=== PATIENT | male | born 1950 | race Two or more races ===

== ENCOUNTER 2024-09-24 12:44 | Inpatient (IN) | payer OTHER, MEDICAID ==
[~2024-09-24] VITALS: Ht 170.2 cm; Wt 83.2 kg
[2024-09-24] VITALS (24 sets, daily range): BP systolic 88–132; BP diastolic 41–61; PULSE 60–101; RESP 16–24; TEMP 97.7–99.5; O2SAT 97–100
[2024-09-24] MEDS: ETOMIDATE (2MG/ML) 20ML VIAL IV ONE (12:46)
[2024-09-24] MEDS: ROCURONIUM 10MG/ML 10ML VIAL IV ONE (12:47)
--- NOTE | 2024-09-24 12:55 | ED.PDOC ---
Altered Mental Status HPI Comments 74 year old male presents to the ED via EMS with a chief complaint of ALOC onset today (09/24/24). PMHx CHF, HTN, CKF. Per EMS, patient was last seen well this morning at 06:00, baseline is A&O x4. A few hours after, family member went into room to check on the patient, was altered, unresponsive, 911 was called. Upon EMS arrival patient's O2 sat was 76% on RA with snoring respirations. Upon ED arrival rectal temperature was 101.8 F, BS 415. Patient was immediately sedated and intubated. Chief Complaint: ALOC Time Seen by MD: 12:38 Allergies: Coded Allergies: NO KNOWN ALLERGIES (Unverified , 09/24/24) Information Source: Emergency Med Personnel Mode of Arrival: EMS Severity: Moderate Timing: Hours Duration: Since onset Prehospital treatment: Oxygen Quality: Decreased Alertness, Change in Behavior Past Medical History PAST MEDICAL HISTORY: CHF, CKF, HTN Surgical History: Pacemaker Family History Family History: Unknown Social History Smoker: Unknown Alcohol: Unknown Drugs: Unknown Lives In: Home Unable to Obtain due to: Altered Mental Status Physical Exam General Appearance: Moderate Distress, Other (Patient being bagged by EMS) HEENT: Other (Copious secretions) Neck: Normal Inspection Respiratory: Other (Patient being bagged by EMS) Cardiovascular: No Edema Breast Exam: Deferred Gastrointestinal: Other (G-tube in place) Genitalia: Deferred Pelvic: Deferred Rectal: Deferred Extremities: No pedal edema Neurologic: Other (Patient is unresponsive) Cerebellar Function: NOT DONE Reflexes: NOT DONE Skin: Pallor Lymphatic: NOT DONE Was a procedure done? Was a procedure done?: Yes Sedation Sedation?: No Sedation total time: Central Line Recorder of insertion practice: Sheet Metal Insulator Occupation of inserter operator: Attending Physician Indication: Suspected infection Room prepared for procedure: Yes Sheet Metal Insulator performed hand hygien: Yes Maximal sterile barrier precau: Mask/Eye shield, Sterile gown, Cap, Sterlie gloves, Large sterlie drape Skin Preparation: Chlorhexidine gluconate, Providine iodine, Alcohol Skin preparation completely dr: Yes Insertion site: Right, Femoral Central line catheter type: Kbj-[id number]-jbb dialysis Number of lumens: 3 Post Assessment: Chest X-Ray, Proper placement Informed consent obtained: Yes Risks/benefits/alt described: Yes Intubation Indication: Respiratory Insufficiency, Altered Mental Status Prep: Preoxygenation Pretreated with: Sedation Medicated with: Other (Etomidate 20 mg, Rocuronium 100 mg) Intubation Approach: Orotracheal Intubation size: cm (24) Informed consent obtained: Yes Risks/benefits/alt described: Yes Differential Diagnosis (ALOC) Differential Diagnosis: Dehydration, Hypoglycemia, DKA, Encephalopathy, Hypoxemia, Seizure, CVA, Drug Overdose, ETOH Intoxication, Heart Failure, Renal Failure X-Ray, Labs, Meds, VS Vital Signs Date Time Temp Pulse Resp B/P (MAP) Pulse Ox O2 Delivery O2 Flow Rate FiO2 09/24/24 17:32 09/24/24 17:30 98.1 68 20 91/49 (63) 98 98.1 09/24/24 16:56 71 09/24/24 16:45 98.4 70 15 90/50 (63) 98 98.4 09/24/24 16:34 99.5 79 16 100/56 97 80 99.5 09/24/24 16:30 98.8 72 16 91/51 (64) 98 98.8 09/24/24 16:15 98.8 75 16 99/56 (70) 98 98.8 09/24/24 16:00 99.0 79 16 100/56 (71) 98 99.0 09/24/24 15:46 100/56 09/24/24 15:45 83 16 127/67 (87) 97 09/24/24 15:33 79 16 107/59 (75) 97 80 09/24/24 15:30 99.3 80 16 107/59 (75) 97 99.3 09/24/24 15:15 99.5 82 16 114/62 (79) 96 99.5 09/24/24 15:00 99.7 83 16 104/59 (74) 96 99.7 09/24/24 14:45 99.9 84 16 108/61 (77) 96 99.9 09/24/24 14:30 100.2 85 16 114/63 (80) 96 100.2 09/24/24 14:27 107/59 09/24/24 14:15 100.6 85 16 111/61 (78) 96 100.6 09/24/24 14:00 101.1 88 16 100/60 (73) 97 101.1 09/24/24 13:51 103/59 09/24/24 13:45 101.5 93 16 106/59 (75) 98 101.5 09/24/24 13:30 97 16 107/68 (81) 96 09/24/24 13:15 100 16 96/57 (70) 98 09/24/24 13:01 102 16 93/52 (66) 98 100 09/24/24 13:00 102 16 90/54 (66) 97 09/24/24 12:50 98 09/24/24 12:48 101 09/24/24 12:47 103/54 09/24/24 12:44 101 16 97 T-piece 15 N/A 09/24/24 12:44 101.8 110 10 103/46 (65) 95 101.8 09/24/24 12:44 101.7 101 16 90/54 (66) 97 101.7 Lab Test 09/24/24 16:09 09/24/24 14:49 09/24/24 14:04 09/24/24 13:54 Range/Units POC Glucose 310 H 70-106 mg/dl Lactic Acid Level 1.6 0.4-2.0 mmol/L Sodium Level 150 H 136-145 mmol/L Potassium Level 5.4 H 3.5-5.1 mmol/L Chloride Level 115 H 98-107 mmol/L Carbon Dioxide Level 27 20-31 mmol/L Anion Gap 8 5-15 Blood Urea Nitrogen 84 *H 9-23 mg/dL Creatinine 2.13 H 0.700-1.30 mg/dL Glomerular Filtration Rate Calc 32 >90 mL/min BUN/Creatinine Ratio 39.4 H 10.0-20.0 Serum Glucose 436 *H 74-106 mg/dL Calcium Level 8.4 L 8.7-10.4 mg/dL Total Bilirubin 0.5 0.2-1.0 mg/dL Aspartate Amino Transferase (AST) 19 13-40 U/L Alanine Aminotransferase (ALT) 20 7-40 U/L Alkaline Phosphatase 86 46-116 U/L Total Protein 6.4 5.7-8.2 g/dL Albumin 3.4 3.2-4.8 g/dL Blood Gas Specimen Type Arterial Blood Gas Sample Site Right brachial Blood Gas Patient Temperature 37.0 Arterial Blood Date Drawn [id number] Arterial Blood pH 7.308 L 7.350-7.450 Arterial Blood Partial Pressure CO2 48.9 H 35.0-48.0 mmHg Arterial Blood Partial Pressure O2 148.2 H 83.0-108.0 mmHg Arterial Blood HCO3 24.0 21.0-28.0 mmol/L Arterial Blood Oxygen Saturation 98.8 H 94.0-98.0 % Arterial Blood Base Excess -2.6 L -2.0-3.0 mmol/L Arterial Blood Oxyhemoglobin 97.5 94.0-98.0 % Arterial Blood Carboxyhemoglobin 0.8 0.5-1.5 % Arterial Blood Methemoglobin 0.5 0.0-1.5 % Damián Test N/a Blood Gas Total Hemoglobin 12.30 L 13.5-17.5 g/dL Blood Gas Set Respiration Rate 16.0 Blood Gas Modality Vent - ac FiO2 % 100.0 Blood Gas Tidal Volume 500.0 Blood Gas PEEP or CPAP 5.0 Test 09/24/24 13:33 09/24/24 13:00 Range/Units White Blood Count 6.2 4.4-10.8 10^3/uL Red Blood Count 4.10 L 4.5-5.90 10^6/uL Hemoglobin 12.2 L 13.5-17.5 g/dL Hematocrit 38.6 L 41.0-53.0 % Mean Corpuscular Volume 94.0 80.0-100.0 fL Mean Corpuscular Hemoglobin 29.8 28.0-32.0 pg Mean Corpuscular Hemoglobin Concent 31.7 L 32.0-36.0 g/dL Red Cell Distribution Width 16.6 H 11.8-14.3 % Platelet Count 130 L 140-450 10^3/uL Mean Platelet Volume 11.3 H 6.9-10.8 fL Neutrophils (%) (Auto) 65.7 37.0-80.0 % Lymphocytes (%) (Auto) 22.8 10.0-50.0 % Monocytes (%) (Auto) 10.8 0.0-12.0 % Eosinophils (%) (Auto) 0.1 0.0-7.0 % Basophils (%) (Auto) 0.6 0.0-2.0 % Neutrophils # (Auto) 4.1 1.6-8.6 10 ^3/uL Lymphocytes # (Auto) 1.4 0.4-5.4 10 ^3/uL Monocytes # (Auto) 0.7 0-1.3 10 ^3/uL Eosinophils # (Auto) 0 0-0.8 10 ^3/uL Basophils # (Auto) 0 0-0.2 10 ^3/uL Nucleated Red Blood Cells 0.1 % Urine Color Yellow Yellow Urine Clarity Ex.turbid Clear Urine pH 5.0 5.0-9.0 Urine Specific [place] 1.024 1.001-1.035 Urine Protein 2+ H Negative Urine Ketones Negative Negative Urine Blood Negative Negative /uL Urine Nitrite Negative Negative Urine Bilirubin Negative Negative Urine Urobilinogen 2 H Negative mg/dL Urine Leukocyte Esterase 3+ Negative /uL Urine RBC 8 0 - 3 /hpf Urine WBC Clumps Present None Seen /hpf Urine Microscopic WBC 450 H 0-3 /HPF Urine Squamous Epithelial Cells Few <5 /hpf Urine Amorphous Crystals Few None Seen /hpf Urine Bacteria Few H None Seen /hpf Urine Glucose Normal Normal mg/dL Lactic Acid Level 2.2 *H 0.4-2.0 mmol/L Troponin I High Sensitivity 125 *H </=54 ng/L B-Type Natriuretic Peptide 193.48 0-100 pg/mL Urine Opiates Screen Neg NEGATIVE Urine Fentanyl Screen Neg NEGATIVE Urine Barbiturates Screen Neg NEGATIVE Urine Phencyclidine Screen Neg NEGATIVE Urine Amphetamines Screen Neg NEGATIVE Urine Benzodiazepines Screen Neg NEGATIVE Urine Cocaine Screen Neg NEGATIVE Urine Cannabinoids Screen Neg NEGATIVE Microbiology Date/Time Source Procedure Growth Status 09/24/24 13:09 Sputum Gram Stain - Final Resulted 09/24/24 13:09 Sputum Respiratory Culture Pending Resulted Current Medications Medications (Trade) Dose Ordered Sig/Jim Route Start Time Stop Time Status Last Admin Etomidate 20 mg ONCE ONCE IV 09/24/24 13:00 09/24/24 13:01 DC 09/24/24 12:46 Rocuronium [place] 100 mg ONCE ONCE IV 09/24/24 13:00 09/24/24 13:01 DC 09/24/24 12:47 Sodium Chloride 2,000 ml @ 2,000 mls/hr ONCE ONCE IV 09/24/24 13:00 09/24/24 13:59 DC 09/24/24 13:14 Vancomycin HCl 200 ml @ 200 mls/hr ONCE ONCE IV 09/24/24 13:00 09/24/24 13:59 DC 09/24/24 13:14 Cefepime HCl 50 ml @ 12.5 mls/hr ONCE ONCE IV 09/24/24 13:00 09/24/24 16:59 DC 09/24/24 14:30 Midazolam HCl 50 ml @ 1 mls/hr Q24H IV 09/24/24 13:00 09/24/24 13:51 Acetaminophen (Ofirmev) 1,000 mg DAILY STAT IV 09/24/24 13:42 09/24/24 13:43 DC 09/24/24 13:47 [place] [id number] Ph: [phone] DIAGNOSTIC IMAGING Diagnostic Imaging Report : [id number] Signed PATIENT: NAGA DUMONT ACCT: [id number] UNIT: [id number] : 1950 LOC: ER ROOM / BED: / AGE / SEX: 74 / M ADM STATUS: REG ER SERVICE 1250 ORDERING PHYSICIAN: YOSHI FUENTES MD PROCEDURE(s): CXRP - CHEST PORTABLE REASON: INTUBATION ORDER NUMBER(s): [id number], ACCESSION NUMBER(s): [id number] EXAM: XY CHEST PORTABLE REASON FOR EXAM: INTUBATION TECHNIQUE: 1 view of the chest COMPARISON: None FINDINGS/IMPRESSION: LUNGS: Low lung volumes. Atelectasis and/or pleural effusion in the left lung base. MEDIASTINUM: Unremarkable BONES: No acute osseous abnormality OTHER: Endotracheal tube 2.1 cm above the harlan. Left anterior chest cardiac device. ATED BY: ELLIOTT BURT MD DICTATED DATE/TIME: 09/24/24 135 SIGNED BY: ELLIOTT BURT MD SIGNED DATE/TIME: 09/24/24 135 CC: Time of 1ST Reevaluation: 13:08 Reevaluation 1ST: Unchanged Patient Education/Counseling: Other Family Education/Counseling: Diagnosis, Treatment, Prognosis Additional Information The following tests were ordered, and results were reviewed by me: EKG, CBC, CMP, BNP, DRUG SCREEN, UA, URINE BACTERIAL CULTURE, LA W/ REFLEX, XY CHEST. TROP, RESPIRATORY CULTURE W/ GS, CT HEAD WO CONTRAST Additional Information was gathered from interviewing the following independent historians: EMS I reviewed and agreed with the following test results read by other providers: XY CHEST, CT HEAD WO CONTRAST I discussed treatment and results with medical personnel and: family Comprehensive systems review obtained and negative except for what is stated in the HPI. Departure 1 Departure Time of Disposition: 17:39 (Patient presented unresponsive not tolerating secretions. Patient was intubated, central line was placed patient likely septic received fluids antibiotics patient is a ICU for further workup) Impression: Primary Impression: Sepsis with acute respiratory failure and septic shock Qualified Codes: A41.9 - Sepsis, unspecified organism; R65.21 - Severe sepsis with septic shock; J96.01 - Acute respiratory failure with hypoxia Additional Impressions: Acute respiratory failure Qualified Codes: J96.01 - Acute respiratory failure with hypoxia Complicated UTI (urinary tract infection) Disposition: ADMITTED INPATIENT Admit to: ICU Condition: Critical Critical Care Note Critical Care Time?: Yes Critical care comment: Sepsis with the acute respiratory failure Authorized and Performed by: Yoshi Fuentes MD Total critical care time: Approximately 128 minutes Due to a high probability of clinically significant, life threatening deterioration, the patient required my highest level of preparedness to intervene emergently and I personally spent this critical care time directly and personally managing the patient. This critical care time included obtaining a history; examining the patient; pulse oximetry; ordering and review of studies; arranging urgent treatment with development of a management plan; evaluation of patient's response to treatment; frequent reassessment; and, discussions with other providers. This critical care time was performed to assess and manage the high probability of imminent, life-threatening deterioration that could result in multi-organ failure. It was exclusive of separately billable procedures and treating other patients and teaching time. Please see my other sections and the rest of the note for further information on patient assessment and treatment. Stability Stability form required: No I personally scribed for YOSHI FUENTES MD ([email or web address]) on 09/24/24 at 12:55. Electronically submitted by Mary Best ([email or web address]). I personally scribed for YOSHI FUENTES MD ([email or web address]) on 09/24/24 at 13:01. Electronically submitted by Mary Best ([email or web address]). I personally scribed for YOSHI FUENTES MD ([email or web address]) on 09/24/24 at 13:07. Electronically submitted by Mary Best ([email or web address]). I personally scribed for YOSHI FUENTES MD ([email or web address]) on 09/24/24 at 13:20. Electronically submitted by Mary Best ([email or web address]). I personally scribed for YOSHI FUENTES MD ([email or web address]) on 09/24/24 at 15:41. Electronically submitted by Mary Best ([email or web address]). YOSIH FUENTES MD September 24, 2024 12:55
[2024-09-24] MEDS ORDERED: MIDAZOLAM DRIP 50 mg/50mL 50 ML IV SCH (13:00)
[2024-09-24] MEDS: SODIUM CHLORIDE 0.9% 2,000 ML IV ONE (13:14)
[2024-09-24] MEDS: VANCOMYCIN 1GM/200ML PM 200 ML IV ONE (13:14)
[2024-09-24 13:41] LABS: Basophils # (auto) 0 10 ^3/uL (0-0.2); Basophils % (auto) 0.6 % (0.0-2.0); Eosinophils # (auto) 0 10 ^3/uL (0-0.8); Eosinophils % (auto) 0.1 % (0.0-7.0); Hematocrit 38.6 % (41.0-53.0); Hemoglobin 12.2 g/dL (13.5-17.5); Lymphocytes # (auto) 1.4 10 ^3/uL (0.4-5.4); Lymphocytes % (auto) 22.8 % (10.0-50.0); Mean Corpuscular Hemoglobin 29.8 pg (28.0-32.0); Mean Corpuscular Hgb Conc. 31.7 g/dL (32.0-36.0); Monocytes # (auto) 0.7 10 ^3/uL (0-1.3); Monocytes % (auto) 10.8 % (0.0-12.0); Neutrophils # (auto) 4.1 10 ^3/uL (1.6-8.6); Neutrophils % (auto) 65.7 % (37.0-80.0); Nucleated Red Blood Cells % 0.1 %; Platelet Count (auto) 130 10^3/uL (140-450); Red Cell Distribution Width 16.6 % (11.8-14.3); White Blood Cell 6.2 10^3/uL (4.4-10.8)
[2024-09-24 13:45] LABS: Amphetamine Screen, Urine Neg (NEGATIVE); Barbiturate Scree,Urine Neg (NEGATIVE); Benzodiazephine Screen, Urine Neg (NEGATIVE); Cocaine Screen, Urine Neg (NEGATIVE)
[2024-09-24 13:46] LABS: Cannabinoid Screen, Urine Neg (NEGATIVE); Opiate Scree,Urine Neg (NEGATIVE); Phencyclidine Screen, Urine Neg (NEGATIVE)
[2024-09-24] MEDS: ACETAMINOPHEN IV 1000 MG/100ML (10MG/ML) IV STA (13:47)
[2024-09-24] MEDS: NOREPINEPHRINE 8 MG/250ML KIT 250 ML IV ONE (13:49)
[2024-09-24] MEDS: MIDAZOLAM DRIP 50 mg/50mL 50 ML IV SCH (13:51)
--- NOTE | 2024-09-24 13:56 | DVH ---
EXAM: XY CHEST PORTABLE REASON FOR EXAM: INTUBATION TECHNIQUE: 1 view of the chest COMPARISON: None FINDINGS/IMPRESSION: LUNGS: Low lung volumes. Atelectasis and/or pleural effusion in the left lung base. MEDIASTINUM: Unremarkable BONES: No acute osseous abnormality OTHER: Endotracheal tube 2.1 cm above the harlan. Left anterior chest cardiac device.
[2024-09-24 13:57] LABS: Urine Amorphous Crystal FEW /hpf (None Seen); Urine Bacteria FEW /hpf (None Seen); Urine Blood Negative /uL (Negative); Urine Clarity Ex.Turbid (Clear); Urine Color Yellow (Yellow); Urine Protein, UAD 2+ (Negative); Urine Specific Gravity 1.024 (1.001-1.035); Urine Squamous Epithelial Cell FEW /hpf (<5); Urine Urobilinogen 2 mg/dL (Negative); Urine WBC 450 /HPF (0-3); Urine WBC Clumps PRESENT /hpf (None Seen)
[2024-09-24 14:00] LABS: Base Excess -2.6 mmol/L (-2.0-3.0)
[2024-09-24 14:07] LABS: Lactic Acid w/Reflex 2.2 mmol/L (0.4-2.0)
[2024-09-24] MEDS: NOREPINEPHRINE 8 MG/250ML KIT 250 ML IV SCH (14:27)
[2024-09-24] MEDS: fentaNYL Drip 2500mCg/250mlNS 250 ML IV SCH (14:27)
[2024-09-24] MEDS: CEFEPIME 2GM/50ML NS 50 ML IV ONE (14:30)
[2024-09-24 14:39] LABS: Alanine Aminotransferase 20 U/L (7-40); Albumin 3.4 g/dL (3.2-4.8); Alkaline Phosphatase 86 U/L (46-116); Anion Gap 8 (5-15); Aspartate Aminotransferase 19 U/L (13-40); BUN/Creatinine Ratio 39.4 (10.0-20.0); Carbon Dioxide 27 mmol/L (20-31); Total Protein 6.4 g/dL (5.7-8.2)
[2024-09-24 14:40] LABS: Bilirubin, Total 0.5 mg/dL (0.2-1.0)
[2024-09-24 14:41] LABS: Calcium 8.4 mg/dL (8.7-10.4); Chloride 115 mmol/L (98-107); Potassium 5.4 mmol/L (3.5-5.1); Sodium 150 mmol/L (136-145)
[2024-09-24 14:43] LABS: Blood Urea Nitrogen 84 mg/dL (9-23); Glucose 436 mg/dL (74-106)
--- NOTE | 2024-09-24 16:11 | DVH ---
EXAM: CT HEAD WITHOUT CONTRAST INDICATION: found down EXAM DATE: 09/24/2024 03:37 PM COMPARISON: None TECHNIQUE: CT of the head without intravenous contrast. Radiation Dose Information: CTDI volume is 59.80 mGy. Dose-length product is 1058.86 mGy*cm FINDINGS: There is no evidence of acute intracranial hemorrhage, extra-axial collection, mass effect, midline s hift, herniation or hydrocephalus. There is global atrophy with periventricular ischemic white matter changes. The ventricles, sulci and cisterns are age appropriate. The moody-white differentiation is i ntact. The visualized paranasal sinuses and mastoid air cells are clear. The surrounding soft tissues and osseous structures are unremarkable. IMPRESSION: 1. No evidence of acute intracranial hemorrhage, mass effect or hydrocephalus. 2. Global atrophy with periventricular ischemic white matter changes. END IMPRESSION:
[2024-09-24] MEDS ORDERED: VANCOMYCIN PER PHARMACY 0 MG IV SCH (18:15)
[2024-09-24] MEDS ORDERED: ACETAMINOPHEN 650 MG RECT SUPP PR PRN (18:15)
[2024-09-24] MEDS: SODIUM CHLORIDE 0.9% 1,000 ML IV ONE (18:30)
--- NOTE | 2024-09-24 18:35 | ECG ---
[facility] Test Date: 2024-09-24 Test Time: 18:33:41 Pat Name: NAGA DUMONT Department: ED Room: 0265D Gender: M Publisher Assistant: FARHAT : 1950 Requested By: YOSHI MEHTA Order Number: [id number] Reading MD: Sherman Campuzano Measurements Intervals [place] Rate: 66 P: 18 OK: 166 QRS: -58 QRSD: 105 T: 174 QT: 472 QTc: 495 Interpretive Statements Atrial-sensed ventricular-paced rhythm No further analysis attempted due to paced rhythm Electronically Signed On 10-01-2024 11:11:03 PDT by Sherman Campuzano Please click the below link to view image of tracing.
[2024-09-24 18:58] LABS: Potassium 4.7 mmol/L (3.5-5.1)
[2024-09-24 18:59] LABS: Anion Gap 9 (5-15); Calcium 8.8 mg/dL (8.7-10.4); Carbon Dioxide 25 mmol/L (20-31); Chloride 117 mmol/L (98-107); Sodium 151 mmol/L (136-145)
[2024-09-24] MEDS ORDERED: VANCOMYCIN 1GM/200ML PM 200 ML IV ONE (19:00)
[2024-09-24 19:04] LABS: BUN/Creatinine Ratio 41.3 (10.0-20.0); Glucose 389 mg/dL (74-106)
[2024-09-24 19:07] LABS: Blood Urea Nitrogen 90 mg/dL (9-23)
--- NOTE | 2024-09-24 19:14 | DVHHP2 ---
History of Present Illness Reason for Visit: Altered level of consciousness History of Present Illness The patient is a 74-year-old male with past medical history of DM, chronic kidney failure, CHF, and hypertension presented to [facility] ED for evaluation of altered level of consciousness. As reported by daughter, patient was alert oriented x4, but few hours later patient was altered, unresponsive so 911 was called. When EMS arrived on the scene, patient's O2 saturation was 76% on room air with snoring respirations and was given breathing treatment, O2 saturation improved to 94% EN route to our facility ED. patient was seen and evaluated in the ED, laboratory data shows WBC 6.2, hemoglobin 12.2, hematocrit 38.6, platelets 130, sodium 150, potassium 5.4, BUN 84, creatinine 2.13, glucose 436, lactic acid 2.2 trending down to 1.6, troponin 125, calcium 8.4, BNP 193.48, blood pressure 91/47, heart rate 97, temperature 101.8 F trending down to 98.1 F, O2 saturation 98% on ventilator. Patient was subsequently sedated and intubated. Patient was given Tylenol 1000 g IV x1, IV antibiotic regimen vancomycin, please see medication orders section in the computer. On my assessment, daughter at bedside, patient is fully intubated, no diaphoresis, no diarrhea, no nausea, no vomiting, no fever, no chills. Patient was admitted for further evaluation and medical management. Past Medical History CHF, CKF, HTN Past Surgical History Pacemaker Family History Reviewed, noncontributory to the management of this case. Past Social History The patient lives at home, no history of smoking, alcohol or illicit drugs abuse on file. Review of Systems Constitutional: Yes: Weakness; No: Fever, Chills, Sweats, Malaise, Other Eyes: No: Pain, Vision change, Conjunctivae inflammation, Eyelid inflammation, Other, Redness ENT: No: Ear pain, Ear discharge, Nose pain, Nose discharge, Nose congestion, Mouth pain, Mouth swelling, Throat pain, Throat swelling, Other Respiratory: Shortness of breath; No: Cough, Dry, SOB with excertion, Wheezing, Hemoptysis, Pleuritic Pain, Sputum, Wheezing, Other Cardiovascular: No: Chest Pain, Palpitations, Orthopnea, Paroxysmal Noc. Dyspnea, Edema, Lt Headedness, Other Gastrointestinal: Other (Peg tube in place); No: Nausea, Vomiting, Abdominal Pain, Diarrhea, Constipation, Melena, Hematochezia Genitourinary: No Dysuria, No Frequency, No Incontinence, No Hematuria, No Retention; Other (Chawla catheter in place) Musculoskeletal: No: other, neck pain, shoulder pain, arm pain, back pain, hand pain, leg pain, foot pain Skin: No: Rash, Lesions, Jaundice, Bruising, Other Neurological: Weakness, Other (Altered level of consciousness); No: Numbness, Incoordination, Change in speech, Confusion, Seizures Allergies: Coded Allergies: NO KNOWN ALLERGIES (Unverified , 09/24/24) Medications Current Medications Medications Dose Ordered Sig/Jim Route Start Time Stop Time Status Last Admin Dose Admin Midazolam HCl 50 ml @ 1 mls/hr Q24H IV 09/24/24 13:00 UNV Norepinephrine Bitartrate 250 ml @ 3.75 mls/hr Q24H IV 09/24/24 13:00 Midazolam HCl 50 ml @ 1 mls/hr Q24H IV 09/24/24 13:00 09/24/24 13:51 1 MLS/HR Fentanyl Citrate 250 ml @ 2.5 mls/hr Q24H IV 09/24/24 13:00 Vancomycin HCl 0 ml @ 0 mls/hr UD IV 09/24/24 18:15 UNV Cefepime HCl 50 ml @ 12.5 mls/hr Q12HR IV 09/24/24 22:00 Acetaminophen 650 mg Q6HP PRN MD 09/24/24 18:15 Diagnostic Test (Pha) 1 strip IQ4HR 09/24/24 20:00 Insulin Human Regular IQ4HR SC 09/24/24 20:00 Dextrose 50 ml UD PRN IV 09/24/24 18:15 Sodium Chloride 10 ml Q8HR IV 09/24/24 22:00 Ondansetron HCl 4 mg Q4HP PRN IV 09/24/24 18:15 Famotidine 20 mg EOD IV 09/24/24 22:00 Exam Vital Signs Vital Signs Date Time Temp Pulse Resp B/P (MAP) Pulse Ox O2 Delivery O2 Flow Rate FiO2 09/24/24 19:00 98.1 65 18 95/51 (66) 97 98.1 09/24/24 17:51 80 09/24/24 12:44 T-piece 15 General Appearance: No acute distress, Other (Fully intubated) HEENT: Atraumatic, PERRLA, EOMI, Mucous membr. moist/pink Respiratory: Normal air movement, Other (On ventilator) Cardiovascular: Regular rate, Normal S1, Normal S2, No murmurs Abdominal: Normal bowel sounds, Soft, No tenderness, No hepatospenomegaly, No masses, Other (Peg tube in place) Extremities: No clubbing, No cyanosis, No edema, Normal pulses, No tenderness/swelling Skin: No rashes, No breakdown, No significant lesion Neuro: Other (Altered level of consciousness) Psych/Mental Status: Other (Altered mental status) Labs/Xrays Labs Test 09/24/24 18:14 09/24/24 16:09 09/24/24 14:49 09/24/24 14:04 Range/Units Sodium Level 151 H 136-145 mmol/L Potassium Level 4.7 3.5-5.1 mmol/L Chloride Level 117 H 98-107 mmol/L Carbon Dioxide Level 25 20-31 mmol/L Anion Gap 9 5-15 Blood Urea Nitrogen 90 *H 9-23 mg/dL Creatinine 2.18 H 0.700-1.30 mg/dL Glomerular Filtration Rate Calc 31 >90 mL/min BUN/Creatinine Ratio 41.3 H 10.0-20.0 Serum Glucose 389 H 74-106 mg/dL Calcium Level 8.8 8.7-10.4 mg/dL Troponin I High Sensitivity 139 *H </=54 ng/L POC Glucose 310 H 70-106 mg/dl Lactic Acid Level 1.6 0.4-2.0 mmol/L Total Bilirubin 0.5 0.2-1.0 mg/dL Aspartate Amino Transferase (AST) 19 13-40 U/L Alanine Aminotransferase (ALT) 20 7-40 U/L Alkaline Phosphatase 86 46-116 U/L Total Protein 6.4 5.7-8.2 g/dL Albumin 3.4 3.2-4.8 g/dL Test 09/24/24 13:54 09/24/24 13:33 09/24/24 13:00 Range/Units Blood Gas Specimen Type Arterial Blood Gas Sample Site Right brachial Blood Gas Patient Temperature 37.0 Arterial Blood Date Drawn [id number] Arterial Blood pH 7.308 L 7.350-7.450 Arterial Blood Partial Pressure CO2 48.9 H 35.0-48.0 mmHg Arterial Blood Partial Pressure O2 148.2 H 83.0-108.0 mmHg Arterial Blood HCO3 24.0 21.0-28.0 mmol/L Arterial Blood Oxygen Saturation 98.8 H 94.0-98.0 % Arterial Blood Base Excess -2.6 L -2.0-3.0 mmol/L Arterial Blood Oxyhemoglobin 97.5 94.0-98.0 % Arterial Blood Carboxyhemoglobin 0.8 0.5-1.5 % Arterial Blood Methemoglobin 0.5 0.0-1.5 % Damián Test N/a Blood Gas Total Hemoglobin 12.30 L 13.5-17.5 g/dL Blood Gas Set Respiration Rate 16.0 Blood Gas Modality Vent - ac FiO2 % 100.0 Blood Gas Tidal Volume 500.0 Blood Gas PEEP or CPAP 5.0 White Blood Count 6.2 4.4-10.8 10^3/uL Red Blood Count 4.10 L 4.5-5.90 10^6/uL Hemoglobin 12.2 L 13.5-17.5 g/dL Hematocrit 38.6 L 41.0-53.0 % Mean Corpuscular Volume 94.0 80.0-100.0 fL Mean Corpuscular Hemoglobin 29.8 28.0-32.0 pg Mean Corpuscular Hemoglobin Concent 31.7 L 32.0-36.0 g/dL Red Cell Distribution Width 16.6 H 11.8-14.3 % Platelet Count 130 L 140-450 10^3/uL Mean Platelet Volume 11.3 H 6.9-10.8 fL Neutrophils (%) (Auto) 65.7 37.0-80.0 % Lymphocytes (%) (Auto) 22.8 10.0-50.0 % Monocytes (%) (Auto) 10.8 0.0-12.0 % Eosinophils (%) (Auto) 0.1 0.0-7.0 % Basophils (%) (Auto) 0.6 0.0-2.0 % Neutrophils # (Auto) 4.1 1.6-8.6 10 ^3/uL Lymphocytes # (Auto) 1.4 0.4-5.4 10 ^3/uL Monocytes # (Auto) 0.7 0-1.3 10 ^3/uL Eosinophils # (Auto) 0 0-0.8 10 ^3/uL Basophils # (Auto) 0 0-0.2 10 ^3/uL Nucleated Red Blood Cells 0.1 % Urine Color Yellow Yellow Urine Clarity Ex.turbid Clear Urine pH 5.0 5.0-9.0 Urine Specific [place] 1.024 1.001-1.035 Urine Protein 2+ H Negative Urine Ketones Negative Negative Urine Blood Negative Negative /uL Urine Nitrite Negative Negative Urine Bilirubin Negative Negative Urine Urobilinogen 2 H Negative mg/dL Urine Leukocyte Esterase 3+ Negative /uL Urine RBC 8 0 - 3 /hpf Urine WBC Clumps Present None Seen /hpf Urine Microscopic WBC 450 H 0-3 /HPF Urine Squamous Epithelial Cells Few <5 /hpf Urine Amorphous Crystals Few None Seen /hpf Urine Bacteria Few H None Seen /hpf Urine Glucose Normal Normal mg/dL B-Type Natriuretic Peptide 193.48 0-100 pg/mL Urine Opiates Screen Neg NEGATIVE Urine Fentanyl Screen Neg NEGATIVE Urine Barbiturates Screen Neg NEGATIVE Urine Phencyclidine Screen Neg NEGATIVE Urine Amphetamines Screen Neg NEGATIVE Urine Benzodiazepines Screen Neg NEGATIVE Urine Cocaine Screen Neg NEGATIVE Urine Cannabinoids Screen Neg NEGATIVE Microbiology Date/Time Source Procedure Growth Status 09/24/24 13:09 Sputum Gram Stain - Final Resulted 09/24/24 13:09 Sputum Respiratory Culture Pending Resulted PATIENT: NAGA DUMONT ACCT: [id number] UNIT: [id number] : 1950 LOC: ER ROOM / BED: / AGE / SEX: 74 / M ADM STATUS: REG ER SERVICE 1250 ORDERING PHYSICIAN: YOSHI MEHTA MD PROCEDURE(s): CXRP - CHEST PORTABLE REASON: INTUBATION ORDER NUMBER(s): [id number], ACCESSION NUMBER(s): [id number] EXAM: XY CHEST PORTABLE REASON FOR EXAM: INTUBATION TECHNIQUE: 1 view of the chest COMPARISON: None FINDINGS/IMPRESSION: LUNGS: Low lung volumes. Atelectasis and/or pleural effusion in the left lung base. MEDIASTINUM: Unremarkable BONES: No acute osseous abnormality OTHER: Endotracheal tube 2.1 cm above the harlan. Left anterior chest cardiac device. ORDERING PHYSICIAN: YOSHI MEHTA MD PROCEDURE(s): HWOCT - HEAD WITHOUT CONTRAST REASON: found down ORDER NUMBER(s): [id number], ACCESSION NUMBER(s): [id number] EXAM: CT HEAD WITHOUT CONTRAST INDICATION: found down EXAM DATE: 09/24/2024 03:37 PM COMPARISON: None TECHNIQUE: CT of the head without intravenous contrast. Radiation Dose Information: CTDI volume is 59.80 mGy. Dose-length product is 1058.86 mGy*cm FINDINGS: There is no evidence of acute intracranial hemorrhage, extra-axial collection, mass effect, midline shift, herniation or hydrocephalus. There is global atrophy with periventricular ischemic white matter changes. The ventricles, sulci and cisterns are age appropriate. The moody-white differentiation is intact. The visualized paranasal sinuses and mastoid air cells are clear. The surrounding soft tissues and osseous structures are unremarkable. IMPRESSION: 1. No evidence of acute intracranial hemorrhage, mass effect or hydrocephalus. 2. Global atrophy with periventricular ischemic white matter changes. Assessment/Plan Assessment/Plan Sepsis with acute respiratory failure and septic shock Sepsis, unspecified organism Generalized weakness Electrolyte imbalance Severe sepsis with septic shock Acute respiratory failure with hypoxia Acute respiratory failure Complicated UTI (urinary tract infection) Hyperglycemia due to diabetes mellitus Plan 1. Admit to intensive care unit 2. Breathing treatment 3. Pain control management 4. IV antibiotic management 5. Management of fluids and electrolytes 6. Consultation for pulmonology/nephrology 7. Diagnostic test head CT 8. DVT prophylaxis-on aspirin 9. Repeat labs CBC, CMP in a.m. 10. Home medication reviewed and reconciled 11. Continue with current medical management 12. Treatment plan discussed with patient/daughter and RN. Daughter verbalized understanding. Plan discussed with: Patient, Daughter, Other (RN) My Orders Orders - SHEYLA KUHN [facility] Procedure Category Date Status Time Vancomycin Per PHA 09/24/24 Pending Pharmacy 18:15 Cefepime 1gm/ 50ml PHA 09/24/24 In Process (Maxipime 1gm/50ml) 22:00 Acetaminophen PHA 09/24/24 In Process Suppository (Tylenol 18:15 *[facility] CONS 09/24/24 Transmitted -[place] 18:14 *Consult CONS 09/24/24 Transmitted / 18:14 Troponin-I Hs LAB 09/24/24 Logged 22:00 Glucose Blood PHA 09/24/24 In Process (Accu-Chek Comfort 20:00 Insulin R (Human) PHA 09/24/24 In Process (Insulin R) 20:00 Dextrose 50% Syringe PHA 09/24/24 In Process 18:15 Allergies TOMI 09/24/24 In Process 18:14 Code Status CODE 09/24/24 Transmitted 18:14 Sodium Chloride Lock PHA 09/24/24 In Process (Saline Lock Ns) 22:00 Oxygen Per Hour RT 09/24/24 Transmitted 18:14 Ondansetron Hcl PHA 09/24/24 In Process (Zofran) 18:15 Fall Risk Precautions TOMI 09/24/[address] 18:14 Complete Blood Count LAB 09/25/24 Verified 04:00 Comprehensive LAB 09/25/24 Verified Metabolic Panel 04:00 Npo (Nothing By DIET 09/24/24 Transmitted Mouth) Diet Dinner Condition: Critical TOMI 09/24/24 In Process 18:14 Maintain Bed Rest TOMI 09/24/24 In Process 18:14 Sequential TOMI 09/24/24 In Process Compression Device Famotidine Injection PHA 09/24/24 In Process (Pepcid Injection) 22:00 Vancomycin,Random LAB 09/25/24 Verified 04:00 Aspirin Tablet PHA 09/25/24 Verified 10:00 Aspirin Tablet PHA 09/24/24 Verified 19:15 Admit ADMIT 09/24/24 Verified 19:12 Nitroglycerin [facility] 09/24/24 Verified Sublingual (Ntrostat 19:15 Morphine Sulfate PHA 09/24/24 Verified Injection 19:15 Stat Ekg For Chest [facility] 09/24/24 Verified Pain 19:12 Notify Md Of Changes [facility] 09/24/24 Verified From Base 19:12 Metrology Manager For [facility] 09/24/24 Verified 24 Hours 19:12 Emergency Dysrhythmia [facility] 09/24/24 Verified Protocol 19:12 Rhythm Strips Once [facility] 09/24/24 Verified Every Shift 19:12 Oxygen By Nasal RT 09/24/24 Verified Cannula 19:12 Problem List: (1) Sepsis with acute respiratory failure and septic shock (2) Complicated UTI (urinary tract infection) (3) Acute respiratory failure (4) Generalized weakness (5) Electrolyte imbalance (6) Hyperglycemia due to diabetes mellitus (7) Acute respiratory failure with hypoxia (8) Sepsis, unspecified organism (9) Severe sepsis with septic shock Date of Service: September 24, 2024 Billing Provider: SHEYLA KUHN DNP Common Visit Codes: 59294-UECJYTT INP/OBS CARE (HIGH) SHEYLA KUHN DNP September 24, 2024 19:14
[2024-09-24] MEDS ORDERED: MORPHINE SULFATE INJ 2 MG/ml SYRG IV PRN (19:15)
[2024-09-24] MEDS ORDERED: NITROGLYCERIN 0.4 MG SL TAB SL PRN (19:15)
[2024-09-24] MEDS: ACCU-CHEK COMFORT CURVE STRIP VI SCH (20:00)
[2024-09-24] MEDS: InsuLIN REG 1unit/0.01ml Soln (100units/ml) SC SCH (20:00)
[2024-09-24] MEDS: CEFEPIME 1GM/ 50ML 50 ML IV SCH (20:54)
[2024-09-24] MEDS: FAMOTIDINE (10MG/ML) 2ML VL IV SCH (20:54)
[2024-09-24] MEDS: ASPirin 81 mg TAB PO ONE (20:54)
[2024-09-24] MEDS: SODIUM CHLOR 0.9% PF (SALINE LOCK) 10ML VIAL/SYR IV SCH (21:02)
[2024-09-25] VITALS (106 sets, daily range): BP systolic 89–130; BP diastolic 37–65; PULSE 60–79; RESP 15–19; TEMP 97.5–98.8; O2SAT 95–100
[2024-09-25 05:43] LABS: Base Excess -3.2 mmol/L (-2.0-3.0)
--- NOTE | 2024-09-25 06:02 | DVH ---
EXAM: XR Chest, 1 View CLINICAL INDICATION: Acute resp failure TECHNIQUE: Frontal view of the chest. COMPARISON: XY CHEST PORTABLE on DOS: 09/24/24 FINDINGS: LUNGS AND PLEURAL SPACES: Bibasilar atelectasis or pneumonia. HEART: Cardiomegaly with mild congestion. MEDIASTINUM: Unremarkable. Normal mediastinal contour. BONES/JOINTS: Unremarkable. No acute fracture. TUBES, LINES AND DEVICES: The endotracheal tube (ETT) is in satisfactory position. Enteric tube ti p in the stomach. Left-sided cardiac pacemaker. OTHER FINDINGS: . . . IMPRESSION: 1. Bibasilar atelectasis or pneumonia. 2. Cardiomegaly with mild congestion.
[2024-09-25 06:30] LABS: Basophils # (auto) 0 10 ^3/uL (0-0.2); Basophils % (auto) 0.4 % (0.0-2.0); Eosinophils # (auto) 0.1 10 ^3/uL (0-0.8); Eosinophils % (auto) 2.1 % (0.0-7.0); Hematocrit 35.7 % (41.0-53.0); Hemoglobin 11.1 g/dL (13.5-17.5); Lymphocytes # (auto) 1.6 10 ^3/uL (0.4-5.4); Lymphocytes % (auto) 25.7 % (10.0-50.0); Mean Corpuscular Hemoglobin 29.8 pg (28.0-32.0); Mean Corpuscular Hgb Conc. 31.2 g/dL (32.0-36.0); Mean Corpuscular Volume 95.3 fL (80.0-100.0); Monocytes # (auto) 0.6 10 ^3/uL (0-1.3); Monocytes % (auto) 9.2 % (0.0-12.0); Neutrophils # (auto) 3.9 10 ^3/uL (1.6-8.6); Neutrophils % (auto) 62.6 % (37.0-80.0); Platelet Count (auto) 113 10^3/uL (140-450); Red Blood Cells 3.74 10^6/uL (4.5-5.90); Red Cell Distribution Width 16.5 % (11.8-14.3); White Blood Cell 6.3 10^3/uL (4.4-10.8)
[2024-09-25 06:49] LABS: Alanine Aminotransferase 17 U/L (7-40); Albumin 3.5 g/dL (3.2-4.8); Alkaline Phosphatase 67 U/L (46-116); Anion Gap 11 (5-15); BUN/Creatinine Ratio 41.3 (10.0-20.0); Carbon Dioxide 24 mmol/L (20-31); Potassium 4.5 mmol/L (3.5-5.1); Total Protein 6.5 g/dL (5.7-8.2)
[2024-09-25 06:50] LABS: Bilirubin, Total 0.4 mg/dL (0.2-1.0)
[2024-09-25 06:56] LABS: Calcium 8.7 mg/dL (8.7-10.4); Chloride 119 mmol/L (98-107); Glucose 131 mg/dL (74-106); Sodium 154 mmol/L (136-145)
[2024-09-25 06:57] LABS: Blood Urea Nitrogen 81 mg/dL (9-23)
[2024-09-25 08:07] LABS: Aspartate Aminotransferase 15 U/L (13-40)
[2024-09-25 09:07] LABS: Magnesium 3.1 mg/dL (1.6-2.6); Phosphorus 4.8 mg/dL (2.4-5.1)
[2024-09-25] MEDS: ASPirin 81 mg TAB PO SCH (09:24)
[2024-09-25] MEDS: SOD CHL 0.45% 1,000 ML IV SCH ×2 (09:25→10:20)
[2024-09-25 09:28] LABS: Urine Bacteria None Seen /hpf (None Seen)
--- NOTE | 2024-09-25 09:57 | DVH ---
INDICATION: sania TECHNIQUE: Multiple real-time sonographic images of the kidneys and bladder were obtained. COMPARISON: None FINDINGS: RIGHT kidney measures 10.1 cm in length. No hydronephrosis. Echogenic focus in the lower pole of the right kidney measures 1.9 cm possibly rep resenting a nonobstructing stone. LEFT kidney measures 9.5 cm in length. No hydronephrosis. Chawla catheter in the urinary bladder. IMPRESSION: Possible 1.9 cm nonobstructing stone in the lower pole of the right kidney.
[2024-09-25 10:05] LABS: Urine Blood Negative /uL (Negative); Urine Clarity Turbid (Clear); Urine Color Yellow (Yellow); Urine Mucus FEW (None Seen); Urine Protein, UAD 1+ (Negative); Urine Specific Gravity 1.025 (1.001-1.035); Urine Squamous Epithelial Cell FEW /hpf (<5); Urine Urobilinogen Normal (Negative); Urine WBC 65 /HPF (0-3); Urine WBC Clumps PRESENT /hpf (None Seen)
--- NOTE | 2024-09-25 10:10 | DVHINCON2 ---
Date of service: September 25, 2024 Referring Physician Bennett Cole NP Reason for Consultation Acute kidney injury History of Present Illness Patient is a 74 year old male with past medical history significant for CHF, CKD, and HTN is admitted for altered level of consciousness found to have severe hypoxemia, patient intubated elevated BUN creatinine nephrology is consulted for acute kidney injury Past Medical History PAST MEDICAL HISTORY: CHF, CKD, HTN Past Surgical History Surgical History: Pacemaker Allergies: Coded Allergies: NO KNOWN ALLERGIES (Unverified , 09/24/24) Current Medications Current Medications Medications (Trade) Dose Ordered Sig/Jim Route PRN Reason Start Time Stop Time Status Last Admin Midazolam HCl 50 ml @ 1 mls/hr Q24H IV 09/24/24 13:00 UNV Norepinephrine Bitartrate 250 ml @ 3.75 mls/hr Q24H IV 09/24/24 13:00 09/24/24 20:00 Midazolam HCl 50 ml @ 1 mls/hr Q24H IV 09/24/24 13:00 09/25/24 01:39 Fentanyl Citrate 250 ml @ 2.5 mls/hr Q24H IV 09/24/24 13:00 09/24/24 21:01 Acetaminophen (Ofirmev) 1,000 mg DAILY STAT IV 09/24/24 13:42 09/24/24 13:43 DC 09/24/24 13:47 Vancomycin HCl 0 ml @ 0 mls/hr UD IV 09/24/24 18:15 UNV Cefepime HCl 50 ml @ 12.5 mls/hr Q12HR IV 09/24/24 22:00 09/25/24 09:24 Acetaminophen (Tylenol Suppository) 650 mg Q6HP PRN [place] PAIN SCALE 1-3 OR TEMP>100.4 09/24/24 18:15 Diagnostic Test (Pha) (Accu-Chek Comfort Curve T) 1 strip IQ4HR 09/24/24 20:00 09/25/24 07:57 Insulin Human Regular (InsuLIN R) IQ4HR SC 09/24/24 20:00 09/25/24 03:56 Dextrose 50 ml UD PRN IV Blood Sugar LESS THAN 60 09/24/24 18:15 Sodium Chloride (Saline Lock Ns) 10 ml Q8HR IV 09/24/24 22:00 09/25/24 07:17 Ondansetron HCl (Zofran) 4 mg Q4HP PRN IV NAUSEA / VOMITING 09/24/24 18:15 Famotidine (Pepcid Injection) 20 mg EOD IV 09/24/24 22:00 09/24/24 20:54 Aspirin 81 mg DAILY PO 09/25/24 10:00 09/25/24 09:24 Nitroglycerin (Ntrostat Sublingual) 0.4 mg Q5MINP PRN SL FOR CHEST PAIN 09/24/24 19:15 Morphine Sulfate 2 mg Q30M PRN IV FOR CHEST PAIN 09/24/24 19:15 Sodium Chloride 1,000 ml @ 75 mls/hr [id number] IV 09/25/24 09:00 09/25/24 09:25 Family History: Unknown Unknown family medical history Review of Systems Can not be obtained H&P Exam Vital Signs/I&O Vital Sign Date Time Temp Pulse Resp B/P (MAP) Pulse Ox O2 Delivery O2 Flow Rate FiO2 09/25/24 09:45 98.8 67 16 115/50 (71) 99 98.8 09/25/24 08:00 Mechanical Ventilator+ 50 50 09/24/24 12:44 15 Intake and Output 09/24/24 09/25/24 19:00 07:00 Intake Total 3257.91 ml 1185.00 ml Output Total 100 ml 250 ml Balance 3157.91 ml 935.00 ml Intake IV Total 3257.91 ml 1185.00 ml Output Urine Total 100 ml 250 ml # Bowel Movements 1 Physical Exam Patient intubated on the ventilator Lungs clear to auscultation bilaterally Cardiac exam regular rate and rhythm GI soft nontender Chawla catheter Extremities no clubbing cyanosis or edema Neuro patient is a sedated Labs/Diagnostic Data Labs/Diagnostic Data Laboratory Tests Test 09/25/24 08:35 09/25/24 07:56 09/25/24 05:30 09/25/24 05:29 Range/Units POC Glucose 84 70-106 mg/dl Blood Gas Specimen Type Arterial Blood Gas Sample Site Left radial Blood Gas Patient Temperature 37.0 Arterial Blood Date Drawn [id number] Arterial Blood pH 7.321 L 7.350-7.450 Arterial Blood Partial Pressure CO2 45.4 35.0-48.0 mmHg Arterial Blood Partial Pressure O2 94.3 83.0-108.0 mmHg Arterial Blood HCO3 22.9 21.0-28.0 mmol/L Arterial Blood Oxygen Saturation 96.6 94.0-98.0 % Arterial Blood Base Excess -3.2 L -2.0-3.0 mmol/L Arterial Blood Oxyhemoglobin 95.8 94.0-98.0 % Arterial Blood Carboxyhemoglobin 0.6 0.5-1.5 % Arterial Blood Methemoglobin 0.2 0.0-1.5 % Damián Test Modified Blood Gas Total Hemoglobin 11.90 L 13.5-17.5 g/dL Blood Gas Set Respiration Rate 16.0 Blood Gas Modality Vent - ac FiO2 % 50.0 Blood Gas Tidal Volume 500.0 Blood Gas PEEP or CPAP 5.0 White Blood Count 6.3 4.4-10.8 10^3/uL Red Blood Count 3.74 L 4.5-5.90 10^6/uL Hemoglobin 11.1 L 13.5-17.5 g/dL Hematocrit 35.7 L 41.0-53.0 % Mean Corpuscular Volume 95.3 80.0-100.0 fL Mean Corpuscular Hemoglobin 29.8 28.0-32.0 pg Mean Corpuscular Hemoglobin Concent 31.2 L 32.0-36.0 g/dL Red Cell Distribution Width 16.5 H 11.8-14.3 % Platelet Count 113 L 140-450 10^3/uL Mean Platelet Volume 11.5 H 6.9-10.8 fL Neutrophils (%) (Auto) 62.6 37.0-80.0 % Lymphocytes (%) (Auto) 25.7 10.0-50.0 % Monocytes (%) (Auto) 9.2 0.0-12.0 % Eosinophils (%) (Auto) 2.1 0.0-7.0 % Basophils (%) (Auto) 0.4 0.0-2.0 % Neutrophils # (Auto) 3.9 1.6-8.6 10 ^3/uL Lymphocytes # (Auto) 1.6 0.4-5.4 10 ^3/uL Monocytes # (Auto) 0.6 0-1.3 10 ^3/uL Eosinophils # (Auto) 0.1 0-0.8 10 ^3/uL Basophils # (Auto) 0 0-0.2 10 ^3/uL Nucleated Red Blood Cells 0.0 % Sodium Level 154 H 136-145 mmol/L Potassium Level 4.5 3.5-5.1 mmol/L Chloride Level 119 H 98-107 mmol/L Carbon Dioxide Level 24 20-31 mmol/L Anion Gap 11 5-15 Blood Urea Nitrogen 81 *H 9-23 mg/dL Creatinine 1.96 H 0.700-1.30 mg/dL Glomerular Filtration Rate Calc 35 >90 mL/min BUN/Creatinine Ratio 41.3 H 10.0-20.0 Serum Glucose 131 #H 74-106 mg/dL Calcium Level 8.7 8.7-10.4 mg/dL Phosphorus Level 4.8 2.4-5.1 mg/dL Magnesium Level 3.1 H 1.6-2.6 mg/dL Total Bilirubin 0.4 0.2-1.0 mg/dL Aspartate Amino Transferase (AST) 15 13-40 U/L Alanine Aminotransferase (ALT) 17 7-40 U/L Alkaline Phosphatase 67 46-116 U/L Total Protein 6.5 5.7-8.2 g/dL Albumin 3.5 3.2-4.8 g/dL Vitamin D 25-Hydroxy 37.8 30.0-100 ng/mL Parathyroid Hormone (Intact) 100.0 H 18.4-80.1 pg/mL Random Vancomycin Level 13.3 H 5-10 ug/mL Test 09/25/24 03:47 09/25/24 00:53 09/24/24 21:50 09/24/24 20:20 Range/Units POC Glucose 157 H 189 H 292 H 70-106 mg/dl Troponin I High Sensitivity 130 *H </=54 ng/L Test 09/24/24 20:09 09/24/24 18:14 09/24/24 16:09 09/24/24 14:49 Range/Units Troponin I High Sensitivity 135 *H 139 *H </=54 ng/L Sodium Level 151 H 136-145 mmol/L Potassium Level 4.7 3.5-5.1 mmol/L Chloride Level 117 H 98-107 mmol/L Carbon Dioxide Level 25 20-31 mmol/L Anion Gap 9 5-15 Blood Urea Nitrogen 90 *H 9-23 mg/dL Creatinine 2.18 H 0.700-1.30 mg/dL Glomerular Filtration Rate Calc 31 >90 mL/min BUN/Creatinine Ratio 41.3 H 10.0-20.0 Serum Glucose 389 H 74-106 mg/dL Calcium Level 8.8 8.7-10.4 mg/dL POC Glucose 310 H 70-106 mg/dl Lactic Acid Level 1.6 0.4-2.0 mmol/L Test 09/24/24 14:04 09/24/24 13:54 09/24/24 13:33 09/24/24 13:00 Range/Units Sodium Level 150 H 136-145 mmol/L Potassium Level 5.4 H 3.5-5.1 mmol/L Chloride Level 115 H 98-107 mmol/L Carbon Dioxide Level 27 20-31 mmol/L Anion Gap 8 5-15 Blood Urea Nitrogen 84 *H 9-23 mg/dL Creatinine 2.13 H 0.700-1.30 mg/dL Glomerular Filtration Rate Calc 32 >90 mL/min BUN/Creatinine Ratio 39.4 H 10.0-20.0 Serum Glucose 436 *H 74-106 mg/dL Calcium Level 8.4 L 8.7-10.4 mg/dL Total Bilirubin 0.5 0.2-1.0 mg/dL Aspartate Amino Transferase (AST) 19 13-40 U/L Alanine Aminotransferase (ALT) 20 7-40 U/L Alkaline Phosphatase 86 46-116 U/L Total Protein 6.4 5.7-8.2 g/dL Albumin 3.4 3.2-4.8 g/dL Blood Gas Specimen Type Arterial Blood Gas Sample Site Right brachial Blood Gas Patient Temperature 37.0 Arterial Blood Date Drawn [id number] Arterial Blood pH 7.308 L 7.350-7.450 Arterial Blood Partial Pressure CO2 48.9 H 35.0-48.0 mmHg Arterial Blood Partial Pressure O2 148.2 H 83.0-108.0 mmHg Arterial Blood HCO3 24.0 21.0-28.0 mmol/L Arterial Blood Oxygen Saturation 98.8 H 94.0-98.0 % Arterial Blood Base Excess -2.6 L -2.0-3.0 mmol/L Arterial Blood Oxyhemoglobin 97.5 94.0-98.0 % Arterial Blood Carboxyhemoglobin 0.8 0.5-1.5 % Arterial Blood Methemoglobin 0.5 0.0-1.5 % Damián Test N/a Blood Gas Total Hemoglobin 12.30 L 13.5-17.5 g/dL Blood Gas Set Respiration Rate 16.0 Blood Gas Modality Vent - ac FiO2 % 100.0 Blood Gas Tidal Volume 500.0 Blood Gas PEEP or CPAP 5.0 White Blood Count 6.2 4.4-10.8 10^3/uL Red Blood Count 4.10 L 4.5-5.90 10^6/uL Hemoglobin 12.2 L 13.5-17.5 g/dL Hematocrit 38.6 L 41.0-53.0 % Mean Corpuscular Volume 94.0 80.0-100.0 fL Mean Corpuscular Hemoglobin 29.8 28.0-32.0 pg Mean Corpuscular Hemoglobin Concent 31.7 L 32.0-36.0 g/dL Red Cell Distribution Width 16.6 H 11.8-14.3 % Platelet Count 130 L 140-450 10^3/uL Mean Platelet Volume 11.3 H 6.9-10.8 fL Neutrophils (%) (Auto) 65.7 37.0-80.0 % Lymphocytes (%) (Auto) 22.8 10.0-50.0 % Monocytes (%) (Auto) 10.8 0.0-12.0 % Eosinophils (%) (Auto) 0.1 0.0-7.0 % Basophils (%) (Auto) 0.6 0.0-2.0 % Neutrophils # (Auto) 4.1 1.6-8.6 10 ^3/uL Lymphocytes # (Auto) 1.4 0.4-5.4 10 ^3/uL Monocytes # (Auto) 0.7 0-1.3 10 ^3/uL Eosinophils # (Auto) 0 0-0.8 10 ^3/uL Basophils # (Auto) 0 0-0.2 10 ^3/uL Nucleated Red Blood Cells 0.1 % Urine Color Yellow Yellow Urine Clarity Ex.turbid Clear Urine pH 5.0 5.0-9.0 Urine Specific [place] 1.024 1.001-1.035 Urine Protein 2+ H Negative Urine Ketones Negative Negative Urine Blood Negative Negative /uL Urine Nitrite Negative Negative Urine Bilirubin Negative Negative Urine Urobilinogen 2 H Negative mg/dL Urine Leukocyte Esterase 3+ Negative /uL Urine RBC 8 0 - 3 /hpf Urine WBC Clumps Present None Seen /hpf Urine Microscopic WBC 450 H 0-3 /HPF Urine Squamous Epithelial Cells Few <5 /hpf Urine Amorphous Crystals Few None Seen /hpf Urine Bacteria Few H None Seen /hpf Urine Glucose Normal Normal mg/dL Lactic Acid Level 2.2 *H 0.4-2.0 mmol/L Troponin I High Sensitivity 125 *H </=54 ng/L B-Type Natriuretic Peptide 193.48 0-100 pg/mL Urine Opiates Screen Neg NEGATIVE Urine Fentanyl Screen Neg NEGATIVE Urine Barbiturates Screen Neg NEGATIVE Urine Phencyclidine Screen Neg NEGATIVE Urine Amphetamines Screen Neg NEGATIVE Urine Benzodiazepines Screen Neg NEGATIVE Urine Cocaine Screen Neg NEGATIVE Urine Cannabinoids Screen Neg NEGATIVE Assessment Acute kidney injury superimposed Chronic Kidney Disease secondary hemodynamic mediated Acute respiratory failure, patient intubated on ventilator NSTEMI Hypernatremia due to dehydration Diabetes mellitus type 2 Hyperglycemia Anemia of chronic kidney disease Recommendations Closely monitor fluid and electrolytes Avoid nephrotoxic medications Chawla catheter Strict I&Os I agree with IV fluid hydration Insulin sliding scale Check urine electrolytes and protein excretion Check kidney ultrasound Cardiology consult We will continue to follow Patient seen and examined by myself ER bed seven. I discussed my plan of care with the primary nurse at the bedside I would like to thank Bennett for the consult, will follow Plan discussed with: Other (Nurse) FRANKLIN DAIYL MD September 25, 2024 10:10
[2024-09-25 10:26] LABS: Protein, Urine 59.8 mg/dL (1-14)
[2024-09-25 10:29] LABS: Creatinine, Urine 82.82 mg/dL (30.0-125.0); Urine Protein/Creatinine Ratio 0.72
--- NOTE | 2024-09-25 11:08 | DVHINCON2 ---
Date of service: September 24, 2024 Referring Physician Bennett Cole Dnp Reason for Consultation Acute respiratory failure History of Present Illness History Source: Patient, RN Notes, MD Notes Exam Limitations: Clinical condition HPI Patient is a 74-year old gentleman with a history of diabetesm congestive heart failure, CVA and CKD who presented with altered mental status. Was seen in the emergency room where he was found to desaturate to 76% on room air and the concern was raised for aspiration. Patient was intubated by the emergency room provider and placed on mechanical ventilation, initial settings RR 16, tidal volume 500, PEEP 5, FiO2 100%. Chest x-ray shows infiltrates at the left base consistent with pneumonia and pulmonology was consulted to assist in management. Past Medical History Cardiac: CHF Pulmonary: No pertinent Hx Central Nervous System: No pertinent Hx GI: No pertinent Hx Hemotology/Oncology: No pertinent Hx Hepatobiliary: No pertinent Hx Psychiatric: No pertinent Hx Musculoskeletal: No pertinent Hx Rheumotologic: No pertinent Hx Infectious Disease: No peritnent Hx ENT: No pertinent Hx Renal/: CKD Endocrine: NIDDM Dermatology: No pertinent Hx Past Surgical History: No pertinent Hx Family History: No pertinent Hx Patient Family History: Unknown Unknown family medical history Smoker: No Hx (Negative) Alocohol: None Drugs: None Lives with: With family Domestic Violence: Neg H&P Exam Vital Signs Vital Signs Date Time Temp Pulse Resp B/P (MAP) Pulse Ox O2 Delivery O2 Flow Rate FiO2 09/25/24 10:00 63 09/25/24 10:00 50 09/25/24 10:00 16 99 Mechanical Ventilator+ 09/25/24 09:45 98.8 115/50 (71) 98.8 09/24/24 12:44 15 General Appeara: Well developed, Well nourished, Normal Appearance Head Exam: Normal inspection Neck Exam: Normal inspection, Non-tender, Normal alignment Eye Exam: bilateral eye Normal inspection, bilateral eye PERRL, bilateral eye EOMI Ear Exam: bilateral ear Auricle normal, bilateral ear Canal normal, bilateral ear TM normal Nasal Exam: Normal inspection Mouth: Normal Inspection Pulmonary/Respiratory: Decreased breath sounds Cardiovascular/Chest: Normal inspection Peripheral Pulses: 4+ Radial (R), 4+ Radial (L), 4+ Brachial (R), 4+ Brachial (L) Abdominal Exam: Normal bowel sounds Labs/Xrays Labs Test 09/25/24 08:35 09/25/24 07:56 09/25/24 05:30 09/25/24 05:29 Range/Units Urine Color Yellow Yellow Urine Clarity Turbid H Clear Urine pH 5.0 5.0-9.0 Urine Specific [place] 1.025 1.001-1.035 Urine Protein 1+ H Negative Urine Ketones Negative Negative Urine Blood Negative Negative /uL Urine Nitrite Negative Negative Urine Bilirubin Negative Negative Urine Urobilinogen Normal Negative mg/dL Urine Leukocyte Esterase 3+ Negative /uL Urine RBC 11 0 - 3 /hpf Urine WBC Clumps Present None Seen /hpf Urine Microscopic WBC 65 H 0-3 /HPF Urine Squamous Epithelial Cells Few <5 /hpf Urine Bacteria None seen None Seen /hpf Urine Mucus Few None Seen Urine Creatinine 82.82 30.0-125.0 mg/dL Urine Protein/Creatinine Ratio 0.72 Urine Sodium 21 L 40-220 mmol/L Urine Glucose Normal Normal mg/dL Urine Total Protein 59.8 H 1-14 mg/dL POC Glucose 84 70-106 mg/dl Blood Gas Specimen Type Arterial Blood Gas Sample Site Left radial Blood Gas Patient Temperature 37.0 Arterial Blood Date Drawn [id number] Arterial Blood pH 7.321 L 7.350-7.450 Arterial Blood Partial Pressure CO2 45.4 35.0-48.0 mmHg Arterial Blood Partial Pressure O2 94.3 83.0-108.0 mmHg Arterial Blood HCO3 22.9 21.0-28.0 mmol/L Arterial Blood Oxygen Saturation 96.6 94.0-98.0 % Arterial Blood Base Excess -3.2 L -2.0-3.0 mmol/L Arterial Blood Oxyhemoglobin 95.8 94.0-98.0 % Arterial Blood Carboxyhemoglobin 0.6 0.5-1.5 % Arterial Blood Methemoglobin 0.2 0.0-1.5 % Damián Test Modified Blood Gas Total Hemoglobin 11.90 L 13.5-17.5 g/dL Blood Gas Set Respiration Rate 16.0 Blood Gas Modality Vent - ac FiO2 % 50.0 Blood Gas Tidal Volume 500.0 Blood Gas PEEP or CPAP 5.0 White Blood Count 6.3 4.4-10.8 10^3/uL Red Blood Count 3.74 L 4.5-5.90 10^6/uL Hemoglobin 11.1 L 13.5-17.5 g/dL Hematocrit 35.7 L 41.0-53.0 % Mean Corpuscular Volume 95.3 80.0-100.0 fL Mean Corpuscular Hemoglobin 29.8 28.0-32.0 pg Mean Corpuscular Hemoglobin Concent 31.2 L 32.0-36.0 g/dL Red Cell Distribution Width 16.5 H 11.8-14.3 % Platelet Count 113 L 140-450 10^3/uL Mean Platelet Volume 11.5 H 6.9-10.8 fL Neutrophils (%) (Auto) 62.6 37.0-80.0 % Lymphocytes (%) (Auto) 25.7 10.0-50.0 % Monocytes (%) (Auto) 9.2 0.0-12.0 % Eosinophils (%) (Auto) 2.1 0.0-7.0 % Basophils (%) (Auto) 0.4 0.0-2.0 % Neutrophils # (Auto) 3.9 1.6-8.6 10 ^3/uL Lymphocytes # (Auto) 1.6 0.4-5.4 10 ^3/uL Monocytes # (Auto) 0.6 0-1.3 10 ^3/uL Eosinophils # (Auto) 0.1 0-0.8 10 ^3/uL Basophils # (Auto) 0 0-0.2 10 ^3/uL Nucleated Red Blood Cells 0.0 % Sodium Level 154 H 136-145 mmol/L Potassium Level 4.5 3.5-5.1 mmol/L Chloride Level 119 H 98-107 mmol/L Carbon Dioxide Level 24 20-31 mmol/L Anion Gap 11 5-15 Blood Urea Nitrogen 81 *H 9-23 mg/dL Creatinine 1.96 H 0.700-1.30 mg/dL Glomerular Filtration Rate Calc 35 >90 mL/min BUN/Creatinine Ratio 41.3 H 10.0-20.0 Serum Glucose 131 #H 74-106 mg/dL Calcium Level 8.7 8.7-10.4 mg/dL Phosphorus Level 4.8 2.4-5.1 mg/dL Magnesium Level 3.1 H 1.6-2.6 mg/dL Total Bilirubin 0.4 0.2-1.0 mg/dL Aspartate Amino Transferase (AST) 15 13-40 U/L Alanine Aminotransferase (ALT) 17 7-40 U/L Alkaline Phosphatase 67 46-116 U/L Total Protein 6.5 5.7-8.2 g/dL Albumin 3.5 3.2-4.8 g/dL Vitamin D 25-Hydroxy 37.8 30.0-100 ng/mL Parathyroid Hormone (Intact) 100.0 H 18.4-80.1 pg/mL Random Vancomycin Level 13.3 H 5-10 ug/mL Test 09/24/24 21:50 09/24/24 14:49 09/24/24 13:00 Range/Units Troponin I High Sensitivity 130 *H </=54 ng/L Lactic Acid Level 1.6 0.4-2.0 mmol/L Urine Amorphous Crystals Few None Seen /hpf B-Type Natriuretic Peptide 193.48 0-100 pg/mL Urine Opiates Screen Neg NEGATIVE Urine Fentanyl Screen Neg NEGATIVE Urine Barbiturates Screen Neg NEGATIVE Urine Phencyclidine Screen Neg NEGATIVE Urine Amphetamines Screen Neg NEGATIVE Urine Benzodiazepines Screen Neg NEGATIVE Urine Cocaine Screen Neg NEGATIVE Urine Cannabinoids Screen Neg NEGATIVE Microbiology Date/Time Source Procedure Growth Status 09/24/24 13:09 Sputum Gram Stain - Final Resulted 09/24/24 13:09 Sputum Respiratory Culture Pending Resulted 09/24/24 13:00 Voided Urine Urine Culture - Preliminary Resulted Assessment/Plan Plan Impression Acute hypoxemic respiratory failure Altered mental status Aspiration pneumonia COURTNEY Patient seen and examined in the ER Events On mechanical ventilation S/p intubation PEEP 5, FiO2 100% Labs and imaging reviewed Chest x-ray shows infiltrates in the left base consistent with pneumonia BUN/Creatinine elevated ABG reviewed pH 7.30, pCO2 48, pO2 148 Management Vent support Titrate to maintain sats 90% or above Sedation for vent synchrony Antibiotics Bronchodilators Monitor renal function Monitor electrolytes Supplement as needed Pressors as needed for hemodynamic support To maintain a mean arterial pressure of 65 mmHg DVT prophylaxis Critical care time 35 minutes Plan discussed with: Other (Rn) FREDDY PETER MD September 25, 2024 11:08
[2024-09-25] MEDS: VANCOMYCIN 1GM/200ML PM 200 ML IV ONE (13:02)
--- NOTE | 2024-09-25 15:54 | DVHPN2 ---
Subjective Patient intubated and sedated Reviewed: Care Plan, H&P, Labs Changes from previous H/P or p: No Changes General: Per HPI Eyes: No Pain, No Vision change, No Conjunctivae inflammation, No Eyelid inflammation, No Other, No Redness ENT: No Ear pain, No Ear discharge, No Nose pain, No Nose discharge, No Nose congestion, No Mouth pain, No Mouth swelling, No Throat pain, No Throat swelling, No Other Cardiovascular: No Chest Pain, No Palpitations, No Orthopnea, No Paroxysmal Noc. Dyspnea, No Edema, No Lt Headedness, No Other Respiratory: No Cough, No Dry; Shortness of breath; No SOB with excertion, No Wheezing, No Hemoptysis, No Pleuritic Pain, No Sputum, No Other Gastrointestinal: No Nausea, No Vomiting, No Abdominal Pain, No Diarrhea, No Constipation, No Melena, No Hematochezia; Other (Peg tube in place) Genitourinary: No Dysuria, No Frequency, No Incontinence, No Hematuria, No Retention; Other (Chawla catheter in place) Musculoskeletal: No other, No neck pain, No shoulder pain, No arm pain, No back pain, No hand pain, No leg pain, No foot pain Skin: No Rash, No Lesions, No Jaundice, No Bruising, No Other Objective Vitals Vital Signs Date Time Temp Pulse Resp B/P (MAP) Pulse Ox O2 Delivery O2 Flow Rate FiO2 09/25/24 14:52 60 16 101/50 (67) 99 40 09/25/24 14:00 98.1 98.1 09/25/24 14:00 Mechanical Ventilator+ 09/24/24 12:44 15 Intake/Output Intake and Output 09/25/24 07:00 Intake Total 4442.91 ml Output Total 350 ml Balance 4092.91 ml Intake IV Total 4442.91 ml Output Urine Total 350 ml # Bowel Movements 1 General Appearance: Alert, Oriented X3, Cooperative, No acute distress HEENT: PERRLA Cardiovascular: Normal S1, Normal S2 Musculoskeletal: Normal motor function Skin: Dry, Intact Psych/Mental Status: Mental status NL, Mood NL Medications Current Medications Medications Dose Ordered Sig/Jim Route Start Time Stop Time Status Last Admin Dose Admin Midazolam HCl 50 ml @ 1 mls/hr Q24H IV 09/24/24 13:00 UNV Norepinephrine Bitartrate 250 ml @ 3.75 mls/hr Q24H IV 09/24/24 13:00 09/24/24 20:00 3.75 MLS/HR Midazolam HCl 50 ml @ 1 mls/hr Q24H IV 09/24/24 13:00 09/25/24 01:39 3 MLS/HR Fentanyl Citrate 250 ml @ 2.5 mls/hr Q24H IV 09/24/24 13:00 09/24/24 21:01 2.5 MLS/HR Vancomycin HCl 0 ml @ 0 mls/hr UD IV 09/24/24 18:15 Cefepime HCl 50 ml @ 12.5 mls/hr Q12HR IV 09/24/24 22:00 09/25/24 09:24 12.5 MLS/HR Acetaminophen 650 mg Q6HP PRN VT 09/24/24 18:15 Diagnostic Test (Pha) 1 strip IQ4HR 09/24/24 20:00 09/25/24 11:33 1 STRIP Insulin Human Regular IQ4HR SC 09/24/24 20:00 09/25/24 03:56 2 UNITS Dextrose 50 ml UD PRN IV 09/24/24 18:15 Sodium Chloride 10 ml Q8HR IV 09/24/24 22:00 09/25/24 13:02 10 ML Ondansetron HCl 4 mg Q4HP PRN IV 09/24/24 18:15 Famotidine 20 mg EOD IV 09/24/24 22:00 09/24/24 20:54 20 MG Aspirin 81 mg DAILY PO 09/25/24 10:00 09/25/24 09:24 81 MG Nitroglycerin 0.4 mg Q5MINP PRN SL 09/24/24 19:15 Morphine Sulfate 2 mg Q30M PRN IV 09/24/24 19:15 Sodium Chloride 1,000 ml @ 100 mls/hr Q10H IV 09/25/24 10:15 09/25/24 10:20 100 MLS/HR Laboratory Results Laboratory Tests 09/25/24 05:29 Chemistry Test 09/24/24 18:14 09/25/24 05:29 Calcium Level 8.8 mg/dL (8.7-10.4) 8.7 mg/dL (8.7-10.4) Albumin 3.5 g/dL (3.2-4.8) Magnesium Level 3.1 mg/dL (1.6-2.6) H Phosphorus Level 4.8 mg/dL (2.4-5.1) Total Protein 6.5 g/dL (5.7-8.2) LFT Test 09/25/24 05:29 Alanine Aminotransferase (ALT) 17 U/L (7-40) Alkaline Phosphatase 67 U/L (46-116) Aspartate Amino Transferase (AST) 15 U/L (13-40) Total Bilirubin 0.4 mg/dL (0.2-1.0) HgA1c, TSH Test 09/25/24 05:29 Hemoglobin A1c 7.0 % A1C (<5.7) H Urinalysis Test 09/24/24 13:00 09/25/24 08:35 Urine Amorphous Crystals Few /hpf (None Seen) Urine Color Yellow (Yellow) Urine Clarity Turbid (Clear) H Urine pH 5.0 (5.0-9.0) Urine Specific [place] 1.025 (1.001-1.035) Urine Protein 1+ (Negative) H Urine Ketones Negative (Negative) Urine Blood Negative /uL (Negative) Urine Nitrite Negative (Negative) Urine Bilirubin Negative (Negative) Urine Urobilinogen Normal mg/dL (Negative) Urine Leukocyte Esterase 3+ /uL (Negative) Urine RBC 11 /hpf (0 - 3) Urine WBC Clumps Present /hpf (None Seen) Urine Microscopic WBC 65 /HPF (0-3) H Urine Squamous Epithelial Cells Few /hpf (<5) Urine Bacteria None seen /hpf (None Seen) Urine Mucus Few (None Seen) Urine Osmolality 610 mOsm/kg Urine Creatinine 82.82 mg/dL (30.0-125.0) Urine Protein/Creatinine Ratio 0.72 Urine Sodium 21 mmol/L (40-220) L Urine Glucose Normal mg/dL (Normal) Urine Total Protein 59.8 mg/dL (1-14) H Blood Gas Results Test 09/25/24 05:30 Arterial Blood pH 7.321 (7.350-7.450) FiO2 % 50.0 Microbiology Microbiology Date/Time Source Procedure Growth Status 09/24/24 13:09 Sputum Gram Stain - Final Resulted 09/24/24 13:09 Sputum Respiratory Culture - Preliminary Resulted 09/24/24 13:00 Voided Urine Urine Culture - Preliminary Resulted 09/24/24 13:00 Blood Blood Culture - Preliminary NO GROWTH AFTER 24 HOURS OF INCUBATION. Resulted Labs and/or images reviewed: Labs reviewed by me, Image(s) reviewed by me Assessment/Plan Assessment/Plan Impression: -acute hypoxic respiratory failure -community-acquired pneumonia, Gram-positive/Gram-negative etiology -septic shock -hypernatremia -history of CVA -bed-bound status -history of PEG tube -acute kidney injury, vasomotor nephropathy Plan: -pulmonology consultation: Vent settings per their discretion -nephrology consultation: Recommendations reviewed -change antibiotic therapy to Merrem and vancomycin -start tube feeding given hypoglycemia -PPI -meng cultures -repeat labs, chest x-ray, ABG in a.m. Critical care time spent with patient discussing and formulating plan of care: 40 minutes. This does not include time spent performing procedures. This medical document was created using an electronic medical record system with yaval[employer] dictation system. Although this document has been carefully reviewed, there may still be some phonetic and typographical errors. These areas are purely typographical due to imperfections of the software programs, and do not reflect any compromise in the patient's medical care. Plan discussed with: Patient, Other (RN) Date of Service: September 25, 2024 Billing Provider: CAMELIA RHODES NP Common Visit Codes: [id number] CARE 30-74 MIN CAMELIA RHODES NP September 25, 2024 15:54
[2024-09-25] MEDS: DEXTROSE (50%) 50ML SYRG IV PRN (16:00)
[2024-09-25] MEDS: FREE WATER GT SCH (17:46)
--- NOTE | 2024-09-25 20:21 | DVHPN2 ---
Progress Note - Dictate Date Seen: September 25, 2024 Medical Necessity Reason Pt with a Central, PICC or Fol: Yes The following are medically ne: Central Line vital signs Vital Sign Date Time Temp Pulse Resp B/P (MAP) Pulse Ox O2 Delivery O2 Flow Rate FiO2 09/25/24 19:00 72 16 122/63 (82) 97 09/25/24 18:00 40 09/25/24 18:00 98.2 98.2 09/25/24 18:00 Mechanical Ventilator+ 09/24/24 12:44 15 Total Intake and Output 09/24/24 09/24/24 09/25/24 15:00 23:00 07:00 Intake Total 1201.15 ml 3103.51 ml 138.25 ml Output Total 100 ml 250 ml Balance 1101.15 ml 3103.51 ml -111.75 ml medications Current Medications Medications Dose Ordered Sig/Jim Route Start Time Stop Time Status Last Admin Dose Admin Midazolam HCl 50 ml @ 1 mls/hr Q24H IV 09/24/24 13:00 UNV Norepinephrine Bitartrate 250 ml @ 3.75 mls/hr Q24H IV 09/24/24 13:00 09/24/24 20:00 3.75 MLS/HR Midazolam HCl 50 ml @ 1 mls/hr Q24H IV 09/24/24 13:00 09/25/24 16:51 3 MLS/HR Fentanyl Citrate 250 ml @ 2.5 mls/hr Q24H IV 09/24/24 13:00 09/24/24 21:01 2.5 MLS/HR Vancomycin HCl 0 ml @ 0 mls/hr UD IV 09/24/24 18:15 Acetaminophen 650 mg Q6HP PRN [place] 09/24/24 18:15 Diagnostic Test (Pha) 1 strip IQ4HR 09/24/24 20:00 09/25/24 15:59 1 STRIP Insulin Human Regular IQ4HR SC 09/24/24 20:00 09/25/24 03:56 2 UNITS Dextrose 50 ml UD PRN IV 09/24/24 18:15 09/25/24 16:00 50 ML Sodium Chloride 10 ml Q8HR IV 09/24/24 22:00 09/25/24 13:02 10 ML Ondansetron HCl 4 mg Q4HP PRN IV 09/24/24 18:15 Famotidine 20 mg EOD IV 09/24/24 22:00 09/24/24 20:54 20 MG Aspirin 81 mg DAILY PO 09/25/24 10:00 09/25/24 09:24 81 MG Nitroglycerin 0.4 mg Q5MINP PRN SL 09/24/24 19:15 Morphine Sulfate 2 mg Q30M PRN IV 09/24/24 19:15 Sodium Chloride 1,000 ml @ 100 mls/hr Q10H IV 09/25/24 10:15 09/25/24 10:20 100 MLS/HR Enteral Nutritional Formula 1,000 ml 30ML/HR GT 09/25/24 15:45 Purified Water 200 ml Q6HR GT 09/25/24 18:00 09/25/24 17:46 200 ML Meropenem 50 ml @ 17 mls/hr Q12H IV 09/25/24 22:00 laboratory and microbiology Laboratory Tests 09/25/24 05:29 Test 09/25/24 05:29 Range/Units Serum Glucose 131 #H 74-106 mg/dL Assessment/Plan Impression Acute hypoxemic respiratory failure Altered mental status Aspiration pneumonia COURTNEY Patient seen and examined in the ER Events On mechanical ventilation S/p intubation PEEP 5, FiO2 50% Labs and imaging reviewed ABG reviewed pH 7.32, pCO2 45, pO2 94 Management Vent support Titrate to maintain sats 90% or above Sedation for vent synchrony Continue antibiotics F/u cultures Bronchodilators Monitor renal function Monitor electrolytes Supplement as needed Pressors as needed for hemodynamic support To maintain a mean arterial pressure of 65 mmHg DVT prophylaxis Critical care time 35 minutes Dietary Evaluation Review Comments: 1. TF Glucerna 1.2Cal @ 60ml/hr x 24 hr (goal). start @ 20ml/hr, increase 10 ml/hr Q4H until goal is reached. Water flush 50ml Q6H if allowed. 2. TPN if NPO >7 days 3. Monitor electrolyte, intake, I/O, lab values, wt trends, skin trends Expected Outcomes/Goals: To meet >75% estimated needs Fu 2-3 days Plan discussed with: Other (Rn) FREDDY PETER MD September 25, 2024 20:21
[2024-09-25] MEDS: MEROPENEM 1GM IVPB 50 ML IV SCH (21:49)
[2024-09-25] MEDS: Jevity 1.2 Cal/Fiber 1 Liter GT SCH (21:58)
[2024-09-26] VITALS (106 sets, daily range): BP systolic 102–142; BP diastolic 47–70; PULSE 60–81; RESP 13–20; TEMP 95–99.6; O2SAT 91–100
[2024-09-26 05:02] LABS: Basophils # (auto) 0 10 ^3/uL (0-0.2); Basophils % (auto) 0.5 % (0.0-2.0); Eosinophils # (auto) 0.1 10 ^3/uL (0-0.8); Eosinophils % (auto) 3.3 % (0.0-7.0); Hematocrit 34.1 % (41.0-53.0); Hemoglobin 10.7 g/dL (13.5-17.5); Lymphocytes % (auto) 21.9 % (10.0-50.0); Mean Corpuscular Hgb Conc. 31.5 g/dL (32.0-36.0); Mean Corpuscular Volume 95.1 fL (80.0-100.0); Monocytes # (auto) 0.5 10 ^3/uL (0-1.3); Monocytes % (auto) 10.9 % (0.0-12.0); Neutrophils # (auto) 2.8 10 ^3/uL (1.6-8.6); Neutrophils % (auto) 63.4 % (37.0-80.0); Nucleated Red Blood Cells % 0.2 %; Platelet Count (auto) 98 10^3/uL (140-450); Red Blood Cells 3.58 10^6/uL (4.5-5.90); Red Cell Distribution Width 16.4 % (11.8-14.3); White Blood Cell 4.5 10^3/uL (4.4-10.8)
[2024-09-26 05:08] LABS: Alanine Aminotransferase 14 U/L (7-40); Albumin 3.2 g/dL (3.2-4.8); Alkaline Phosphatase 56 U/L (46-116); Anion Gap 10 (5-15); Aspartate Aminotransferase 19 U/L (13-40); BUN/Creatinine Ratio 43.1 (10.0-20.0); Calcium 8.7 mg/dL (8.7-10.4); Carbon Dioxide 22 mmol/L (20-31); Glucose 80 mg/dL (74-106); Potassium 4.4 mmol/L (3.5-5.1); Total Protein 6.1 g/dL (5.7-8.2)
[2024-09-26 05:51] LABS: Bilirubin, Total 0.3 mg/dL (0.2-1.0); Blood Urea Nitrogen 72 mg/dL (9-23); Chloride 120 mmol/L (98-107); Sodium 152 mmol/L (136-145)
[2024-09-26 06:26] LABS: Base Excess -5.3 mmol/L (-2.0-3.0)
--- NOTE | 2024-09-26 06:36 | DVH ---
EXAM: XR Chest, 1 View CLINICAL INDICATION: pna TECHNIQUE: Frontal view of the chest. COMPARISON: XY CHEST PORTABLE on DOS: 09/25/24, XY CHEST PORTABLE on DOS: 09/24/24 FINDINGS: LUNGS AND PLEURAL SPACES: Bibasilar atelectasis or pneumonia. HEART: Cardiomegaly with mild congestion. MEDIASTINUM: Unremarkable. Normal mediastinal contour. BONES/JOINTS: Unremarkable. No acute fracture. TUBES, LINES AND DEVICES: Left-sided cardiac pacemaker. The endotracheal tube (ETT) is in satisfac tory position. OTHER FINDINGS: . . . IMPRESSION: 1. Bibasilar atelectasis or pneumonia. 2. Cardiomegaly with mild congestion.
--- NOTE | 2024-09-26 08:03 | DVHPN2 ---
Subjective Patient intubated and sedated Reviewed: Care Plan, H&P, Labs Changes from previous H/P or p: No Changes General: Per HPI Eyes: No Pain, No Vision change, No Conjunctivae inflammation, No Eyelid inflammation, No Other, No Redness ENT: No Ear pain, No Ear discharge, No Nose pain, No Nose discharge, No Nose congestion, No Mouth pain, No Mouth swelling, No Throat pain, No Throat swelling, No Other Cardiovascular: No Chest Pain, No Palpitations, No Orthopnea, No Paroxysmal Noc. Dyspnea, No Edema, No Lt Headedness, No Other Respiratory: No Cough, No Dry; Shortness of breath; No SOB with excertion, No Wheezing, No Hemoptysis, No Pleuritic Pain, No Sputum, No Other Gastrointestinal: No Nausea, No Vomiting, No Abdominal Pain, No Diarrhea, No Constipation, No Melena, No Hematochezia; Other (Peg tube in place) Genitourinary: No Dysuria, No Frequency, No Incontinence, No Hematuria, No Retention; Other (Chawla catheter in place) Musculoskeletal: No other, No neck pain, No shoulder pain, No arm pain, No back pain, No hand pain, No leg pain, No foot pain Skin: No Rash, No Lesions, No Jaundice, No Bruising, No Other Objective Vitals Vital Signs Date Time Temp Pulse Resp B/P (MAP) Pulse Ox O2 Delivery O2 Flow Rate FiO2 09/26/24 06:45 68 16 112/55 (74) 98 09/26/24 06:00 40 09/26/24 06:00 Mechanical Ventilator+ 09/26/24 04:00 99.0 99.0 09/24/24 12:44 15 Intake/Output Intake and Output 09/26/24 07:00 Intake Total 3205 ml Output Total 825 ml Balance 2380 ml Intake Oral 400 ml IV Total 2645 ml Tube Feeding 160 ml Output Urine Total 825 ml Stool Total 0 ml General Appearance: Alert, Oriented X3, Cooperative, No acute distress HEENT: PERRLA Lungs: Other (Bilateral upper lobe rhonchi. Mechanical ventilation) Cardiovascular: Normal S1, Normal S2 Musculoskeletal: Normal motor function Skin: Dry, Intact Psych/Mental Status: Mental status NL, Mood NL Medications Current Medications Medications Dose Ordered Sig/Jim Route Start Time Stop Time Status Last Admin Dose Admin Midazolam HCl 50 ml @ 1 mls/hr Q24H IV 09/24/24 13:00 UNV Norepinephrine Bitartrate 250 ml @ 3.75 mls/hr Q24H IV 09/24/24 13:00 09/24/24 20:00 3.75 MLS/HR Midazolam HCl 50 ml @ 1 mls/hr Q24H IV 09/24/24 13:00 09/25/24 16:51 3 MLS/HR Fentanyl Citrate 250 ml @ 2.5 mls/hr Q24H IV 09/24/24 13:00 09/24/24 21:01 2.5 MLS/HR Vancomycin HCl 0 ml @ 0 mls/hr UD IV 09/24/24 18:15 Acetaminophen 650 mg Q6HP PRN ME 09/24/24 18:15 Diagnostic Test (Pha) 1 strip IQ4HR 09/24/24 20:00 09/26/24 04:29 1 STRIP Insulin Human Regular IQ4HR SC 09/24/24 20:00 09/25/24 03:56 2 UNITS Dextrose 50 ml UD PRN IV 09/24/24 18:15 09/25/24 16:00 50 ML Sodium Chloride 10 ml Q8HR IV 09/24/24 22:00 09/26/24 05:36 10 ML Ondansetron HCl 4 mg Q4HP PRN IV 09/24/24 18:15 Famotidine 20 mg EOD IV 09/24/24 22:00 09/24/24 20:54 20 MG Aspirin 81 mg DAILY PO 09/25/24 10:00 09/25/24 09:24 81 MG Nitroglycerin 0.4 mg Q5MINP PRN SL 09/24/24 19:15 Morphine Sulfate 2 mg Q30M PRN IV 09/24/24 19:15 Enteral Nutritional Formula 1,000 ml 30ML/HR GT 09/25/24 15:45 09/25/24 21:58 1,000 ML Purified Water 200 ml Q6HR GT 09/25/24 18:00 09/26/24 05:35 200 ML Meropenem 50 ml @ 17 mls/hr Q12H IV 09/25/24 22:00 09/25/24 21:49 17 MLS/HR Dextrose 1,000 ml @ 75 mls/hr [id number] IV 09/26/24 07:45 UNV Laboratory Results Laboratory Tests 09/26/24 03:37 Chemistry Test 09/26/24 03:37 Albumin 3.2 g/dL (3.2-4.8) Calcium Level 8.7 mg/dL (8.7-10.4) Total Protein 6.1 g/dL (5.7-8.2) LFT Test 09/26/24 03:37 Alanine Aminotransferase (ALT) 14 U/L (7-40) Alkaline Phosphatase 56 U/L (46-116) Aspartate Amino Transferase (AST) 19 U/L (13-40) Total Bilirubin 0.3 mg/dL (0.2-1.0) Urinalysis Test 09/24/24 13:00 09/25/24 08:35 Urine Amorphous Crystals Few /hpf (None Seen) Urine Color Yellow (Yellow) Urine Clarity Turbid (Clear) H Urine pH 5.0 (5.0-9.0) Urine Specific [place] 1.025 (1.001-1.035) Urine Protein 1+ (Negative) H Urine Ketones Negative (Negative) Urine Blood Negative /uL (Negative) Urine Nitrite Negative (Negative) Urine Bilirubin Negative (Negative) Urine Urobilinogen Normal mg/dL (Negative) Urine Leukocyte Esterase 3+ /uL (Negative) Urine RBC 11 /hpf (0 - 3) Urine WBC Clumps Present /hpf (None Seen) Urine Microscopic WBC 65 /HPF (0-3) H Urine Squamous Epithelial Cells Few /hpf (<5) Urine Bacteria None seen /hpf (None Seen) Urine Mucus Few (None Seen) Urine Osmolality 610 mOsm/kg Urine Creatinine 82.82 mg/dL (30.0-125.0) Urine Protein/Creatinine Ratio 0.72 Urine Sodium 21 mmol/L (40-220) L Urine Glucose Normal mg/dL (Normal) Urine Total Protein 59.8 mg/dL (1-14) H Blood Gas Results Test 09/26/24 06:20 Arterial Blood pH 7.338 (7.350-7.450) FiO2 % 40.0 Microbiology Microbiology Date/Time Source Procedure Growth Status 09/24/24 22:15 Nose MRSA Screen - Final Complete 09/24/24 13:09 Sputum Gram Stain - Final Resulted 09/24/24 13:09 Sputum Respiratory Culture - Preliminary Resulted 09/24/24 13:00 Voided Urine Urine Culture - Preliminary Resulted 09/24/24 13:00 Blood Blood Culture - Preliminary NO GROWTH AFTER 24 HOURS OF INCUBATION. Resulted Labs and/or images reviewed: Labs reviewed by me, Image(s) reviewed by me Assessment/Plan Assessment/Plan Impression: -acute hypoxic respiratory failure -community-acquired pneumonia, Gram-positive/Gram-negative etiology -septic shock -hypernatremia -history of CVA -bed-bound status -history of PEG tube -acute kidney injury, vasomotor nephropathy Plan: Events: No events overnight. Continues to be hypernatremic. Also with hyperchloremia and metabolic acidosis. Vasopressor therapy weaned off -change IV fluids to D5W at 75 mL/hour and continue free water. -pulmonology consultation: Vent settings per their discretion -nephrology consultation: Recommendations reviewed -change antibiotic therapy to Merrem and vancomycin -continue Jevity, increased to 50 mL/hour -PPI -meng cultures : Gram-negative rods in sputum -repeat labs, chest x-ray, ABG in a.m. Critical care time spent with patient discussing and formulating plan of care: 40 minutes. This does not include time spent performing procedures. This medical document was created using an electronic medical record system with [employer] dictation system. Although this document has been carefully reviewed, there may still be some phonetic and typographical errors. These areas are purely typographical due to imperfections of the software programs, and do not reflect any compromise in the patient's medical care. Plan discussed with: Patient, Other (RN) My Orders Orders - CAMELIA RHODES NP Procedure Category Date Status Time Nutritional PHA 09/25/24 In Process Supplements (Jevity 15:45 Free Water PHA 09/25/24 In Process 18:00 Chest Portable XY 09/26/24 Resulted 04:00 Meropenem 1gm Ivpb PHA 09/25/24 In Process (Merrem 1gm/ Ns) 22:00 Abg W/ Co-Ox RT 09/26/24 Logged 07:00 D5w 5% (Dextrose 5%) PHA 09/26/24 Logged 07:45 Date of Service: September 26, 2024 Billing Provider: CAMELIA RHODES NP Common Visit Codes: 69644-[id number] CARE 30-74 MIN CAMELIA RHODES NP September 26, 2024 08:03
[2024-09-26] MEDS: D5W 5% 1,000 ML IV SCH (09:20)
--- NOTE | 2024-09-26 10:14 | DVHPN2 ---
Progress Note Date Seen: September 26, 2024 Medical Necessity Reason Pt with a Central, PICC or Fol: Yes The following are medically ne: Central Line Subjective Review of Systems: RESPIRATORY:Abnormal Other Systems: Patient seen and examined by myself today in follow-up, patient remained intubated on ventilator Objective vital signs Vital Sign Date Time Temp Pulse Resp B/P (MAP) Pulse Ox O2 Delivery O2 Flow Rate FiO2 09/26/24 06:45 68 16 112/55 (74) 98 09/26/24 06:00 40 09/26/24 06:00 Mechanical Ventilator+ 09/26/24 04:00 99.0 99.0 09/24/24 12:44 15 Total Intake and Output 09/25/24 09/25/24 09/26/24 15:00 23:00 07:00 Intake Total 867 ml 972 ml 1366 ml Output Total 325 ml 500 ml Balance 867 ml 647 ml 866 ml medications Current Medications Medications Dose Ordered Sig/Jim Route Start Time Stop Time Status Last Admin Dose Admin Midazolam HCl 50 ml @ 1 mls/hr Q24H IV 09/24/24 13:00 UNV Norepinephrine Bitartrate 250 ml @ 3.75 mls/hr Q24H IV 09/24/24 13:00 09/24/24 20:00 3.75 MLS/HR Midazolam HCl 50 ml @ 1 mls/hr Q24H IV 09/24/24 13:00 09/26/24 09:35 3 MLS/HR Fentanyl Citrate 250 ml @ 2.5 mls/hr Q24H IV 09/24/24 13:00 09/24/24 21:01 2.5 MLS/HR Vancomycin HCl 0 ml @ 0 mls/hr UD IV 09/24/24 18:15 Acetaminophen 650 mg Q6HP PRN ME 09/24/24 18:15 Diagnostic Test (Pha) 1 strip IQ4HR 09/24/24 20:00 09/26/24 09:51 1 STRIP Insulin Human Regular IQ4HR SC 09/24/24 20:00 09/25/24 03:56 2 UNITS Dextrose 50 ml UD PRN IV 09/24/24 18:15 09/25/24 16:00 50 ML Sodium Chloride 10 ml Q8HR IV 09/24/24 22:00 09/26/24 05:36 10 ML Ondansetron HCl 4 mg Q4HP PRN IV 09/24/24 18:15 Famotidine 20 mg EOD IV 09/24/24 22:00 09/26/24 09:42 20 MG Aspirin 81 mg DAILY PO 09/25/24 10:00 09/25/24 09:24 81 MG Nitroglycerin 0.4 mg Q5MINP PRN SL 09/24/24 19:15 Morphine Sulfate 2 mg Q30M PRN IV 09/24/24 19:15 Enteral Nutritional Formula 1,000 ml 30ML/HR GT 09/25/24 15:45 09/25/24 21:58 1,000 ML Purified Water 200 ml Q6HR GT 09/25/24 18:00 09/26/24 05:35 200 ML Meropenem 50 ml @ 17 mls/hr Q12H IV 09/25/24 22:00 09/26/24 09:42 17 MLS/HR Dextrose 1,000 ml @ 75 mls/hr [id number] IV 09/26/24 07:45 09/26/24 09:20 75 MLS/HR Examination: LUNGS:Normal, CVS:Normal, MSK:Normal laboratory and microbiology Laboratory Tests 09/26/24 03:37 Test 09/26/24 03:37 Range/Units Serum Glucose 80 74-106 mg/dL Microbiology Date/Time Source Procedure Growth Status 09/24/24 22:15 Nose MRSA Screen - Final Complete 09/24/24 13:09 Sputum Gram Stain - Final Resulted 09/24/24 13:09 Respiratory Culture - Preliminary Proteus mirabilis Resulted 09/24/24 13:00 Voided Urine Urine Culture - Preliminary Resulted 09/24/24 13:00 Blood Blood Culture - Preliminary NO GROWTH AFTER 24 HOURS OF INCUBATION. Resulted Problem List/Assessment/Plan Problem List/Assessment/Plan Acute kidney injury superimposed Chronic Kidney Disease secondary hemodynamic mediated, FeNa < 1% Acute respiratory failure, patient intubated on ventilator NSTEMI Hypernatremia due to dehydration Diabetes mellitus type 2 Hyperglycemia Nephrolithiasis Secondary hyperparathyroidism Anemia of chronic kidney disease Recommendations Kidney function is improving Increased urine output Chawla catheter Strict I&Os I agree with hypotonic IV fluid hydration Insulin sliding scale kidney ultrasound reported 1.9 cm right kidney stone, nonobstructing Cardiology consult We will continue to follow Plan discussed with: Other (Nurse) My Orders My Orders Orders - FRANKLIN DAILY MD Procedure Category Date Status Time Dopamine 1600mcg/Ml PHA 09/26/24 Logged D5W 10:15 Dietary Evaluation Review Comments: 1. TF Glucerna 1.2Cal @ 60ml/hr x 24 hr (goal). start @ 20ml/hr, increase 10 ml/hr Q4H until goal is reached. Water flush 50ml Q6H if allowed. 2. TPN if NPO >7 days 3. Monitor electrolyte, intake, I/O, lab values, wt trends, skin trends Expected Outcomes/Goals: To meet >75% estimated needs Fu 2-3 days FRANKLIN DAILY MD September 26, 2024 10:14
--- NOTE | 2024-09-26 10:35 | DVHPN2 ---
Progress Note - Dictate Date Seen: September 26, 2024 Medical Necessity Reason Pt with a Central, PICC or Fol: Yes The following are medically ne: Central Line vital signs Vital Sign Date Time Temp Pulse Resp B/P (MAP) Pulse Ox O2 Delivery O2 Flow Rate FiO2 09/26/24 06:45 68 16 112/55 (74) 98 09/26/24 06:00 40 09/26/24 06:00 Mechanical Ventilator+ 09/26/24 04:00 99.0 99.0 09/24/24 12:44 15 Total Intake and Output 09/25/24 09/25/24 09/26/24 15:00 23:00 07:00 Intake Total 867 ml 972 ml 1366 ml Output Total 325 ml 500 ml Balance 867 ml 647 ml 866 ml medications Current Medications Medications Dose Ordered Sig/Jim Route Start Time Stop Time Status Last Admin Dose Admin Midazolam HCl 50 ml @ 1 mls/hr Q24H IV 09/24/24 13:00 UNV Norepinephrine Bitartrate 250 ml @ 3.75 mls/hr Q24H IV 09/24/24 13:00 09/24/24 20:00 3.75 MLS/HR Midazolam HCl 50 ml @ 1 mls/hr Q24H IV 09/24/24 13:00 09/26/24 09:35 3 MLS/HR Fentanyl Citrate 250 ml @ 2.5 mls/hr Q24H IV 09/24/24 13:00 09/24/24 21:01 2.5 MLS/HR Vancomycin HCl 0 ml @ 0 mls/hr UD IV 09/24/24 18:15 Acetaminophen 650 mg Q6HP PRN [place] 09/24/24 18:15 Diagnostic Test (Pha) 1 strip IQ4HR 09/24/24 20:00 09/26/24 09:51 1 STRIP Insulin Human Regular IQ4HR SC 09/24/24 20:00 09/25/24 03:56 2 UNITS Dextrose 50 ml UD PRN IV 09/24/24 18:15 09/25/24 16:00 50 ML Sodium Chloride 10 ml Q8HR IV 09/24/24 22:00 09/26/24 05:36 10 ML Ondansetron HCl 4 mg Q4HP PRN IV 09/24/24 18:15 Famotidine 20 mg EOD IV 09/24/24 22:00 09/26/24 09:42 20 MG Aspirin 81 mg DAILY PO 09/25/24 10:00 09/26/24 10:26 81 MG Nitroglycerin 0.4 mg Q5MINP PRN SL 09/24/24 19:15 Morphine Sulfate 2 mg Q30M PRN IV 09/24/24 19:15 Enteral Nutritional Formula 1,000 ml 30ML/HR GT 09/25/24 15:45 09/25/24 21:58 1,000 ML Purified Water 200 ml Q6HR GT 09/25/24 18:00 09/26/24 05:35 200 ML Meropenem 50 ml @ 17 mls/hr Q12H IV 09/25/24 22:00 09/26/24 09:42 17 MLS/HR Dextrose 1,000 ml @ 75 mls/hr [id number] IV 09/26/24 07:45 09/26/24 09:20 75 MLS/HR Dopamine HCl/ Dextrose 250 ml @ 5.25 mls/hr Q24H IV 09/26/24 10:15 laboratory and microbiology Laboratory Tests 09/26/24 03:37 Test 09/26/24 03:37 Range/Units Serum Glucose 80 74-106 mg/dL Assessment/Plan Impression Acute hypoxemic respiratory failure Altered mental status Aspiration pneumonia COURTNEY Patient seen and examined in the ER Events none off pressors On mechanical ventilation S/p intubation PEEP 5, FiO2 50% Labs and imaging reviewed ABG reviewed Management plan sedation holiday if wakes up to follow commands proceed to weaning Continue antibiotics F/u cultures Bronchodilators Monitor renal function Monitor electrolytes Supplement as needed Pressors as needed for hemodynamic support To maintain a mean arterial pressure of 65 mmHg DVT prophylaxis Critical care time 35 minutes Dietary Evaluation Review Comments: 1. TF Glucerna 1.2Cal @ 60ml/hr x 24 hr (goal). start @ 20ml/hr, increase 10 ml/hr Q4H until goal is reached. Water flush 50ml Q6H if allowed. 2. TPN if NPO >7 days 3. Monitor electrolyte, intake, I/O, lab values, wt trends, skin trends Expected Outcomes/Goals: To meet >75% estimated needs Fu 2-3 days Plan discussed with: Patient FREDDY PETER MD September 26, 2024 10:34
[2024-09-26] MEDS: DOPamine 1600MCG/ML D5W 250 ML IV SCH (10:42)
[2024-09-27] VITALS (108 sets, daily range): BP systolic 95–166; BP diastolic 45–78; PULSE 60–85; RESP 14–22; TEMP 95.2–100.2; O2SAT 91–99
[2024-09-27 04:22] LABS: Basophils # (auto) 0 10 ^3/uL (0-0.2); Basophils % (auto) 0.1 % (0.0-2.0); Eosinophils # (auto) 0.2 10 ^3/uL (0-0.8); Eosinophils % (auto) 4.6 % (0.0-7.0); Hematocrit 30.7 % (41.0-53.0); Hemoglobin 9.9 g/dL (13.5-17.5); Lymphocytes # (auto) 0.6 10 ^3/uL (0.4-5.4); Lymphocytes % (auto) 15.8 % (10.0-50.0); Mean Corpuscular Hemoglobin 30.1 pg (28.0-32.0); Mean Corpuscular Hgb Conc. 32.4 g/dL (32.0-36.0); Monocytes # (auto) 0.5 10 ^3/uL (0-1.3); Monocytes % (auto) 12.3 % (0.0-12.0); Neutrophils # (auto) 2.7 10 ^3/uL (1.6-8.6); Neutrophils % (auto) 67.2 % (37.0-80.0); Nucleated Red Blood Cells % 0.2 %; Platelet Count (auto) 103 10^3/uL (140-450); Red Cell Distribution Width 15.6 % (11.8-14.3)
--- NOTE | 2024-09-27 04:38 | DVH ---
Exam: CT CT AB PEL WO CON-NO ORAL OR IV History: ABDOMINAL DISTENTION Comparison Study: None Technique: Multidetector spiral CT of the abdomen and pelvis was performed from lung bases to pubic s ymphysis. Imaging was performed without intravenous contrast. Coronal and sagittal multiplanar reform ats were obtained from the axial data set by the technologist. Radiation Dose : 1. Abdomen/Pelvis: CTDIvol 21.1 mGy, DLP 1399.3 mGy*cm. Findings: Evaluation of vasculature and solid organs is limited due to lack of intravenous contrast use. Lung Bases: Bilateral pleural effusions and bibasilar atelectasis. Pericardial effusion. Coronary ar umang calcifications. Liver: The liver is normal in size. No focal lesions. Gallbladder and Biliary Tree: The gallbladder has gallstones and/or gallbladder wall calcification. No intrahepatic or extrahepatic biliary ductal dilatation. Spleen: Unremarkable Pancreas: The pancreas is grossly unremarkable. Adrenal Glands: Unremarkable Kidneys: Kidneys are unremarkable without calculi or hydronephrosis. GI tract: Enteric tube terminates in the stomach. Percutaneous feeding tube noted with anchoring bal loon in the stomach. No evidence of small bowel wall thickening or abnormal dilatation to suggest bow el obstruction. Fecal retention in the rectum. Rectal catheter in place. The appendix is not visuali zed, however no inflammatory changes in the right lower quadrant to suggest acute appendicitis. Peritoneum/mesentery/retroperitoneum. No evidence of free intraperitoneal air. No ascites. No evidenc e of suspicious lymphadenopathy. Abdominal Wall: Unremarkable. Vasculature: The visualized abdominal aorta is normal in size and caliber. Evaluation of abdominal a nd pelvic vessels is limited due to lack of intravenous contrast. There are atherosclerotic calcifica tions in the aorta. Urinary Bladder: Grossly unremarkable for degree of distention. Pelvic Organs: Unremarkable Musculoskeletal: No aggressive focal bony lesions, acute fractures or dislocation. IMPRESSION: 1. Bilateral pleural effusions and passive atelectasis at the lung bases. 2. Fecal retention in the rectum suggesting impaction.
[2024-09-27 04:39] LABS: Alanine Aminotransferase 16 U/L (7-40); Alkaline Phosphatase 60 U/L (46-116); Anion Gap 8 (5-15); BUN/Creatinine Ratio 42.5 (10.0-20.0); Carbon Dioxide 22 mmol/L (20-31); Potassium 4.3 mmol/L (3.5-5.1); Sodium 144 mmol/L (136-145); Total Protein 5.9 g/dL (5.7-8.2)
[2024-09-27 04:40] LABS: Aspartate Aminotransferase 18 U/L (13-40); Bilirubin, Total 0.3 mg/dL (0.2-1.0)
[2024-09-27 04:50] LABS: Albumin 3.1 g/dL (3.2-4.8); Blood Urea Nitrogen 57 mg/dL (9-23); Calcium 8.5 mg/dL (8.7-10.4); Chloride 114 mmol/L (98-107); Glucose 150 mg/dL (74-106); Magnesium 2.7 mg/dL (1.6-2.6)
--- NOTE | 2024-09-27 05:22 | DVH ---
CHEST RADIOGRAPH Indication: PROTOCOL Technique: Single frontal view of the chest was obtained COMPARISON: XY CHEST PORTABLE on DOS: 09/26/24, XY CHEST PORTABLE on DOS: 09/25/24, XY CHEST PORTABLE o n DOS: 09/24/24 FINDINGS: Lines and Tubes: Endotracheal tube, enteric catheter in satisfactory position. Left chest wall pacem artemio. Lungs: Congestion Pleura: No effusion. No pneumothorax. Cardiomediastinal contours: Cardiomegaly Bones: Unremarkable IMPRESSION: Lines and tubes in satisfactory position. No significant interval change.
[2024-09-27 07:54] LABS: Base Excess -4.4 mmol/L (-2.0-3.0)
--- NOTE | 2024-09-27 09:21 | DVHPN2 ---
Progress Note Date Seen: September 27, 2024 Medical Necessity Reason Pt with a Central, PICC or Fol: Yes The following are medically ne: Central Line Subjective Review of Systems: RESPIRATORY:Abnormal Other Systems: Patient seen and examined by myself today in follow-up, patient remained intubated on ventilator Objective vital signs Vital Sign Date Time Temp Pulse Resp B/P (MAP) Pulse Ox O2 Delivery O2 Flow Rate FiO2 09/27/24 08:31 60 16 114/53 (73) 94 30 09/27/24 06:45 96.4 205.5 09/27/24 06:00 Mechanical Ventilator+ Total Intake and Output 09/26/24 09/26/24 09/27/24 15:00 23:00 07:00 Intake Total 213.75 ml 1515.00 ml 987.025 ml Output Total 550 ml 600 ml Balance 213.75 ml 965.00 ml 387.025 ml medications Current Medications Medications Dose Ordered Sig/Jim Route Start Time Stop Time Status Last Admin Dose Admin Midazolam HCl 50 ml @ 1 mls/hr Q24H IV 09/24/24 13:00 UNV Norepinephrine Bitartrate 250 ml @ 3.75 mls/hr Q24H IV 09/24/24 13:00 09/24/24 20:00 3.75 MLS/HR Midazolam HCl 50 ml @ 1 mls/hr Q24H IV 09/24/24 13:00 09/27/24 07:14 5 MLS/HR Fentanyl Citrate 250 ml @ 2.5 mls/hr Q24H IV 09/24/24 13:00 09/26/24 14:59 10 MLS/HR Acetaminophen 650 mg Q6HP PRN DE 09/24/24 18:15 Diagnostic Test (Pha) 1 strip IQ4HR 09/24/24 20:00 09/27/24 08:05 1 STRIP Insulin Human Regular IQ4HR SC 09/24/24 20:00 09/27/24 00:00 2 UNITS Dextrose 50 ml UD PRN IV 09/24/24 18:15 09/25/24 16:00 50 ML Sodium Chloride 10 ml Q8HR IV 09/24/24 22:00 09/27/24 05:34 10 ML Ondansetron HCl 4 mg Q4HP PRN IV 09/24/24 18:15 Aspirin 81 mg DAILY PO 09/25/24 10:00 09/26/24 10:26 81 MG Nitroglycerin 0.4 mg Q5MINP PRN SL 09/24/24 19:15 Morphine Sulfate 2 mg Q30M PRN IV 09/24/24 19:15 Enteral Nutritional Formula 1,000 ml 30ML/HR GT 09/25/24 15:45 09/25/24 21:58 1,000 ML Purified Water 200 ml Q6HR GT 09/25/24 18:00 09/27/24 05:34 200 ML Dextrose 1,000 ml @ 75 mls/hr [id number] IV 09/26/24 07:45 09/27/24 05:20 75 MLS/HR Dopamine HCl/ Dextrose 250 ml @ 5.25 mls/hr Q24H IV 09/26/24 10:15 09/26/24 10:42 5.25 MLS/HR Ceftriaxone Sodium/Dextrose 50 ml @ 50 mls/hr DAILY@0900 IV 09/27/24 09:00 Micafungin Sodium 100 mg/Sodium Chloride 100 ml @ 100 mls/hr DAILY IV 09/27/24 10:00 Famotidine 20 mg HS IV 09/27/24 22:00 Examination: LUNGS:Normal, CVS:Normal, MSK:Normal laboratory and microbiology Laboratory Tests 09/27/24 03:20 Test 09/27/24 03:20 Range/Units Serum Glucose 150 H 74-106 mg/dL Microbiology Date/Time Source Procedure Growth Status 09/24/24 22:15 Nose MRSA Screen - Final Complete 09/24/24 13:09 Sputum Gram Stain - Final Resulted 09/24/24 13:09 Respiratory Culture - Preliminary Proteus mirabilis Resulted 09/24/24 13:00 Voided Urine Urine Culture - Preliminary Resulted 09/24/24 13:00 Blood Blood Culture - Preliminary NO GROWTH AFTER 48 HOURS OF INCUBATION. Resulted Problem List/Assessment/Plan Problem List/Assessment/Plan Acute kidney injury superimposed Chronic Kidney Disease secondary hemodynamic mediated, FeNa < 1% Acute respiratory failure, patient intubated on ventilator NSTEMI Hypernatremia due to dehydration Diabetes mellitus type 2 Hyperglycemia Nephrolithiasis Secondary hyperparathyroidism Anemia of chronic kidney disease Recommendations Kidney function continues to improve Increased urine output Chawla catheter Strict I&Os I agree with hypotonic IV fluid hydration Low-dose dopamine Insulin sliding scale kidney ultrasound reported 1.9 cm right kidney stone, nonobstructing Cardiology consult We will continue to follow Plan discussed with: Other (Nurse) My Orders My Orders Orders - FRANKLIN DAILY MD Procedure Category Date Status Time Dopamine 1600mcg/Ml PHA 09/26/24 In Process D5W 10:15 Dietary Evaluation Review Comments: 1. TF Glucerna 1.2Cal @ 60ml/hr x 24 hr (goal). start @ 20ml/hr, increase 10 ml/hr Q4H until goal is reached. Water flush 50ml Q6H if allowed. 2. TPN if NPO >7 days 3. Monitor electrolyte, intake, I/O, lab values, wt trends, skin trends Expected Outcomes/Goals: To meet >75% estimated needs Fu 2-3 days FRANKLIN DAILY MD September 27, 2024 09:20
--- NOTE | 2024-09-27 09:44 | DVHPN2 ---
Subjective Patient intubated and sedated Reviewed: Care Plan, H&P, Labs Changes from previous H/P or p: No Changes General: Per HPI Eyes: No Pain, No Vision change, No Conjunctivae inflammation, No Eyelid inflammation, No Other, No Redness ENT: No Ear pain, No Ear discharge, No Nose pain, No Nose discharge, No Nose congestion, No Mouth pain, No Mouth swelling, No Throat pain, No Throat swelling, No Other Cardiovascular: No Chest Pain, No Palpitations, No Orthopnea, No Paroxysmal Noc. Dyspnea, No Edema, No Lt Headedness, No Other Respiratory: No Cough, No Dry; Shortness of breath; No SOB with excertion, No Wheezing, No Hemoptysis, No Pleuritic Pain, No Sputum, No Other Gastrointestinal: No Nausea, No Vomiting, No Abdominal Pain, No Diarrhea, No Constipation, No Melena, No Hematochezia; Other (Peg tube in place) Genitourinary: No Dysuria, No Frequency, No Incontinence, No Hematuria, No Retention; Other (Chawla catheter in place) Musculoskeletal: No other, No neck pain, No shoulder pain, No arm pain, No back pain, No hand pain, No leg pain, No foot pain Skin: No Rash, No Lesions, No Jaundice, No Bruising, No Other Objective Vitals Vital Signs Date Time Temp Pulse Resp B/P (MAP) Pulse Ox O2 Delivery O2 Flow Rate FiO2 09/27/24 08:31 60 16 114/53 (73) 94 30 09/27/24 06:45 96.4 205.5 09/27/24 06:00 Mechanical Ventilator+ Intake/Output Intake and Output 09/27/24 07:00 Intake Total 2715.775 ml Output Total 1150 ml Balance 1565.775 ml Intake Oral 750 ml IV Total 1687.775 ml Tube Feeding 278 ml Output Urine Total 1150 ml General Appearance: Oriented X3, Other (Chemically sedated) HEENT: PERRLA Lungs: Other (Bilateral upper lobe rhonchi. Mechanical ventilation) Cardiovascular: Normal S1, Normal S2 Musculoskeletal: Normal motor function Extremities: No edema, Normal pulses Skin: Dry, Intact Psych/Mental Status: Mental status NL, Mood NL Medications Current Medications Medications Dose Ordered Sig/Jim Route Start Time Stop Time Status Last Admin Dose Admin Midazolam HCl 50 ml @ 1 mls/hr Q24H IV 09/24/24 13:00 UNV Norepinephrine Bitartrate 250 ml @ 3.75 mls/hr Q24H IV 09/24/24 13:00 09/24/24 20:00 3.75 MLS/HR Midazolam HCl 50 ml @ 1 mls/hr Q24H IV 09/24/24 13:00 09/27/24 07:14 5 MLS/HR Fentanyl Citrate 250 ml @ 2.5 mls/hr Q24H IV 09/24/24 13:00 09/26/24 14:59 10 MLS/HR Acetaminophen 650 mg Q6HP PRN GA 09/24/24 18:15 Diagnostic Test (Pha) 1 strip IQ4HR 09/24/24 20:00 09/27/24 08:05 1 STRIP Insulin Human Regular IQ4HR SC 09/24/24 20:00 09/27/24 00:00 2 UNITS Dextrose 50 ml UD PRN IV 09/24/24 18:15 09/25/24 16:00 50 ML Sodium Chloride 10 ml Q8HR IV 09/24/24 22:00 09/27/24 05:34 10 ML Ondansetron HCl 4 mg Q4HP PRN IV 09/24/24 18:15 Aspirin 81 mg DAILY PO 09/25/24 10:00 09/27/24 09:29 81 MG Nitroglycerin 0.4 mg Q5MINP PRN SL 09/24/24 19:15 Morphine Sulfate 2 mg Q30M PRN IV 09/24/24 19:15 Enteral Nutritional Formula 1,000 ml 30ML/HR GT 09/25/24 15:45 09/25/24 21:58 1,000 ML Purified Water 200 ml Q6HR GT 09/25/24 18:00 09/27/24 05:34 200 ML Dextrose 1,000 ml @ 75 mls/hr [id number] IV 09/26/24 07:45 09/27/24 05:20 75 MLS/HR Dopamine HCl/ Dextrose 250 ml @ 5.25 mls/hr Q24H IV 09/26/24 10:15 09/26/24 10:42 5.25 MLS/HR Ceftriaxone Sodium/Dextrose 50 ml @ 50 mls/hr DAILY@0900 IV 09/27/24 09:00 Micafungin Sodium 100 mg/Sodium Chloride 100 ml @ 100 mls/hr DAILY IV 09/27/24 10:00 Famotidine 20 mg HS IV 09/27/24 22:00 Laboratory Results Laboratory Tests 09/27/24 03:20 Chemistry Test 09/27/24 03:20 Albumin 3.1 g/dL (3.2-4.8) L Calcium Level 8.5 mg/dL (8.7-10.4) L Magnesium Level 2.7 mg/dL (1.6-2.6) H Total Protein 5.9 g/dL (5.7-8.2) LFT Test 09/27/24 03:20 Alanine Aminotransferase (ALT) 16 U/L (7-40) Alkaline Phosphatase 60 U/L (46-116) Aspartate Amino Transferase (AST) 18 U/L (13-40) Total Bilirubin 0.3 mg/dL (0.2-1.0) Urinalysis Test 09/24/24 13:00 09/25/24 08:35 Urine Amorphous Crystals Few /hpf (None Seen) Urine Color Yellow (Yellow) Urine Clarity Turbid (Clear) H Urine pH 5.0 (5.0-9.0) Urine Specific [place] 1.025 (1.001-1.035) Urine Protein 1+ (Negative) H Urine Ketones Negative (Negative) Urine Blood Negative /uL (Negative) Urine Nitrite Negative (Negative) Urine Bilirubin Negative (Negative) Urine Urobilinogen Normal mg/dL (Negative) Urine Leukocyte Esterase 3+ /uL (Negative) Urine RBC 11 /hpf (0 - 3) Urine WBC Clumps Present /hpf (None Seen) Urine Microscopic WBC 65 /HPF (0-3) H Urine Squamous Epithelial Cells Few /hpf (<5) Urine Bacteria None seen /hpf (None Seen) Urine Mucus Few (None Seen) Urine Osmolality 610 mOsm/kg Urine Creatinine 82.82 mg/dL (30.0-125.0) Urine Protein/Creatinine Ratio 0.72 Urine Sodium 21 mmol/L (40-220) L Urine Glucose Normal mg/dL (Normal) Urine Total Protein 59.8 mg/dL (1-14) H Blood Gas Results Test 09/27/24 07:48 Arterial Blood pH 7.330 (7.350-7.450) FiO2 % 30.0 Microbiology Microbiology Date/Time Source Procedure Growth Status 09/24/24 22:15 Nose MRSA Screen - Final Complete 09/24/24 13:09 Sputum Gram Stain - Final Resulted 09/24/24 13:09 Respiratory Culture - Preliminary Proteus mirabilis Resulted 09/24/24 13:00 Voided Urine Urine Culture - Preliminary Resulted 09/24/24 13:00 Blood Blood Culture - Preliminary NO GROWTH AFTER 48 HOURS OF INCUBATION. Resulted Labs and/or images reviewed: Labs reviewed by me, Image(s) reviewed by me Assessment/Plan Assessment/Plan Impression: -acute hypoxic respiratory failure -community-acquired pneumonia, Gram-positive/Gram-negative etiology -septic shock -hypernatremia -history of CVA -bed-bound status -history of PEG tube -acute kidney injury, vasomotor nephropathy Plan: Events: No events overnight. Clinically improving. Hyponatremia resolved. -spontaneous breathing trial -change IV fluids to D5W at 75 mL/hour and continue free water. -pulmonology consultation: Vent settings per their discretion -nephrology consultation: Recommendations reviewed -change antibiotic therapy to Merrem and vancomycin -continue Jevity, increased to 50 mL/hour -PPI -sputum culture with Proteus mirabilis. Deescalate antibiotic therapy to ceftriaxone 2 g daily. Yeast growing in urine. Add micafungin -repeat labs, chest x-ray, ABG in a.m. Critical care time spent with patient discussing and formulating plan of care: 40 minutes. This does not include time spent performing procedures. This medical document was created using an electronic medical record system with [employer] dictation system. Although this document has been carefully reviewed, there may still be some phonetic and typographical errors. These areas are purely typographical due to imperfections of the software programs, and do not reflect any compromise in the patient's medical care. Plan discussed with: Patient, Other (RN) My Orders Orders - CAMELIA RHODES [employer]OLOGY [employer] Procedure Category Date Status Time Abg W/ Co-Ox RT 09/27/24 Logged 05:00 Chest Portable XY 09/27/24 Resulted 04:00 Basic Metabolic Panel LAB 09/28/24 Verified 05:00 Basic Metabolic Panel LAB 09/29/24 Verified 05:00 Basic Metabolic Panel LAB 09/30/24 Verified 05:00 Complete Blood Count LAB 09/28/24 Verified 05:00 Complete Blood Count LAB 09/29/24 Verified 05:00 Complete Blood Count LAB 09/30/24 Verified 05:00 Cpap/Sed Vacation Med ORDERS 09/27/24 Transmitted Weaning 08:25 Cpap Trial For Am ORDERS 09/27/24 Transmitted 08:25 Chest Portable XY 09/28/24 Logged 05:00 Chest Portable XY 09/29/24 Logged 05:00 Chest Portable XY 09/30/24 Logged 05:00 Abg W/ Co-Ox RT 09/28/24 Logged 05:00 Abg W/ Co-Ox RT 09/29/24 Logged 05:00 Abg W/ Co-Ox RT 09/30/24 Logged 05:00 Ceftriaxone 2gm/50ml PHA 09/27/24 In Process D5w (Rocephin 2gm/5 09:00 Micafungin Sodium PHA 09/27/24 In Process (Mycamine) 10:00 Date of Service: September 27, 2024 Billing Provider: CAMELIA RHODES NP Common Visit Codes: [id number] CARE 30-74 MIN CAMELIA RHODES NP September 27, 2024 09:44
[2024-09-27] MEDS: cefTRIAXone 2GM/50ML D5W 50 ML IV SCH (10:41)
[2024-09-27] MEDS: MICAFUNGIN SODIUM 100 MG in SODIUM CHL 0.9% 100 ML IV SCH (10:43)
--- NOTE | 2024-09-27 12:29 | MEDREC ---
[facility] Intervention Section I [facility] Intervention: Review courses of therapy (The Final Sputum culture showed Pseudomonas aeruginosa + Escherichia coli + Proteus mirabilis. The current Ceftriaxone will not cover Pseudomonas. Please consider switching Ceftriaxone to Cefepime 2 g IV q12h (for GFR 30-60) ) JASON TRUONG September 27, 2024 12:29
--- NOTE | 2024-09-27 14:44 | ECG ---
[facility] Test Date: 2024-09-24 Test Time: 12:48:35 Pat Name: NAGA DUMONT Department: ED Room: 0265D Gender: M [employer]: FARHAT : 1950 Requested By: YOSHI MEHTA Order Number: [id number] Reading MD: Sherman Campuzano Measurements Intervals [place] Rate: 101 P: -20 IN: 160 QRS: -79 QRSD: 124 T: 142 QT: 392 QTc: 509 Interpretive Statements Atrial-sensed ventricular-paced rhythm No further analysis attempted due to paced rhythm Electronically Signed On 10-01-2024 11:08:25 PDT by Sherman Campuzano Please click the below link to view image of tracing.
[2024-09-27] MEDS: PROPOFOL 100 ML IV ONE (18:26)
[2024-09-27] MEDS: cefTAZidime 1 GM in SODIUM CHL 0.9% 50 ML IV SCH (18:43)
[2024-09-27] MEDS: PROPOFOL 100 ML IV SCH (18:44)
[2024-09-27] MEDS: LACTULOSE 20Gm/30ML SOLN PO SCH (21:40)
[2024-09-27] MEDS: FAMOTIDINE (10MG/ML) 2ML VL IV SCH (21:40)
--- NOTE | 2024-09-27 22:03 | DVHPN2 ---
Progress Note - Dictate Date Seen: September 27, 2024 Medical Necessity Reason Pt with a Central, PICC or Fol: Yes The following are medically ne: Central Line vital signs Vital Sign Date Time Temp Pulse Resp B/P (MAP) Pulse Ox O2 Delivery O2 Flow Rate FiO2 09/27/24 21:51 60 09/27/24 21:51 16 98 Mechanical Ventilator+ 30 30 09/27/24 21:01 97.9 166/61 (96) 208.2 Total Intake and Output 09/26/24 09/26/24 09/27/24 15:00 23:00 07:00 Intake Total 213.75 ml 1515.00 ml 994.525 ml Output Total 550 ml 600 ml Balance 213.75 ml 965.00 ml 394.525 ml medications Current Medications Medications Dose Ordered Sig/Jim Route Start Time Stop Time Status Last Admin Dose Admin Midazolam HCl 50 ml @ 1 mls/hr Q24H IV 09/24/24 13:00 UNV Norepinephrine Bitartrate 250 ml @ 3.75 mls/hr Q24H IV 09/24/24 13:00 09/24/24 20:00 3.75 MLS/HR Fentanyl Citrate 250 ml @ 2.5 mls/hr Q24H IV 09/24/24 13:00 09/27/24 18:46 7.5 MLS/HR Acetaminophen 650 mg Q6HP PRN [place] 09/24/24 18:15 Diagnostic Test (Pha) 1 strip IQ4HR 09/24/24 20:00 09/27/24 20:06 1 STRIP Insulin Human Regular IQ4HR SC 09/24/24 20:00 09/27/24 00:00 2 UNITS Dextrose 50 ml UD PRN IV 09/24/24 18:15 09/25/24 16:00 50 ML Sodium Chloride 10 ml Q8HR IV 09/24/24 22:00 09/27/24 21:41 10 ML Ondansetron HCl 4 mg Q4HP PRN IV 09/24/24 18:15 Aspirin 81 mg DAILY PO 09/25/24 10:00 09/27/24 09:29 81 MG Nitroglycerin 0.4 mg Q5MINP PRN SL 09/24/24 19:15 Morphine Sulfate 2 mg Q30M PRN IV 09/24/24 19:15 Enteral Nutritional Formula 1,000 ml 30ML/HR GT 5/20/25 15:45 09/25/24 21:58 1,000 ML Purified Water 200 ml Q6HR GT 09/25/24 18:00 09/27/24 18:44 200 ML Dextrose 1,000 ml @ 75 mls/hr [id number] IV 09/26/24 07:45 09/27/24 12:19 75 MLS/HR Dopamine HCl/ Dextrose 250 ml @ 5.25 mls/hr Q24H IV 09/26/24 10:15 09/26/24 10:42 5.25 MLS/HR Micafungin Sodium 100 mg/Sodium Chloride 100 ml @ 100 mls/hr DAILY IV 09/27/24 10:00 09/27/24 10:43 100 MLS/HR Famotidine 20 mg HS IV 09/27/24 22:00 09/27/24 21:40 20 MG Propofol 100 ml @ 2.577 mls/ hr Q24H IV 09/27/24 18:00 09/27/24 18:44 2.577 MLS/HR Lactulose 30 ml BID PO 09/27/24 22:00 09/27/24 21:40 30 ML Ceftazidime/ Dextrose 1 gm/ Sodium Chloride 50 ml @ 16.667 mls/ hr Q8H IV 09/28/24 02:00 laboratory and microbiology Laboratory Tests 09/27/24 03:20 Test 09/27/24 03:20 Range/Units Serum Glucose 150 H 74-106 mg/dL Assessment/Plan Impression Acute hypoxemic respiratory failure Altered mental status Aspiration pneumonia COURTNEY Patient seen and examined in ICU Events On mechanical ventilation S/p intubation PEEP 5, FiO2 50% Required Precedex overnight Labs and imaging reviewed ABG reviewed Management plan Vent support sedation holiday if wakes up to follow commands proceed to weaning Continue antibiotics F/u cultures Bronchodilators Monitor renal function Monitor electrolytes Supplement as needed Pressors as needed for hemodynamic support To maintain a mean arterial pressure of 65 mmHg DVT prophylaxis Critical care time 35 minutes Dietary Evaluation Review Comments: 1. TF Glucerna 1.2Cal @ 60ml/hr x 24 hr (goal). start @ 20ml/hr, increase 10 ml/hr Q4H until goal is reached. Water flush 50ml Q6H if allowed. 2. TPN if NPO >7 days 3. Monitor electrolyte, intake, I/O, lab values, wt trends, skin trends Expected Outcomes/Goals: To meet >75% estimated needs Fu 2-3 days Plan discussed with: Other (RN) FREDDY PETER MD September 27, 2024 22:03
[2024-09-28] VITALS (116 sets, daily range): BP systolic 97–186; BP diastolic 38–90; PULSE 60–104; RESP 15–29; TEMP 96.3–100; O2SAT 91–100
[2024-09-28] MEDS: cefTAZidime 1 GM in SODIUM CHL 0.9% 50 ML IV SCH (01:33)
[2024-09-28 03:54] LABS: Potassium 4.2 mmol/L (3.5-5.1); Sodium 143 mmol/L (136-145)
[2024-09-28 03:55] LABS: Anion Gap 7 (5-15); Carbon Dioxide 23 mmol/L (20-31)
[2024-09-28 04:01] LABS: Basophils # (auto) 0 10 ^3/uL (0-0.2); Basophils % (auto) 0.4 % (0.0-2.0); Eosinophils # (auto) 0.2 10 ^3/uL (0-0.8); Eosinophils % (auto) 5.1 % (0.0-7.0); Hematocrit 31.5 % (41.0-53.0); Hemoglobin 10.4 g/dL (13.5-17.5); Lymphocytes # (auto) 0.9 10 ^3/uL (0.4-5.4); Lymphocytes % (auto) 24.7 % (10.0-50.0); Mean Corpuscular Hemoglobin 30.1 pg (28.0-32.0); Mean Corpuscular Volume 91.4 fL (80.0-100.0); Monocytes # (auto) 0.5 10 ^3/uL (0-1.3); Monocytes % (auto) 13.3 % (0.0-12.0); Neutrophils % (auto) 56.5 % (37.0-80.0); Platelet Count (auto) 116 10^3/uL (140-450); Red Blood Cells 3.45 10^6/uL (4.5-5.90); White Blood Cell 3.5 10^3/uL (4.4-10.8)
[2024-09-28 04:14] LABS: Blood Urea Nitrogen 41 mg/dL (9-23); Calcium 8.5 mg/dL (8.7-10.4); Chloride 113 mmol/L (98-107); Glucose 146 mg/dL (74-106)
--- NOTE | 2024-09-28 05:48 | DVH ---
EXAM: XR Chest, 1 View CLINICAL INDICATION: pna TECHNIQUE: Frontal view of the chest. COMPARISON: XY CHEST PORTABLE on DOS: 09/27/24, XY CHEST PORTABLE on DOS: 09/26/24, XY CHEST PORTABLE on DOS: 09/25/24, XY CHEST PORTABLE on DOS: 09/24/24 FINDINGS: LUNGS AND PLEURAL SPACES: Pleural effusions. HEART: Cardiomegaly with pulmonary congestion and edema. Superimposed pneumonia cannot be excluded. MEDIASTINUM: Unremarkable. Normal mediastinal contour. BONES/JOINTS: Unremarkable. No acute fracture. TUBES, LINES AND DEVICES: The endotracheal tube (ETT) is in satisfactory position. Left-sided card iac pacemaker. Enteric tube tip cannot be seen but is below the diaphragm. OTHER FINDINGS: . IMPRESSION: Cardiomegaly with pulmonary congestion and edema. Superimposed pneumonia cannot be excluded.
--- NOTE | 2024-09-28 06:28 | DVHPN2 ---
Subjective Patient intubated and sedated Reviewed: Care Plan, H&P, Labs Changes from previous H/P or p: No Changes General: Per HPI Eyes: No Pain, No Vision change, No Conjunctivae inflammation, No Eyelid inflammation, No Other, No Redness ENT: No Ear pain, No Ear discharge, No Nose pain, No Nose discharge, No Nose congestion, No Mouth pain, No Mouth swelling, No Throat pain, No Throat swelling, No Other Cardiovascular: No Chest Pain, No Palpitations, No Orthopnea, No Paroxysmal Noc. Dyspnea, No Edema, No Lt Headedness, No Other Respiratory: No Cough, No Dry; Shortness of breath; No SOB with excertion, No Wheezing, No Hemoptysis, No Pleuritic Pain, No Sputum, No Other Gastrointestinal: No Nausea, No Vomiting, No Abdominal Pain, No Diarrhea, No Constipation, No Melena, No Hematochezia; Other (Peg tube in place) Genitourinary: No Dysuria, No Frequency, No Incontinence, No Hematuria, No Retention; Other (Chawla catheter in place) Musculoskeletal: No other, No neck pain, No shoulder pain, No arm pain, No back pain, No hand pain, No leg pain, No foot pain Skin: No Rash, No Lesions, No Jaundice, No Bruising, No Other Objective Vitals Vital Signs Date Time Temp Pulse Resp B/P (MAP) Pulse Ox O2 Delivery O2 Flow Rate FiO2 09/28/24 05:55 30 09/28/24 05:55 16 97 Mechanical Ventilator+ 09/28/24 05:55 60 09/28/24 05:45 97.3 122/56 (78) 207.1 Intake/Output Intake and Output 09/28/24 07:00 Intake Total 3039.035 ml Output Total 2450 ml Balance 589.035 ml Intake Oral 860 ml IV Total 2169.035 ml Tube Feeding 10 ml Output Urine Total 2450 ml General Appearance: Other (Chemically sedated) HEENT: PERRLA Lungs: Other (Bilateral upper lobe rhonchi. Mechanical ventilation) Cardiovascular: Normal S1, Normal S2 Musculoskeletal: Normal motor function Extremities: No edema, Normal pulses Skin: Dry, Intact Psych/Mental Status: Mental status NL, Mood NL Medications Current Medications Medications Dose Ordered Sig/Jim Route Start Time Stop Time Status Last Admin Dose Admin Midazolam HCl 50 ml @ 1 mls/hr Q24H IV 09/24/24 13:00 UNV Norepinephrine Bitartrate 250 ml @ 3.75 mls/hr Q24H IV 09/24/24 13:00 09/24/24 20:00 3.75 MLS/HR Fentanyl Citrate 250 ml @ 2.5 mls/hr Q24H IV 09/24/24 13:00 09/27/24 18:46 7.5 MLS/HR Acetaminophen 650 mg Q6HP PRN [place] 09/24/24 18:15 Diagnostic Test (Pha) 1 strip IQ4HR 09/24/24 20:00 09/28/24 03:20 1 STRIP Insulin Human Regular IQ4HR SC 09/24/24 20:00 09/28/24 03:20 2 UNITS Dextrose 50 ml UD PRN IV 09/24/24 18:15 09/25/24 16:00 50 ML Sodium Chloride 10 ml Q8HR IV 09/24/24 22:00 09/28/24 05:21 10 ML Ondansetron HCl 4 mg Q4HP PRN IV 09/24/24 18:15 Aspirin 81 mg DAILY PO 09/25/24 10:00 09/27/24 09:29 81 MG Nitroglycerin 0.4 mg Q5MINP PRN SL 09/24/24 19:15 Morphine Sulfate 2 mg Q30M PRN IV 09/24/24 19:15 Enteral Nutritional Formula 1,000 ml 30ML/HR GT 09/25/24 15:45 09/27/24 23:18 1,000 ML Purified Water 200 ml Q6HR GT 09/25/24 18:00 09/28/24 05:21 200 ML Dextrose 1,000 ml @ 75 mls/hr [id number] IV 09/26/24 07:45 09/28/24 00:46 75 MLS/HR Dopamine HCl/ Dextrose 250 ml @ 5.25 mls/hr Q24H IV 09/26/24 10:15 09/28/24 05:38 5.25 MLS/HR Micafungin Sodium 100 mg/Sodium Chloride 100 ml @ 100 mls/hr DAILY IV 09/27/24 10:00 09/27/24 10:43 100 MLS/HR Famotidine 20 mg HS IV 09/27/24 22:00 09/27/24 21:40 20 MG Propofol 100 ml @ 2.577 mls/ hr Q24H IV 09/27/24 18:00 09/28/24 05:21 5.154 MLS/HR Lactulose 30 ml BID PO 09/27/24 22:00 09/27/24 21:40 30 ML Ceftazidime/ Dextrose 1 gm/ Sodium Chloride 50 ml @ 16.667 mls/ hr Q8H IV 09/28/24 02:00 09/28/24 01:33 16.667 MLS/HR Laboratory Results Laboratory Tests 09/28/24 03:15 Chemistry Test 09/28/24 03:15 Calcium Level 8.5 mg/dL (8.7-10.4) L Urinalysis Test 09/24/24 13:00 09/25/24 08:35 Urine Amorphous Crystals Few /hpf (None Seen) Urine Color Yellow (Yellow) Urine Clarity Turbid (Clear) H Urine pH 5.0 (5.0-9.0) Urine Specific Robinson 1.025 (1.001-1.035) Urine Protein 1+ (Negative) H Urine Ketones Negative (Negative) Urine Blood Negative /uL (Negative) Urine Nitrite Negative (Negative) Urine Bilirubin Negative (Negative) Urine Urobilinogen Normal mg/dL (Negative) Urine Leukocyte Esterase 3+ /uL (Negative) Urine RBC 11 /hpf (0 - 3) Urine WBC Clumps Present /hpf (None Seen) Urine Microscopic WBC 65 /HPF (0-3) H Urine Squamous Epithelial Cells Few /hpf (<5) Urine Bacteria None seen /hpf (None Seen) Urine Mucus Few (None Seen) Urine Osmolality 610 mOsm/kg Urine Creatinine 82.82 mg/dL (30.0-125.0) Urine Protein/Creatinine Ratio 0.72 Urine Sodium 21 mmol/L (40-220) L Urine Glucose Normal mg/dL (Normal) Urine Total Protein 59.8 mg/dL (1-14) H Blood Gas Results Test 09/27/24 07:48 Arterial Blood pH 7.330 (7.350-7.450) FiO2 % 30.0 Microbiology Microbiology Date/Time Source Procedure Growth Status 09/24/24 22:15 Nose MRSA Screen - Final Complete 09/24/24 13:09 Sputum Gram Stain - Final Complete 09/24/24 13:09 Respiratory Culture - Final Pseudomonas aeruginosa Escherichia coli Proteus mirabilis Complete 09/24/24 13:00 Voided Urine Urine Culture - Preliminary Resulted 09/24/24 13:00 Blood Blood Culture - Preliminary NO GROWTH AFTER 72 HOURS OF INCUBATION. Resulted Labs and/or images reviewed: Labs reviewed by me, Image(s) reviewed by me Assessment/Plan Assessment/Plan Impression: -acute hypoxic respiratory failure -community-acquired pneumonia, Gram-positive/Gram-negative etiology -septic shock -hypernatremia -history of CVA -bed-bound status -history of PEG tube -acute kidney injury, vasomotor nephropathy Plan: Events: No events overnight. Weaned sedation, CPAP trial today once patient was awake and following commands. -spontaneous breathing trial -change IV fluids to D5W at 75 mL/hour and continue free water. -pulmonology consultation: Vent settings per their discretion -nephrology consultation: Recommendations reviewed -change antibiotic therapy to Merrem and vancomycin -continue Jevity, increased to 50 mL/hour -PPI -sputum culture final with three organisms. Change antibiotic therapy to Fortaz, continue micafungin for yeast in urine -repeat labs, chest x-ray, ABG in a.m. Critical care time spent with patient discussing and formulating plan of care: 40 minutes. This does not include time spent performing procedures. This medical document was created using an electronic medical record system with [employer] dictation system. Although this document has been carefully reviewed, there may still be some phonetic and typographical errors. These areas are purely typographical due to imperfections of the software programs, and do not reflect any compromise in the patient's medical care. Plan discussed with: Patient, Other (RN) My Orders Orders - CAMELIA RHODES ER PHYSICIAN Procedure Category Date Status Time Basic Metabolic Panel LAB 09/29/24 Verified 05:00 Basic Metabolic Panel LAB 09/30/24 Verified 05:00 Complete Blood Count LAB 09/29/24 Verified 05:00 Complete Blood Count LAB 09/30/24 Verified 05:00 Cpap/Sed Vacation Med ORDERS 09/27/24 Transmitted Weaning 08:25 Cpap Trial For Am ORDERS 09/27/24 Transmitted 08:25 Chest Portable XY 09/28/24 Resulted 05:00 Chest Portable XY 09/29/24 Logged 05:00 Chest Portable XY 09/30/24 Logged 05:00 Abg W/ Co-Ox RT 09/28/24 Logged 05:00 Abg W/ Co-Ox RT 09/29/24 Logged 05:00 Abg W/ Co-Ox RT 09/30/24 Logged 05:00 Micafungin Sodium PHA 09/27/24 In Process (Mycamine) 10:00 Apply Barrier Cream TOMI 09/27/24 In Process 12:05 Lactulose Oral PHA 09/27/24 In Process 22:00 Ceftazidime (Fortaz) PHA 09/28/24 In Process 02:00 Cpap/Sed Vacation Med ORDERS 09/28/24 Transmitted Weaning 06:24 Cpap Trial For Am ORDERS 09/28/24 Transmitted 06:24 Date of Service: September 28, 2024 Billing Provider: CAMELIA RHODES NP Common Visit Codes: [id number] CARE 30-74 MIN CAMELIA RHODES NP September 28, 2024 06:28
[2024-09-28 06:41] LABS: Base Excess -5.7 mmol/L (-2.0-3.0)
[2024-09-28] MEDS: hydrALAZINE HCL 20 MG/ML VL IV PRN (14:12)
--- NOTE | 2024-09-28 15:15 | DVHPN2 ---
Progress Note - Dictate Date Seen: September 28, 2024 Medical Necessity Reason Pt with a Central, PICC or Fol: Yes The following are medically ne: Central Line vital signs Vital Sign Date Time Temp Pulse Resp B/P (MAP) Pulse Ox O2 Delivery O2 Flow Rate FiO2 09/28/24 14:12 178/85 09/28/24 13:09 79 20 91 30 09/28/24 11:45 99.7 211.5 09/28/24 10:00 Mechanical Ventilator+ Total Intake and Output 09/27/24 09/27/24 09/28/24 15:00 23:00 07:00 Intake Total 687.75 ml 1180.956 ml 1256.906 ml Output Total 1450 ml 1000 ml Balance 687.75 ml -269.044 ml 256.906 ml medications Current Medications Medications Dose Ordered Sig/Jim Route Start Time Stop Time Status Last Admin Dose Admin Midazolam HCl 50 ml @ 1 mls/hr Q24H IV 09/24/24 13:00 UNV Norepinephrine Bitartrate 250 ml @ 3.75 mls/hr Q24H IV 09/24/24 13:00 09/24/24 20:00 3.75 MLS/HR Fentanyl Citrate 250 ml @ 2.5 mls/hr Q24H IV 09/24/24 13:00 09/27/24 18:46 7.5 MLS/HR Acetaminophen 650 mg Q6HP PRN [place] 09/24/24 18:15 Diagnostic Test (Pha) 1 strip IQ4HR 09/24/24 20:00 09/28/24 12:21 1 STRIP Insulin Human Regular IQ4HR SC 09/24/24 20:00 09/28/24 08:26 2 UNITS Dextrose 50 ml UD PRN IV 09/24/24 18:15 09/25/24 16:00 50 ML Sodium Chloride 10 ml Q8HR IV 09/24/24 22:00 09/28/24 14:12 10 ML Ondansetron HCl 4 mg Q4HP PRN IV 09/24/24 18:15 Aspirin 81 mg DAILY PO 09/25/24 10:00 09/28/24 09:24 81 MG Nitroglycerin 0.4 mg Q5MINP PRN SL 09/24/24 19:15 Morphine Sulfate 2 mg Q30M PRN IV 09/24/24 19:15 Enteral Nutritional Formula 1,000 ml 30ML/HR GT 09/25/24 15:45 09/27/24 23:18 1,000 ML Purified Water 200 ml Q6HR GT 09/25/24 18:00 09/28/24 12:21 200 ML Dextrose 1,000 ml @ 75 mls/hr [id number] IV 09/26/24 07:45 09/28/24 00:46 75 MLS/HR Dopamine HCl/ Dextrose 250 ml @ 5.25 mls/hr Q24H IV 09/26/24 10:15 09/28/24 05:38 5.25 MLS/HR Micafungin Sodium 100 mg/Sodium Chloride 100 ml @ 100 mls/hr DAILY IV 09/27/24 10:00 09/28/24 09:25 100 MLS/HR Famotidine 20 mg HS IV 09/27/24 22:00 09/27/24 21:40 20 MG Propofol 100 ml @ 2.577 mls/ hr Q24H IV 09/27/24 18:00 09/28/24 05:21 5.154 MLS/HR Lactulose 30 ml BID PO 09/27/24 22:00 09/28/24 09:24 30 ML Ceftazidime/ Dextrose 1 gm/ Sodium Chloride 50 ml @ 16.667 mls/ hr Q8H IV 09/28/24 02:00 09/28/24 09:24 16.667 MLS/HR Hydralazine HCl 10 mg Q4HP PRN IV 09/28/24 13:45 09/28/24 14:12 10 MG laboratory and microbiology Laboratory Tests 09/28/24 03:15 Test 09/28/24 03:15 Range/Units Serum Glucose 146 H 74-106 mg/dL Assessment/Plan Impression Acute hypoxemic respiratory failure Altered mental status Aspiration pneumonia COURTNEY Patient seen and examined in ICU Events On mechanical ventilation S/p intubation PEEP 5, FiO2 50% Off sedation Beginning to wake up Labs and imaging reviewed ABG reviewed Management plan Vent support sedation holiday if wakes up to follow commands proceed to weaning trial, pressure support 7/5 extubate when ready Continue antibiotics F/u cultures Bronchodilators Monitor renal function Monitor electrolytes Supplement as needed Pressors as needed for hemodynamic support To maintain a mean arterial pressure of 65 mmHg DVT prophylaxis Critical care time 35 minutes Dietary Evaluation Review Comments: 1. TF Glucerna 1.2Cal @ 60ml/hr x 24 hr (goal). start @ 20ml/hr, increase 10 ml/hr Q4H until goal is reached. Water flush 50ml Q6H if allowed. 2. TPN if NPO >7 days 3. Monitor electrolyte, intake, I/O, lab values, wt trends, skin trends Expected Outcomes/Goals: To meet >75% estimated needs Fu 2-3 days Plan discussed with: Other (Rn) FREDDY PETER MD September 28, 2024 15:15
--- NOTE | 2024-09-28 15:41 | DVHPN2 ---
Progress Note - Dictate Date Seen: September 28, 2024 Medical Necessity Reason Pt with a Central, PICC or Fol: Yes The following are medically ne: Central Line Subjective Remains intubated, urine volumes nonoliguric vital signs Vital Sign Date Time Temp Pulse Resp B/P (MAP) Pulse Ox O2 Delivery O2 Flow Rate FiO2 09/28/24 15:29 93 27 151/68 (95) 96 30 09/28/24 11:45 99.7 211.5 09/28/24 10:00 Mechanical Ventilator+ Total Intake and Output 09/27/24 09/27/24 09/28/24 15:00 23:00 07:00 Intake Total 687.75 ml 1180.956 ml 1256.906 ml Output Total 1450 ml 1000 ml Balance 687.75 ml -269.044 ml 256.906 ml medications Current Medications Medications Dose Ordered Sig/Jim Route Start Time Stop Time Status Last Admin Dose Admin Midazolam HCl 50 ml @ 1 mls/hr Q24H IV 09/24/24 13:00 UNV Norepinephrine Bitartrate 250 ml @ 3.75 mls/hr Q24H IV 09/24/24 13:00 09/24/24 20:00 3.75 MLS/HR Fentanyl Citrate 250 ml @ 2.5 mls/hr Q24H IV 09/24/24 13:00 09/27/24 18:46 7.5 MLS/HR Acetaminophen 650 mg Q6HP PRN [place] 09/24/24 18:15 Diagnostic Test (Pha) 1 strip IQ4HR 09/24/24 20:00 09/28/24 12:21 1 STRIP Insulin Human Regular IQ4HR SC 09/24/24 20:00 09/28/24 08:26 2 UNITS Dextrose 50 ml UD PRN IV 09/24/24 18:15 09/25/24 16:00 50 ML Sodium Chloride 10 ml Q8HR IV 09/24/24 22:00 09/28/24 14:12 10 ML Ondansetron HCl 4 mg Q4HP PRN IV 09/24/24 18:15 Aspirin 81 mg DAILY PO 09/25/24 10:00 09/28/24 09:24 81 MG Nitroglycerin 0.4 mg Q5MINP PRN SL 09/24/24 19:15 Morphine Sulfate 2 mg Q30M PRN IV 09/24/24 19:15 Enteral Nutritional Formula 1,000 ml 30ML/HR GT 09/25/24 15:45 09/27/24 23:18 1,000 ML Purified Water 200 ml Q6HR GT 09/25/24 18:00 09/28/24 12:21 200 ML Dextrose 1,000 ml @ 75 mls/hr [id number] IV 09/26/24 07:45 09/28/24 00:46 75 MLS/HR Dopamine HCl/ Dextrose 250 ml @ 5.25 mls/hr Q24H IV 09/26/24 10:15 09/28/24 05:38 5.25 MLS/HR Micafungin Sodium 100 mg/Sodium Chloride 100 ml @ 100 mls/hr DAILY IV 09/27/24 10:00 09/28/24 09:25 100 MLS/HR Famotidine 20 mg HS IV 09/27/24 22:00 09/27/24 21:40 20 MG Propofol 100 ml @ 2.577 mls/ hr Q24H IV 09/27/24 18:00 09/28/24 05:21 5.154 MLS/HR Lactulose 30 ml BID PO 09/27/24 22:00 09/28/24 09:24 30 ML Ceftazidime/ Dextrose 1 gm/ Sodium Chloride 50 ml @ 16.667 mls/ hr Q8H IV 09/28/24 02:00 09/28/24 09:24 16.667 MLS/HR Hydralazine HCl 10 mg Q4HP PRN IV 09/28/24 13:45 09/28/24 14:12 10 MG objective Gen: nad, intubated heent: nc/at, mmm lungs: cta anteriorly cvs: no rub abd: soft, bowel sounds audible ext: no edema laboratory and microbiology Laboratory Tests 09/28/24 03:15 Test 09/28/24 03:15 Range/Units Serum Glucose 146 H 74-106 mg/dL Assessment/Plan Acute kidney injury superimposed Chronic Kidney Disease secondary hemodynamic mediated Acute respiratory failure, patient intubated on ventilator NSTEMI Hypernatremia due to dehydration Diabetes mellitus type 2 Hyperglycemia Anemia of chronic kidney disease Recommendations Resolving acute kidney injury, prerenal state. Anticipate continued improvement in kidney function with conservative means. Dietary Evaluation Review Comments: 1. TF Glucerna 1.2Cal @ 60ml/hr x 24 hr (goal). start @ 20ml/hr, increase 10 ml/hr Q4H until goal is reached. Water flush 50ml Q6H if allowed. 2. TPN if NPO >7 days 3. Monitor electrolyte, intake, I/O, lab values, wt trends, skin trends Expected Outcomes/Goals: To meet >75% estimated needs Fu 2-3 days Plan discussed with: Other LESLI BROWN MD September 28, 2024 15:41
[2024-09-29] VITALS (109 sets, daily range): BP systolic 99–168; BP diastolic 48–78; PULSE 78–101; RESP 16–30; TEMP 97–99.7; O2SAT 93–100
[2024-09-29 03:56] LABS: Basophils # (auto) 0 10 ^3/uL (0-0.2); Basophils % (auto) 0.5 % (0.0-2.0); Eosinophils # (auto) 0.1 10 ^3/uL (0-0.8); Eosinophils % (auto) 2.6 % (0.0-7.0); Hematocrit 32.6 % (41.0-53.0); Hemoglobin 10.7 g/dL (13.5-17.5); Lymphocytes # (auto) 1.1 10 ^3/uL (0.4-5.4); Lymphocytes % (auto) 22.4 % (10.0-50.0); Mean Corpuscular Hemoglobin 29.6 pg (28.0-32.0); Mean Corpuscular Hgb Conc. 32.6 g/dL (32.0-36.0); Mean Corpuscular Volume 90.7 fL (80.0-100.0); Monocytes # (auto) 0.6 10 ^3/uL (0-1.3); Monocytes % (auto) 11.6 % (0.0-12.0); Neutrophils # (auto) 3.1 10 ^3/uL (1.6-8.6); Neutrophils % (auto) 62.9 % (37.0-80.0); Platelet Count (auto) 137 10^3/uL (140-450); Red Cell Distribution Width 14.7 % (11.8-14.3); White Blood Cell 4.9 10^3/uL (4.4-10.8)
[2024-09-29 04:07] LABS: Anion Gap 11 (5-15); Carbon Dioxide 20 mmol/L (20-31); Chloride 112 mmol/L (98-107); Potassium 3.7 mmol/L (3.5-5.1); Sodium 143 mmol/L (136-145)
[2024-09-29 04:08] LABS: Calcium 9.2 mg/dL (8.7-10.4)
[2024-09-29 04:17] LABS: Blood Urea Nitrogen 33 mg/dL (9-23); Glucose 151 mg/dL (74-106)
--- NOTE | 2024-09-29 06:06 | DVH ---
EXAM: XY CHEST PORTABLE Indication: Shortness of breath; pna Technique: Single frontal view of the chest was obtained Comparison: XY CHEST PORTABLE on DOS: 09/28/24, XY CHEST PORTABLE on DOS: 09/27/24, XY CHEST PORTABLE o n DOS: 09/26/24, XY CHEST PORTABLE on DOS: 09/25/24, XY CHEST PORTABLE on DOS: 09/24/24 FINDINGS: Lines and Tubes: Lines and tubes are unchanged compared to prior exam. Lungs: Bibasilar opacities. Pleura: No effusion. No pneumothorax. Cardiomediastinal contours: Cardiomegaly. Bones: No acute osseous abnormality. IMPRESSION: Cardiomegaly with bibasilar opacities.
[2024-09-29 10:38] LABS: Base Excess -6.6 mmol/L (-2.0-3.0)
[2024-09-29] MEDS: ACETYLCYSTEINE 20%(200MG/ML) SOL 4ML NEB SCH (14:04)
[2024-09-29] MEDS: ALBUTEROL SULF 2.5 MG/0.5ML(0.5%) NEB SOLN NEB SCH (14:04)
--- NOTE | 2024-09-29 15:25 | DVHPN2 ---
Progress Note - Dictate Date Seen: September 29, 2024 Medical Necessity Reason Pt with a Central, PICC or Fol: Yes The following are medically ne: Central Line Subjective Patient extubated, patient's daughter at bedside vital signs Vital Sign Date Time Temp Pulse Resp B/P (MAP) Pulse Ox O2 Delivery O2 Flow Rate FiO2 09/29/24 15:15 98.6 90 19 155/78 (103) 98 209.5 09/29/24 14:04 Cool Aerosol 10 40 40 Total Intake and Output 09/28/24 09/28/24 09/29/24 15:00 23:00 07:00 Intake Total 921.126 ml 1136.751 ml 1189.732 ml Output Total 1300 ml 900 ml Balance 921.126 ml -163.249 ml 289.732 ml medications Current Medications Medications Dose Ordered Sig/Jim Route Start Time Stop Time Status Last Admin Dose Admin Midazolam HCl 50 ml @ 1 mls/hr Q24H IV 09/24/24 13:00 UNV Norepinephrine Bitartrate 250 ml @ 3.75 mls/hr Q24H IV 09/24/24 13:00 09/24/24 20:00 3.75 MLS/HR Fentanyl Citrate 250 ml @ 2.5 mls/hr Q24H IV 09/24/24 13:00 09/27/24 18:46 7.5 MLS/HR Acetaminophen 650 mg Q6HP PRN [place] 09/24/24 18:15 Diagnostic Test (Pha) 1 strip IQ4HR 09/24/24 20:00 09/29/24 11:42 1 STRIP Insulin Human Regular IQ4HR SC 09/24/24 20:00 09/29/24 03:13 2 UNITS Dextrose 50 ml UD PRN IV 09/24/24 18:15 09/25/24 16:00 50 ML Sodium Chloride 10 ml Q8HR IV 09/24/24 22:00 09/29/24 13:13 10 ML Ondansetron HCl 4 mg Q4HP PRN IV 09/24/24 18:15 Aspirin 81 mg DAILY PO 09/25/24 10:00 09/29/24 10:09 81 MG Nitroglycerin 0.4 mg Q5MINP PRN SL 09/24/24 19:15 Morphine Sulfate 2 mg Q30M PRN IV 09/24/24 19:15 Enteral Nutritional Formula 1,000 ml 30ML/HR GT 09/25/24 15:45 09/27/24 23:18 1,000 ML Purified Water 200 ml Q6HR GT 09/25/24 18:00 09/29/24 12:00 200 ML Dextrose 1,000 ml @ 75 mls/hr [id number] IV 09/26/24 07:45 09/28/24 20:57 75 MLS/HR Micafungin Sodium 100 mg/Sodium Chloride 100 ml @ 100 mls/hr DAILY IV 09/27/24 10:00 09/29/24 10:09 100 MLS/HR Famotidine 20 mg HS IV 09/27/24 22:00 09/28/24 21:48 20 MG Propofol 100 ml @ 2.577 mls/ hr Q24H IV 09/27/24 18:00 09/28/24 05:21 5.154 MLS/HR Lactulose 30 ml BID PO 09/27/24 22:00 09/29/24 10:13 30 ML Ceftazidime/ Dextrose 1 gm/ Sodium Chloride 50 ml @ 16.667 mls/ hr Q8H IV 09/28/24 02:00 09/29/24 10:09 16.667 MLS/HR Hydralazine HCl 10 mg Q4HP PRN IV 09/28/24 13:45 09/29/24 11:42 10 MG Acetylcysteine 200 mg Q8HR NEB 09/29/24 14:00 10/02/24 14:00 09/29/24 14:04 200 MG Albuterol 2.5 mg Q8HR NEB 09/29/24 14:00 10/02/24 14:00 09/29/24 14:04 2.5 MG objective Gen: nad, heent: nc/at, mmm lungs: cta anteriorly cvs: no rub abd: soft, bowel sounds audible ext: no edema laboratory and microbiology Laboratory Tests 09/29/24 03:15 Test 09/29/24 03:15 Range/Units Serum Glucose 151 H 74-106 mg/dL Assessment/Plan Acute kidney injury superimposed Chronic Kidney Disease secondary hemodynamic mediated Acute respiratory failure, patient intubated on ventilator NSTEMI Hypernatremia due to dehydration Diabetes mellitus type 2 Hyperglycemia Anemia of chronic kidney disease Recommendations Resolving acute kidney injury, no new recommendations from Nephrology perspective. We will sign off his case, please reconsult as needed. Thank you. Dietary Evaluation Review Comments: 1. TF Glucerna 1.2Cal @ 60ml/hr x 24 hr (goal). start @ 20ml/hr, increase 10 ml/hr Q4H until goal is reached. Water flush 50ml Q6H if allowed. 2. TPN if NPO >7 days 3. Monitor electrolyte, intake, I/O, lab values, wt trends, skin trends Expected Outcomes/Goals: To meet >75% estimated needs Fu 2-3 days Plan discussed with: Daughter LESLI BROWN MD September 29, 2024 15:25
--- NOTE | 2024-09-29 17:05 | DVHPN2 ---
Progress Note - Dictate Date Seen: September 29, 2024 Medical Necessity Reason Pt with a Central, PICC or Fol: Yes The following are medically ne: Central Line vital signs Vital Sign Date Time Temp Pulse Resp B/P (MAP) Pulse Ox O2 Delivery O2 Flow Rate FiO2 09/29/24 16:15 99.0 86 26 154/70 (98) 99 210.2 09/29/24 16:00 Cool Aerosol 8 30 30 Total Intake and Output 09/28/24 09/28/24 09/29/24 15:00 23:00 07:00 Intake Total 921.126 ml 1136.751 ml 1189.732 ml Output Total 1300 ml 900 ml Balance 921.126 ml -163.249 ml 289.732 ml medications Current Medications Medications Dose Ordered Sig/Jim Route Start Time Stop Time Status Last Admin Dose Admin Midazolam HCl 50 ml @ 1 mls/hr Q24H IV 09/24/24 13:00 UNV Norepinephrine Bitartrate 250 ml @ 3.75 mls/hr Q24H IV 09/24/24 13:00 09/24/24 20:00 3.75 MLS/HR Fentanyl Citrate 250 ml @ 2.5 mls/hr Q24H IV 09/24/24 13:00 09/27/24 18:46 7.5 MLS/HR Acetaminophen 650 mg Q6HP PRN [place] 09/24/24 18:15 Diagnostic Test (Pha) 1 strip IQ4HR 09/24/24 20:00 09/29/24 16:36 1 STRIP Insulin Human Regular IQ4HR SC 09/24/24 20:00 09/29/24 16:39 2 UNITS Dextrose 50 ml UD PRN IV 09/24/24 18:15 09/25/24 16:00 50 ML Sodium Chloride 10 ml Q8HR IV 09/24/24 22:00 09/29/24 13:13 10 ML Ondansetron HCl 4 mg Q4HP PRN IV 09/24/24 18:15 Aspirin 81 mg DAILY PO 09/25/24 10:00 09/29/24 10:09 81 MG Nitroglycerin 0.4 mg Q5MINP PRN [place] 09/24/24 19:15 Morphine Sulfate 2 mg Q30M PRN IV 09/24/24 19:15 Enteral Nutritional Formula 1,000 ml 30ML/HR GT 09/25/24 15:45 09/27/24 23:18 1,000 ML Purified Water 200 ml Q6HR GT 09/25/24 18:00 09/29/24 12:00 200 ML Dextrose 1,000 ml @ 75 mls/hr [id number] IV 09/26/24 07:45 09/29/24 09:20 75 MLS/HR Micafungin Sodium 100 mg/Sodium Chloride 100 ml @ 100 mls/hr DAILY IV 09/27/24 10:00 09/29/24 10:09 100 MLS/HR Famotidine 20 mg HS IV 09/27/24 22:00 09/28/24 21:48 20 MG Propofol 100 ml @ 2.577 mls/ hr Q24H IV 09/27/24 18:00 09/28/24 05:21 5.154 MLS/HR Lactulose 30 ml BID PO 09/27/24 22:00 09/29/24 10:13 30 ML Ceftazidime/ Dextrose 1 gm/ Sodium Chloride 50 ml @ 16.667 mls/ hr Q8H IV 09/28/24 02:00 09/29/24 10:09 16.667 MLS/HR Hydralazine HCl 10 mg Q4HP PRN IV 09/28/24 13:45 09/29/24 11:42 10 MG Acetylcysteine 200 mg Q8HR NEB 09/29/24 14:00 10/02/24 14:00 09/29/24 14:04 200 MG Albuterol 2.5 mg Q8HR NEB 09/29/24 14:00 10/02/24 14:00 09/29/24 14:04 2.5 MG laboratory and microbiology Laboratory Tests 09/29/24 03:15 Test 09/29/24 03:15 Range/Units Serum Glucose 151 H 74-106 mg/dL Assessment/Plan Impression Acute hypoxemic respiratory failure Altered mental status Aspiration pneumonia COURTNEY Patient seen and examined in ICU Events Patient was weaned from mechanical ventilation S/p extubation Transitioned to cool aerosol mask Labs and imaging reviewed ABG reviewed Management plan Supplemental oxygen Titrate to maintain sats 90% or above Incentive spirometry Aspiration precautions Continue antibiotics F/u cultures Bronchodilators Monitor renal function Monitor electrolytes Supplement as needed DVT prophylaxis Critical care time 35 minutes Dietary Evaluation Review Comments: 1. TF Glucerna 1.2Cal @ 60ml/hr x 24 hr (goal). start @ 20ml/hr, increase 10 ml/hr Q4H until goal is reached. Water flush 50ml Q6H if allowed. 2. TPN if NPO >7 days 3. Monitor electrolyte, intake, I/O, lab values, wt trends, skin trends Expected Outcomes/Goals: To meet >75% estimated needs Fu 2-3 days Plan discussed with: Patient FREDDY PETER MD September 29, 2024 17:05
--- NOTE | 2024-09-29 20:42 | DVHPN2 ---
Subjective Extubated today Reviewed: Care Plan, H&P, Labs Changes from previous H/P or p: Changes General: Per HPI Eyes: No Pain, No Vision change, No Conjunctivae inflammation, No Eyelid inflammation, No Other, No Redness ENT: No Ear pain, No Ear discharge, No Nose pain, No Nose discharge, No Nose congestion, No Mouth pain, No Mouth swelling, No Throat pain, No Throat swelling, No Other Cardiovascular: No Chest Pain, No Palpitations, No Orthopnea, No Paroxysmal Noc. Dyspnea, No Edema, No Lt Headedness, No Other Respiratory: No Cough, No Dry; Shortness of breath; No SOB with excertion, No Wheezing, No Hemoptysis, No Pleuritic Pain, No Sputum, No Other Gastrointestinal: No Nausea, No Vomiting, No Abdominal Pain, No Diarrhea, No Constipation, No Melena, No Hematochezia; Other (Peg tube in place) Genitourinary: No Dysuria, No Frequency, No Incontinence, No Hematuria, No Retention; Other (Chawla catheter in place) Musculoskeletal: No other, No neck pain, No shoulder pain, No arm pain, No back pain, No hand pain, No leg pain, No foot pain Skin: No Rash, No Lesions, No Jaundice, No Bruising, No Other Objective Vitals Vital Signs Date Time Temp Pulse Resp B/P (MAP) Pulse Ox O2 Delivery O2 Flow Rate FiO2 09/29/24 19:45 99.3 86 22 141/68 (92) 97 210.7 09/29/24 19:24 Nasal Cannula 2.0 09/29/24 19:24 28 Intake/Output Intake and Output 09/29/24 07:00 Intake Total 3247.609 ml Output Total 2200 ml Balance 1047.609 ml Intake Oral 900 ml IV Total 2307.609 ml Tube Feeding 40 ml Output Urine Total 2200 ml Stool Total 0 ml # Bowel Movements 3 General Appearance: Other (Chemically sedated) HEENT: PERRLA Lungs: Other (Bilateral upper lobe rhonchi. Mechanical ventilation) Cardiovascular: Normal S1, Normal S2 Musculoskeletal: Normal motor function Extremities: No edema, Normal pulses Skin: Dry, Intact Psych/Mental Status: Mental status NL, Mood NL Medications Current Medications Medications Dose Ordered Sig/Jim Route Start Time Stop Time Status Last Admin Dose Admin Midazolam HCl 50 ml @ 1 mls/hr Q24H IV 09/24/24 13:00 UNV Norepinephrine Bitartrate 250 ml @ 3.75 mls/hr Q24H IV 09/24/24 13:00 09/24/24 20:00 3.75 MLS/HR Fentanyl Citrate 250 ml @ 2.5 mls/hr Q24H IV 09/24/24 13:00 09/27/24 18:46 7.5 MLS/HR Acetaminophen 650 mg Q6HP PRN [place] 09/24/24 18:15 Diagnostic Test (Pha) 1 strip IQ4HR 09/24/24 20:00 09/29/24 16:36 1 STRIP Insulin Human Regular IQ4HR SC 09/24/24 20:00 09/29/24 16:39 2 UNITS Dextrose 50 ml UD PRN IV 09/24/24 18:15 09/25/24 16:00 50 ML Sodium Chloride 10 ml Q8HR IV 09/24/24 22:00 09/29/24 13:13 10 ML Ondansetron HCl 4 mg Q4HP PRN IV 09/24/24 18:15 Aspirin 81 mg DAILY PO 09/25/24 10:00 09/29/24 10:09 81 MG Nitroglycerin 0.4 mg Q5MINP PRN SL 09/24/24 19:15 Morphine Sulfate 2 mg Q30M PRN IV 09/24/24 19:15 Enteral Nutritional Formula 1,000 ml 30ML/HR GT 09/25/24 15:45 09/27/24 23:18 1,000 ML Purified Water 200 ml Q6HR GT 09/25/24 18:00 09/29/24 18:00 200 ML Dextrose 1,000 ml @ 75 mls/hr [id number] IV 09/26/24 07:45 09/29/24 09:20 75 MLS/HR Micafungin Sodium 100 mg/Sodium Chloride 100 ml @ 100 mls/hr DAILY IV 09/27/24 10:00 09/29/24 10:09 100 MLS/HR Famotidine 20 mg HS IV 09/27/24 22:00 09/28/24 21:48 20 MG Propofol 100 ml @ 2.577 mls/ hr Q24H IV 09/27/24 18:00 09/28/24 05:21 5.154 MLS/HR Lactulose 30 ml BID PO 09/27/24 22:00 09/29/24 10:13 30 ML Ceftazidime/ Dextrose 1 gm/ Sodium Chloride 50 ml @ 16.667 mls/ hr Q8H IV 09/28/24 02:00 09/29/24 19:13 16.667 MLS/HR Hydralazine HCl 10 mg Q4HP PRN IV 09/28/24 13:45 09/29/24 17:11 10 MG Acetylcysteine 200 mg Q8HR NEB 09/29/24 14:00 10/02/24 14:00 09/29/24 14:04 200 MG Albuterol 2.5 mg Q8HR NEB 09/29/24 14:00 10/02/24 14:00 09/29/24 14:04 2.5 MG Laboratory Results Laboratory Tests 09/29/24 03:15 Chemistry Test 09/29/24 03:15 Calcium Level 9.2 mg/dL (8.7-10.4) Urinalysis Test 09/24/24 13:00 09/25/24 08:35 Urine Amorphous Crystals Few /hpf (None Seen) Urine Color Yellow (Yellow) Urine Clarity Turbid (Clear) H Urine pH 5.0 (5.0-9.0) Urine Specific [place] 1.025 (1.001-1.035) Urine Protein 1+ (Negative) H Urine Ketones Negative (Negative) Urine Blood Negative /uL (Negative) Urine Nitrite Negative (Negative) Urine Bilirubin Negative (Negative) Urine Urobilinogen Normal mg/dL (Negative) Urine Leukocyte Esterase 3+ /uL (Negative) Urine RBC 11 /hpf (0 - 3) Urine WBC Clumps Present /hpf (None Seen) Urine Microscopic WBC 65 /HPF (0-3) H Urine Squamous Epithelial Cells Few /hpf (<5) Urine Bacteria None seen /hpf (None Seen) Urine Mucus Few (None Seen) Urine Osmolality 610 mOsm/kg Urine Creatinine 82.82 mg/dL (30.0-125.0) Urine Protein/Creatinine Ratio 0.72 Urine Sodium 21 mmol/L (40-220) L Urine Glucose Normal mg/dL (Normal) Urine Total Protein 59.8 mg/dL (1-14) H Blood Gas Results Test 09/29/24 06:58 09/29/24 10:30 Arterial Blood pH 7.356 (7.350-7.450) 7.351 (7.350-7.450) FiO2 % 30.0 30.0 Microbiology Microbiology Date/Time Source Procedure Growth Status 09/24/24 22:15 Nose MRSA Screen - Final Complete 09/24/24 13:09 Sputum Gram Stain - Final Complete 09/24/24 13:09 Respiratory Culture - Final Pseudomonas aeruginosa Escherichia coli Proteus mirabilis Complete 09/24/24 13:00 Voided Urine Urine Culture - Final Yeast, not Abena albicans Complete 09/24/24 13:00 Blood Blood Culture - Final NO GROWTH AFTER 5 DAYS OF INCUBATION. Complete Assessment/Plan Assessment/Plan acute hypoxic respiratory failure -community-acquired pneumonia, Gram-positive/Gram-negative etiology -septic shock -hypernatremia -history of CVA -bed-bound status -history of PEG tube -acute kidney injury, vasomotor nephropathy PLAN: IV antibiotics Fortaz and micafungin Hypernatremia: Continue free water Incentive spirometry Aspiration precautions Bronchodilators Monitor renal function Monitor electrolytes DVT prophylaxis Plan discussed with: Other Date of Service: September 29, 2024 Billing Provider: POOJA APONTE MD Common Visit Codes: [id number] INP/OBS CARE(HIGH) POOJA APONTE MD September 29, 2024 20:42
[2024-09-30] VITALS (39 sets, daily range): BP systolic 130–172; BP diastolic 56–81; PULSE 79–97; RESP 12–25; TEMP 98.2–99.3; O2SAT 84–100
[2024-09-30 04:03] LABS: Alanine Aminotransferase 19 U/L (7-40); Albumin 3.3 g/dL (3.2-4.8); Alkaline Phosphatase 86 U/L (46-116); Anion Gap 9 (5-15); Aspartate Aminotransferase 23 U/L (13-40); BUN/Creatinine Ratio 23.4 (10.0-20.0); Blood Urea Nitrogen 22 mg/dL (9-23); Carbon Dioxide 22 mmol/L (20-31); Magnesium 2.3 mg/dL (1.6-2.6); Potassium 4.4 mmol/L (3.5-5.1); Sodium 142 mmol/L (136-145); Total Protein 6.4 g/dL (5.7-8.2)
[2024-09-30 04:34] LABS: Bilirubin, Total 0.3 mg/dL (0.2-1.0); Chloride 111 mmol/L (98-107); Glucose 120 mg/dL (74-106)
[2024-09-30 05:40] LABS: Basophils # (auto) 0 10 ^3/uL (0-0.2); Basophils % (auto) 0.4 % (0.0-2.0); Eosinophils # (auto) 0.2 10 ^3/uL (0-0.8); Hematocrit 34.3 % (41.0-53.0); Hemoglobin 11.1 g/dL (13.5-17.5); Lymphocytes # (auto) 1.1 10 ^3/uL (0.4-5.4); Lymphocytes % (auto) 20.1 % (10.0-50.0); Mean Corpuscular Hemoglobin 29.3 pg (28.0-32.0); Mean Corpuscular Hgb Conc. 32.5 g/dL (32.0-36.0); Mean Corpuscular Volume 90.3 fL (80.0-100.0); Monocytes # (auto) 0.6 10 ^3/uL (0-1.3); Monocytes % (auto) 11.7 % (0.0-12.0); Neutrophils # (auto) 3.6 10 ^3/uL (1.6-8.6); Neutrophils % (auto) 64.8 % (37.0-80.0); Nucleated Red Blood Cells % 0.2 %; Platelet Count (auto) 143 10^3/uL (140-450); Red Cell Distribution Width 14.7 % (11.8-14.3); White Blood Cell 5.5 10^3/uL (4.4-10.8)
--- NOTE | 2024-09-30 07:07 | DVH ---
EXAM: XY CHEST PORTABLE DATE OF SERVICE: 09/30/2024 05:01 AM ORDERING PHYSICIAN: CAMELIA RHODES REASON FOR EXAM: pna TECHNIQUE: Single frontal view of the chest was obtained COMPARISON: XY CHEST PORTABLE on DOS: 09/29/24, XY CHEST PORTABLE on DOS: 09/28/24, XY CHEST PORTABLE o n DOS: 09/27/24, XY CHEST PORTABLE on DOS: 09/26/24, XY CHEST PORTABLE on DOS: 09/25/24, XY CHEST PORTAB LE on DOS: 09/29/24 FINDINGS: Lines and Tubes: Lines and tubes are unchanged compared to prior exam. Lungs: Bibasilar opacities. Pleura: No effusion. No pneumothorax. Cardiomediastinal contours: Cardiomegaly. Bones: No acute osseous abnormality. IMPRESSION:
--- NOTE | 2024-09-30 10:22 | DVHPN2 ---
Progress Note - Dictate Date Seen: September 30, 2024 Medical Necessity Reason Pt with a Central, PICC or Fol: Yes The following are medically ne: Central Line vital signs Vital Sign Date Time Temp Pulse Resp B/P (MAP) Pulse Ox O2 Delivery O2 Flow Rate FiO2 09/30/24 10:00 96 Room Air* 0 21 09/30/24 10:00 79 09/30/24 10:00 19 09/30/24 09:01 98.4 148/66 (93) 209.1 Total Intake and Output 09/29/24 09/29/24 09/30/24 15:00 23:00 07:00 Intake Total 770.999 ml 985.001 ml 1095.001 ml Output Total 1200 ml 1100 ml Balance 770.999 ml -214.999 ml -4.999 ml medications Current Medications Medications Dose Ordered Sig/Jim Route Start Time Stop Time Status Last Admin Dose Admin Midazolam HCl 50 ml @ 1 mls/hr Q24H IV 09/24/24 13:00 UNV Norepinephrine Bitartrate 250 ml @ 3.75 mls/hr Q24H IV 09/24/24 13:00 09/24/24 20:00 3.75 MLS/HR Fentanyl Citrate 250 ml @ 2.5 mls/hr Q24H IV 09/24/24 13:00 09/27/24 18:46 7.5 MLS/HR Acetaminophen 650 mg Q6HP PRN [place] 09/24/24 18:15 Diagnostic Test (Pha) 1 strip IQ4HR 09/24/24 20:00 09/30/24 07:57 1 STRIP Insulin Human Regular IQ4HR SC 09/24/24 20:00 09/30/24 07:57 2 UNITS Dextrose 50 ml UD PRN IV 09/24/24 18:15 09/25/24 16:00 50 ML Sodium Chloride 10 ml Q8HR IV 09/24/24 22:00 09/30/24 05:38 10 ML Ondansetron HCl 4 mg Q4HP PRN IV 09/24/24 18:15 Aspirin 81 mg DAILY PO 09/25/24 10:00 09/30/24 09:33 81 MG Nitroglycerin 0.4 mg Q5MINP PRN SL 09/24/24 19:15 Morphine Sulfate 2 mg Q30M PRN IV 09/24/24 19:15 Enteral Nutritional Formula 1,000 ml 30ML/HR GT 09/25/24 15:45 09/27/24 23:18 1,000 ML Purified Water 200 ml Q6HR GT 09/25/24 18:00 09/30/24 05:39 200 ML Dextrose 1,000 ml @ 75 mls/hr [id number] IV 09/26/24 07:45 09/29/24 23:08 75 MLS/HR Micafungin Sodium 100 mg/Sodium Chloride 100 ml @ 100 mls/hr DAILY IV 09/27/24 10:00 09/30/24 08:14 100 MLS/HR Famotidine 20 mg HS IV 09/27/24 22:00 09/29/24 21:29 20 MG Propofol 100 ml @ 2.577 mls/ hr Q24H IV 09/27/24 18:00 09/28/24 05:21 5.154 MLS/HR Lactulose 30 ml BID PO 09/27/24 22:00 09/29/24 10:13 30 ML Ceftazidime/ Dextrose 1 gm/ Sodium Chloride 50 ml @ 16.667 mls/ hr Q8H IV 09/28/24 02:00 09/30/24 09:33 16.667 MLS/HR Hydralazine HCl 10 mg Q4HP PRN IV 09/28/24 13:45 09/30/24 03:01 10 MG Acetylcysteine 200 mg Q8HR NEB 09/29/24 14:00 10/02/24 14:00 09/30/24 06:29 200 MG Albuterol 2.5 mg Q8HR NEB 09/29/24 14:00 10/02/24 14:00 09/30/24 06:29 2.5 MG laboratory and microbiology Laboratory Tests 09/30/24 03:10 Test 09/30/24 03:10 Range/Units Serum Glucose 120 H 74-106 mg/dL Assessment/Plan Impression Acute hypoxemic respiratory failure Altered mental status Aspiration pneumonia COURTNEY Patient seen and examined in ICU Events S/p extubation Low oxygen requirements On 2 liters nasal cannula Appears delirious PEG tube in place Labs and imaging reviewed ABG reviewed Management plan Supplemental oxygen Titrate to maintain sats 90% or above Incentive spirometry Aspiration precautions Continue antibiotics F/u cultures Bronchodilators Monitor renal function Monitor electrolytes Supplement as needed Nutritional support DVT prophylaxis Critical care time 35 minutes Dietary Evaluation Review Comments: 1. TF Glucerna 1.2Cal @ 60ml/hr x 24 hr (goal). start @ 20ml/hr, increase 10 ml/hr Q4H until goal is reached. Water flush 50ml Q6H if allowed. 2. TPN if NPO >7 days 3. Monitor electrolyte, intake, I/O, lab values, wt trends, skin trends Expected Outcomes/Goals: To meet >75% estimated needs Fu 2-3 days Plan discussed with: Other (Rn) FREDDY PETER MD September 30, 2024 10:22
[2024-09-30] MEDS ORDERED: DEXTROSE (50%) 50ML SYRG IV PRN (11:15)
[2024-09-30] MEDS: InsuLIN REG 1unit/0.01ml Soln (100units/ml) SC SCH (11:27)
[2024-09-30] MEDS: ACCU-CHEK COMFORT CURVE STRIP VI SCH (11:28)
[2024-09-30] MEDS: GLYCOPYRROLATE 0.2 MG/ML 1ML VIAL IV PRN (11:58)
--- NOTE | 2024-09-30 13:38 | DVHPN2 ---
Subjective Still lethargic and sleepy He is following commands though but very weak Reviewed: Care Plan, H&P, Labs Changes from previous H/P or p: Changes General: Per HPI Eyes: No Pain, No Vision change, No Conjunctivae inflammation, No Eyelid inflammation, No Other, No Redness ENT: No Ear pain, No Ear discharge, No Nose pain, No Nose discharge, No Nose congestion, No Mouth pain, No Mouth swelling, No Throat pain, No Throat swelling, No Other Cardiovascular: No Chest Pain, No Palpitations, No Orthopnea, No Paroxysmal Noc. Dyspnea, No Edema, No Lt Headedness, No Other Respiratory: No Cough, No Dry; Shortness of breath; No SOB with excertion, No Wheezing, No Hemoptysis, No Pleuritic Pain, No Sputum, No Other Gastrointestinal: No Nausea, No Vomiting, No Abdominal Pain, No Diarrhea, No Constipation, No Melena, No Hematochezia; Other (Peg tube in place) Genitourinary: No Dysuria, No Frequency, No Incontinence, No Hematuria, No Retention; Other (Chawla catheter in place) Musculoskeletal: No other, No neck pain, No shoulder pain, No arm pain, No back pain, No hand pain, No leg pain, No foot pain Skin: No Rash, No Lesions, No Jaundice, No Bruising, No Other Objective Vitals Vital Signs Date Time Temp Pulse Resp B/P (MAP) Pulse Ox O2 Delivery O2 Flow Rate FiO2 09/30/24 12:01 98.4 87 22 158/77 (104) 94 209.1 09/30/24 12:00 Room Air* 0 21 Intake/Output Intake and Output 09/30/24 07:00 Intake Total 2926.001 ml Output Total 2300 ml Balance 626.001 ml Intake Oral 800 ml IV Total 1996.001 ml Tube Feeding 130 ml Output Urine Total 2300 ml # Bowel Movements 1 General Appearance: Other (Chemically sedated) HEENT: PERRLA Lungs: Other (Bilateral upper lobe rhonchi. Mechanical ventilation) Cardiovascular: Normal S1, Normal S2 Musculoskeletal: Normal motor function Extremities: No edema, Normal pulses Skin: Dry, Intact Psych/Mental Status: Mental status NL, Mood NL Medications Current Medications Medications Dose Ordered Sig/Jim Route Start Time Stop Time Status Last Admin Dose Admin Midazolam HCl 50 ml @ 1 mls/hr Q24H IV 09/24/24 13:00 UNV Norepinephrine Bitartrate 250 ml @ 3.75 mls/hr Q24H IV 09/24/24 13:00 09/24/24 20:00 3.75 MLS/HR Fentanyl Citrate 250 ml @ 2.5 mls/hr Q24H IV 09/24/24 13:00 09/27/24 18:46 7.5 MLS/HR Acetaminophen 650 mg Q6HP PRN [place] 09/24/24 18:15 Sodium Chloride 10 ml Q8HR IV 09/24/24 22:00 09/30/24 05:38 10 ML Ondansetron HCl 4 mg Q4HP PRN IV 09/24/24 18:15 Aspirin 81 mg DAILY PO 09/25/24 10:00 09/30/24 09:33 81 MG Nitroglycerin 0.4 mg Q5MINP PRN SL 09/24/24 19:15 Morphine Sulfate 2 mg Q30M PRN IV 09/24/24 19:15 Enteral Nutritional Formula 1,000 ml 30ML/HR GT 09/25/24 15:45 09/27/24 23:18 1,000 ML Purified Water 200 ml Q6HR GT 09/25/24 18:00 09/30/24 11:28 200 ML Dextrose 1,000 ml @ 75 mls/hr [id number] IV 09/26/24 07:45 09/29/24 23:08 75 MLS/HR Micafungin Sodium 100 mg/Sodium Chloride 100 ml @ 100 mls/hr DAILY IV 09/27/24 10:00 09/30/24 08:14 100 MLS/HR Famotidine 20 mg HS IV 09/27/24 22:00 09/29/24 21:29 20 MG Propofol 100 ml @ 2.577 mls/ hr Q24H IV 09/27/24 18:00 09/28/24 05:21 5.154 MLS/HR Lactulose 30 ml BID PO 09/27/24 22:00 09/29/24 10:13 30 ML Ceftazidime/ Dextrose 1 gm/ Sodium Chloride 50 ml @ 16.667 mls/ hr Q8H IV 09/28/24 02:00 09/30/24 09:33 16.667 MLS/HR Hydralazine HCl 10 mg Q4HP PRN IV 09/28/24 13:45 09/30/24 03:01 10 MG Acetylcysteine 200 mg Q8HR NEB 09/29/24 14:00 10/02/24 14:00 09/30/24 06:29 200 MG Albuterol 2.5 mg Q8HR NEB 09/29/24 14:00 10/02/24 14:00 09/30/24 06:29 2.5 MG Diagnostic Test (Pha) 1 strip Q6HR 09/30/24 12:00 09/30/24 11:28 1 STRIP Insulin Human Regular Q6HR SC 09/30/24 12:00 09/30/24 11:27 2 UNITS Dextrose 50 ml UD PRN IV 09/30/24 11:15 Glycopyrrolate 0.2 mg Q4HR PRN IV 09/30/24 11:45 09/30/24 11:58 0.2 MG Laboratory Results Laboratory Tests 09/30/24 03:10 Chemistry Test 09/30/24 03:10 Albumin 3.3 g/dL (3.2-4.8) Calcium Level 9.0 mg/dL (8.7-10.4) Magnesium Level 2.3 mg/dL (1.6-2.6) Total Protein 6.4 g/dL (5.7-8.2) LFT Test 09/30/24 03:10 Alanine Aminotransferase (ALT) 19 U/L (7-40) Alkaline Phosphatase 86 U/L (46-116) Aspartate Amino Transferase (AST) 23 U/L (13-40) Total Bilirubin 0.3 mg/dL (0.2-1.0) Urinalysis Test 09/24/24 13:00 09/25/24 08:35 Urine Amorphous Crystals Few /hpf (None Seen) Urine Color Yellow (Yellow) Urine Clarity Turbid (Clear) H Urine pH 5.0 (5.0-9.0) Urine Specific [place] 1.025 (1.001-1.035) Urine Protein 1+ (Negative) H Urine Ketones Negative (Negative) Urine Blood Negative /uL (Negative) Urine Nitrite Negative (Negative) Urine Bilirubin Negative (Negative) Urine Urobilinogen Normal mg/dL (Negative) Urine Leukocyte Esterase 3+ /uL (Negative) Urine RBC 11 /hpf (0 - 3) Urine WBC Clumps Present /hpf (None Seen) Urine Microscopic WBC 65 /HPF (0-3) H Urine Squamous Epithelial Cells Few /hpf (<5) Urine Bacteria None seen /hpf (None Seen) Urine Mucus Few (None Seen) Urine Osmolality 610 mOsm/kg Urine Creatinine 82.82 mg/dL (30.0-125.0) Urine Protein/Creatinine Ratio 0.72 Urine Sodium 21 mmol/L (40-220) L Urine Glucose Normal mg/dL (Normal) Urine Total Protein 59.8 mg/dL (1-14) H Microbiology Microbiology Date/Time Source Procedure Growth Status 09/24/24 22:15 Nose MRSA Screen - Final Complete 09/24/24 13:09 Sputum Gram Stain - Final Complete 09/24/24 13:09 Respiratory Culture - Final Pseudomonas aeruginosa Escherichia coli Proteus mirabilis Complete 09/24/24 13:00 Voided Urine Urine Culture - Final Yeast, not Abena albicans Complete 09/24/24 13:00 Blood Blood Culture - Final NO GROWTH AFTER 5 DAYS OF INCUBATION. Complete Assessment/Plan Assessment/Plan acute hypoxic respiratory failure -community-acquired pneumonia, Gram-positive/Gram-negative etiology -septic shock -hypernatremia -history of CVA -bed-bound status -history of PEG tube -acute kidney injury, vasomotor nephropathy PLAN: IV antibiotics Fortaz and micafungin Hypernatremia: Continue free water Incentive spirometry Aspiration precautions Bronchodilators Monitor renal function Monitor electrolytes DVT prophylaxis 09/30/2024: Continue IV antibiotics Incentive spirometry Med neb treatments and oxygen as needed Monitor closely Plan discussed with: Patient, Other My Orders Orders - POOJA APONTE MD Procedure Category Date Status Time Transfer Orders XFER 09/30/24 Transmitted 11:12 Glucose Blood PHA 09/30/24 In Process (Accu-Chek Comfort 12:00 Insulin R (Human) PHA 09/30/24 In Process (Insulin R) 12:00 Dextrose 50% Syringe PHA 09/30/24 In Process 11:15 Glycopyrrolate PHA 09/30/24 In Process Injection (Robinul 11:45 Date of Service: September 30, 2024 Billing Provider: POOJA APONTE MD Common Visit Codes: [id number] INP/OBS CARE(HIGH) POOJA APONTE MD September 30, 2024 13:38
[2024-10-01] VITALS (50 sets, daily range): BP systolic 138–184; BP diastolic 58–109; PULSE 69–97; RESP 14–30; TEMP 98.3–99.3; O2SAT 91–100
[2024-10-01 04:12] LABS: Basophils # (auto) 0 10 ^3/uL (0-0.2); Basophils % (auto) 0.6 % (0.0-2.0); Eosinophils # (auto) 0.2 10 ^3/uL (0-0.8); Eosinophils % (auto) 4.2 % (0.0-7.0); Hematocrit 32.9 % (41.0-53.0); Hemoglobin 10.8 g/dL (13.5-17.5); Lymphocytes # (auto) 1.2 10 ^3/uL (0.4-5.4); Lymphocytes % (auto) 30.3 % (10.0-50.0); Mean Corpuscular Hemoglobin 29.7 pg (28.0-32.0); Mean Corpuscular Hgb Conc. 32.9 g/dL (32.0-36.0); Mean Corpuscular Volume 90.1 fL (80.0-100.0); Monocytes # (auto) 0.5 10 ^3/uL (0-1.3); Monocytes % (auto) 12.9 % (0.0-12.0); Nucleated Red Blood Cells % 0.3 %; Platelet Count (auto) 153 10^3/uL (140-450); Red Blood Cells 3.65 10^6/uL (4.5-5.90); Red Cell Distribution Width 14.9 % (11.8-14.3); White Blood Cell 3.9 10^3/uL (4.4-10.8)
[2024-10-01 04:16] LABS: Anion Gap 10 (5-15); Calcium 9.7 mg/dL (8.7-10.4); Carbon Dioxide 22 mmol/L (20-31); Potassium 3.9 mmol/L (3.5-5.1); Sodium 144 mmol/L (136-145)
[2024-10-01 04:22] LABS: Blood Urea Nitrogen 16 mg/dL (9-23)
[2024-10-01 04:24] LABS: Chloride 112 mmol/L (98-107); Glucose 137 mg/dL (74-106)
[2024-10-01] MEDS ORDERED: LOS25T PO (10:18)
[2024-10-01] MEDS ORDERED: CARV12.544 (10:18)
--- NOTE | 2024-10-01 10:26 | DVHPN2 ---
Subjective Patient was alert and aphasic. Reviewed: Care Plan, H&P, Labs Changes from previous H/P or p: No Changes General: Per HPI Eyes: No Pain, No Vision change, No Conjunctivae inflammation, No Eyelid inflammation, No Other, No Redness ENT: No Ear pain, No Ear discharge, No Nose pain, No Nose discharge, No Nose congestion, No Mouth pain, No Mouth swelling, No Throat pain, No Throat swelling, No Other Cardiovascular: No Chest Pain, No Palpitations, No Orthopnea, No Paroxysmal Noc. Dyspnea, No Edema, No Lt Headedness, No Other Respiratory: No Cough, No Dry; Shortness of breath; No SOB with excertion, No Wheezing, No Hemoptysis, No Pleuritic Pain, No Sputum, No Other Gastrointestinal: No Nausea, No Vomiting, No Abdominal Pain, No Diarrhea, No Constipation, No Melena, No Hematochezia; Other (Peg tube in place) Genitourinary: No Dysuria, No Frequency, No Incontinence, No Hematuria, No Retention; Other (Chawla catheter in place) Musculoskeletal: No other, No neck pain, No shoulder pain, No arm pain, No back pain, No hand pain, No leg pain, No foot pain Skin: No Rash, No Lesions, No Jaundice, No Bruising, No Other Objective Vitals Vital Signs Date Time Temp Pulse Resp B/P (MAP) Pulse Ox O2 Delivery O2 Flow Rate FiO2 10/01/24 08:00 98.6 85 20 178/67 (104) 96 98.6 10/01/24 06:54 Room Air 0.0 10/01/24 06:54 21 Intake/Output Intake and Output 10/01/24 07:00 Intake Total 3842 ml Output Total 1950 ml Balance 1892 ml Intake Oral 800 ml IV Total 2682 ml Tube Feeding 360 ml Output Urine Total 1950 ml General Appearance: Alert, Cooperative, mild distress HEENT: PERRLA Lungs: Other (Bilateral upper lobe rhonchi. Mechanical ventilation) Cardiovascular: Normal S1, Normal S2 Abdomen: Other (Distended abdomen) Genitourinary: No Apparent Abnormalities (Chawla catheter) Musculoskeletal: Normal motor function Extremities: No edema, Normal pulses Skin: Dry, Intact Psych/Mental Status: Mental status NL, Mood NL Medications Current Medications Medications Dose Ordered Sig/Jim Route Start Time Stop Time Status Last Admin Dose Admin Midazolam HCl 50 ml @ 1 mls/hr Q24H IV 09/24/24 13:00 UNV Acetaminophen 650 mg Q6HP PRN [place] 09/24/24 18:15 Sodium Chloride 10 ml Q8HR IV 09/24/24 22:00 10/01/24 05:58 10 ML Ondansetron HCl 4 mg Q4HP PRN IV 09/24/24 18:15 Aspirin 81 mg DAILY PO 09/25/24 10:00 10/01/24 09:41 81 MG Nitroglycerin 0.4 mg Q5MINP PRN SL 09/24/24 19:15 Morphine Sulfate 2 mg Q30M PRN IV 09/24/24 19:15 Enteral Nutritional Formula 1,000 ml 30ML/HR GT 09/25/24 15:45 09/27/24 23:18 1,000 ML Purified Water 200 ml Q6HR GT 09/25/24 18:00 10/01/24 05:58 200 ML Dextrose 1,000 ml @ 75 mls/hr [id number] IV 09/26/24 07:45 10/01/24 06:44 75 MLS/HR Micafungin Sodium 100 mg/Sodium Chloride 100 ml @ 100 mls/hr DAILY IV 09/27/24 10:00 09/30/24 08:14 100 MLS/HR Famotidine 20 mg HS IV 09/27/24 22:00 09/30/24 21:37 20 MG Lactulose 30 ml BID PO 09/27/24 22:00 10/01/24 09:41 30 ML Ceftazidime/ Dextrose 1 gm/ Sodium Chloride 50 ml @ 16.667 mls/ hr Q8H IV 09/28/24 02:00 10/01/24 02:13 16.667 MLS/HR Hydralazine HCl 10 mg Q4HP PRN IV 09/28/24 13:45 10/01/24 02:08 10 MG Albuterol 2.5 mg Q8HR NEB 09/29/24 14:00 10/02/24 14:00 10/01/24 06:53 2.5 MG Diagnostic Test (Pha) 1 strip Q6HR 09/30/24 12:00 10/01/24 05:58 1 STRIP Insulin Human Regular Q6HR SC 09/30/24 12:00 10/01/24 05:58 2 UNITS Dextrose 50 ml UD PRN IV 09/30/24 11:15 Laboratory Results Laboratory Tests 10/01/24 03:07 Chemistry Test 10/01/24 03:07 Calcium Level 9.7 mg/dL (8.7-10.4) Urinalysis Test 09/24/24 13:00 09/25/24 08:35 Urine Amorphous Crystals Few /hpf (None Seen) Urine Color Yellow (Yellow) Urine Clarity Turbid (Clear) H Urine pH 5.0 (5.0-9.0) Urine Specific [place] 1.025 (1.001-1.035) Urine Protein 1+ (Negative) H Urine Ketones Negative (Negative) Urine Blood Negative /uL (Negative) Urine Nitrite Negative (Negative) Urine Bilirubin Negative (Negative) Urine Urobilinogen Normal mg/dL (Negative) Urine Leukocyte Esterase 3+ /uL (Negative) Urine RBC 11 /hpf (0 - 3) Urine WBC Clumps Present /hpf (None Seen) Urine Microscopic WBC 65 /HPF (0-3) H Urine Squamous Epithelial Cells Few /hpf (<5) Urine Bacteria None seen /hpf (None Seen) Urine Mucus Few (None Seen) Urine Osmolality 610 mOsm/kg Urine Creatinine 82.82 mg/dL (30.0-125.0) Urine Protein/Creatinine Ratio 0.72 Urine Sodium 21 mmol/L (40-220) L Urine Glucose Normal mg/dL (Normal) Urine Total Protein 59.8 mg/dL (1-14) H Microbiology Microbiology Date/Time Source Procedure Growth Status 09/24/24 22:15 Nose MRSA Screen - Final Complete 09/24/24 13:09 Sputum Gram Stain - Final Complete 09/24/24 13:09 Respiratory Culture - Final Pseudomonas aeruginosa Escherichia coli Proteus mirabilis Complete 09/24/24 13:00 Voided Urine Urine Culture - Final Yeast, not Abena albicans Complete 09/24/24 13:00 Blood Blood Culture - Final NO GROWTH AFTER 5 DAYS OF INCUBATION. Complete Labs and/or images reviewed: Labs reviewed by me, Image(s) reviewed by me Assessment/Plan Assessment/Plan Impression: -acute hypoxic respiratory failure -community-acquired pneumonia, Gram-positive/Gram-negative etiology -septic shock -hypernatremia -history of CVA -bed-bound status -history of PEG tube -acute kidney injury, vasomotor nephropathy -obstructive sleep apnea -rule out ileus Plan: Events: No events overnight. Patient extubated on room air. Patient's abdomen distended, firm right lower quadrant. -KUB -start NG tube antihypertensives -spontaneous breathing trial -change IV fluids to D5W at 75 mL/hour and continue free water. -pulmonology consultation: Vent settings per their discretion -nephrology consultation: Recommendations reviewed -start home antihypertensives including carvedilol and losartan -continue Jevity, increased to 50 mL/hour -PPI -continue Fortaz and micafungin -repeat labs in a.m. Critical care time spent with patient discussing and formulating plan of care: 40 minutes. This does not include time spent performing procedures. This medical document was created using an electronic medical record system with [employer] dictation system. Although this document has been carefully reviewed, there may still be some phonetic and typographical errors. These areas are purely typographical due to imperfections of the software programs, and do not reflect any compromise in the patient's medical care. Plan discussed with: Patient, Other (RN) My Orders Orders - CAMELIA RHODES NP Procedure Category Date Status Time Kub Abdomen Single XY 10/01/24 Logged View 10:15 Carvedilol Tablet PHA 10/01/24 Logged (Coreg Tablet) 22:00 Losartan Tablet PHA 10/01/24 Logged (Cozaar Tablet) 22:00 Date of Service: October 01, 2024 Billing Provider: CAMELIA RHODES NP Common Visit Codes: [id number] CARE 30-74 MIN CAMELIA RHODES NP October 01, 2024 10:26
--- NOTE | 2024-10-01 10:53 | DVH ---
Exam: XY KUB ABDOMEN SINGLE VIEW Indication: obstruction vs ileus Comparison: None Technique: 2 radiographic views of the abdomen. Findings: Gastrostomy tube overlies the stomach. Nonspecific bowel-gas pattern. Large volume colonic stool. There is no definite evidence for pneumoperitoneum. No abnormal calcifications noted. Impression: Nonspecific bowel-gas pattern. Large volume colonic stool.
--- NOTE | 2024-10-01 16:28 | DVHPN2 ---
Progress Note - Dictate Date Seen: October 01, 2024 Medical Necessity Reason Pt with a Central, PICC or Fol: Yes The following are medically ne: Central Line vital signs Vital Sign Date Time Temp Pulse Resp B/P (MAP) Pulse Ox O2 Delivery O2 Flow Rate FiO2 10/01/24 16:00 99.1 88 22 161/66 (97) 96 99.1 10/01/24 14:00 Room Air* 0 21 Total Intake and Output 09/30/24 09/30/24 10/01/24 15:00 23:00 07:00 Intake Total 750 ml 2092 ml 1000 ml Output Total 850 ml 1100 ml Balance 750 ml 1242 ml -100 ml medications Current Medications Medications Dose Ordered Sig/Jim Route Start Time Stop Time Status Last Admin Dose Admin Midazolam HCl 50 ml @ 1 mls/hr Q24H IV 09/24/24 13:00 UNV Acetaminophen 650 mg Q6HP PRN [place] 09/24/24 18:15 Sodium Chloride 10 ml Q8HR IV 09/24/24 22:00 10/01/24 14:06 10 ML Ondansetron HCl 4 mg Q4HP PRN IV 09/24/24 18:15 Aspirin 81 mg DAILY PO 09/25/24 10:00 10/01/24 09:41 81 MG Nitroglycerin 0.4 mg Q5MINP PRN SL 09/24/24 19:15 Morphine Sulfate 2 mg Q30M PRN IV 09/24/24 19:15 Enteral Nutritional Formula 1,000 ml 30ML/HR GT 09/25/24 15:45 09/27/24 23:18 1,000 ML Purified Water 200 ml Q6HR GT 09/25/24 18:00 10/01/24 11:39 200 ML Dextrose 1,000 ml @ 75 mls/hr [id number] IV 09/26/24 07:45 10/01/24 12:27 75 MLS/HR Micafungin Sodium 100 mg/Sodium Chloride 100 ml @ 100 mls/hr DAILY IV 09/27/24 10:00 10/01/24 11:38 100 MLS/HR Famotidine 20 mg HS IV 09/27/24 22:00 09/30/24 21:37 20 MG Lactulose 30 ml BID PO 09/27/24 22:00 10/01/24 09:41 30 ML Ceftazidime/ Dextrose 1 gm/ Sodium Chloride 50 ml @ 16.667 mls/ hr Q8H IV 09/28/24 02:00 10/01/24 12:31 16.667 MLS/HR Hydralazine HCl 10 mg Q4HP PRN IV 09/28/24 13:45 10/01/24 12:27 10 MG Albuterol 2.5 mg Q8HR NEB 09/29/24 14:00 10/02/24 14:00 10/01/24 13:54 2.5 MG Diagnostic Test (Pha) 1 strip Q6HR 09/30/24 12:00 10/01/24 12:26 1 STRIP Insulin Human Regular Q6HR SC 09/30/24 12:00 10/01/24 05:58 2 UNITS Dextrose 50 ml UD PRN IV 09/30/24 11:15 Carvedilol 12.5 mg BID GT 10/01/24 22:00 Losartan Potassium 25 mg BID PO 10/01/24 22:00 laboratory and microbiology Laboratory Tests 10/01/24 03:07 Test 10/01/24 03:07 Range/Units Serum Glucose 137 H 74-106 mg/dL Assessment/Plan Impression Acute hypoxemic respiratory failure Altered mental status Aspiration pneumonia COURTNEY Patient seen and examined in ICU Events S/p extubation Low oxygen requirements On 2 liters nasal cannula Continues to improve Labs and imaging reviewed ABG reviewed Management plan Supplemental oxygen Titrate to maintain sats 90% or above Incentive spirometry Aspiration precautions Continue antibiotics F/u cultures Bronchodilators Monitor renal function Monitor electrolytes Supplement as needed Nutritional support Okay to downgrade from pulmonary standpoint DVT prophylaxis Critical care time 35 minutes Dietary Evaluation Review Comments: 1. TF Glucerna 1.2Cal @ 60ml/hr x 24 hr (goal). start @ 20ml/hr, increase 10 ml/hr Q4H until goal is reached. Water flush 50ml Q6H if allowed. 2. TPN if NPO >7 days 3. Monitor electrolyte, intake, I/O, lab values, wt trends, skin trends Expected Outcomes/Goals: To meet >75% estimated needs Fu 2-3 days Plan discussed with: Patient FREDDY PETER MD October 01, 2024 16:28
[2024-10-01] MEDS: LOSARTAN POTASSIUM 25 MG TAB PO SCH (21:33)
[2024-10-01] MEDS: CARVEDILOL 12.5 MG TAB GT SCH (21:34)
[2024-10-02] VITALS (37 sets, daily range): BP systolic 111–175; BP diastolic 50–130; PULSE 62–89; RESP 15–26; TEMP 97.5–99.8; O2SAT 91–100
[2024-10-02] MEDS: ONDANSETRON HCL 4 MG/2 ML VIAL IV PRN (01:00)
[2024-10-02 05:06] LABS: Basophils # (auto) 0 10 ^3/uL (0-0.2); Basophils % (auto) 0.6 % (0.0-2.0); Eosinophils # (auto) 0.2 10 ^3/uL (0-0.8); Eosinophils % (auto) 4.3 % (0.0-7.0); Hematocrit 32.9 % (41.0-53.0); Hemoglobin 10.8 g/dL (13.5-17.5); Lymphocytes # (auto) 1.2 10 ^3/uL (0.4-5.4); Lymphocytes % (auto) 29.1 % (10.0-50.0); Mean Corpuscular Hemoglobin 29.5 pg (28.0-32.0); Mean Corpuscular Hgb Conc. 32.7 g/dL (32.0-36.0); Mean Corpuscular Volume 90.1 fL (80.0-100.0); Monocytes # (auto) 0.5 10 ^3/uL (0-1.3); Monocytes % (auto) 11.5 % (0.0-12.0); Neutrophils # (auto) 2.2 10 ^3/uL (1.6-8.6); Neutrophils % (auto) 54.5 % (37.0-80.0); Platelet Count (auto) 170 10^3/uL (140-450); Red Blood Cells 3.65 10^6/uL (4.5-5.90); Red Cell Distribution Width 14.6 % (11.8-14.3)
[2024-10-02 05:13] LABS: Calcium 8.9 mg/dL (8.7-10.4); Potassium 4.2 mmol/L (3.5-5.1); Sodium 140 mmol/L (136-145)
[2024-10-02 05:14] LABS: Anion Gap 9 (5-15); Carbon Dioxide 23 mmol/L (20-31)
[2024-10-02 05:19] LABS: Blood Urea Nitrogen 12 mg/dL (9-23)
[2024-10-02 05:32] LABS: Chloride 108 mmol/L (98-107); Glucose 152 mg/dL (74-106)
[2024-10-02] MEDS ORDERED: BISACODYL 10 MG RECT SUPP PR PRN (08:00)
[2024-10-02] MEDS ORDERED: FLEET ENEMA(ADULT) 135 ML PR ONE (08:00)
[2024-10-02] MEDS: BISACODYL 10 MG RECT SUPP PR ONE (09:35)
--- NOTE | 2024-10-02 09:50 | DVHPN2 ---
Subjective Patient was alert and aphasic. Reviewed: Care Plan, H&P, Labs Changes from previous H/P or p: No Changes General: Per HPI Eyes: No Pain, No Vision change, No Conjunctivae inflammation, No Eyelid inflammation, No Other, No Redness ENT: No Ear pain, No Ear discharge, No Nose pain, No Nose discharge, No Nose congestion, No Mouth pain, No Mouth swelling, No Throat pain, No Throat swelling, No Other Cardiovascular: No Chest Pain, No Palpitations, No Orthopnea, No Paroxysmal Noc. Dyspnea, No Edema, No Lt Headedness, No Other Respiratory: No Cough, No Dry; Shortness of breath; No SOB with excertion, No Wheezing, No Hemoptysis, No Pleuritic Pain, No Sputum, No Other Gastrointestinal: No Nausea, No Vomiting, No Abdominal Pain, No Diarrhea, No Constipation, No Melena, No Hematochezia; Other (Peg tube in place) Genitourinary: No Dysuria, No Frequency, No Incontinence, No Hematuria, No Retention; Other (Chawla catheter in place) Musculoskeletal: No other, No neck pain, No shoulder pain, No arm pain, No back pain, No hand pain, No leg pain, No foot pain Skin: No Rash, No Lesions, No Jaundice, No Bruising, No Other Objective Vitals Vital Signs Date Time Temp Pulse Resp B/P (MAP) Pulse Ox O2 Delivery O2 Flow Rate FiO2 10/02/24 09:20 154/72 10/02/24 09:20 86 10/02/24 08:00 22 98 Nasal Cannula* 1 24 10/02/24 04:00 99.2 99.2 Intake/Output Intake and Output 10/02/24 07:00 Intake Total 2433.335 ml Output Total 1500 ml Balance 933.335 ml Intake Oral 450 ml IV Total 1983.335 ml Output Urine Total 1500 ml General Appearance: Alert, Cooperative, mild distress HEENT: PERRLA Lungs: Other (Bilateral upper lobe rhonchi. Mechanical ventilation) Cardiovascular: Normal S1, Normal S2 Abdomen: Other (Distended abdomen) Genitourinary: No Apparent Abnormalities (Chawla catheter) Musculoskeletal: Normal motor function Extremities: No edema, Normal pulses Skin: Dry, Intact Psych/Mental Status: Mental status NL, Mood NL Medications Current Medications Medications Dose Ordered Sig/Jim Route Start Time Stop Time Status Last Admin Dose Admin Midazolam HCl 50 ml @ 1 mls/hr Q24H IV 09/24/24 13:00 UNV Acetaminophen 650 mg Q6HP PRN SD 09/24/24 18:15 Sodium Chloride 10 ml Q8HR IV 09/24/24 22:00 10/02/24 06:52 10 ML Ondansetron HCl 4 mg Q4HP PRN IV 09/24/24 18:15 10/02/24 01:00 4 MG Aspirin 81 mg DAILY PO 09/25/24 10:00 10/02/24 09:21 81 MG Nitroglycerin 0.4 mg Q5MINP PRN SL 09/24/24 19:15 Morphine Sulfate 2 mg Q30M PRN IV 09/24/24 19:15 Enteral Nutritional Formula 1,000 ml 30ML/HR GT 09/25/24 15:45 09/27/24 23:18 1,000 ML Purified Water 200 ml Q6HR GT 09/25/24 18:00 10/02/24 06:53 200 ML Dextrose 1,000 ml @ 75 mls/hr [id number] IV 09/26/24 07:45 10/02/24 09:21 75 MLS/HR Micafungin Sodium 100 mg/Sodium Chloride 100 ml @ 100 mls/hr DAILY IV 09/27/24 10:00 10/02/24 09:26 100 MLS/HR Famotidine 20 mg HS IV 09/27/24 22:00 10/01/24 21:32 20 MG Lactulose 30 ml BID PO 09/27/24 22:00 10/02/24 09:19 30 ML Ceftazidime/ Dextrose 1 gm/ Sodium Chloride 50 ml @ 16.667 mls/ hr Q8H IV 09/28/24 02:00 10/02/24 01:51 16.667 MLS/HR Hydralazine HCl 10 mg Q4HP PRN IV 09/28/24 13:45 10/02/24 07:37 10 MG Albuterol 2.5 mg Q8HR NEB 09/29/24 14:00 10/02/24 14:00 10/02/24 07:18 2.5 MG Diagnostic Test (Pha) 1 strip Q6HR 09/30/24 12:00 10/02/24 06:52 1 STRIP Insulin Human Regular Q6HR SC 09/30/24 12:00 10/01/24 05:58 2 UNITS Dextrose 50 ml UD PRN IV 09/30/24 11:15 Carvedilol 12.5 mg BID GT 10/01/24 22:00 10/02/24 09:20 12.5 MG Losartan Potassium 25 mg BID PO 10/01/24 22:00 10/02/24 09:20 25 MG Bisacodyl 10 mg DAILYP PRN SD 10/02/24 08:00 Metoclopramide HCl 10 mg Q8HR IV 10/02/24 14:00 Laboratory Results Laboratory Tests 10/02/24 04:43 Chemistry Test 10/02/24 04:43 Calcium Level 8.9 mg/dL (8.7-10.4) Urinalysis Test 09/24/24 13:00 09/25/24 08:35 Urine Amorphous Crystals Few /hpf (None Seen) Urine Color Yellow (Yellow) Urine Clarity Turbid (Clear) H Urine pH 5.0 (5.0-9.0) Urine Specific [place] 1.025 (1.001-1.035) Urine Protein 1+ (Negative) H Urine Ketones Negative (Negative) Urine Blood Negative /uL (Negative) Urine Nitrite Negative (Negative) Urine Bilirubin Negative (Negative) Urine Urobilinogen Normal mg/dL (Negative) Urine Leukocyte Esterase 3+ /uL (Negative) Urine RBC 11 /hpf (0 - 3) Urine WBC Clumps Present /hpf (None Seen) Urine Microscopic WBC 65 /HPF (0-3) H Urine Squamous Epithelial Cells Few /hpf (<5) Urine Bacteria None seen /hpf (None Seen) Urine Mucus Few (None Seen) Urine Osmolality 610 mOsm/kg Urine Creatinine 82.82 mg/dL (30.0-125.0) Urine Protein/Creatinine Ratio 0.72 Urine Sodium 21 mmol/L (40-220) L Urine Glucose Normal mg/dL (Normal) Urine Total Protein 59.8 mg/dL (1-14) H Microbiology Microbiology Date/Time Source Procedure Growth Status 09/24/24 22:15 Nose MRSA Screen - Final Complete 09/24/24 13:09 Sputum Gram Stain - Final Complete 09/24/24 13:09 Respiratory Culture - Final Pseudomonas aeruginosa Escherichia coli Proteus mirabilis Complete 09/24/24 13:00 Voided Urine Urine Culture - Final Yeast, not Abena albicans Complete 09/24/24 13:00 Blood Blood Culture - Final NO GROWTH AFTER 5 DAYS OF INCUBATION. Complete Labs and/or images reviewed: Labs reviewed by me, Image(s) reviewed by me Assessment/Plan Assessment/Plan Impression: -acute hypoxic respiratory failure -community-acquired pneumonia, Gram-positive/Gram-negative etiology -septic shock -hypernatremia -history of CVA -bed-bound status -history of PEG tube -acute kidney injury, vasomotor nephropathy -obstructive sleep apnea -ruled out ileus -Severe constipation Plan: Events: No events overnight. -Bowel regimen: lactulose, Dulcolax, Fleet enema prn -start NG tube antihypertensives -spontaneous breathing trial -change IV fluids to D5W at 75 mL/hour and continue free water. -pulmonology consultation: Vent settings per their discretion -nephrology consultation: Recommendations reviewed -start home antihypertensives including carvedilol and losartan -continue Jevity, increased to 50 mL/hour -PPI -continue Fortaz and micafungin -repeat labs in a.m. Critical care time spent with patient discussing and formulating plan of care: 40 minutes. This does not include time spent performing procedures. This medical document was created using an electronic medical record system with [employer] dictation system. Although this document has been carefully reviewed, there may still be some phonetic and typographical errors. These areas are purely typographical due to imperfections of the software programs, and do not reflect any compromise in the patient's medical care. Plan discussed with: Patient, Other (RN) My Orders Orders - CAMELIA RHODES NP Procedure Category Date Status Time Kub Abdomen Single XY 10/01/24 Resulted View 10:15 Carvedilol Tablet PHA 10/01/24 In Process (Coreg Tablet) 22:00 Losartan Tablet PHA 10/01/24 In Process (Cozaar Tablet) 22:00 Bisacodyl Suppository PHA 10/02/24 In Process (Dulcolax Supposit 08:00 Metoclopramide PHA 10/02/24 In Process Injection (Reglan 14:00 Date of Service: October 02, 2024 Billing Provider: CAMELIA RHODES NP Common Visit Codes: [id number] CARE 30-74 MIN CAMELIA RHODES NP October 02, 2024 09:50
[2024-10-02] MEDS: METOCLOPRAMIDE HCL 5MG/ml INJ 2ml VIAL IV SCH (14:13)
--- NOTE | 2024-10-02 20:17 | DVHPN2 ---
Progress Note - Dictate Date Seen: October 02, 2024 Medical Necessity Reason Pt with a Central, PICC or Fol: Yes The following are medically ne: Central Line vital signs Vital Sign Date Time Temp Pulse Resp B/P (MAP) Pulse Ox O2 Delivery O2 Flow Rate FiO2 10/02/24 18:34 99 Nasal Cannula 1.0 10/02/24 18:34 24 10/02/24 18:00 16 10/02/24 17:00 97.9 77 156/79 (104) 97.9 Total Intake and Output 10/01/24 10/01/24 10/02/24 15:00 23:00 07:00 Intake Total 750.001 ml 1083.334 ml 600 ml Output Total 850 ml 650 ml Balance 750.001 ml 233.334 ml -50 ml medications Current Medications Medications Dose Ordered Sig/Jim Route Start Time Stop Time Status Last Admin Dose Admin Midazolam HCl 50 ml @ 1 mls/hr Q24H IV 09/24/24 13:00 UNV Acetaminophen 650 mg Q6HP PRN [place] 09/24/24 18:15 Sodium Chloride 10 ml Q8HR IV 09/24/24 22:00 10/02/24 14:13 10 ML Ondansetron HCl 4 mg Q4HP PRN IV 09/24/24 18:15 10/02/24 01:00 4 MG Aspirin 81 mg DAILY PO 09/25/24 10:00 10/02/24 09:21 81 MG Nitroglycerin 0.4 mg Q5MINP PRN SL 09/24/24 19:15 Morphine Sulfate 2 mg Q30M PRN IV 09/24/24 19:15 Enteral Nutritional Formula 1,000 ml 30ML/HR GT 09/25/24 15:45 09/27/24 23:18 1,000 ML Purified Water 200 ml Q6HR GT 09/25/24 18:00 10/02/24 18:00 200 ML Dextrose 1,000 ml @ 75 mls/hr [id number] IV 09/26/24 07:45 10/02/24 09:21 75 MLS/HR Micafungin Sodium 100 mg/Sodium Chloride 100 ml @ 100 mls/hr DAILY IV 09/27/24 10:00 10/02/24 09:26 100 MLS/HR Famotidine 20 mg HS IV 09/27/24 22:00 10/01/24 21:32 20 MG Lactulose 30 ml BID PO 09/27/24 22:00 10/02/24 09:19 30 ML Ceftazidime/ Dextrose 1 gm/ Sodium Chloride 50 ml @ 16.667 mls/ hr Q8H IV 09/28/24 02:00 10/02/24 18:29 16.667 MLS/HR Hydralazine HCl 10 mg Q4HP PRN IV 09/28/24 13:45 10/02/24 07:37 10 MG Diagnostic Test (Pha) 1 strip Q6HR 09/30/24 12:00 10/02/24 17:18 1 STRIP Insulin Human Regular Q6HR SC 09/30/24 12:00 10/01/24 05:58 2 UNITS Dextrose 50 ml UD PRN IV 09/30/24 11:15 Carvedilol 12.5 mg BID GT 10/01/24 22:00 10/02/24 09:20 12.5 MG Losartan Potassium 25 mg BID PO 10/01/24 22:00 10/02/24 09:20 25 MG Bisacodyl 10 mg DAILYP PRN [place] 10/02/24 08:00 Metoclopramide HCl 10 mg Q8HR IV 10/02/24 14:00 10/02/24 14:13 10 MG laboratory and microbiology Laboratory Tests 10/02/24 04:43 Test 10/02/24 04:43 Range/Units Serum Glucose 152 H 74-106 mg/dL Assessment/Plan Impression Acute hypoxemic respiratory failure Altered mental status Aspiration pneumonia COURTNEY Patient seen and examined Events S/p extubation Low oxygen requirements On 2 liters nasal cannula S/p downgrade No distress Labs and imaging reviewed ABG reviewed Management plan Supplemental oxygen Titrate to maintain sats 90% or above Incentive spirometry Aspiration precautions Continue antibiotics F/u cultures Bronchodilators Monitor renal function Monitor electrolytes Supplement as needed Nutritional support DVT prophylaxis Dietary Evaluation Review Comments: 1. TF Glucerna 1.2Cal @ 60ml/hr x 24 hr (goal). start @ 20ml/hr, increase 10 ml/hr Q4H until goal is reached. Water flush 50ml Q6H if allowed. 2. TPN if NPO >7 days 3. Monitor electrolyte, intake, I/O, lab values, wt trends, skin trends Expected Outcomes/Goals: To meet >75% estimated needs Fu 2-3 days Plan discussed with: Patient FREDDY PETER MD October 02, 2024 20:16
[2024-10-03] VITALS (10 sets, daily range): BP systolic 95–167; BP diastolic 45–80; PULSE 66–75; RESP 16–20; TEMP 97.8–98.5; O2SAT 96–99
[2024-10-03] MEDS ORDERED: Jevity 1.2 Cal/Fiber 1 Liter GT SCH (14:00)
--- NOTE | 2024-10-03 14:54 | DVHPN2 ---
Subjective Patient was alert and aphasic. Reviewed: Care Plan, H&P, Labs Changes from previous H/P or p: No Changes General: Per HPI Eyes: No Pain, No Vision change, No Conjunctivae inflammation, No Eyelid inflammation, No Other, No Redness ENT: No Ear pain, No Ear discharge, No Nose pain, No Nose discharge, No Nose congestion, No Mouth pain, No Mouth swelling, No Throat pain, No Throat swelling, No Other Cardiovascular: No Chest Pain, No Palpitations, No Orthopnea, No Paroxysmal Noc. Dyspnea, No Edema, No Lt Headedness, No Other Respiratory: No Cough, No Dry; Shortness of breath; No SOB with excertion, No Wheezing, No Hemoptysis, No Pleuritic Pain, No Sputum, No Other Gastrointestinal: No Nausea, No Vomiting, No Abdominal Pain, No Diarrhea, No Constipation, No Melena, No Hematochezia; Other (Peg tube in place) Genitourinary: No Dysuria, No Frequency, No Incontinence, No Hematuria, No Retention; Other (Chawla catheter in place) Musculoskeletal: No other, No neck pain, No shoulder pain, No arm pain, No back pain, No hand pain, No leg pain, No foot pain Skin: No Rash, No Lesions, No Jaundice, No Bruising, No Other Objective Vitals Vital Signs Date Time Temp Pulse Resp B/P (MAP) Pulse Ox O2 Delivery O2 Flow Rate FiO2 10/03/24 10:49 149/71 10/03/24 10:49 69 10/03/24 08:45 97.8 18 98 97.8 10/02/24 20:00 Nasal Cannula* 1 24 Intake/Output Intake and Output 10/03/24 07:00 Intake Total 1535.001 ml Output Total 1600 ml Balance -64.999 ml Intake Oral 60 ml IV Total 1475.001 ml Output Urine Total 1600 ml # Bowel Movements 3 General Appearance: Alert, Cooperative, mild distress HEENT: PERRLA Lungs: Other (Bilateral upper lobe rhonchi. Mechanical ventilation) Cardiovascular: Normal S1, Normal S2 Abdomen: Other (Distended abdomen) Genitourinary: No Apparent Abnormalities (Chawla catheter) Musculoskeletal: Normal motor function Extremities: No edema, Normal pulses Skin: Dry, Intact Psych/Mental Status: Mental status NL, Mood NL Medications Current Medications Medications Dose Ordered Sig/Jim Route Start Time Stop Time Status Last Admin Dose Admin Midazolam HCl 50 ml @ 1 mls/hr Q24H IV 09/24/24 13:00 UNV Acetaminophen 650 mg Q6HP PRN MA 09/24/24 18:15 Sodium Chloride 10 ml Q8HR IV 09/24/24 22:00 10/03/24 14:23 10 ML Ondansetron HCl 4 mg Q4HP PRN IV 09/24/24 18:15 10/02/24 01:00 4 MG Aspirin 81 mg DAILY PO 09/25/24 10:00 10/03/24 10:50 81 MG Nitroglycerin 0.4 mg Q5MINP PRN SL 09/24/24 19:15 Morphine Sulfate 2 mg Q30M PRN IV 09/24/24 19:15 Enteral Nutritional Formula 1,000 ml 30ML/HR GT 09/25/24 15:45 10/03/24 12:54 1,000 ML Purified Water 200 ml Q6HR GT 09/25/24 18:00 10/03/24 12:38 200 ML Dextrose 1,000 ml @ 75 mls/hr [id number] IV 09/26/24 07:45 10/02/24 21:26 75 MLS/HR Micafungin Sodium 100 mg/Sodium Chloride 100 ml @ 100 mls/hr DAILY IV 09/27/24 10:00 10/03/24 11:38 100 MLS/HR Famotidine 20 mg HS IV 09/27/24 22:00 10/02/24 22:50 20 MG Lactulose 30 ml BID PO 09/27/24 22:00 10/03/24 10:48 30 ML Ceftazidime/ Dextrose 1 gm/ Sodium Chloride 50 ml @ 16.667 mls/ hr Q8H IV 09/28/24 02:00 10/03/24 11:39 16.667 MLS/HR Hydralazine HCl 10 mg Q4HP PRN IV 09/28/24 13:45 10/02/24 07:37 10 MG Diagnostic Test (Pha) 1 strip Q6HR 09/30/24 12:00 10/03/24 12:38 1 STRIP Insulin Human Regular Q6HR SC 09/30/24 12:00 10/03/24 06:59 2 UNITS Dextrose 50 ml UD PRN IV 09/30/24 11:15 Carvedilol 12.5 mg BID GT 10/01/24 22:00 10/03/24 10:49 12.5 MG Losartan Potassium 25 mg BID PO 10/01/24 22:00 10/03/24 10:49 25 MG Bisacodyl 10 mg DAILYP PRN MA 10/02/24 08:00 Metoclopramide HCl 10 mg Q8HR IV 10/02/24 14:00 10/03/24 14:23 10 MG Enteral Nutritional Formula 1,000 ml 30ML/HR GT 10/03/24 14:00 Laboratory Results Chemistry Test 10/03/24 14:28 Albumin Pending Calcium Level Pending Total Protein Pending LFT Test 10/03/24 14:28 Alanine Aminotransferase (ALT) Pending Alkaline Phosphatase Pending Aspartate Amino Transferase (AST) Pending Total Bilirubin Pending Urinalysis Test 09/24/24 13:00 09/25/24 08:35 Urine Amorphous Crystals Few /hpf (None Seen) Urine Color Yellow (Yellow) Urine Clarity Turbid (Clear) H Urine pH 5.0 (5.0-9.0) Urine Specific [place] 1.025 (1.001-1.035) Urine Protein 1+ (Negative) H Urine Ketones Negative (Negative) Urine Blood Negative /uL (Negative) Urine Nitrite Negative (Negative) Urine Bilirubin Negative (Negative) Urine Urobilinogen Normal mg/dL (Negative) Urine Leukocyte Esterase 3+ /uL (Negative) Urine RBC 11 /hpf (0 - 3) Urine WBC Clumps Present /hpf (None Seen) Urine Microscopic WBC 65 /HPF (0-3) H Urine Squamous Epithelial Cells Few /hpf (<5) Urine Bacteria None seen /hpf (None Seen) Urine Mucus Few (None Seen) Urine Osmolality 610 mOsm/kg Urine Creatinine 82.82 mg/dL (30.0-125.0) Urine Protein/Creatinine Ratio 0.72 Urine Sodium 21 mmol/L (40-220) L Urine Glucose Normal mg/dL (Normal) Urine Total Protein 59.8 mg/dL (1-14) H Microbiology Microbiology Date/Time Source Procedure Growth Status 09/24/24 22:15 Nose MRSA Screen - Final Complete 09/24/24 13:09 Sputum Gram Stain - Final Complete 09/24/24 13:09 Respiratory Culture - Final Pseudomonas aeruginosa Escherichia coli Proteus mirabilis Complete 09/24/24 13:00 Voided Urine Urine Culture - Final Yeast, not Abena albicans Complete 09/24/24 13:00 Blood Blood Culture - Final NO GROWTH AFTER 5 DAYS OF INCUBATION. Complete Labs and/or images reviewed: Labs reviewed by me, Image(s) reviewed by me Assessment/Plan Assessment/Plan Impression: -acute hypoxic respiratory failure -community-acquired pneumonia, Gram-positive/Gram-negative etiology -septic shock -hypernatremia -history of CVA -bed-bound status -history of PEG tube -acute kidney injury, vasomotor nephropathy -obstructive sleep apnea -ruled out ileus -Severe constipation Plan: Events: No events overnight. Patient had large BM. Tube feedings restarted. Exchange Chawla catheter start micafungin continue Fortaz repeat labs today. DC planning for tomorrow. -Bowel regimen: lactulose, Dulcolax, Fleet enema prn -start NG tube antihypertensives -spontaneous breathing trial -change IV fluids to D5W at 75 mL/hour and continue free water. -pulmonology consultation: Vent settings per their discretion -nephrology consultation: Recommendations reviewed -start home antihypertensives including carvedilol and losartan -continue Jevity, increased to 50 mL/hour -PPI -continue Fortaz and micafungin -repeat labs in a.m. Critical care time spent with patient discussing and formulating plan of care: 40 minutes. This does not include time spent performing procedures. This medical document was created using an electronic medical record system with [employer] dictation system. Although this document has been carefully reviewed, there may still be some phonetic and typographical errors. These areas are purely typographical due to imperfections of the software programs, and do not reflect any compromise in the patient's medical care. Plan discussed with: Patient, Other (RN) My Orders Orders - CAMELIA RHODES NP Procedure Category Date Status Time Nutritional PHA 10/03/24 In Process Supplements (Jevity 14:00 Complete Blood Count LAB 10/03/24 In Process 13:51 Comprehensive LAB 10/03/24 In Process Metabolic Panel 13:51 Chest Xray 1 View XY 10/03/24 Logged 13:51 Ok To Change Chawla ORDERS 10/03/24 Transmitted 14:38 Date of Service: October 03, 2024 Billing Provider: CAMELIA RHODES NP Common Visit Codes: [id number] INP/OBS CARE(HIGH) CAMELIA RHODES CATERING DIRECTOR October 03, 2024 14:54
[2024-10-03 14:59] LABS: Basophils # (auto) 0 10 ^3/uL (0-0.2); Basophils % (auto) 0.7 % (0.0-2.0); Eosinophils # (auto) 0.1 10 ^3/uL (0-0.8); Eosinophils % (auto) 3.4 % (0.0-7.0); Hematocrit 32.2 % (41.0-53.0); Hemoglobin 10.4 g/dL (13.5-17.5); Lymphocytes # (auto) 1.3 10 ^3/uL (0.4-5.4); Mean Corpuscular Hemoglobin 29.9 pg (28.0-32.0); Mean Corpuscular Hgb Conc. 32.2 g/dL (32.0-36.0); Monocytes # (auto) 0.4 10 ^3/uL (0-1.3); Monocytes % (auto) 9.9 % (0.0-12.0); Neutrophils # (auto) 2.2 10 ^3/uL (1.6-8.6); Nucleated Red Blood Cells % 0.4 %; Platelet Count (auto) 160 10^3/uL (140-450); Red Blood Cells 3.46 10^6/uL (4.5-5.90)
[2024-10-03 15:09] LABS: Alanine Aminotransferase 22 U/L (7-40); Alkaline Phosphatase 74 U/L (46-116); Anion Gap 6 (5-15); Aspartate Aminotransferase 28 U/L (13-40); BUN/Creatinine Ratio 9.2 (10.0-20.0); Calcium 9.2 mg/dL (8.7-10.4); Carbon Dioxide 23 mmol/L (20-31); Potassium 3.8 mmol/L (3.5-5.1); Sodium 141 mmol/L (136-145)
[2024-10-03 15:13] LABS: Albumin 2.8 g/dL (3.2-4.8); Bilirubin, Total 0.2 mg/dL (0.2-1.0); Blood Urea Nitrogen 9 mg/dL (9-23); Chloride 112 mmol/L (98-107); Glucose 117 mg/dL (74-106); Total Protein 5.6 g/dL (5.7-8.2)
--- NOTE | 2024-10-03 15:40 | DVH ---
EXAM: XY CHEST XRAY 1 VIEW Indication: pna Technique: Single frontal view of the chest was obtained Comparison: XY CHEST PORTABLE on DOS: 09/30/24, XY CHEST PORTABLE on DOS: 09/29/24, XY CHEST PORTABLE o n DOS: 09/28/24, XY CHEST PORTABLE on DOS: 09/27/24, XY CHEST PORTABLE on DOS: 09/26/24 FINDINGS: Lines and Tubes: Cardiac pacemaker projects over left chest wall. Lungs: Moderate left and small right pleural effusion. Bibasilar opacities. No pneumothorax. Cardiomediastinal contours: Cardiomegaly. Bones: No acute osseous abnormality. IMPRESSION: Cardiomegaly with moderate left and small right pleural effusion. Bibasilar opacities.
--- NOTE | 2024-10-03 18:14 | DVHPN2 ---
Progress Note - Dictate Date Seen: October 03, 2024 Medical Necessity Reason Pt with a Central, PICC or Fol: Yes The following are medically ne: Central Line vital signs Vital Sign Date Time Temp Pulse Resp B/P (MAP) Pulse Ox O2 Delivery O2 Flow Rate FiO2 10/03/24 16:40 98.3 75 16 128/64 (85) 98 98.3 10/03/24 10:13 Nasal Cannula 1.0 10/03/24 10:13 24 Total Intake and Output 10/02/24 10/02/24 10/03/24 15:00 23:00 07:00 Intake Total 735.001 ml 50 ml 750 ml Output Total 400 ml 300 ml 900 ml Balance 335.001 ml -250 ml -150 ml medications Current Medications Medications Dose Ordered Sig/Jim Route Start Time Stop Time Status Last Admin Dose Admin Midazolam HCl 50 ml @ 1 mls/hr Q24H IV 09/24/24 13:00 UNV Acetaminophen 650 mg Q6HP PRN NE 09/24/24 18:15 Sodium Chloride 10 ml Q8HR IV 09/24/24 22:00 10/03/24 14:23 10 ML Ondansetron HCl 4 mg Q4HP PRN IV 09/24/24 18:15 10/02/24 01:00 4 MG Aspirin 81 mg DAILY PO 09/25/24 10:00 10/03/24 10:50 81 MG Nitroglycerin 0.4 mg Q5MINP PRN SL 09/24/24 19:15 Morphine Sulfate 2 mg Q30M PRN IV 09/24/24 19:15 Enteral Nutritional Formula 1,000 ml 30ML/HR GT 09/25/24 15:45 10/03/24 12:54 1,000 ML Purified Water 200 ml Q6HR GT 09/25/24 18:00 10/03/24 12:38 200 ML Famotidine 20 mg HS IV 09/27/24 22:00 10/02/24 22:50 20 MG Lactulose 30 ml BID PO 09/27/24 22:00 10/03/24 10:48 30 ML Ceftazidime/ Dextrose 1 gm/ Sodium Chloride 50 ml @ 16.667 mls/ hr Q8H IV 09/28/24 02:00 10/03/24 11:39 16.667 MLS/HR Hydralazine HCl 10 mg Q4HP PRN IV 09/28/24 13:45 10/02/24 07:37 10 MG Diagnostic Test (Pha) 1 strip Q6HR 09/30/24 12:00 10/03/24 12:38 1 STRIP Insulin Human Regular Q6HR SC 09/30/24 12:00 10/03/24 06:59 2 UNITS Dextrose 50 ml UD PRN IV 09/30/24 11:15 Carvedilol 12.5 mg BID GT 10/01/24 22:00 10/03/24 10:49 12.5 MG Losartan Potassium 25 mg BID PO 10/01/24 22:00 10/03/24 10:49 25 MG Bisacodyl 10 mg DAILYP PRN [place] 10/02/24 08:00 Metoclopramide HCl 10 mg Q8HR IV 10/02/24 14:00 10/03/24 14:23 10 MG Enteral Nutritional Formula 1,000 ml 30ML/HR GT 10/03/24 14:00 laboratory and microbiology Laboratory Tests 10/03/24 14:28 Test 10/03/24 14:28 Range/Units Serum Glucose 117 H 74-106 mg/dL Assessment/Plan Impression Acute hypoxemic respiratory failure Altered mental status Aspiration pneumonia COURTNEY Patient seen and examined Events S/p extubation Low oxygen requirements On 2 liters nasal cannula NO acute events Labs and imaging reviewed ABG reviewed Management plan Supplemental oxygen Titrate to maintain sats 90% or above Incentive spirometry Aspiration precautions Continue antibiotics F/u cultures Bronchodilators Monitor renal function Monitor electrolytes Supplement as needed Nutritional support DVT prophylaxis Dietary Evaluation Review Comments: 1. TF Glucerna 1.2Cal @ 60ml/hr x 24 hr (goal). start @ 20ml/hr, increase 10 ml/hr Q4H until goal is reached. Water flush 50ml Q6H if allowed. 2. TPN if NPO >7 days 3. Monitor electrolyte, intake, I/O, lab values, wt trends, skin trends Expected Outcomes/Goals: To meet >75% estimated needs Fu 2-3 days Plan discussed with: Patient FREDDY PETER MD October 03, 2024 18:14
[2024-10-04] VITALS (11 sets, daily range): BP systolic 139–193; BP diastolic 53–83; PULSE 65–74; RESP 18–19; TEMP 96.7–99.4; O2SAT 96–98
--- NOTE | 2024-10-04 12:49 | DVHPN2 ---
Progress Note - Dictate Date Seen: October 04, 2024 Medical Necessity Reason Pt with a Central, PICC or Fol: Yes The following are medically ne: Central Line vital signs Vital Sign Date Time Temp Pulse Resp B/P (MAP) Pulse Ox O2 Delivery O2 Flow Rate FiO2 10/04/24 10:00 98 Nasal Cannula* 1 24 10/04/24 09:35 64 114/37 10/04/24 08:00 96.9 18 96.9 Total Intake and Output 10/03/24 10/03/24 10/04/24 15:00 23:00 07:00 Intake Total 150 ml 50 ml 50 ml Output Total 200 ml 900 ml Balance 150 ml -150 ml -850 ml medications Current Medications Medications Dose Ordered Sig/Jim Route Start Time Stop Time Status Last Admin Dose Admin Midazolam HCl 50 ml @ 1 mls/hr Q24H IV 09/24/24 13:00 UNV Acetaminophen 650 mg Q6HP PRN [place] 09/24/24 18:15 Sodium Chloride 10 ml Q8HR IV 09/24/24 22:00 10/04/24 05:29 10 ML Ondansetron HCl 4 mg Q4HP PRN IV 09/24/24 18:15 10/02/24 01:00 4 MG Aspirin 81 mg DAILY PO 09/25/24 10:00 10/04/24 08:34 81 MG Nitroglycerin 0.4 mg Q5MINP PRN SL 09/24/24 19:15 Morphine Sulfate 2 mg Q30M PRN IV 09/24/24 19:15 Enteral Nutritional Formula 1,000 ml 30ML/HR GT 09/25/24 15:45 10/04/24 10:45 1,000 ML Purified Water 200 ml Q6HR GT 09/25/24 18:00 10/04/24 12:07 200 ML Famotidine 20 mg HS IV 09/27/24 22:00 10/03/24 21:31 20 MG Lactulose 30 ml BID PO 09/27/24 22:00 10/04/24 08:34 30 ML Ceftazidime/ Dextrose 1 gm/ Sodium Chloride 50 ml @ 16.667 mls/ hr Q8H IV 09/28/24 02:00 10/04/24 08:36 16.667 MLS/HR Hydralazine HCl 10 mg Q4HP PRN IV 09/28/24 13:45 10/03/24 20:40 10 MG Diagnostic Test (Pha) 1 strip Q6HR 09/30/24 12:00 10/04/24 12:07 1 STRIP Insulin Human Regular Q6HR SC 09/30/24 12:00 10/04/24 05:47 2 UNITS Dextrose 50 ml UD PRN IV 09/30/24 11:15 Carvedilol 12.5 mg BID GT 10/01/24 22:00 10/04/24 08:35 12.5 MG Losartan Potassium 25 mg BID PO 10/01/24 22:00 10/04/24 08:35 25 MG Bisacodyl 10 mg DAILYP PRN [place] 10/02/24 08:00 Metoclopramide HCl 10 mg Q8HR IV 10/02/24 14:00 10/04/24 05:48 10 MG Enteral Nutritional Formula 1,000 ml 30ML/HR GT 10/03/24 14:00 laboratory and microbiology Laboratory Tests 10/03/24 14:28 Test 10/03/24 14:28 Range/Units Serum Glucose 117 H 74-106 mg/dL Assessment/Plan Impression Acute hypoxemic respiratory failure Altered mental status Aspiration pneumonia COURTNEY Patient seen and examined Events S/p extubation Low oxygen requirements On 2 liters nasal cannula NO acute events Labs and imaging reviewed ABG reviewed Management plan Supplemental oxygen Titrate to maintain sats 90% or above Incentive spirometry Aspiration precautions Continue antibiotics F/u cultures Bronchodilators Monitor renal function Monitor electrolytes Supplement as needed Nutritional support DVT prophylaxis Dietary Evaluation Review Comments: 1. TF Glucerna 1.2Cal @ 60ml/hr x 24 hr (goal). start @ 20ml/hr, increase 10 ml/hr Q4H until goal is reached. Water flush 50ml Q6H if allowed. 2. TPN if NPO >7 days 3. Monitor electrolyte, intake, I/O, lab values, wt trends, skin trends Expected Outcomes/Goals: To meet >75% estimated needs Fu 2-3 days Plan discussed with: Other (rn) FREDDY PETER MD October 04, 2024 12:49
--- NOTE | 2024-10-04 14:29 | DVHPN2 ---
Subjective Patient was alert and aphasic. Reviewed: Care Plan, H&P, Labs Changes from previous H/P or p: No Changes General: Per HPI Eyes: No Pain, No Vision change, No Conjunctivae inflammation, No Eyelid inflammation, No Other, No Redness ENT: No Ear pain, No Ear discharge, No Nose pain, No Nose discharge, No Nose congestion, No Mouth pain, No Mouth swelling, No Throat pain, No Throat swelling, No Other Cardiovascular: No Chest Pain, No Palpitations, No Orthopnea, No Paroxysmal Noc. Dyspnea, No Edema, No Lt Headedness, No Other Respiratory: No Cough, No Dry; Shortness of breath; No SOB with excertion, No Wheezing, No Hemoptysis, No Pleuritic Pain, No Sputum, No Other Gastrointestinal: No Nausea, No Vomiting, No Abdominal Pain, No Diarrhea, No Constipation, No Melena, No Hematochezia; Other (Peg tube in place) Genitourinary: No Dysuria, No Frequency, No Incontinence, No Hematuria, No Retention; Other (Chawla catheter in place) Musculoskeletal: No other, No neck pain, No shoulder pain, No arm pain, No back pain, No hand pain, No leg pain, No foot pain Skin: No Rash, No Lesions, No Jaundice, No Bruising, No Other Objective Vitals Vital Signs Date Time Temp Pulse Resp B/P (MAP) Pulse Ox O2 Delivery O2 Flow Rate FiO2 10/04/24 10:00 98 Nasal Cannula* 1 24 10/04/24 09:35 64 114/37 10/04/24 08:00 96.9 18 96.9 Intake/Output Intake and Output 10/04/24 07:00 Intake Total 250 ml Output Total 1100 ml Balance -850 ml Intake Oral 0 ml IV Total 250 ml Output Urine Total 1100 ml # Bowel Movements 1 General Appearance: Alert, Cooperative, mild distress HEENT: PERRLA Lungs: Other (Bilateral upper lobe rhonchi. Mechanical ventilation) Cardiovascular: Normal S1, Normal S2 Abdomen: Other (Distended abdomen) Genitourinary: No Apparent Abnormalities (Chawla catheter) Musculoskeletal: Normal motor function Extremities: No edema, Normal pulses Skin: Dry, Intact Psych/Mental Status: Mental status NL, Mood NL Medications Current Medications Medications Dose Ordered Sig/Jim Route Start Time Stop Time Status Last Admin Dose Admin Midazolam HCl 50 ml @ 1 mls/hr Q24H IV 09/24/24 13:00 UNV Acetaminophen 650 mg Q6HP PRN [place] 09/24/24 18:15 Sodium Chloride 10 ml Q8HR IV 09/24/24 22:00 10/04/24 14:26 10 ML Ondansetron HCl 4 mg Q4HP PRN IV 09/24/24 18:15 10/02/24 01:00 4 MG Aspirin 81 mg DAILY PO 09/25/24 10:00 10/04/24 08:34 81 MG Nitroglycerin 0.4 mg Q5MINP PRN SL 09/24/24 19:15 Morphine Sulfate 2 mg Q30M PRN IV 09/24/24 19:15 Enteral Nutritional Formula 1,000 ml 30ML/HR GT 09/25/24 15:45 10/04/24 10:45 1,000 ML Purified Water 200 ml Q6HR GT 09/25/24 18:00 10/04/24 12:07 200 ML Famotidine 20 mg HS IV 09/27/24 22:00 10/03/24 21:31 20 MG Lactulose 30 ml BID PO 09/27/24 22:00 10/04/24 08:34 30 ML Ceftazidime/ Dextrose 1 gm/ Sodium Chloride 50 ml @ 16.667 mls/ hr Q8H IV 09/28/24 02:00 10/04/24 08:36 16.667 MLS/HR Hydralazine HCl 10 mg Q4HP PRN IV 09/28/24 13:45 10/03/24 20:40 10 MG Diagnostic Test (Pha) 1 strip Q6HR 09/30/24 12:00 10/04/24 12:07 1 STRIP Insulin Human Regular Q6HR SC 09/30/24 12:00 10/04/24 05:47 2 UNITS Dextrose 50 ml UD PRN IV 09/30/24 11:15 Carvedilol 12.5 mg BID GT 10/01/24 22:00 10/04/24 08:35 12.5 MG Losartan Potassium 25 mg BID PO 10/01/24 22:00 10/04/24 08:35 25 MG Bisacodyl 10 mg DAILYP PRN [place] 10/02/24 08:00 Metoclopramide HCl 10 mg Q8HR IV 10/02/24 14:00 10/04/24 14:26 10 MG Enteral Nutritional Formula 1,000 ml 30ML/HR GT 10/03/24 14:00 Laboratory Results Laboratory Tests 10/03/24 14:28 Chemistry Test 10/03/24 14:28 Albumin 2.8 g/dL (3.2-4.8) L Calcium Level 9.2 mg/dL (8.7-10.4) Total Protein 5.6 g/dL (5.7-8.2) L LFT Test 10/03/24 14:28 Alanine Aminotransferase (ALT) 22 U/L (7-40) Alkaline Phosphatase 74 U/L (46-116) Aspartate Amino Transferase (AST) 28 U/L (13-40) Total Bilirubin 0.2 mg/dL (0.2-1.0) Urinalysis Test 09/24/24 13:00 09/25/24 08:35 Urine Amorphous Crystals Few /hpf (None Seen) Urine Color Yellow (Yellow) Urine Clarity Turbid (Clear) H Urine pH 5.0 (5.0-9.0) Urine Specific [place] 1.025 (1.001-1.035) Urine Protein 1+ (Negative) H Urine Ketones Negative (Negative) Urine Blood Negative /uL (Negative) Urine Nitrite Negative (Negative) Urine Bilirubin Negative (Negative) Urine Urobilinogen Normal mg/dL (Negative) Urine Leukocyte Esterase 3+ /uL (Negative) Urine RBC 11 /hpf (0 - 3) Urine WBC Clumps Present /hpf (None Seen) Urine Microscopic WBC 65 /HPF (0-3) H Urine Squamous Epithelial Cells Few /hpf (<5) Urine Bacteria None seen /hpf (None Seen) Urine Mucus Few (None Seen) Urine Osmolality 610 mOsm/kg Urine Creatinine 82.82 mg/dL (30.0-125.0) Urine Protein/Creatinine Ratio 0.72 Urine Sodium 21 mmol/L (40-220) L Urine Glucose Normal mg/dL (Normal) Urine Total Protein 59.8 mg/dL (1-14) H Microbiology Microbiology Date/Time Source Procedure Growth Status 09/24/24 22:15 Nose MRSA Screen - Final Complete 09/24/24 13:09 Sputum Gram Stain - Final Complete 09/24/24 13:09 Respiratory Culture - Final Pseudomonas aeruginosa Escherichia coli Proteus mirabilis Complete 09/24/24 13:00 Voided Urine Urine Culture - Final Yeast, not Abena albicans Complete 09/24/24 13:00 Blood Blood Culture - Final NO GROWTH AFTER 5 DAYS OF INCUBATION. Complete Labs and/or images reviewed: Labs reviewed by me, Image(s) reviewed by me Assessment/Plan Assessment/Plan Impression: -acute hypoxic respiratory failure -community-acquired pneumonia, Gram-positive/Gram-negative etiology -septic shock -hypernatremia -history of CVA -bed-bound status -history of PEG tube -acute kidney injury, vasomotor nephropathy -obstructive sleep apnea -ruled out ileus -Severe constipation Plan: Events: Chest x-ray with questionable pleural effusions, known as moderate. Chest ultrasound ordered. Attempt to weaned off oxygen. Social service consultation for DC planning for tomorrow with home health services. -Bowel regimen: lactulose, Dulcolax, Fleet enema prn -start NG tube antihypertensives -O2 supplementation to keep saturation greater than 93% -stop IV fluid -pulmonology consultation: Vent settings per their discretion -nephrology consultation: Recommendations reviewed -start home antihypertensives including carvedilol and losartan -continue Jevity, increased to 50 mL/hour -PPI -continue Fortaz and micafungin -repeat labs in a.m. Total time spent with patient discussing and formulating plan of care: 35 minutes. This medical document was created using an electronic medical record system with [employer] dictation system. Although this document has been carefully reviewed, there may still be some phonetic and typographical errors. These areas are purely typographical due to imperfections of the software programs, and do not reflect any compromise in the patient's medical care. Plan discussed with: Patient, Other (RN) My Orders Orders - CAMELIA RHODES NP Procedure Category Date Status Time Ok To Change Chawla ORDERS 10/03/24 Transmitted 14:38 Chest Ultrasound US 10/04/24 Taken 13:50 * Operations Research Director CONS 10/04/24 Transmitted Consult Date of Service: October 04, 2024 Billing Provider: CAMELIA RHODES NP Common Visit Codes: [id number] INP/OBS CARE(HIGH) CAMELIA RHODES NP October 04, 2024 14:29
--- NOTE | 2024-10-04 14:36 | DVH ---
Bilateral Chest Sonogram Date: 10/04/2024 01:54 PM Clinical history: pleural effusion Findings: Limited sonographic evaluation of the right and left chest was performed to localize and rika fluid f or thoracentesis. There is a small right pleural effusion. IMPRESSION: right pleural effusion END IMPRESSION:
[2024-10-05] VITALS (11 sets, daily range): BP systolic 138–177; BP diastolic 46–78; PULSE 62–76; RESP 17–20; TEMP 37.3; O2SAT 95–99
[2024-10-05 13:55] LABS: Base Excess -0.8 mmol/L (-2.0-3.0)
--- NOTE | 2024-10-05 14:31 | DVHDS2 ---
Discharge Summary Date of Admission September 24, 2024 at 19:12 Date of Discharge: October 05, 2024 Labs/Diagnostic Data: Laboratory Results Test 10/05/24 13:46 10/05/24 06:09 10/03/24 14:28 09/30/24 03:10 Blood Gas Specimen Type Arterial Blood Gas Sample Site Right radial Blood Gas Patient Temperature 37.0 Arterial Blood Date Drawn [id number] Arterial Blood pH 7.420 (7.350-7.450) Arterial Blood Partial Pressure CO2 36.9 mmHg (35.0-48.0) Arterial Blood Partial Pressure O2 62.3 mmHg (83.0-108.0) Arterial Blood HCO3 23.4 mmol/L (21.0-28.0) Arterial Blood Oxygen Saturation 90.9 % (94.0-98.0) Arterial Blood Base Excess -0.8 mmol/L (-2.0-3.0) Arterial Blood Oxyhemoglobin 90.1 % (94.0-98.0) Arterial Blood Carboxyhemoglobin 0.4 % (0.5-1.5) Arterial Blood Methemoglobin 0.5 % (0.0-1.5) Damián Test Modified Blood Gas Total Hemoglobin 11.00 g/dL (13.5-17.5) Blood Gas Modality Room air FiO2 % 21.0 POC Glucose 147 mg/dl (70-106) White Blood Count 4.0 10^3/uL (4.4-10.8) Red Blood Count 3.46 10^6/uL (4.5-5.90) Hemoglobin 10.4 g/dL (13.5-17.5) Hematocrit 32.2 % (41.0-53.0) Mean Corpuscular Volume 93.0 fL (80.0-100.0) Mean Corpuscular Hemoglobin 29.9 pg (28.0-32.0) Mean Corpuscular Hemoglobin Concent 32.2 g/dL (32.0-36.0) Red Cell Distribution Width 15.0 % (11.8-14.3) Platelet Count 160 10^3/uL (140-450) Mean Platelet Volume 8.7 fL (6.9-10.8) Neutrophils (%) (Auto) 54.0 % (37.0-80.0) Lymphocytes (%) (Auto) 32.0 % (10.0-50.0) Monocytes (%) (Auto) 9.9 % (0.0-12.0) Eosinophils (%) (Auto) 3.4 % (0.0-7.0) Basophils (%) (Auto) 0.7 % (0.0-2.0) Neutrophils # (Auto) 2.2 10 ^3/uL (1.6-8.6) Lymphocytes # (Auto) 1.3 10 ^3/uL (0.4-5.4) Monocytes # (Auto) 0.4 10 ^3/uL (0-1.3) Eosinophils # (Auto) 0.1 10 ^3/uL (0-0.8) Basophils # (Auto) 0 10 ^3/uL (0-0.2) Nucleated Red Blood Cells 0.4 % Sodium Level 141 mmol/L (136-145) Potassium Level 3.8 mmol/L (3.5-5.1) Chloride Level 112 mmol/L (98-107) Carbon Dioxide Level 23 mmol/L (20-31) Anion Gap 6 (5-15) Blood Urea Nitrogen 9 mg/dL (9-23) Creatinine 0.98 mg/dL (0.700-1.30) Glomerular Filtration Rate Calc 81 mL/min (>90) BUN/Creatinine Ratio 9.2 (10.0-20.0) Serum Glucose 117 mg/dL (74-106) Calcium Level 9.2 mg/dL (8.7-10.4) Total Bilirubin 0.2 mg/dL (0.2-1.0) Aspartate Amino Transferase (AST) 28 U/L (13-40) Alanine Aminotransferase (ALT) 22 U/L (7-40) Alkaline Phosphatase 74 U/L (46-116) Total Protein 5.6 g/dL (5.7-8.2) Albumin 2.8 g/dL (3.2-4.8) Magnesium Level 2.3 mg/dL (1.6-2.6) Test 09/29/24 10:30 09/29/24 06:58 09/27/24 03:20 09/25/24 08:35 Blood Gas Pressure Support 7 Blood Gas PEEP or CPAP 5.0 Blood Gas Set Respiration Rate 16.0 Blood Gas Spontaneous Rate 26 Blood Gas Tidal Volume 500.0 Random Vancomycin Level 13.9 ug/mL (5-10) Urine Color Yellow (Yellow) Urine Clarity Turbid (Clear) Urine pH 5.0 (5.0-9.0) Urine Specific [place] 1.025 (1.001-1.035) Urine Protein 1+ (Negative) Urine Ketones Negative (Negative) Urine Blood Negative /uL (Negative) Urine Nitrite Negative (Negative) Urine Bilirubin Negative (Negative) Urine Urobilinogen Normal mg/dL (Negative) Urine Leukocyte Esterase 3+ /uL (Negative) Urine RBC 11 /hpf (0 - 3) Urine WBC Clumps Present /hpf (None Seen) Urine Microscopic WBC 65 /HPF (0-3) Urine Squamous Epithelial Cells Few /hpf (<5) Urine Bacteria None seen /hpf (None Seen) Urine Mucus Few (None Seen) Urine Osmolality 610 mOsm/kg Urine Creatinine 82.82 mg/dL (30.0-125.0) Urine Protein/Creatinine Ratio 0.72 Urine Sodium 21 mmol/L (40-220) Urine Glucose Normal mg/dL (Normal) Urine Total Protein 59.8 mg/dL (1-14) Test 09/25/24 05:29 09/24/24 21:50 09/24/24 14:49 09/24/24 13:00 Hemoglobin A1c 7.0 % A1C (<5.7) Phosphorus Level 4.8 mg/dL (2.4-5.1) Vitamin D 25-Hydroxy 37.8 ng/mL (30.0-100) Parathyroid Hormone (Intact) 100.0 pg/mL (18.4-80.1) Troponin I High Sensitivity 130 ng/L (</=54) Lactic Acid Level 1.6 mmol/L (0.4-2.0) Urine Amorphous Crystals Few /hpf (None Seen) B-Type Natriuretic Peptide 193.48 pg/mL (0-100) Urine Opiates Screen Neg (NEGATIVE) Urine Fentanyl Screen Neg (NEGATIVE) Urine Barbiturates Screen Neg (NEGATIVE) Urine Phencyclidine Screen Neg (NEGATIVE) Urine Amphetamines Screen Neg (NEGATIVE) Urine Benzodiazepines Screen Neg (NEGATIVE) Urine Cocaine Screen Neg (NEGATIVE) Urine Cannabinoids Screen Neg (NEGATIVE) Other Laboratory Tests 10/03/24 14:28 Brief Hx & Hospital Course: History of Present Illness The patient is a 74-year-old male with past medical history of DM, chronic kidney failure, CHF, and hypertension presented to [facility] ED for evaluation of altered level of consciousness. As reported by daughter, patient was alert oriented x4, but few hours later patient was altered, unresponsive so 911 was called. When EMS arrived on the scene, patient's O2 saturation was 76% on room air with snoring respirations and was given breathing treatment, O2 saturation improved to 94% EN route to our facility ED. patient was seen and evaluated in the ED, laboratory data shows WBC 6.2, hemoglobin 12.2, hematocrit 38.6, platelets 130, sodium 150, potassium 5.4, BUN 84, creatinine 2.13, glucose 436, lactic acid 2.2 trending down to 1.6, troponin 125, calcium 8.4, BNP 193.48, blood pressure 91/47, heart rate 97, temperature 101.8 F trending down to 98.1 F, O2 saturation 98% on ventilator. Patient was subsequently sedated and intubated. Patient was given Tylenol 1000 g IV x1, IV antibiotic regimen vancomycin, please see medication orders section in the computer. On my assessment, daughter at bedside, patient is fully intubated, no diaphoresis, no diarrhea, no nausea, no vomiting, no fever, no chills. Patient was admitted for further evaluation and medical management. Course of hospitalization: Patient was successfully extubated from mechanical ventilation. Patient was started back on tube feeding via his G-tube. Patient was given bronchodilators. Neurologically, the patient is at his baseline aphasic state. Patient has positive bowel movements. Patient has multiple organisms growing in the sputum which were covered empirically. At this time, patient will be discharged back home with home health services and appropriate DME as family is requesting. He will be continued on antibiotic therapy with Levaquin 500 mg via G-tube for additional five days. Overall prognosis with the patient's poor given his multiple comorbidities. Physical examination General: Alert and Oriented x3. No acute distress. Well-nourished. Eyes: EOMI. Anicteric. HENT: Moist mucous membranes. Lungs: Clear to auscultation bilaterally. No accessory muscle use. Cardiovascular: Regular rate and rhythm. No murmur. No JVD. Abdomen: Soft, non-tender and non-distended. No palpable masses. Extremities: No edema. Non-tender. Skin: No rashes or lesions. Warm. Neurologic: No focal neurological deficits. CN II-XII grossly intact, but not individually tested. Psychiatric: Cooperative. Appropriate mood and affect. Total time spent with patient discussing and formulating plan of care: 35 minutes. This medical document was created using an electronic medical record system with [employer] dictation system. Although this document has been carefully reviewed, there may still be some phonetic and typographical errors. These areas are purely typographical due to imperfections of the software programs, and do not reflect any compromise in the patient's medical care. Condition at Discharge: Guarded Final Diagnosis/Problems List Acute hypoxic respiratory failure. Secondary diagnosis: -acute hypoxic respiratory failure -community-acquired pneumonia, Gram-positive/Gram-negative etiology -septic shock -hypernatremia -history of CVA -bed-bound status -history of PEG tube -acute kidney injury, vasomotor nephropathy -obstructive sleep apnea -ruled out ileus -Severe constipation Discharge Disposition: Home Discharge Instruct/Medications Diet: See Comment Activity: No Restrictions, As Tolerated Medications: Continue all previous home medications Levaquin 500mg via GT x 5 days 35 Discharge Statement: "Patient was advised to return to the ER or call 911 if any headaches, dizziness, shortness of breath, chest pain, abdominal pain, bleeding, fevers, or worsening of medical condition. Patient was counseled about treatment plan, medications, possible side effects, patientverbalized understanding. All questions were answered to the best of my ability. This discharge took greater then 30 minutes in planning, reviewing documentation, counseling the patient, and discussing with other team members." ASSESSMENT ASSESSMENT Assessment Acute hypoxic respiratory failure. Date of Service: October 05, 2024 Billing Provider: CAMELIA RHODES NP Common Visit Codes: 77037-QHD/OBS DISCH DAY >30min CAMELIA RHODES NP October 05, 2024 14:31
== END 2024-10-06 01:30 | disposition home health service (06) | DRG 870 ==
LOC: EDBD 12:44 → ER 12:49 → OVERFLOW 19:12 → ICU WEST 09-27 01:35 → DOU IN ICU 10-01 05:40 → TELE-WESTW 10-02 14:28
PROVIDERS: ADMIT Nurse Practitioner Acute Care; ATTEND Nurse Practitioner Acute Care
PROC: 5A1955Z Respiratory Ventilation, Greater than 96 Consecutive Hours (ICD-10-PCS; principal; 2024-09-24)
PROC: 06HY33Z Insertion of Infusion Device into Lower Vein, Percutaneous Approach (ICD-10-PCS; 2024-09-24)
PROC: 0BH17EZ Insertion of Endotracheal Airway into Trachea, Via Natural or Artificial Opening (ICD-10-PCS; 2024-09-24)
DX: A41.9 Sepsis, unspecified organism (principal); J15.69 Pneumonia due to other Gram-negative bacteria; J96.01 Acute respiratory failure with hypoxia; R65.21 Severe sepsis with septic shock; N17.0 Acute kidney failure with tubular necrosis; J15.9 Unspecified bacterial pneumonia; I21.A1 Myocardial infarction type 2; N39.0 Urinary tract infection, site not specified; E87.0 Hyperosmolality and hypernatremia; I13.0 Hypertensive heart and chronic kidney disease with heart failure and stage 1 through stage 4 chronic kidney disease, or unspecified chronic kidney disease; N25.81 Secondary hyperparathyroidism of renal origin; R47.01 Aphasia; E11.65 Type 2 diabetes mellitus with hyperglycemia; D63.1 Anemia in chronic kidney disease; E86.0 Dehydration; G47.33 Obstructive sleep apnea (adult) (pediatric); N20.0 Calculus of kidney; K59.00 Constipation, unspecified; N18.9 Chronic kidney disease, unspecified; I50.9 Heart failure, unspecified; E11.22 Type 2 diabetes mellitus with diabetic chronic kidney disease; Z74.01 Bed confinement status; Z79.84 Long term (current) use of oral hypoglycemic drugs; Z93.1 Gastrostomy status; Z86.73 Personal history of transient ischemic attack (TIA), and cerebral infarction without residual deficits
CPT/HCPCS: 31500; 36415; 36556; 36600; 70450; 71045; 74018; 74176; 76604; 76775; 80048; 80053; 80202; 80307; 81001; 82306; 82570; 82805; 82962; 83036; 83605; 83735; 83880; 83935; 83970; 84100; 84156; 84300; 84484; 85025; 87040; 87070; 87077; 87081; 87086; 87088; 87186; 87205; 93005; 94002; 94003; 94640; 94667; 94668; 96365; 96375; 99291; 99292; G0378; J0131; J0692; J1815; J2185; J2248; J2405; J2704; J3490

== ENCOUNTER 2024-11-09 15:00 | Inpatient (IN) | payer OTHER, MEDICAID ==
[~2024-11-09] VITALS: Ht 170.2 cm; Wt 78.0 kg
[~2024-11-09 15:00] MED LIST: CARV12.544; LOS25T PO
[2024-11-09] MEDS: ROCURONIUM 10MG/ML 10ML VIAL IV ONE ×2 (15:08→15:18)
[2024-11-09] MEDS: ETOMIDATE (2MG/ML) 20ML VIAL IV ONE ×2 (15:08→15:18)
[2024-11-09] MEDS: MIDAZOLAM DRIP 50 mg/50mL 50 ML IV ONE (15:21)
--- NOTE | 2024-11-09 15:26 | ED.PDOC ---
SOB-HPI HPI Comments 74 year old male with a Hx of CHF, HTN, Pacemaker, and Pneumonia was BIBA for Sever SOB. Per EMS Pt was here 1x month ago and was DX with Pneumonia, and family states that he has had labored breathing for the past 2x days with no alleviating factors. Pt is noted to be cyanotic, and have a G-Tube in place. Pt is altered and unresponsive at this time. No other associated symptoms, modifiers, recent injuries or sick contacts present at this time. 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, Medications, Allergies Information Source: Patient, Emergency Med Personnel Mode of Arrival: EMS Severity: Moderate Timing: Hours Duration: Since onset, Hours Context: At Rest PE Risk Factors: None History of: CHF Prehospital treatment: Oxygen Modifying Factors: Exertion, Laying flat, Rest, Sitting up If cough with SOB: Non-Productive Past Medical History PAST MEDICAL HISTORY: CHF, CKF, HTN Surgical History: Pacemaker Family History Family History: Unknown Social History Smoker: Unknown Alcohol: Unknown Drugs: Unknown Lives In: Home Constitutional: denies: chills, diaphoresis, fatigue, fever, malaise, sweats, w eakness, others EENTM: denies: blurred vision, double vision, ear bleeding, ear discharge, ear drainage, ear pain, ear ringing, eye pain, eye redness, hearing loss, mouth pain, mouth swelling, nasal discharge, nose bleeding, nose congestion, nose pain, photophobia, tearing, throat pain, throat swelling, voice changes, others Respiratory: reports: SOB at rest, shortness of breath, SOB with excertion; de nies: cough, hemoptysis, orthopnea, stridor, wheezing, others Cardiovascular: denies: chest pain, dizzy spells, diaphoresis, Dyspnea on exertion, edema, irregular heart beat, left arm pain, lightheadedness, palpitations, PND, syncope, others Gastrointestinal: denies: abdomen distended, abdominal pain, blood streaked bowels, constipated, diarrhea, dysphagia, difficulty swallowing, hematemesis, melena, nausea, poor appetite, poor fluid intake, rectal bleeding, rectal pain, vomiting, others Genitourinary: denies: burning, dysuria, flank pain, frequency, hematuria, incontinence, penile discharge, penile sore, pain, testicle pain, testicle swelling, urgency, others Neurological: denies: dizziness, fainting, headache, left sided numbness, left sided weakness, numbness, paresthesia, pre-existing deficit, right sided numbness, right sided weakness, seizure, speech problems, tingling, tremors, weakness, others Musculoskeletal: denies: back pain, gout, joint pain, joint swelling, muscle pain, muscle stiffness, neck pain, others Integumetry: denies: bruises, change in color, change in hair/nails, dryness, laceration, lesions, lumps, rash, wounds, others Allergic/Immunocompromised: denies: Difficulty Healing, Frequent Infections, Hives, Itching, others Hematologic/Lymphatic: denies: anemia, blood clots, easy bleeding, easy bruising, swollen glands, others Endocrine: denies: excessive hunger, excessive sweating, excessive thirst, excessive urination, flushing, intolerance to cold, intolerance to heat, unexplained weight gain, unexplained weight loss, others Psychiatric: denies: anxiety, bipolar disorder, depression, hopeless, panic disorder, schizophrenia, sleepless, suicidal, others Unable to Obtain due to: Altered Mental Status, Medical Urgency All Other Systems: Reviewed and Negative Physical Exam General Appearance: Normal, Severe Distress HEENT: Normal ENT Inspection, Pharynx Normal, TMs Normal Neck: Full Range of Motion, Non-Tender, Normal, Normal Inspection Respiratory: Accessory Muscle Use, Chest Non-Tender, Respiratory Distress Cardiovascular: No Edema, No JVD, No Murmur, No Gallop, Normal Peripheral Pulses, Regular Rate/Rhythm Breast Exam: Deferred Gastrointestinal: Non Tender, No Pulsatile Mass, Normal Bowel Sounds, Soft, Other (G-tube in place) Genitalia: Deferred Pelvic: Deferred Rectal: Deferred Extremities: No calf tenderness, Normal capillary refill, Non-tender, No pedal edema Musculoskeletal : Apperance: Normal Neurologic: Other (Not responding) Cerebellar Function: NOT DONE Reflexes: NOT DONE Skin: Dry, Pallor, Warm Peripheral Pulses: 3+ Radial (R), 3+ Radial (L) Lymphatic: No Adenopathy Was a procedure done? 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 Indication: Suspected infection Room prepared for procedure: Yes [employer] Maker performed hand hygien: Yes Maximal sterile barrier precau: Mask/Eye shield, Sterile gown, Cap, Sterlie gloves, Large sterlie drape Skin Preparation: Chlorhexidine gluconate Skin preparation completely dr: Yes Insertion site: Right, Internal jugular Central line catheter type: [id number] dialysis Number of lumens: 2 Central line exchanged over a: Yes Antiseptic ointment applied to: Yes Post Assessment: Chest X-Ray, No Pneumothorax Informed consent obtained: No Risks/benefits/alt described: No Intubation Indication: Respiratory Insufficiency, Altered Mental Status Prep: Preoxygenation Pretreated with: Lidocaine Medicated with: Succinylcholine, Nothing Intubation Approach: Orotracheal Intubation size: cm (8cm) Informed consent obtained: No Risks/benefits/alt described: No Differential Dx Differential Diagnosis: Anxiety, Asthma, Bronchitis, Cardiogenic Shock, CHF, COPD, Dysrhythmia, Hypertension, Hyperventilation, Myocardial infarction, Pneumonia, Pneumothorax, Pulmonary Embolism, Respiratory Distress X-Ray, Labs, Meds, VS Vital Signs Date Time Temp Pulse Resp B/P (MAP) Pulse Ox O2 Delivery O2 Flow Rate FiO2 11/09/24 17:00 184/57 11/09/24 16:47 50 11/09/24 16:30 171/78 11/09/24 15:45 81 18 163/69 (100) 100 100 11/09/24 15:30 163/69 11/09/24 15:26 28 98 Non-Rebreather 15 N/A 11/09/24 15:18 163/69 11/09/24 15:09 97.8 103 28 174/75 (108) 98 97.8 11/09/24 15:02 84 Lab Test 11/09/24 16:35 11/09/24 16:10 Range/Units Blood Gas Specimen Type Arterial Blood Gas Sample Site Right radial Blood Gas Patient Temperature 37.0 Arterial Blood Date Drawn [id number] Arterial Blood pH 7.493 H 7.350-7.450 Arterial Blood Partial Pressure CO2 36.6 35.0-48.0 mmHg Arterial Blood Partial Pressure O2 213.3 H 83.0-108.0 mmHg Arterial Blood HCO3 27.5 21.0-28.0 mmol/L Arterial Blood Oxygen Saturation 99.7 H 94.0-98.0 % Arterial Blood Base Excess 4.1 H -2.0-3.0 mmol/L Arterial Blood Oxyhemoglobin 98.2 H 94.0-98.0 % Arterial Blood Carboxyhemoglobin 1.2 0.5-1.5 % Arterial Blood Methemoglobin 0.3 0.0-1.5 % Damián Test Modified Blood Gas Total Hemoglobin 11.00 L 13.5-17.5 g/dL Blood Gas Set Respiration Rate 18.0 Blood Gas Modality Vent - ac FiO2 % 100.0 Blood Gas Tidal Volume 500.0 Blood Gas PEEP or CPAP 5.0 White Blood Count 3.4 L 4.4-10.8 10^3/uL Red Blood Count 3.81 L 4.5-5.90 10^6/uL Hemoglobin 11.2 L 13.5-17.5 g/dL Hematocrit 36.2 L 41.0-53.0 % Mean Corpuscular Volume 95.1 80.0-100.0 fL Mean Corpuscular Hemoglobin 29.4 28.0-32.0 pg Mean Corpuscular Hemoglobin Concent 30.9 L 32.0-36.0 g/dL Red Cell Distribution Width 15.4 H 11.8-14.3 % Platelet Count 117 L 140-450 10^3/uL Mean Platelet Volume 10.5 6.9-10.8 fL Neutrophils (%) (Auto) 55.6 37.0-80.0 % Lymphocytes (%) (Auto) 31.7 10.0-50.0 % Monocytes (%) (Auto) 10.9 0.0-12.0 % Eosinophils (%) (Auto) 1.2 0.0-7.0 % Basophils (%) (Auto) 0.6 0.0-2.0 % Neutrophils # (Auto) 1.9 1.6-8.6 10 ^3/uL Lymphocytes # (Auto) 1.1 0.4-5.4 10 ^3/uL Monocytes # (Auto) 0.4 0-1.3 10 ^3/uL Eosinophils # (Auto) 0 0-0.8 10 ^3/uL Basophils # (Auto) 0 0-0.2 10 ^3/uL Nucleated Red Blood Cells 0.0 % Prothrombin Time 10.4 9.3-11.8 sec Prothrombin Time INR 0.98 0.9-1.15 Activated Partial Thromboplast Time 26.5 24.5-34.5 SEC Sodium Level 141 136-145 mmol/L Potassium Level 5.5 H 3.5-5.1 mmol/L Chloride Level 102 98-107 mmol/L Carbon Dioxide Level 31 20-31 mmol/L Anion Gap 8 5-15 Blood Urea Nitrogen 53 H 9-23 mg/dL Creatinine 1.06 0.700-1.30 mg/dL Glomerular Filtration Rate Calc 74 >90 mL/min BUN/Creatinine Ratio 50.0 H 10.0-20.0 Serum Glucose 145 H 74-106 mg/dL Lactic Acid Level 0.8 0.4-2.0 mmol/L Calcium Level 9.8 8.7-10.4 mg/dL Total Bilirubin 0.4 0.2-1.0 mg/dL Aspartate Amino Transferase (AST) 24 13-40 U/L Alanine Aminotransferase (ALT) 17 7-40 U/L Alkaline Phosphatase 99 46-116 U/L Total Protein 6.6 5.7-8.2 g/dL Albumin 3.6 3.2-4.8 g/dL Current Medications Medications (Trade) Dose Ordered Sig/Jim Route Start Time Stop Time Status Last Admin Vancomycin HCl 200 ml @ 200 mls/hr ONCE ONCE IV 11/09/24 15:15 11/09/24 16:14 DC 11/09/24 16:55 Sodium Chloride 1,000 ml @ 2,000 mls/hr Q30M ONCE IV 11/09/24 15:15 11/09/24 15:44 DC 11/09/24 16:50 Cefepime HCl 50 ml @ 50 mls/hr ONCE ONCE IV 11/09/24 15:15 11/09/24 16:14 DC 11/09/24 17:00 Rocuronium [place] 100 mg ONCE ONCE IV 11/09/24 15:30 11/09/24 15:31 DC 11/09/24 15:18 Etomidate 20 mg ONCE ONCE IV 11/09/24 15:30 11/09/24 15:31 DC 11/09/24 15:18 Midazolam HCl 50 ml @ 1 mls/hr Q24H IV 11/09/24 15:30 11/09/24 15:30 Patient altered. Vitals stable. Has a G-tube in place. Was recently here. Was intubated. Spoke with the family about DNR. They want everything to be done. Had to intubate the patient. Placed a central line. Sepsis protocol. Pneumonia. Was given antibiotics. Explained to the family. Continue to monitor. Time of 1ST Reevaluation: 15:48 Reevaluation 1ST: Unchanged Patient Education/Counseling: Diagnosis, Treatment, Need For Follow Up Family Education/Counseling: Diagnosis, Treatment, Need For Follow Up SEPSIS Sepsis Screen Physician Orders Urinalysis (11/09/24 15:05) Accucheck (11/09/24 15:05) Blood Culture (11/09/24 15:05) Lactic Acid W/ Reflex Order (11/09/24 18:00) Cefepime 1gm/ 50ml (Maxipime 1gm/50ml) (11/09/24 22:00) Notify Md If Map <65 Or Bp<90 (11/09/24 15:05) If Map<65 Start Vasopressor (11/09/24 15:05) Sodium Chloride 0.9% (11/09/24 15:15) Pharmacy Clarification: (11/09/24 23:29) Electrocardigram (11/09/24 15:15) Midazolam Drip 50 Mg/50ml (Versed Drip 5 (11/09/24 15:30) Rass Sedation Scale Q1HR (11/09/24 15:25) Ventilator Orders (11/09/24 15:34) Abg W/ Co-Ox (11/09/24 16:30) Respiratory Culture W/ Gs (11/09/24 15:34) Chest Portable (11/09/24 15:45) Communication Order (11/09/24 17:00) Vital Signs Date Time Temp Pulse Resp B/P (MAP) Pulse Ox O2 Delivery O2 Flow Rate FiO2 11/09/24 17:00 184/57 11/09/24 16:47 50 11/09/24 16:30 171/78 11/09/24 15:45 81 18 163/69 (100) 100 100 11/09/24 15:30 163/69 11/09/24 15:26 28 98 Non-Rebreather 15 N/A 11/09/24 15:18 163/69 11/09/24 15:09 97.8 103 28 174/75 (108) 98 97.8 11/09/24 15:02 84 Laboratory Tests Test 11/09/24 16:10 Lactic Acid Level 0.8 mmol/L (0.4-2.0) White Blood Count 3.4 10^3/uL (4.4-10.8) L Medications Medications Dose Ordered Sig/Jim Route Start Time Stop Time Status Last Admin Dose Admin Cefepime HCl 50 ml @ 50 mls/hr ONCE ONCE IV 11/09/24 15:15 11/09/24 16:14 DC 11/09/24 17:00 Etomidate 20 mg ONCE ONCE IV 11/09/24 15:30 11/09/24 15:31 DC 11/09/24 15:18 Midazolam HCl 50 ml @ 1 mls/hr Q24H IV 11/09/24 15:30 11/09/24 15:30 Rocuronium [place] 100 mg ONCE ONCE IV 11/09/24 15:30 11/09/24 15:31 DC 11/09/24 15:18 Sodium Chloride 1,000 ml @ 2,000 mls/hr Q30M ONCE IV 11/09/24 15:15 11/09/24 15:44 DC 11/09/24 16:50 Vancomycin HCl 200 ml @ 200 mls/hr ONCE ONCE IV 11/09/24 15:15 11/09/24 16:14 DC 11/09/24 16:55 Departure 1 Departure Time of Disposition: 16:26 Impression: Primary Impression: Acute respiratory failure Qualified Codes: J96.01 - Acute respiratory failure with hypoxia Additional Impressions: Pneumonitis Metabolic encephalopathy Disposition: ADMITTED INPATIENT Admit to: Med Surg Condition: Guarded Critical Care Note Critical Care Time?: Yes (90 min-critical care time only) Critical care comment: Continue monitor Stability Stability form required: No Heart Score Heart Score: Heart Score Response (Comments) Value History Moderate Suspicious 1 EKG Normal 0 Age >65 2 Risk Factors 1 or 2 risk factors 1 Troponin Normal limit 0 Total 4 I personally scribed for ROSALBA DIXON MD ([email or web address]) on 11/09/24 at 15:26. Electronically submitted by Abiodun Corona ([email or web address]). ROSALBA DIXON MD Nov 09, 2024 15:26
[2024-11-09] MEDS: MIDAZOLAM DRIP 50 mg/50mL 50 ML IV SCH (15:30)
[2024-11-09 16:40] LABS: Base Excess 4.1 mmol/L (-2.0-3.0)
[2024-11-09 16:45] LABS: Hematocrit 36.2 % (41.0-53.0); Hemoglobin 11.2 g/dL (13.5-17.5); Mean Corpuscular Hemoglobin 29.4 pg (28.0-32.0); Mean Corpuscular Volume 95.1 fL (80.0-100.0); Nucleated Red Blood Cells % 0.0 %
--- NOTE | 2024-11-09 16:48 | DVH ---
EXAM: XY CHEST PORTABLE HISTORY: S/P INTUBATION/ CENTRAL LINE PLACEMENT/OGT PLACEMENT COMPARISON: XY CHEST XRAY 1 VIEW on DOS: 10/03/24, XY CHEST PORTABLE on DOS: 09/30/24, XY CHEST PORTABL E on DOS: 09/29/24, XY CHEST PORTABLE on DOS: 09/28/24, XY CHEST PORTABLE on DOS: 09/27/24 TECHNIQUE: Portable supine AP view of the chest was performed. FINDINGS: There has been interval placement of an endotracheal tube with its tip 3.4 cm above the harlan. There is a new right IJ central line with its tip in the mid SVC. There is a new OG tube with its tip in t he stomach at least 11 cm distal to the GE junction. Left chest pacemaker is re-identified. There are bilateral lung base infiltrates and effusions obscuring the hemidiaphragms and partially obscuring t he left heart border. There is central interstitial prominence. No pneumothorax. The heart is enlarge d. IMPRESSION: 1. Interval intubation with endotracheal tube in good position. OG tube is also in good position. 2. Right IJ central line in good position without pneumothorax. 3. Cardiomegaly and left chest pacemaker re-identified. 4. Interstitial prominence and lung base infiltrates and effusions which may be due to multifocal pne umonia and/or CHF.
[2024-11-09 16:50] LABS: Alanine Aminotransferase 17 U/L (7-40); Albumin 3.6 g/dL (3.2-4.8); Alkaline Phosphatase 99 U/L (46-116); Anion Gap 8 (5-15); BUN/Creatinine Ratio 50.0 (10.0-20.0); Calcium 9.8 mg/dL (8.7-10.4); Carbon Dioxide 31 mmol/L (20-31); Chloride 102 mmol/L (98-107); Sodium 141 mmol/L (136-145); Total Protein 6.6 g/dL (5.7-8.2)
[2024-11-09] MEDS: SODIUM CHLORIDE 0.9% 1,000 ML IV ONE ×2 (16:50→18:10)
[2024-11-09 16:51] LABS: Bilirubin, Total 0.4 mg/dL (0.2-1.0); Blood Urea Nitrogen 53 mg/dL (9-23); Glucose 145 mg/dL (74-106); Potassium 5.5 mmol/L (3.5-5.1)
[2024-11-09 16:52] LABS: INR 0.98 (0.9-1.15); Partial Thromboplastin Time 26.5 SEC (24.5-34.5); Prothrombin Time 10.4 sec (9.3-11.8)
[2024-11-09] MEDS: VANCOMYCIN 1GM/200ML PM 200 ML IV ONE (16:55)
[2024-11-09] MEDS: CEFEPIME 1GM/ 50ML 50 ML IV ONE (17:00)
[2024-11-09 17:51] VITALS: BP 186/51; PULSE 63; RESP 18; O2SAT 97
--- NOTE | 2024-11-09 19:15 | ECG ---
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
[2024-11-09 19:48] LABS: Urine Protein, UAD 1+ (Negative)
[2024-11-09] MEDS ORDERED: ACETAMINOPHEN 650 MG RECT SUPP PR PRN (20:00)
[2024-11-09] MEDS ORDERED: ONDANSETRON HCL 4 MG/2 ML VIAL IV PRN (20:00)
[2024-11-09] MEDS ORDERED: hydrALAZINE HCL 20 MG/ML VL IV PRN (20:00)
[2024-11-09 20:20] VITALS: BP 139/54; PULSE 60; RESP 18; O2SAT 94
[2024-11-09] MEDS: AZITHROMYCIN 500MG/ 250ML 250 ML IV ONE (21:00)
[2024-11-09 21:38] VITALS: BP 130/53; PULSE 60; RESP 18; O2SAT 99
[2024-11-09] MEDS: SODIUM ZIRCONIUM CYCL 10 GM PAK GT ONE (21:45)
[2024-11-09] MEDS ORDERED: MORPHINE SULFATE INJ 2 MG/ml SYRG IV PRN (22:00)
[2024-11-09] MEDS ORDERED: NITROGLYCERIN 0.4 MG SL TAB SL PRN (22:00)
[2024-11-09] MEDS ORDERED: CEFEPIME 1GM/ 50ML 50 ML IV SCH (22:00)
[2024-11-09] MEDS: SODIUM CHLOR 0.9% PF (SALINE LOCK) 10ML VIAL/SYR IV SCH (22:01)
[2024-11-09] MEDS: CARVEDILOL 3.125 MG TAB PO SCH (22:04)
[2024-11-09] MEDS: FAMOTIDINE (10MG/ML) 2ML VL IV SCH (22:05)
--- NOTE | 2024-11-09 22:07 | DVHHP2 ---
History of Present Illness Reason for Visit: Acute respiratory failure with hypoxia History of Present Illness The patient is a 74-year-old male with past medical history of CKF, hypertension, DM, and CHF who presented to [facility] ED with complaint of hypoxia. As reported by family, patient has been experiencing labored breathing for the past 2 days, noted to be cyanotic, and altered, so EMS were called. Patient was seen and evaluated in the ED with increased hypoxia, increased work of breathing, altered mental status, getting worse and subsequently intubated. Laboratory data shows WBC 3.4, hemoglobin 11.2, hematocrit 36.2, platelets 117, sodium 141, potassium 5.5, BUN 53, creatinine 1.06, GFR 74, glucose 145, calcium 9.8, blood pressure 212/89 trending down to 130/57, heart rate 60, temperature 97.9 F, O2 saturation 99% on ventilator. Chest x-ray revealing cardiomegaly and left chest pacemaker noted, interstitial prominence and lung base infiltrates and effusions which may be due to multifocal pneumonia and/or CHF. Patient was started on IV antibiotic regimen azithromycin, please see medication orders section in the computer. On my assessment, patient is fully intubated, family at bedside, no diaphoresis, no diarrhea, no vomiting, no fever, no chills. Patient was admitted for further evaluation and medical management. Past Medical History CHF, CKF, HTN, DM Past Surgical History Pacemaker Family History Reviewed, noncontributory to the management of this case. Past Social History The patient lives at home, denies smoking, alcohol or illicit drugs abuse. Review of Systems Constitutional: Yes: Weakness; No: Fever, Chills, Sweats, Malaise, Other Eyes: No: Pain, Vision change, Conjunctivae inflammation, Eyelid inflammation, Other, Redness ENT: No: Ear pain, Ear discharge, Nose pain, Nose discharge, Nose congestion, Mouth pain, Mouth swelling, Throat pain, Throat swelling, Other Respiratory: Shortness of breath, SOB with excertion, Other (SOB at rest); No: Cough, Dry, Wheezing, Hemoptysis, Pleuritic Pain, Sputum, Wheezing Cardiovascular: No: Chest Pain, Palpitations, Orthopnea, Paroxysmal Noc. Dyspnea, Edema, Lt Headedness, Other Gastrointestinal: No: Nausea, Vomiting, Abdominal Pain, Diarrhea, Constipation, Melena, Hematochezia, Other Genitourinary: No Dysuria, No Frequency, No Incontinence, No Hematuria, No Retention, No Other Musculoskeletal: No: other, neck pain, shoulder pain, arm pain, back pain, hand pain, leg pain, foot pain Skin: No: Rash, Lesions, Jaundice, Bruising, Other Neurological: No: Weakness, Numbness, Incoordination, Change in speech, Confusion, Seizures, Other Allergies: Coded Allergies: NO KNOWN ALLERGIES (Unverified , 09/24/24) Medications Current Medications Medications Dose Ordered Sig/Jim Route Start Time Stop Time Status Last Admin Dose Admin Midazolam HCl 50 ml @ 1 mls/hr Q24H IV 11/09/24 15:30 11/09/24 18:30 6 MLS/HR Losartan Potassium 25 mg DAILY PO 11/10/24 10:00 UNV Carvedilol 3.125 mg Q12HR PO 11/09/24 22:00 Famotidine 20 mg Q12HR IV 11/09/24 22:00 Hydralazine HCl 10 mg Q6HP PRN IV 11/09/24 20:00 Ceftriaxone Sodium 50 ml @ 100 mls/hr DAILY@09 IV 11/10/24 09:00 Azithromycin 250 ml @ 125 mls/hr DAILY IV 11/10/24 10:00 Sodium Chloride 10 ml Q8HR IV 11/09/24 22:00 Ondansetron HCl 4 mg Q4HP PRN IV 11/09/24 20:00 Acetaminophen 650 mg Q6HP PRN SD 11/09/24 20:00 Exam Vital Signs Vital Signs Date Time Temp Pulse Resp B/P (MAP) Pulse Ox O2 Delivery O2 Flow Rate FiO2 11/09/24 20:20 60 18 139/54 (82) 94 40 11/09/24 19:30 97.9 97.9 11/09/24 15:26 Non-Rebreather 15 General Appearance: Other (Fully intubated) HEENT: Atraumatic, PERRLA, EOMI, Mucous membr. moist/pink Respiratory: Normal air movement, Other (On ventilator) Cardiovascular: Regular rate, Normal S1, Normal S2, No murmurs Abdominal: Normal bowel sounds, Soft, No tenderness, No hepatospenomegaly, No masses Extremities: No clubbing, No cyanosis, No edema, Normal pulses, No tenderness/swelling Skin: No rashes, No significant lesion Neuro: Normal tone, Reflexes 2+, Other (Generalized weakness) Psych/Mental Status: Other (Altered mental status) Labs/Xrays Labs Test 11/09/24 20:53 11/09/24 19:38 11/09/24 18:15 11/09/24 16:35 Range/Units Hemoglobin A1c 6.0 H <5.7 % A1C Urine Color Light-yellow Yellow Urine Clarity Clear Clear Urine pH 7.5 5.0-9.0 Urine Specific [place] 1.018 1.001-1.035 Urine Protein 1+ H Negative Urine Ketones Negative Negative Urine Blood Negative Negative /uL Urine Nitrite Negative Negative Urine Bilirubin Negative Negative Urine Urobilinogen Normal Negative mg/dL Urine Leukocyte Esterase Negative Negative /uL Urine RBC 1 0 - 3 /hpf Urine Microscopic WBC 3 0-3 /HPF Urine Squamous Epithelial Cells None seen <5 /hpf Urine Bacteria None seen None Seen /hpf Urine Glucose Normal Normal mg/dL Lactic Acid Level 1.6 0.4-2.0 mmol/L Blood Gas Specimen Type Arterial Blood Gas Sample Site Right radial Blood Gas Patient Temperature 37.0 Arterial Blood Date Drawn [id number] Arterial Blood pH 7.493 H 7.350-7.450 Arterial Blood Partial Pressure CO2 36.6 35.0-48.0 mmHg Arterial Blood Partial Pressure O2 213.3 H 83.0-108.0 mmHg Arterial Blood HCO3 27.5 21.0-28.0 mmol/L Arterial Blood Oxygen Saturation 99.7 H 94.0-98.0 % Arterial Blood Base Excess 4.1 H -2.0-3.0 mmol/L Arterial Blood Oxyhemoglobin 98.2 H 94.0-98.0 % Arterial Blood Carboxyhemoglobin 1.2 0.5-1.5 % Arterial Blood Methemoglobin 0.3 0.0-1.5 % Damián Test Modified Blood Gas Total Hemoglobin 11.00 L 13.5-17.5 g/dL Blood Gas Set Respiration Rate 18.0 Blood Gas Modality Vent - ac FiO2 % 100.0 Blood Gas Tidal Volume 500.0 Blood Gas PEEP or CPAP 5.0 Test 11/09/24 16:10 Range/Units White Blood Count 3.4 L 4.4-10.8 10^3/uL Red Blood Count 3.81 L 4.5-5.90 10^6/uL Hemoglobin 11.2 L 13.5-17.5 g/dL Hematocrit 36.2 L 41.0-53.0 % Mean Corpuscular Volume 95.1 80.0-100.0 fL Mean Corpuscular Hemoglobin 29.4 28.0-32.0 pg Mean Corpuscular Hemoglobin Concent 30.9 L 32.0-36.0 g/dL Red Cell Distribution Width 15.4 H 11.8-14.3 % Platelet Count 117 L 140-450 10^3/uL Mean Platelet Volume 10.5 6.9-10.8 fL Neutrophils (%) (Auto) 55.6 37.0-80.0 % Lymphocytes (%) (Auto) 31.7 10.0-50.0 % Monocytes (%) (Auto) 10.9 0.0-12.0 % Eosinophils (%) (Auto) 1.2 0.0-7.0 % Basophils (%) (Auto) 0.6 0.0-2.0 % Neutrophils # (Auto) 1.9 1.6-8.6 10 ^3/uL Lymphocytes # (Auto) 1.1 0.4-5.4 10 ^3/uL Monocytes # (Auto) 0.4 0-1.3 10 ^3/uL Eosinophils # (Auto) 0 0-0.8 10 ^3/uL Basophils # (Auto) 0 0-0.2 10 ^3/uL Nucleated Red Blood Cells 0.0 % Prothrombin Time 10.4 9.3-11.8 sec Prothrombin Time INR 0.98 0.9-1.15 Activated Partial Thromboplast Time 26.5 24.5-34.5 SEC Sodium Level 141 136-145 mmol/L Potassium Level 5.5 H 3.5-5.1 mmol/L Chloride Level 102 98-107 mmol/L Carbon Dioxide Level 31 20-31 mmol/L Anion Gap 8 5-15 Blood Urea Nitrogen 53 H 9-23 mg/dL Creatinine 1.06 0.700-1.30 mg/dL Glomerular Filtration Rate Calc 74 >90 mL/min BUN/Creatinine Ratio 50.0 H 10.0-20.0 Serum Glucose 145 H 74-106 mg/dL Calcium Level 9.8 8.7-10.4 mg/dL Total Bilirubin 0.4 0.2-1.0 mg/dL Aspartate Amino Transferase (AST) 24 13-40 U/L Alanine Aminotransferase (ALT) 17 7-40 U/L Alkaline Phosphatase 99 46-116 U/L Total Protein 6.6 5.7-8.2 g/dL Albumin 3.6 3.2-4.8 g/dL PATIENT: NAGA DUMONT ACCT: [id number] UNIT: [id number] : 1950 LOC: ER ROOM / BED: / AGE / SEX: 74 / M ADM STATUS: REG ER SERVICE 1545 ORDERING PHYSICIAN: ROSALBA DIXON MD PROCEDURE(s): CXRP - CHEST PORTABLE REASON: S/P INTUBATION/ CENTRAL LINE PLACEMENT/OGT PLACEMENT ORDER NUMBER(s): [id number], ACCESSION NUMBER(s): [id number] EXAM: XY CHEST PORTABLE HISTORY: S/P INTUBATION/ CENTRAL LINE PLACEMENT/OGT PLACEMENT COMPARISON: XY CHEST XRAY 1 VIEW on DOS: 10/03/24, XY CHEST PORTABLE on DOS: 09/30/24, XY CHEST PORTABLE on DOS: 09/29/24, XY CHEST PORTABLE on DOS: 09/28/24, XY CHEST PORTABLE on DOS: 09/27/24 TECHNIQUE: Portable supine AP view of the chest was performed. FINDINGS: There has been interval placement of an endotracheal tube with its tip 3.4 cm above the harlan. There is a new right IJ central line with its tip in the mid SVC. There is a new OG tube with its tip in the stomach at least 11 cm distal to the GE junction. Left chest pacemaker is re-identified. There are bilateral lung base infiltrates and effusions obscuring the hemidiaphragms and partially obscuring the left heart border. There is central interstitial prominence. No pneumothorax. The heart is enlarged. IMPRESSION: 1. Interval intubation with endotracheal tube in good position. OG tube is also in good position. 2. Right IJ central line in good position without pneumothorax. 3. Cardiomegaly and left chest pacemaker re-identified. 4. Interstitial prominence and lung base infiltrates and effusions which may be due to multifocal pneumonia and/or CHF. Assessment/Plan Assessment/Plan Acute respiratory failure Pneumonia, unspecified organism Metabolic encephalopathy Generalized weakness Acute respiratory failure with hypoxia Plan 1. Admit to intensive care unit 2. Breathing treatment 3. Pain control management 4. IV antibiotic management 5. Management of fluids and electrolytes 6. Consultation for pulmonology 7. Diagnostic test chest x-ray 8. DVT prophylaxis-on SCDs 9. Repeat labs CBC, CMP in a.m. 10. Home medication reviewed and reconciled 11. Continue with current medical management 12. Treatment plan discussed with patient/family member and RN. Family member verbalized understanding. Plan discussed with: Patient, Other (RN) My Orders Orders - SHEYLA KUHN DNP Procedure Category Date Status Time Losartan Tablet PHA 11/10/24 Pending (Cozaar Tablet) 10:00 Carvedilol Tablet PHA 11/09/24 In Process (Coreg Tablet) 22:00 Famotidine Injection PHA 11/09/24 In Process (Pepcid Injection) 22:00 Hydralazine Injection PHA 11/09/24 In Process (Apresoline Inject 20:00 *Consult CONS 11/09/24 Transmitted / 19:48 Ceftriaxone 1gm/50ml PHA 11/10/24 In Process D5w (Rocephin) 09:00 Azithromycin 500mg/ PHA 11/10/24 In Process 250ml (Zithromax 50 10:00 Azithromycin 500mg/ PHA 11/09/24 In Process 250ml (Zithromax 50 20:00 Allergies TOMI 11/09/24 In Process 19:48 Code Status CODE 11/09/24 Transmitted 19:48 Sodium Chloride Lock PHA 11/09/24 In Process (Saline Lock Ns) 22:00 Oxygen Per Hour RT 11/09/24 Transmitted 19:48 Ondansetron Hcl PHA 11/09/24 In Process (Zofran) 20:00 Fall Risk Precautions TOMI 11/09/[address] 19:48 Complete Blood Count LAB 11/10/24 Verified 04:00 Comprehensive LAB 11/10/24 Verified Metabolic Panel 04:00 Npo (Nothing By DIET 11/10/24 Transmitted Mouth) Diet Breakfast Condition: Serious TOMI 11/09/24 In Process 19:48 Maintain Bed Rest TOMI 11/09/24 In Process 19:48 Sequential TOMI 11/09/24 In Process Compression Device Acetaminophen PHA 11/09/24 In Process Suppository (Tylenol 20:00 Problem List: (1) Acute respiratory failure (2) Pneumonia, unspecified organism (3) Metabolic encephalopathy (4) Generalized weakness (5) Acute respiratory failure with hypoxia Date of Service: Nov 09, 2024 Billing Provider: SHEYLA KUHN DNP Common Visit Codes: [id number] INP/OBS CARE (HIGH) SHEYLA KUHN DNP Nov 09, 2024 22:07
[2024-11-09] MEDS: SOD CHL 0.45% 1,000 ML IV SCH (22:50)
[2024-11-09 23:39] VITALS: BP 142/56; PULSE 60; RESP 18; O2SAT 99
[2024-11-09 23:45] VITALS: BP 166/79; PULSE 65; RESP 18; TEMP 98.3; O2SAT 97
[2024-11-10] VITALS (108 sets, daily range): BP systolic 103–184; BP diastolic 48–174; PULSE 59–77; RESP 12–20; TEMP 97.4–98.3; O2SAT 95–99
[2024-11-10] MEDS: InsuLIN REG 1unit/0.01ml Soln (100units/ml) SC SCH
[2024-11-10] MEDS: ACCU-CHEK COMFORT CURVE STRIP VI SCH (00:21)
[2024-11-10] MEDS: DEXTROSE (50%) 50ML SYRG IV PRN (00:27)
[2024-11-10] MEDS: D5W/SOD CHL 0.45% 1,000 ML IV SCH (01:03)
--- NOTE | 2024-11-10 02:22 | DVH ---
Date: 11/10/2024 12:06 AM Examination: XY KUB ABDOMEN SINGLE VIEW History: G TUBE OUT Comparison: XY KUB ABDOMEN SINGLE VIEW on DOS: 10/01/24 TECHNIQUE: Frontal views of the abdomen was obtained. FINDINGS: There is a percutaneous gastrostomy tube projecting over the left abdomen. There is ill-defined contr ast projecting over the left abdomen, not definitively within the small bowel on the frontal projecti ons. Moderate to marked retained stool projecting over the rectum. There is otherwise moderate retained st ool in the colon. Scattered gas throughout nondilated small and large bowel. Gastric tube projects ov er the body of the stomach. Cardiac pacer leads partially imaged. There are small bilateral pleural e ffusions. Multilevel lower thoracic and lumbar spondylosis. There is calcified athero sclerosis. IMPRESSION: Left upper quadrant percutaneous gastrostomy tube. Ill-defined contrast projects over the left abdome n , which may be extraluminal although not optimally evaluated on single projection image. Recommend obtaining CT abdomen and pelvis for further evaluation. Moderate to marked retained stool in the colon most pronounced over the rectum. Small bilateral pleural effusions. No bowel obstruction.
[2024-11-10 04:16] LABS: Alanine Aminotransferase 12 U/L (7-40); Alkaline Phosphatase 63 U/L (46-116); Anion Gap 5 (5-15); BUN/Creatinine Ratio 45.8 (10.0-20.0); Carbon Dioxide 29 mmol/L (20-31); Glucose 86 mg/dL (74-106); Potassium 3.7 mmol/L (3.5-5.1); Sodium 142 mmol/L (136-145)
[2024-11-10 04:17] LABS: Bilirubin, Total 0.4 mg/dL (0.2-1.0)
[2024-11-10 04:30] LABS: Albumin 2.9 g/dL (3.2-4.8); Blood Urea Nitrogen 44 mg/dL (9-23); Calcium 8.2 mg/dL (8.7-10.4); Chloride 108 mmol/L (98-107); Total Protein 5.6 g/dL (5.7-8.2)
[2024-11-10 04:46] LABS: Hematocrit 26.4 % (41.0-53.0); Hemoglobin 8.7 g/dL (13.5-17.5); Mean Corpuscular Hemoglobin 29.6 pg (28.0-32.0); Mean Corpuscular Volume 89.9 fL (80.0-100.0); Nucleated Red Blood Cells % 0.1 %
--- NOTE | 2024-11-10 06:10 | DVH ---
CHEST RADIOGRAPH Indication: respiratory failure Technique: Single frontal view of the chest was obtained Comparison: XY CHEST PORTABLE on DOS: 11/09/24, XY CHEST XRAY 1 VIEW on DOS: 10/03/24, XY CHEST PORTABLE on DOS: 09/30/24, XY CHEST PORTABLE on DOS: 09/29/24, XY CHEST PORTABLE on DOS: 09/28/24 FINDINGS: Lines and Tubes: Unchanged endotracheal tube, right central venous catheter, and nasogastric tube. U nchanged left pacemaker. Lungs: No focal consolidation. Pleura: No effusion. No pneumothorax. Cardiomediastinal contours: Cardiomegaly. Bones: No acute osseous abnormality. IMPRESSION: Cardiomegaly with stable CHF.
[2024-11-10 07:43] LABS: Base Excess 3.6 mmol/L (-2.0-3.0)
[2024-11-10] MEDS ORDERED: LOSARTAN POTASSIUM 25 MG TAB PO SCH (10:00)
[2024-11-10] MEDS: cefTRIAXone 1GM/50ML D5W 50 ML IV SCH (10:31)
[2024-11-10] MEDS: AZITHROMYCIN 500MG/ 250ML 250 ML IV SCH (11:32)
--- NOTE | 2024-11-10 12:47 | DVHPN2 ---
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 seen today, trace crackles, no edema, hypertensive, starting diuresis and nicardipine. 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 PNA gp gn c/w mechanical vent, dec TV 450 start nicardipine diurese net neg c/w ceft and azithro follow culture echo start coreg strict io use ng tube in the interim diet tf dvt ppx lovenox gi ppx pepcid chem code condition critical prognosis poor 60 minutes critical care time rendered Plan discussed with: Daughter My Orders Orders - NELY REARDON MD Procedure Category Date Status Time Nicardipine PHA 11/10/24 In Process 25mg/250ml Bag Kit 12:30 Echo 2d Mode Cardiac US 11/10/24 Logged DOP 12:27 Propofol (Diprivan) PHA 11/10/24 Logged 12:45 Fentanyl Drip PHA 11/10/24 Logged 2500mcg/250mlns 12:45 Nutritional PHA 11/10/24 Transmitted Supplements (Jevity 12:45 Enoxaparin Sodium PHA 11/11/24 Transmitted (Lovenox) 10:00 Date of Service: Nov 10, 2024 Billing Provider: NELY REARDON MD Common Visit Codes: [id number] CARE 30-74 MIN NELY REARDON MD Nov 10, 2024 12:47
[2024-11-10] MEDS: PROPOFOL 100 ML IV SCH (13:02)
[2024-11-10] MEDS: FUROSEMIDE 100 MG/10ML VIAL IV ONE (13:11)
[2024-11-10 16:08] LABS: Base Excess 4.2 mmol/L (-2.0-3.0)
[2024-11-10 19:02] LABS: Base Excess 2.5 mmol/L (-2.0-3.0)
[2024-11-10] MEDS: Jevity 1.2 Cal/Fiber 1 Liter GT SCH (19:22)
[2024-11-10] MEDS: NICARDIPINE HCL IN SODIUM CHLO 200 ML IV SCH (20:45)
[2024-11-10] MEDS: fentaNYL Drip 2500mCg/250mlNS 250 ML IV SCH (21:17)
--- NOTE | 2024-11-10 22:29 | DVHPN2 ---
Progress Note - Dictate Date Seen: Nov 09, 2024 Medical Necessity Reason Pt with a Central, PICC or Fol: Yes The following are medically ne: Tristan Catheter Reason for tristan catheter: Strict I&O Subjective Patient seen and examined at bedside. Sedated, intubated on mechanical ventilator. Overnight events reviewed. vital signs Vital Sign Date Time Temp Pulse Resp B/P (MAP) Pulse Ox O2 Delivery O2 Flow Rate FiO2 11/10/24 22:06 125/61 11/10/24 22:04 60 14 98 30 11/10/24 22:00 Mechanical Ventilator+ 11/10/24 20:00 97.4 97.4 11/09/24 15:26 15 Total Intake and Output 11/09/24 11/09/24 11/10/24 15:00 23:00 07:00 Intake Total 2436.0 ml 454 ml Output Total 650 ml Balance 2436.0 ml -196 ml medications Current Medications Medications Dose Ordered Sig/Jim Route Start Time Stop Time Status Last Admin Dose Admin Midazolam HCl 50 ml @ 1 mls/hr Q24H IV 11/09/24 15:30 11/10/24 22:06 4 MLS/HR Carvedilol 3.125 mg Q12HR PO 11/09/24 22:00 11/10/24 21:36 3.125 MG Famotidine 20 mg Q12HR IV 11/09/24 22:00 11/10/24 21:35 20 MG Ceftriaxone Sodium 50 ml @ 100 mls/hr DAILY@09 IV 11/10/24 09:00 11/10/24 10:31 100 MLS/HR Azithromycin 250 ml @ 125 mls/hr DAILY IV 11/10/24 10:00 11/10/24 11:32 125 MLS/HR Sodium Chloride 10 ml Q8HR IV 11/09/24 22:00 11/10/24 21:36 10 ML Acetaminophen 650 mg Q6HP PRN [place] 11/09/24 20:00 Diagnostic Test (Pha) 1 strip Q6HR 11/10/24 00:00 11/10/24 11:36 1 STRIP Insulin Human Regular Q6HR SC 11/10/24 00:00 Dextrose 50 ml UD PRN IV 11/09/24 22:15 11/10/24 00:27 50 ML Propofol 100 ml @ 2.445 mls/ hr Q24H IV 11/10/24 12:45 11/10/24 13:02 2.445 MLS/HR Fentanyl Citrate 250 ml @ 2.5 mls/hr Q24H IV 11/10/24 12:45 Enteral Nutritional Formula 1,000 ml 30ML/HR GT 11/10/24 12:45 11/10/24 19:22 1,000 ML Enoxaparin Sodium 40 mg DAILY SC 11/11/24 10:00 Nicardipine/ Sodium Chloride 200 ml @ 50 mls/hr Q4H IV 11/10/24 13:00 objective Gen.: Patient lying in bed in medical ICU. Sedated, intubated on mechanical ventilator. Head: Normocephalic, atraumatic. Eyes: PERRLA. Ears: Normal external anatomy. Throat: Endotracheal tube and orogastric tube in place. Neck: Supple, trachea midline. Chest: Transmitted breath sounds bilaterally. Decreased air entry bilaterally. No wheezing. Bibasilar crackles. Cardiovascular: Positive S1, positive S2. Regular rate and rhythm. Abdomen: Positive bowel sounds in all 4 quadrants. Soft, nontender, nondistended. : Tristan in place. Normal external genitalia. Rectal: Deferred. Skin: Warm, dry. Intact. Extremities: 2+ radial pulses bilaterally. No lower extremity edema. Neuro: Sedated. laboratory and microbiology Laboratory Tests 11/10/24 03:00 Test 11/10/24 03:00 Range/Units Serum Glucose 86 74-106 mg/dL Assessment/Plan Impression: Acute hypoxic respiratory failure On mechanical ventilator Pneumonia, likely gram negative Acute CHF exacerbation Metabolic encephalopathy Anemia Plan: s/p intubation on mechanical ventilator. On AC mode; RR 18, VT 500, PEEP 5, FiO2 30% Titrate FIO2 to keep O2 saturation above 90%. VAP bundle. Daily ABG and CXR while intubated Sedate for ventilator synchrony On Fentanyl drip for analgesia ABG reviewed, notable for alkalemia. Continue antibiotics. F/u cultures. Follow up Echo results Follow up Cardiology recs Monitor renal function Monitor electrolytes. Supplement as necessary. Monitor ins and outs. Maintain euvolemia. GI prophylaxis - Pepcid DVT prophylaxis - Lovenox. Prognosis: Poor given patient's multiple co-morbidities. Condition: Critical Rest of plan per hospitalist and other consultants. A total of 35 minutes of critical care time was spent reviewing the patient record, examining the patient, making a diagnostic and therapeutic plan, discussing this plan with the medical personnel, following up on diagnostic studies and following the patient for clinical stability excluding any and all procedures. At least 50% of this time was spent in direct, [id number] contact. Thank you, DAVION Cole, for allowing me to participate in this patient's care. Further recommendations will depend on the patient's clinical course. Please do not hesitate to contact me if you have any questions or concerns. This medical document was created using an electronic medical record system with [employer] dictation system. Although these documentations are being carefully reviewed, there may still be some phonetic and typographical changes. The errors are purely typographical, due to imperfection on the software program, and do not reflect any compromise in the patient's medical care. Plan discussed with: Other (PARKER Milligan) Critical Care Time(min): 35 ISSA TALBOT MD Nov 10, 2024 22:29
--- NOTE | 2024-11-10 22:31 | DVHPN2 ---
Progress Note - Dictate Date Seen: Nov 10, 2024 Medical Necessity Reason Pt with a Central, PICC or Fol: Yes The following are medically ne: Tristan Catheter Reason for tristan catheter: Strict I&O Subjective Patient seen and examined at bedside. Sedated, intubated on mechanical ventilator. Overnight events reviewed. vital signs Vital Sign Date Time Temp Pulse Resp B/P (MAP) Pulse Ox O2 Delivery O2 Flow Rate FiO2 11/10/24 22:06 125/61 11/10/24 22:04 60 14 98 30 11/10/24 22:00 Mechanical Ventilator+ 11/10/24 20:00 97.4 97.4 11/09/24 15:26 15 Total Intake and Output 11/09/24 11/09/24 11/10/24 15:00 23:00 07:00 Intake Total 2436.0 ml 454 ml Output Total 650 ml Balance 2436.0 ml -196 ml medications Current Medications Medications Dose Ordered Sig/Jim Route Start Time Stop Time Status Last Admin Dose Admin Midazolam HCl 50 ml @ 1 mls/hr Q24H IV 11/09/24 15:30 11/10/24 22:06 4 MLS/HR Carvedilol 3.125 mg Q12HR PO 11/09/24 22:00 11/10/24 21:36 3.125 MG Famotidine 20 mg Q12HR IV 11/09/24 22:00 11/10/24 21:35 20 MG Ceftriaxone Sodium 50 ml @ 100 mls/hr DAILY@09 IV 11/10/24 09:00 11/10/24 10:31 100 MLS/HR Azithromycin 250 ml @ 125 mls/hr DAILY IV 11/10/24 10:00 11/10/24 11:32 125 MLS/HR Sodium Chloride 10 ml Q8HR IV 11/09/24 22:00 11/10/24 21:36 10 ML Acetaminophen 650 mg Q6HP PRN [place] 11/09/24 20:00 Diagnostic Test (Pha) 1 strip Q6HR 11/10/24 00:00 11/10/24 11:36 1 STRIP Insulin Human Regular Q6HR SC 11/10/24 00:00 Dextrose 50 ml UD PRN IV 11/09/24 22:15 11/10/24 00:27 50 ML Propofol 100 ml @ 2.445 mls/ hr Q24H IV 11/10/24 12:45 11/10/24 13:02 2.445 MLS/HR Fentanyl Citrate 250 ml @ 2.5 mls/hr Q24H IV 11/10/24 12:45 Enteral Nutritional Formula 1,000 ml 30ML/HR GT 11/10/24 12:45 11/10/24 19:22 1,000 ML Enoxaparin Sodium 40 mg DAILY SC 11/11/24 10:00 Nicardipine/ Sodium Chloride 200 ml @ 50 mls/hr Q4H IV 11/10/24 13:00 objective Gen.: Patient lying in bed in medical ICU. Sedated, intubated on mechanical ventilator. Head: Normocephalic, atraumatic. Eyes: PERRLA. Ears: Normal external anatomy. Throat: Endotracheal tube and orogastric tube in place. Neck: Supple, trachea midline. Chest: Transmitted breath sounds bilaterally. Decreased air entry bilaterally. No wheezing. Bibasilar crackles. Cardiovascular: Positive S1, positive S2. Regular rate and rhythm. Abdomen: Positive bowel sounds in all 4 quadrants. Soft, nontender, nondistended. : Tristan in place. Normal external genitalia. Rectal: Deferred. Skin: Warm, dry. Intact. Extremities: 2+ radial pulses bilaterally. No lower extremity edema. Neuro: Sedated. laboratory and microbiology Laboratory Tests 11/10/24 03:00 Test 11/10/24 03:00 Range/Units Serum Glucose 86 74-106 mg/dL Assessment/Plan Impression: Acute hypoxic respiratory failure On mechanical ventilator Pneumonia, likely gram negative Acute CHF exacerbation Metabolic encephalopathy Anemia Events: Remains on vent support On AC mode; RR 18, VT 500, PEEP 5, FiO2 30% Sedated on Propofol, Versed. ABG reviewed, notable for alkalemia CXR reviewed, demonstrates cardiomegaly with stable CHF. Continue antibiotics. Follow up cultures Blood pressure control Follow up Echo results Monitor hemoglobin - currently 8.7 g/dL Transfuse if less than 7.0 g/dL. GI prophylaxis with Pepcid DVT prophylaxis with Lovenox. Labs and imaging reviewed. Rest of plan as noted below. Plan: s/p intubation on mechanical ventilator. On AC mode; RR 18, VT 500, PEEP 5, FiO2 30% Titrate FIO2 to keep O2 saturation above 90%. VAP bundle. Daily ABG and CXR while intubated Sedate for ventilator synchrony Continue antibiotics. F/u cultures. Follow up Echo results Follow up Cardiology recs Monitor renal function Monitor electrolytes. Supplement as necessary. Monitor ins and outs. Maintain euvolemia. GI prophylaxis - Pepcid DVT prophylaxis - Lovenox. Prognosis: Poor given patient's multiple co-morbidities. Condition: Critical Rest of plan per hospitalist and other consultants. A total of 35 minutes of critical care time was spent reviewing the patient record, examining the patient, making a diagnostic and therapeutic plan, discussing this plan with the medical personnel, following up on diagnostic studies and following the patient for clinical stability excluding any and all procedures. At least 50% of this time was spent in direct, [id number] contact. Thank you, DAVION Cole, for allowing me to participate in this patient's care. Further recommendations will depend on the patient's clinical course. Please do not hesitate to contact me if you have any questions or concerns. This medical document was created using an electronic medical record system with [employer] dictation system. Although these documentations are being carefully reviewed, there may still be some phonetic and typographical changes. The errors are purely typographical, due to imperfection on the software program, and do not reflect any compromise in the patient's medical care. Plan discussed with: Other (RN) Critical Care Time(min): 35 ISSA TALBOT MD Nov 10, 2024 22:31
[2024-11-11] VITALS (106 sets, daily range): BP systolic 109–178; BP diastolic 47–87; PULSE 59–84; RESP 12–27; TEMP 96.5–99.8; O2SAT 95–100
[2024-11-11 03:32] LABS: Hematocrit 29.7 % (41.0-53.0); Hemoglobin 9.8 g/dL (13.5-17.5); Mean Corpuscular Hemoglobin 29.5 pg (28.0-32.0); Mean Corpuscular Volume 89.6 fL (80.0-100.0); Nucleated Red Blood Cells % 0.1 %
[2024-11-11 03:35] LABS: Anion Gap 8 (5-15); Carbon Dioxide 29 mmol/L (20-31); Potassium 3.7 mmol/L (3.5-5.1); Sodium 145 mmol/L (136-145)
[2024-11-11 03:41] LABS: BUN/Creatinine Ratio 37.3 (10.0-20.0)
[2024-11-11 03:45] LABS: Blood Urea Nitrogen 38 mg/dL (9-23); Calcium 8.4 mg/dL (8.7-10.4); Chloride 108 mmol/L (98-107); Glucose 72 mg/dL (74-106)
--- NOTE | 2024-11-11 05:47 | DVH ---
CHEST RADIOGRAPH Indication: respiratory failure Technique: Single frontal view of the chest was obtained Comparison: XY CHEST PORTABLE on DOS: 11/10/24, XY CHEST PORTABLE on DOS: 11/09/24, XY CHEST XRAY 1 VIEW on DOS: 10/03/24, XY CHEST PORTABLE on DOS: 09/30/24, XY CHEST PORTABLE on DOS: 09/29/24, XY CHEST RACHELLE BLE on DOS: 11/10/24 FINDINGS: Lines and Tubes: Unchanged endotracheal tube, right central venous catheter, and nasogastric tube. U nchanged left pacemaker. Lungs: No focal consolidation. Pleura: No effusion. No pneumothorax. Cardiomediastinal contours: Cardiomegaly. Bones: No acute osseous abnormality. IMPRESSION: Cardiomegaly with stable CHF.
[2024-11-11 07:02] LABS: Base Excess 4.2 mmol/L (-2.0-3.0)
[2024-11-11] MEDS: ENOXAPARIN SOD 40 MG/0.4 ML SYRINGE SC SCH (08:06)
[2024-11-11] MEDS ORDERED: VANCOMYCIN PER PHARMACY 0 MG IV SCH (08:30)
[2024-11-11 09:04] LABS: Base Excess 2.2 mmol/L (-2.0-3.0)
[2024-11-11] MEDS: DEXMEDETOMIDINE HCL IN D5W 100 ML IV SCH (09:15)
--- NOTE | 2024-11-11 09:49 | DVHSR ---
APPROVED REPORT EXAM: LIMITED Two-dimensional and M-mode echocardiogram with Doppler and color Doppler. Blood Pressure: 163/55 mmHg INDICATION LVEF RV Function RISK FACTORS Height: 5' 7", Weight: 179 DIMENSIONS LVDd4.6 (3.8-5.7cm)LA (2D)4.5 (1.9-4.0cm)Aortic Root3.4 (2.0-3.7cm) LVDs3.5 (2.5-4.0cm)LA (MM) (1.9-4.0cm)Aortic Cusp Exc1.6 (1.5-2.0cm) EF (%) 45.0 (55-70%)Rt. Atrium4.0 (1.9-4.0cm)Asc. Aorta cm IVSd1.2 (0.7-1.1cm)RV (D) (1.8-2.4cm) PWd1.2 (0.7-1.1cm) Mitral Valve MitralMitral Stenosis E wave0.80m/sMV Mean GR.mmHg A wave1.10m/sMV Peak GR.mmHg E/A ratio0.72D MVAcm2 Aortic Valve Aortic ValveAortic Stenosis V10.80m/Suzy Mean GR.4mmHg V21.40m/Suzy Peak GR.9mmHg LVOT Diameter2.2 (1.8-2.4cm)Doppler AVA2.17cm2 Other Information Quality : Technically LimitedRhythm : Technically limited study due to body habitus, patient position and on vent. Conclusion lvef 40-45% mild LVH hypokinetic apex normal rv function no severe valve abnormalities noted left atrium enlarged mac noted small posterior pericardial effusion noted
[2024-11-11] MEDS ORDERED: Jevity 1.2 Cal/Fiber 1 Liter GT SCH (10:15)
--- NOTE | 2024-11-11 10:17 | DVHPN2 ---
Assessment/Plan Assessment/Plan ICU note 74 with NIDDM, HFrEF s/p PROCESS COACH, HTN admitted for hypoxic RF, intubated and placed on mechanical ventilation. seen today, gpc in blood, covered with vanc. follow cultures. start oral anti htn. c/w lasix. cpap. uptitrate TF to goal physical exam intubated, sedated on mechanical vent PERRLA MMM mechanical breath sounds, coarse crackles s1 s2 rrr abdomen slightly tense no LE edema labs ekg imaging reviewed POCUS done, preserved EF, IVC dilated with minimal excursion assessment and plan acute hypoxic RF req mech vent cardiogenic pulmonary edema hypertensive emergency hx of CVA with residual s/p jtube placement HFrEF 40-45% s/p PROCESS COACH PNA gp gn gpc bacteremia c/w mechanical vent, dec TV 450 start nicardipine diurese net neg c/w ceft and azithro follow culture echo start coreg strict io use ng tube in the interim diet tf dvt ppx lovenox gi ppx pepcid chem code condition critical prognosis poor 45 minutes critical care time rendered Plan discussed with: Other My Orders Orders - NELY REARDON MD Procedure Category Date Status Time Echo 2d Mode Cardiac US 11/10/24 Resulted DOP 12:27 Propofol (Diprivan) PHA 11/10/24 In Process 12:45 Fentanyl Drip PHA 11/10/24 In Process 2500mcg/250mlns 12:45 Nutritional PHA 11/10/24 In Process Supplements (Jevity 12:45 Enoxaparin Sodium PHA 11/11/24 In Process (Lovenox) 10:00 Code Status CODE 11/10/24 Transmitted 12:47 Nicardipine Hcl In PHA 11/10/24 In Process Sodium Chlo (Cardene 13:00 Ventilator Orders RT 11/10/24 Transmitted 13:30 Abg W/ Co-Ox RT 11/10/24 Logged 15:30 Ventilator Orders RT 11/10/24 Transmitted 16:11 Abg W/ Co-Ox RT 11/10/24 Logged 18:00 Apply Barrier Cream TOMI 11/10/24 In Process 14:25 * Dietary Consult CONS 11/10/24 Transmitted 19:01 Chest Portable XY 11/11/24 Resulted 04:00 Vancomycin Per TOMI 11/10/24 In Process Pharmacy Protoc 20:32 Vancomycin Per PHA 11/11/24 In Process Pharmacy 08:30 Date of Service: Nov 11, 2024 Billing Provider: NELY REARDON MD Common Visit Codes: [id number] CARE 30-74 MIN NELY REARDON MD Nov 11, 2024 10:17
[2024-11-11] MEDS: VANCOMYCIN 1GM/200ML PM 200 ML IV ONE (10:25)
[2024-11-11] MEDS ORDERED: D5W 5% 1,000 ML IV SCH (10:30)
[2024-11-11] MEDS: FUROSEMIDE 100 MG/10ML VIAL IV ONE (10:42)
[2024-11-11] MEDS: CARVEDILOL 3.125 MG TAB PO ONE (12:26)
--- NOTE | 2024-11-11 15:19 | MEDREC ---
[facility] Intervention Section I [facility] Intervention: Review courses of therapy (PLEASE CONSIDER REVIEWING COURSE OF THERAPY BASED ON CULTURE RESULTS - DUE TO PROLONG QTc > 500 PLEASE CONSIDER D/C OR SWITCHING AZITHROMYCIN TO DOXYCYCLINE ) AMOR QUINTANA PHARMACIST Nov 11, 2024 15:19
[2024-11-11] MEDS: NICARDIPINE HCL IN SODIUM CHLO 200 ML IV SCH (15:59)
[2024-11-11] MEDS: VANCOMYCIN 750mg/150ml 150 ML IV SCH (21:58)
[2024-11-11] MEDS: CARVEDILOL 3.125 MG TAB PO SCH (21:59)
[2024-11-11] MEDS: CEFEPIME 1GM/ 50ML 50 ML IV SCH (22:16)
--- NOTE | 2024-11-11 23:28 | DVHPN2 ---
Progress Note - Dictate Date Seen: Nov 11, 2024 Medical Necessity Reason Pt with a Central, PICC or Fol: Yes The following are medically ne: Tristan Catheter Reason for tristan catheter: Strict I&O Subjective Patient seen and examined at bedside. Sedated, intubated on mechanical ventilator. Overnight events reviewed. vital signs Vital Sign Date Time Temp Pulse Resp B/P (MAP) Pulse Ox O2 Delivery O2 Flow Rate FiO2 11/11/24 22:16 128/58 11/11/24 22:14 73 23 95 30 11/11/24 20:00 99.8 99.8 11/11/24 18:00 Mechanical Ventilator+ 11/09/24 15:26 15 Total Intake and Output 11/10/24 11/10/24 11/11/24 15:00 23:00 07:00 Intake Total 543.670 ml 153.680 ml 331.240 ml Output Total 0 ml 1325 ml 900 ml Balance 543.670 ml -1171.320 ml -568.760 ml medications Current Medications Medications Dose Ordered Sig/Jim Route Start Time Stop Time Status Last Admin Dose Admin Midazolam HCl 50 ml @ 1 mls/hr Q24H IV 11/09/24 15:30 11/10/24 22:06 4 MLS/HR Famotidine 20 mg Q12HR IV 11/09/24 22:00 11/11/24 21:59 20 MG Sodium Chloride 10 ml Q8HR IV 11/09/24 22:00 11/11/24 21:58 10 ML Acetaminophen 650 mg Q6HP PRN [place] 11/09/24 20:00 Diagnostic Test (Pha) 1 strip Q6HR 11/10/24 00:00 11/11/24 17:20 1 STRIP Insulin Human Regular Q6HR SC 11/10/24 00:00 Dextrose 50 ml UD PRN IV 11/09/24 22:15 11/10/24 00:27 50 ML Propofol 100 ml @ 2.445 mls/ hr Q24H IV 11/10/24 12:45 11/11/24 17:43 2.445 MLS/HR Fentanyl Citrate 250 ml @ 2.5 mls/hr Q24H IV 11/10/24 12:45 Enoxaparin Sodium 40 mg DAILY SC 11/11/24 10:00 11/11/24 08:06 40 MG Vancomycin HCl 0 ml @ 0 mls/hr UD IV 11/11/24 08:30 Carvedilol 6.25 mg Q12HR PO 11/11/24 22:00 11/11/24 21:59 6.25 MG Enteral Nutritional Formula 1,000 ml 50ML/HR GT 11/11/24 10:15 Dextrose 1,000 ml @ 30 mls/hr Q24H IV 11/11/24 10:30 Cancel Vancomycin HCl 150 ml @ 150 mls/hr Q12H IV 11/11/24 22:00 11/11/24 21:58 150 MLS/HR Cefepime HCl 50 ml @ 12.5 mls/hr Q8HR IV 11/11/24 22:00 11/11/24 22:16 12.5 MLS/HR Nicardipine/ Sodium Chloride 200 ml @ 50 mls/hr Q4H IV 11/11/24 16:00 11/11/24 22:16 50 MLS/HR objective Gen.: Patient lying in bed in medical ICU. Sedated, intubated on mechanical ventilator. Head: Normocephalic, atraumatic. Eyes: PERRLA. Ears: Normal external anatomy. Throat: Endotracheal tube and orogastric tube in place. Neck: Supple, trachea midline. Chest: Transmitted breath sounds bilaterally. Decreased air entry bilaterally. No wheezing. Bibasilar crackles. Cardiovascular: Positive S1, positive S2. Regular rate and rhythm. Abdomen: Positive bowel sounds in all 4 quadrants. Soft, nontender, nondistended. : Tristan in place. Normal external genitalia. Rectal: Deferred. Skin: Warm, dry. Intact. Extremities: 2+ radial pulses bilaterally. No lower extremity edema. Neuro: Sedated. laboratory and microbiology Laboratory Tests 11/11/24 03:05 Test 11/11/24 03:05 Range/Units Serum Glucose 72 L 74-106 mg/dL Assessment/Plan Impression: Acute hypoxic respiratory failure On mechanical ventilator Pneumonia, likely gram negative Acute CHF exacerbation Metabolic encephalopathy Anemia Events: Remains on vent support On AC mode; RR 12, VT 400, PEEP 5, FiO2 30% CPAP with PS 8, PEEP of 5 Awaiting for mentation to improve for extubation. ABG reviewed, compensated CXR reviewed, demonstrates cardiomegaly with stable CHF. Continue antibiotics. Follow up cultures Increase carvedilol for blood pressure control Follow up Echo results Monitor hemoglobin - trended up to 9.8 g/dL Transfuse if less than 7.0 g/dL. GI prophylaxis with Pepcid DVT prophylaxis with Lovenox. Labs and imaging reviewed. Rest of plan as noted below. Plan: s/p intubation on mechanical ventilator. On AC mode; RR 12, VT 400, PEEP 5, FiO2 30% Titrate FIO2 to keep O2 saturation above 90%. VAP bundle. Daily ABG and CXR while intubated Sedate for ventilator synchrony Continue antibiotics. F/u cultures. Follow up Echo results Follow up Cardiology recs Monitor renal function Monitor electrolytes. Supplement as necessary. Monitor ins and outs. Maintain euvolemia. GI prophylaxis - Pepcid DVT prophylaxis - Lovenox. Prognosis: Poor given patient's multiple co-morbidities. Condition: Critical Rest of plan per hospitalist and other consultants. A total of 35 minutes of critical care time was spent reviewing the patient record, examining the patient, making a diagnostic and therapeutic plan, discussing this plan with the medical personnel, following up on diagnostic studies and following the patient for clinical stability excluding any and all procedures. At least 50% of this time was spent in direct, [id number] contact. Thank you, HR ADMINISTRATIVE ASSISTANT Kelsey, for allowing me to participate in this patient's care. Further recommendations will depend on the patient's clinical course. Please do not hesitate to contact me if you have any questions or concerns. This medical document was created using an electronic medical record system with [employer] dictation system. Although these documentations are being carefully reviewed, there may still be some phonetic and typographical changes. The errors are purely typographical, due to imperfection on the software program, and do not reflect any compromise in the patient's medical care. Dietary Evaluation Review Comments: 1) Initiate MVI @ 1 tb qd 2) Initiate vitamin C @ 500 mg bid 3) Consider switching TF formulary from Jevity 1.2 to Vital AF 1.2 @ 50 mL/hr goal rate as tolerated d/t increase protein needs. Goal rate (including Propofol) will provide 1634 kcals, 90g Pro, and 1003 mL free H2O per 24 hrs. TF rate will meet ~90% estimated energy needs and ~70% estimated protein needs. 4) [facility] when medically feasible, pending ST approval 5) Follow-up with cardiology, pulmonology, and nephrology 6) Continue to monitor I&O, labs, and skin integrity Expected Outcomes/Goals: 1) TF regimen to meet at least 70% of estimated energy needs 2) wounds and lab to improve 3) diet to advance 4) f/u in 3-5 days Plan discussed with: Other (PARKER Barragan) Critical Care Time(min): 35 ISSA TALBOT MD Nov 11, 2024 23:28
[2024-11-12] VITALS (108 sets, daily range): BP systolic 110–144; BP diastolic 42–58; PULSE 60–84; RESP 11–24; TEMP 97.7–99.7; O2SAT 95–100
[2024-11-12 04:13] LABS: Anion Gap 9 (5-15); Carbon Dioxide 28 mmol/L (20-31)
[2024-11-12 04:18] LABS: Hematocrit 29.2 % (41.0-53.0); Hemoglobin 9.7 g/dL (13.5-17.5); Mean Corpuscular Hemoglobin 29.5 pg (28.0-32.0); Mean Corpuscular Volume 88.9 fL (80.0-100.0); Nucleated Red Blood Cells % 0.1 %
[2024-11-12 04:19] LABS: Glucose 79 mg/dL (74-106)
[2024-11-12 04:20] LABS: BUN/Creatinine Ratio 29.9 (10.0-20.0)
[2024-11-12 04:40] LABS: Blood Urea Nitrogen 40 mg/dL (9-23); Calcium 8.4 mg/dL (8.7-10.4); Chloride 108 mmol/L (98-107); Potassium 3.4 mmol/L (3.5-5.1); Sodium 145 mmol/L (136-145)
--- NOTE | 2024-11-12 04:59 | DVH ---
CHEST RADIOGRAPH Indication: INTUBATED Technique: Single frontal view of the chest was obtained COMPARISON: XY CHEST PORTABLE on DOS: 11/11/24, XY CHEST PORTABLE on DOS: 11/10/24, XY CHEST PORTABLE on DOS: 11/09/24, XY CHEST XRAY 1 VIEW on DOS: 10/03/24, XY CHEST PORTABLE on DOS: 09/30/24, XY CHEST PORTAB LE on DOS: 11/11/24 FINDINGS: Lines and Tubes: Unchanged endotracheal tube, right central venous catheter, and nasogastric tube. U nchanged left pacemaker. Lungs: No focal consolidation. Pleura: No effusion. No pneumothorax. Cardiomediastinal contours: Cardiomegaly. Bones: No acute osseous abnormality. IMPRESSION: Lines and tubes in satisfactory position. No significant interval change.
[2024-11-12] MEDS: POTASSIUM CHL 20MEQ/100ML 100 ML IV ONE (06:31)
[2024-11-12] MEDS ORDERED: VANCOMYCIN 1GM/200ML PM 200 ML IV SCH (10:00)
[2024-11-12] MEDS: FUROSEMIDE 20 MG/2 ML VIAL IV ONE (11:00)
[2024-11-12] MEDS: FUROSEMIDE 20 MG/2 ML VIAL ONE (11:18)
[2024-11-12 11:26] LABS: Base Excess -0.3 mmol/L (-2.0-3.0)
--- NOTE | 2024-11-12 16:14 | DVHPN2 ---
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 seen today, pending final bcx, but klebsiella and pseudomonas in sputum culture. starting cefepime. physical exam intubated, sedated on mechanical vent PERRLA MMM mechanical breath sounds, coarse crackles s1 s2 rrr abdomen slightly tense no LE edema labs ekg imaging reviewed assessment and plan acute hypoxic RF req mech vent cardiogenic pulmonary edema hypertensive emergency hx of CVA with residual s/p jtube placement HFrEF 40-45% s/p DATA PROCESSING OPERATOR PNA klebsiela and pseudomonas gpc bacteremia c/w mechanical vent, dec TV 450 start nicardipine diurese net neg c/w vanc and cefepime follow culture echo start coreg start entresto strict io use ng tube in the interim diet tf dvt ppx lovenox gi ppx pepcid chem code condition critical prognosis poor 50 minutes critical care time rendered Plan discussed with: Daughter, Other My Orders Orders - NELY REARDON MD Procedure Category Date Status Time Creatinine LAB 11/13/24 Verified 04:00 Cefepime 1 Gm PHA 11/12/24 Transmitted 22:00 Complete Blood Count LAB 11/13/24 Verified 04:00 Basic Metabolic Panel LAB 11/13/24 Verified 04:00 Sacubitril-Valsartan PHA 11/12/24 Transmitted (Entresto 24-26 Mg 22:00 Date of Service: Nov 12, 2024 Billing Provider: NELY REARDON MD Common Visit Codes: [id number] CARE 30-74 MIN NELY REARDON MD Nov 12, 2024 16:14
[2024-11-12] MEDS: SACUBITRIL-VALSARTAN 24mg/26mg TAB PO SCH (22:27)
[2024-11-12] MEDS: CEFEPIME 1GM/ 50ML 50 ML IV SCH (22:27)
--- NOTE | 2024-11-12 23:53 | DVHPN2 ---
Progress Note - Dictate Date Seen: Nov 12, 2024 Medical Necessity Reason Pt with a Central, PICC or Fol: Yes The following are medically ne: Tristan Catheter Reason for tristan catheter: Strict I&O Subjective Patient seen and examined at bedside. Sedated, intubated on mechanical ventilator. Overnight events reviewed. vital signs Vital Sign Date Time Temp Pulse Resp B/P (MAP) Pulse Ox O2 Delivery O2 Flow Rate FiO2 11/12/24 23:17 135/57 11/12/24 23:00 62 15 99 11/12/24 22:43 30 11/12/24 22:00 Mechanical Ventilator+ 11/12/24 20:00 98.0 98.0 Total Intake and Output 11/11/24 11/11/24 11/12/24 15:00 23:00 07:00 Intake Total 368.225 ml 716.510 ml 611.510 ml Output Total 0 ml 2100 ml 350 ml Balance 368.225 ml -1383.490 ml 261.510 ml medications Current Medications Medications Dose Ordered Sig/Jim Route Start Time Stop Time Status Last Admin Dose Admin Midazolam HCl 50 ml @ 1 mls/hr Q24H IV 11/09/24 15:30 11/10/24 22:06 4 MLS/HR Famotidine 20 mg Q12HR IV 11/09/24 22:00 11/12/24 22:27 20 MG Sodium Chloride 10 ml Q8HR IV 11/09/24 22:00 11/12/24 22:26 10 ML Acetaminophen 650 mg Q6HP PRN [place] 11/09/24 20:00 Diagnostic Test (Pha) 1 strip Q6HR 11/10/24 00:00 11/12/24 17:58 1 STRIP Insulin Human Regular Q6HR SC 11/10/24 00:00 Dextrose 50 ml UD PRN IV 11/09/24 22:15 11/10/24 00:27 50 ML Propofol 100 ml @ 2.445 mls/ hr Q24H IV 11/10/24 12:45 11/12/24 23:17 12.225 MLS/HR Fentanyl Citrate 250 ml @ 2.5 mls/hr Q24H IV 11/10/24 12:45 Enoxaparin Sodium 40 mg DAILY SC 11/11/24 10:00 11/12/24 10:56 40 MG Vancomycin HCl 0 ml @ 0 mls/hr UD IV 11/11/24 08:30 Carvedilol 6.25 mg Q12HR PO 11/11/24 22:00 11/11/24 21:59 6.25 MG Enteral Nutritional Formula 1,000 ml 50ML/HR GT 11/11/24 10:15 Dextrose 1,000 ml @ 30 mls/hr Q24H IV 11/11/24 10:30 Cancel Nicardipine/ Sodium Chloride 200 ml @ 50 mls/hr Q4H IV 11/11/24 16:00 11/12/24 06:36 50 MLS/HR Cefepime HCl 50 ml @ 12.5 mls/hr Q12HR IV 11/12/24 22:00 11/12/24 22:27 12.5 MLS/HR Sacubitril/ Valsartan 1 tab BID PO 11/12/24 22:00 11/12/24 22:27 1 TAB objective Gen.: Patient lying in bed in medical ICU. Sedated, intubated on mechanical ventilator. Head: Normocephalic, atraumatic. Eyes: PERRLA. Ears: Normal external anatomy. Throat: Endotracheal tube and orogastric tube in place. Neck: Supple, trachea midline. Chest: Transmitted breath sounds bilaterally. Decreased air entry bilaterally. No wheezing. Bibasilar crackles. Cardiovascular: Positive S1, positive S2. Regular rate and rhythm. Abdomen: Positive bowel sounds in all 4 quadrants. Soft, nontender, nondistended. : Tristan in place. Normal external genitalia. Rectal: Deferred. Skin: Warm, dry. Intact. Extremities: 2+ radial pulses bilaterally. No lower extremity edema. Neuro: Sedated. laboratory and microbiology Laboratory Tests 11/12/24 03:00 Test 11/12/24 03:00 Range/Units Serum Glucose 79 74-106 mg/dL Assessment/Plan Impression: Acute hypoxic respiratory failure On mechanical ventilator Pneumonia, likely gram negative Acute CHF exacerbation Metabolic encephalopathy Anemia Events: Remains on vent support On AC mode; RR 12, VT 400, PEEP 5, FiO2 30% Sedated on Propofol. CPAP in AM. Awaiting for mentation to improve for extubation. ABG reviewed, compensated CXR reviewed, demonstrates cardiomegaly with stable CHF. Continue antibiotics. Follow up cultures Blood pressure control Off nicardipine drip Monitor hemoglobin - currently 9.7 g/dL Transfuse if less than 7.0 g/dL. Tube feeds for nutritional support Diurese w/ Lasix Monitor renal function Monitor electrolytes. Supplement as necessary. Potassium supplementation Monitor ins and outs. GI prophylaxis with Pepcid DVT prophylaxis with Lovenox. Labs and imaging reviewed. Rest of plan as noted below. Plan: s/p intubation on mechanical ventilator. On AC mode; RR 12, VT 400, PEEP 5, FiO2 30% Titrate FIO2 to keep O2 saturation above 90%. VAP bundle. Daily ABG and CXR while intubated Sedate for ventilator synchrony Continue antibiotics. F/u cultures. Follow up Echo results Follow up Cardiology recs Monitor renal function Monitor electrolytes. Supplement as necessary. Monitor ins and outs. Maintain euvolemia. Tube feeds for nutritional support GI prophylaxis - Pepcid DVT prophylaxis - Lovenox. Prognosis: Poor given patient's multiple co-morbidities. Condition: Critical Rest of plan per hospitalist and other consultants. A total of 35 minutes of critical care time was spent reviewing the patient record, examining the patient, making a diagnostic and therapeutic plan, discussing this plan with the medical personnel, following up on diagnostic studies and following the patient for clinical stability excluding any and all procedures. At least 50% of this time was spent in direct, [id number] contact. Thank you, LATHE TURNER Kelsey, for allowing me to participate in this patient's care. Further recommendations will depend on the patient's clinical course. Please do not hesitate to contact me if you have any questions or concerns. This medical document was created using an electronic medical record system with [employer] computerized dictation system. Although these documentations are being carefully reviewed, there may still be some phonetic and typographical changes. The errors are purely typographical, due to imperfection on the software program, and do not reflect any compromise in the patient's medical care. Dietary Evaluation Review Comments: 1) Initiate MVI @ 1 tb qd 2) Initiate vitamin C @ 500 mg bid 3) Consider switching TF formulary from Jevity 1.2 to Vital AF 1.2 @ 50 mL/hr goal rate as tolerated d/t increase protein needs. Goal rate (including Propofol) will provide 1634 kcals, 90g Pro, and 1003 mL free H2O per 24 hrs. TF rate will meet ~90% estimated energy needs and ~70% estimated protein needs. 4) Advance to 60g [facility] cardiac diet when medically feasible, pending ST approval 5) Follow-up with cardiology, pulmonology, and nephrology 6) Continue to monitor I&O, labs, and skin integrity Expected Outcomes/Goals: 1) TF regimen to meet at least 70% of estimated energy needs 2) wounds and lab to improve 3) diet to advance 4) f/u in 3-5 days Plan discussed with: Other (PARKER Meyers) Critical Care Time(min): 35 ISSA TALBOT MD Nov 12, 2024 23:53
[2024-11-13] VITALS (100 sets, daily range): BP systolic 121–186; BP diastolic 49–72; PULSE 60–82; RESP 13–23; TEMP 97.4–98.5; O2SAT 93–100
[2024-11-13 03:41] LABS: Hematocrit 30.7 % (41.0-53.0); Hemoglobin 9.9 g/dL (13.5-17.5); Mean Corpuscular Hemoglobin 29.5 pg (28.0-32.0); Mean Corpuscular Volume 91.3 fL (80.0-100.0); Nucleated Red Blood Cells % 0.0 %
[2024-11-13 03:45] LABS: Anion Gap 11 (5-15); Carbon Dioxide 25 mmol/L (20-31); Potassium 3.8 mmol/L (3.5-5.1); Sodium 145 mmol/L (136-145)
[2024-11-13 03:51] LABS: BUN/Creatinine Ratio 30.2 (10.0-20.0); Glucose 80 mg/dL (74-106)
[2024-11-13 04:15] LABS: Blood Urea Nitrogen 39 mg/dL (9-23); Calcium 8.6 mg/dL (8.7-10.4); Chloride 109 mmol/L (98-107)
--- NOTE | 2024-11-13 04:40 | DVH ---
CHEST RADIOGRAPH Indication: INTUBATED Technique: Single frontal view of the chest was obtained COMPARISON: XY CHEST XRAY 1 VIEW on DOS: 11/12/24, XY CHEST PORTABLE on DOS: 11/11/24, XY CHEST PORTABLE on DOS: 11/10/24, XY CHEST PORTABLE on DOS: 11/09/24, XY CHEST XRAY 1 VIEW on DOS: 10/03/24 FINDINGS: Lines and Tubes: Unchanged. Lungs: Grossly stable appearing multifocal bilateral pulmonary airspace disease and small bilateral p leural effusions. No pneumothorax. Cardiomediastinal contours: Cardiomegaly. Bones: Unremarkable IMPRESSION: 1. Stable multifocal bilateral pulmonary airspace disease and small bilateral pleural effusions. 2. Cardiomegaly. 3. Lines and tubes unchanged.
[2024-11-13 11:15] LABS: Base Excess -0.8 mmol/L (-2.0-3.0)
--- NOTE | 2024-11-13 16:00 | DVHPN2 ---
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 seen today, extubated. will need to see if j tutbe working. hypoglycemic initially, given dextrose. will start d5 if recurrent physical exam intubated, sedated on mechanical vent PERRLA MMM mechanical breath sounds, coarse crackles s1 s2 rrr abdomen slightly tense no LE edema labs ekg imaging reviewed assessment and plan acute hypoxic RF req mech vent cardiogenic pulmonary edema hypertensive emergency hx of CVA with residual s/p jtube placement HFrEF 40-45% s/p CHALK MOLDING MACHINE OPERATOR PNA klebsiela and pseudomonas gpc bacteremia c/w mechanical vent, dec TV 450 start nicardipine diurese net neg c/w vanc and cefepime follow culture echo start coreg start entresto strict io use ng tube in the interim diet tf dvt ppx lovenox gi ppx pepcid chem code condition critical prognosis poor 50 minutes critical care time rendered Plan discussed with: Patient My Orders Orders - NELY REARDON MD Procedure Category Date Status Time Cefepime 1gm/ 50ml PHA 11/12/24 In Process (Maxipime 1gm/50ml) 22:00 Sacubitril-Valsartan PHA 11/12/24 In Process (Entresto 24-26 Mg 22:00 Creatinine LAB 11/14/24 Verified 04:00 Vancomycin,Random LAB 11/14/24 Verified 04:00 Abg W/ Co-Ox RT 11/13/24 Logged 11:00 Date of Service: Nov 13, 2024 Billing Provider: NELY REARDON MD Common Visit Codes: [id number] CARE 30-74 MIN NELY REARDON MD Nov 13, 2024 16:00
[2024-11-13] MEDS: POTASSIUM CHLORIDE 20 MEQ in D5W/LACTATED RINGERS 1,000 ML IV SCH (21:55)
--- NOTE | 2024-11-13 23:34 | DVHPN2 ---
Progress Note - Dictate Date Seen: Nov 13, 2024 Medical Necessity Reason Pt with a Central, PICC or Fol: Yes The following are medically ne: Tristan Catheter Reason for tristan catheter: Strict I&O Subjective Patient seen and examined at bedside. S/p extubation, on supplemental oxygen Overnight events reviewed. vital signs Vital Sign Date Time Temp Pulse Resp B/P (MAP) Pulse Ox O2 Delivery O2 Flow Rate FiO2 11/13/24 21:58 75 155/57 11/13/24 18:00 15 99 11/13/24 18:00 Nasal Cannula* 2 28 11/13/24 16:00 98.4 98.4 Total Intake and Output 11/12/24 11/12/24 11/13/24 15:00 23:00 07:00 Intake Total 383.060 ml 110.285 ml 238.075 ml Output Total 0 ml 350 ml 550 ml Balance 383.060 ml -239.715 ml -311.925 ml medications Current Medications Medications Dose Ordered Sig/Jim Route Start Time Stop Time Status Last Admin Dose Admin Midazolam HCl 50 ml @ 1 mls/hr Q24H IV 11/09/24 15:30 11/10/24 22:06 4 MLS/HR Famotidine 20 mg Q12HR IV 11/09/24 22:00 11/13/24 21:55 20 MG Sodium Chloride 10 ml Q8HR IV 11/09/24 22:00 11/13/24 21:55 10 ML Acetaminophen 650 mg Q6HP PRN [place] 11/09/24 20:00 Diagnostic Test (Pha) 1 strip Q6HR 11/10/24 00:00 11/13/24 18:17 1 STRIP Insulin Human Regular Q6HR SC 11/10/24 00:00 Dextrose 50 ml UD PRN IV 11/09/24 22:15 11/13/24 12:52 50 ML Propofol 100 ml @ 2.445 mls/ hr Q24H IV 11/10/24 12:45 11/13/24 06:03 7.335 MLS/HR Fentanyl Citrate 250 ml @ 2.5 mls/hr Q24H IV 11/10/24 12:45 Enoxaparin Sodium 40 mg DAILY SC 11/11/24 10:00 11/13/24 10:20 40 MG Vancomycin HCl 0 ml @ 0 mls/hr UD IV 11/11/24 08:30 Carvedilol 6.25 mg Q12HR PO 11/11/24 22:00 11/13/24 10:14 6.25 MG Enteral Nutritional Formula 1,000 ml 50ML/HR GT 11/11/24 10:15 Dextrose 1,000 ml @ 30 mls/hr Q24H IV 11/11/24 10:30 Cancel Nicardipine/ Sodium Chloride 200 ml @ 50 mls/hr Q4H IV 11/11/24 16:00 11/13/24 18:19 50 MLS/HR Cefepime HCl 50 ml @ 12.5 mls/hr Q12HR IV 11/12/24 22:00 11/13/24 21:55 12.5 MLS/HR Sacubitril/ Valsartan 1 tab BID PO 11/12/24 22:00 11/13/24 10:14 1 TAB Potassium Chloride 20 meq/ Dextrose/Lactated Ringer's 1,010 ml @ 50 mls/hr [id number] IV 11/13/24 20:15 11/13/24 21:55 50 MLS/HR Furosemide 20 mg DAILY IV 11/14/24 10:00 objective Gen.: Patient lying in bed in no apparent distress. On supplemental oxygen. Head: Normocephalic, atraumatic. Eyes: EOMI/PERRLA. Ears: Normal hearing. Normal anatomy. Neck/trachea: Trachea midline, supple. Nose: Normal external anatomy. Mouth: Moist mucous membranes. Chest: Decreased air entry bilaterally. No wheezing or rhonchi. Cardiovascular: Positive S1, positive S2. Regular rate and rhythm. Abdomen: Positive bowel sounds in all 4 quadrants. Soft, non-tender, non- distended. : Deferred. Rectal: Deferred. Skin: Warm, dry. Intact. Extremities: 2+ radial pulses bilaterally. No lower extremity edema. Neuro: Awake, alert, oriented x3. No gross motor or sensory deficits. Cranial nerves II through XII intact. Gait not assessed. laboratory and microbiology Laboratory Tests 11/13/24 03:02 Test 11/13/24 03:02 Range/Units Serum Glucose 80 74-106 mg/dL Assessment/Plan Impression: Acute hypoxic respiratory failure On mechanical ventilator, s/p extubation Pneumonia, likely gram negative Acute CHF exacerbation Metabolic encephalopathy Anemia Events: Patient tolerated CPAP today and was extubated uneventfully Extubated to Cool Aerosol No distress noted. CXR obtained today reviewed; stable multifocal bilateral pulmonary airspace disease and small bilateral pleural effusions. Cardiomegaly. Head of bed elevation Aspiration precautions Continue antibiotics. Follow up cultures Blood pressure control On nicardipine drip Tube feeds for nutritional support Monitor renal function Monitor electrolytes. Supplement as necessary. Potassium supplementation Monitor ins and outs. GI prophylaxis with Pepcid DVT prophylaxis with Lovenox. Labs and imaging reviewed. Rest of plan as noted below. Plan: S/p extubation On supplemental oxygen Titrate to keep O2 sats above 92% Continue antibiotics. F/u cultures. Blood pressure control Echo reviewed; LVEF 40-45%, mild LVH. Normal RV function Cardiology recommendations appreciated. Monitor renal function Monitor electrolytes. Supplement as necessary. Monitor ins and outs. Maintain euvolemia. Monitor hemoglobin Transfuse if less than 7.0 g/dL. Tube feeds for nutritional support GI prophylaxis - Pepcid DVT prophylaxis - Lovenox. Prognosis: Poor given patient's multiple co-morbidities. Condition: Critical Rest of plan per hospitalist and other consultants. A total of 35 minutes of critical care time was spent reviewing the patient record, examining the patient, making a diagnostic and therapeutic plan, discussing this plan with the medical personnel, following up on diagnostic studies and following the patient for clinical stability excluding any and all procedures. At least 50% of this time was spent in direct, [id number] contact. Thank you, DAVION Cole, for allowing me to participate in this patient's care. Further recommendations will depend on the patient's clinical course. Please do not hesitate to contact me if you have any questions or concerns. This medical document was created using an electronic medical record system with [employer] dictation system. Although these documentations are being carefully reviewed, there may still be some phonetic and typographical changes. The errors are purely typographical, due to imperfection on the software program, and do not reflect any compromise in the patient's medical care. Dietary Evaluation Review Comments: 1) Initiate MVI @ 1 tb qd 2) Initiate vitamin C @ 500 mg bid 3) Consider switching TF formulary from Jevity 1.2 to Vital AF 1.2 @ 50 mL/hr goal rate as tolerated d/t increase protein needs. Goal rate (including Propofol) will provide 1634 kcals, 90g Pro, and 1003 mL free H2O per 24 hrs. TF rate will meet ~90% estimated energy needs and ~70% estimated protein needs. 4) Advance to 60g CCHO cardiac diet when medically feasible, pending ST approval 5) Follow-up with cardiology, pulmonology, and nephrology 6) Continue to monitor I&O, labs, and skin integrity Expected Outcomes/Goals: 1) TF regimen to meet at least 70% of estimated energy needs 2) wounds and lab to improve 3) diet to advance 4) f/u in 3-5 days Plan discussed with: Other (PARKER Lange) Critical Care Time(min): 35 ISSA TALBOT MD Nov 13, 2024 23:34
[2024-11-14] VITALS (86 sets, daily range): BP systolic 131–180; BP diastolic 48–73; PULSE 60–85; RESP 12–21; TEMP 98.2–99.6; O2SAT 91–99
[2024-11-14 03:31] LABS: Hematocrit 31.6 % (41.0-53.0); Hemoglobin 10.2 g/dL (13.5-17.5); Mean Corpuscular Hemoglobin 29.2 pg (28.0-32.0); Mean Corpuscular Volume 90.2 fL (80.0-100.0); Nucleated Red Blood Cells % 0.1 %
[2024-11-14 03:39] LABS: Anion Gap 11 (5-15); Carbon Dioxide 25 mmol/L (20-31); Potassium 3.8 mmol/L (3.5-5.1)
[2024-11-14 03:40] LABS: Calcium 8.8 mg/dL (8.7-10.4)
[2024-11-14 03:45] LABS: BUN/Creatinine Ratio 31.4 (10.0-20.0); Glucose 80 mg/dL (74-106)
[2024-11-14 03:50] LABS: Blood Urea Nitrogen 32 mg/dL (9-23); Chloride 111 mmol/L (98-107); Sodium 147 mmol/L (136-145)
--- NOTE | 2024-11-14 04:57 | DVH ---
Exam: CT ABDOMEN WITHOUT CONTRAST History: G TUBE PLACEMENT VERIFICATION Comparison Study: None Technique: Multidetector spiral CT of the abdomen was performed from lung bases to pubic symphysis. I maging was performed without IV contrast. Axial, coronal and sagittal multiplanar reformats were obta ined from the axial data set by the technologist. Radiation Dose : 1. Abdomen/Pelvis: CTDIvol 24.9 mGy, DLP 1343.52 mGy*cm. Findings: Evaluation of solid organs is limited due to lack of intravenous contrast use. Lung Bases: Moderate to large bilateral pleural effusions with adjacent atelectasis and moderate bila teral lower lobe parenchymal consolidation. Trace pericardial effusion and cardiomegaly. Cardiac pac ing leads and vascular stents noted. Atherosclerotic vascular calcifications. Liver: The liver is normal in size. No focal lesions. Gallbladder and Biliary Tree: Unremarkable Spleen: Unremarkable Pancreas: The pancreas is grossly normal in appearance. Adrenal Glands: Unremarkable Kidneys: Mild bilateral renal atrophy and cortical thinning. No evidence of calculi or hydronephrosi s. Bladder: Grossly unremarkable for degree of distention. Chawla catheter noted. Bowel: The stomach is grossly normal in appearance with percutaneous gastrostomy in place. Rectal fec al impaction with maximum transverse diameter measuring 8.4 cm. Small bowel and colon are otherwise n ormal in caliber and distribution. The appendix is not visualized; however, no secondary findings of acute appendicitis identified. Ascites: Trace abdominopelvic ascites. Lymphadenopathy: No mesenteric, retroperitoneal or periportal lymphadenopathy. Abdominal Wall and Mesentery: Unremarkable. Vasculature: The visualized abdominal aorta is normal in size and caliber. Evaluation of abdominal a nd pelvic vessels is limited due to lack of intravenous contrast. Pelvic Organs: Unremarkable Musculoskeletal: No aggressive focal bony lesions, acute fractures or dislocation. IMPRESSION: 1. Grossly stable appearing rectal fecal impaction. 2. Moderate to large bilateral pleural effusions with adjacent atelectasis and moderate bilateral low er lobe consolidation. 3. Trace pericardial effusion and cardiomegaly. 4. Mild bilateral renal atrophy and cortical thinning. 5. Percutaneous gastrostomy. 6. Chawla catheter. Radiation optimization: All CT scans at this facility use at least one of these dose optimization ashanti hniques: automated exposure control mA and/or kV adjustment per patient size (includes targeted exam s where dose is matched to clinical indication) or iterative reconstruction.
--- NOTE | 2024-11-14 09:08 | DVHPN2 ---
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 seen today, pending swallow eval, likely wont pass. j tube possibly dislodged, however flushing. pending GI eval. imaging done. physical exam non verbal, alert PERRLA MMM trace crackles s1 s2 rrr abdomen slightly tense no LE edema labs ekg imaging reviewed assessment and plan acute hypoxic RF req mech vent cardiogenic pulmonary edema hypertensive emergency hx of CVA with residual s/p jtube placement HFrEF 40-45% s/p SUPERVISOR ACCOUNTS RECEIVABLE PNA klebsiela and pseudomonas gpc bacteremia c/w mechanical vent, dec TV 450 start nicardipine c/w vanc and cefepime follow culture echo start coreg start entresto strict io on d5w lasix maintain net 0 diet tf dvt ppx lovenox gi ppx pepcid chem code condition critical prognosis poor 35 minutes critical care time rendered Plan discussed with: Other My Orders Orders - NELY REARDON MD Procedure Category Date Status Time Abg W/ Co-Ox RT 11/13/24 Logged 11:[address] 11/13/24 Resulted Contrast 18:29 D5w/Lactated PHA 11/13/24 In Process Ringer... W/Potassium 20:15 Furosemide Injection PHA 11/14/24 In Process (Lasix Injection) 10:00 * [facility] [employer] Project Manager CONS 11/14/24 Transmitted 09:05 Date of Service: Nov 14, 2024 Billing Provider: NELY REARDON MD Common Visit Codes: [id number] CARE 30-74 MIN NELY REARDON MD Nov 14, 2024 09:08
[2024-11-14] MEDS: FUROSEMIDE 20 MG/2 ML VIAL IV SCH (10:11)
[2024-11-14] MEDS ORDERED: Jevity 1.2 Cal/Fiber 1 Liter GT SCH (12:00)
[2024-11-14] MEDS: D5W/SOD CHL 0.45%/KCL 20MEQ 1,000 ML IV SCH (12:09)
[2024-11-14] MEDS: POLYETHYLENE GLYCOL 17 GM PWDR PO ONE (12:10)
--- NOTE | 2024-11-14 21:29 | DVHPN2 ---
Progress Note - Dictate Date Seen: Nov 14, 2024 Medical Necessity Reason Pt with a Central, PICC or Fol: Yes The following are medically ne: Tristan Catheter Reason for tristan catheter: Strict I&O Subjective Patient seen and examined at bedside. Remains on supplemental oxygen Overnight events reviewed. vital signs Vital Sign Date Time Temp Pulse Resp B/P (MAP) Pulse Ox O2 Delivery O2 Flow Rate FiO2 11/14/24 18:15 66 17 168/65 (99) 99 11/14/24 18:00 Nasal Cannula* 2 28 11/14/24 16:00 99.1 99.1 Total Intake and Output 11/13/24 11/13/24 11/14/24 15:00 23:00 07:00 Intake Total 59.78 ml 215 ml 575 ml Output Total 0 ml 650 ml 371 ml Balance 59.78 ml -435 ml 204 ml medications Current Medications Medications Dose Ordered Sig/Jim Route Start Time Stop Time Status Last Admin Dose Admin Famotidine 20 mg Q12HR IV 11/09/24 22:00 11/14/24 10:11 20 MG Sodium Chloride 10 ml Q8HR IV 11/09/24 22:00 11/14/24 14:19 10 ML Acetaminophen 650 mg Q6HP PRN [place] 11/09/24 20:00 Diagnostic Test (Pha) 1 strip Q6HR 11/10/24 00:00 11/14/24 18:26 1 STRIP Insulin Human Regular Q6HR SC 11/10/24 00:00 Dextrose 50 ml UD PRN IV 11/09/24 22:15 11/14/24 12:14 50 ML Enoxaparin Sodium 40 mg DAILY SC 11/11/24 10:00 11/14/24 10:10 40 MG Carvedilol 6.25 mg Q12HR PO 11/11/24 22:00 11/14/24 12:08 6.25 MG Dextrose 1,000 ml @ 30 mls/hr Q24H IV 11/11/24 10:30 Cancel Nicardipine/ Sodium Chloride 200 ml @ 50 mls/hr Q4H IV 11/11/24 16:00 11/14/24 06:08 25 MLS/HR Cefepime HCl 50 ml @ 12.5 mls/hr Q12HR IV 11/12/24 22:00 11/14/24 10:10 12.5 MLS/HR Sacubitril/ Valsartan 1 tab BID PO 11/12/24 22:00 11/14/24 12:07 1 TAB Furosemide 20 mg DAILY IV 11/14/24 10:00 11/14/24 10:11 20 MG Enteral Nutritional Formula 1,000 ml 30ML/HR GT 11/14/24 12:00 objective Gen.: Patient lying in bed in no apparent distress. On supplemental oxygen. Head: Normocephalic, atraumatic. Eyes: EOMI/PERRLA. Ears: Normal hearing. Normal anatomy. Neck/trachea: Trachea midline, supple. Nose: Normal external anatomy. Mouth: Moist mucous membranes. Chest: Decreased air entry bilaterally. No wheezing or rhonchi. Cardiovascular: Positive S1, positive S2. Regular rate and rhythm. Abdomen: Positive bowel sounds in all 4 quadrants. Soft, non-tender, non- distended. : Deferred. Rectal: Deferred. Skin: Warm, dry. Intact. Extremities: 2+ radial pulses bilaterally. No lower extremity edema. Neuro: Awake, alert, oriented x3. No gross motor or sensory deficits. Cranial nerves II through XII intact. Gait not assessed. laboratory and microbiology Laboratory Tests 11/14/24 03:00 Test 11/14/24 03:00 Range/Units Serum Glucose 80 74-106 mg/dL Assessment/Plan Impression: Acute hypoxic respiratory failure Dependence on supplemental oxygen Pneumonia, likely gram negative Acute CHF exacerbation Metabolic encephalopathy Anemia Events: On supplemental oxygen, 2 LPM NC Taper O2 as tolerated No distress. Head of bed elevation Aspiration precautions S/p G-tube placement Started on tube feeds for nutritional support Off IV fluids Continue antibiotics. Follow up cultures Monitor blood pressure - Off Nicardipine drip Monitor renal function Monitor electrolytes. Supplement as necessary. Potassium supplementation Monitor ins and outs. GI prophylaxis with Pepcid DVT prophylaxis with Lovenox. CXR on 11/13/24 revealed stable multifocal bilateral pulmonary airspace disease and small bilateral pleural effusions. Cardiomegaly. Labs and imaging reviewed. Rest of plan as noted below. Plan: S/p extubation on 11/13/24 Supplemental oxygen Titrate to keep O2 sats above 92% Head of bed elevation Aspiration precautions Continue antibiotics. F/u cultures. Blood pressure control Echo reviewed; LVEF 40-45%, mild LVH. Normal RV function Cardiology recommendations appreciated. Monitor renal function Monitor electrolytes. Supplement as necessary. Monitor ins and outs. Diurese to euvolemia. Monitor hemoglobin Transfuse if less than 7.0 g/dL. Tube feeds for nutritional support GI prophylaxis - Pepcid DVT prophylaxis - Lovenox. Prognosis: Poor given patient's multiple co-morbidities. Rest of plan per hospitalist and other consultants. Thank you, DOG CONTROL OFFICER Kelsey, for allowing me to participate in this patient's care. Further recommendations will depend on the patient's clinical course. Please do not hesitate to contact me if you have any questions or concerns. This medical document was created using an electronic medical record system with [employer] dictation system. Although these documentations are being carefully reviewed, there may still be some phonetic and typographical changes. The errors are purely typographical, due to imperfection on the software program, and do not reflect any compromise in the patient's medical care. Dietary Evaluation Review Comments: 1) Initiate MVI @ 1 tb qd 2) Initiate vitamin C @ 500 mg bid 3) Consider switching TF formulary from Jevity 1.2 to Vital AF 1.2 @ 50 mL/hr goal rate as tolerated d/t increase protein needs. Goal rate (including Propofol) will provide 1634 kcals, 90g Pro, and 1003 mL free H2O per 24 hrs. TF rate will meet ~90% estimated energy needs and ~70% estimated protein needs. 4) Advance to 60g CCHO cardiac diet when medically feasible, pending ST approval 5) Follow-up with cardiology, pulmonology, and nephrology 6) Continue to monitor I&O, labs, and skin integrity Expected Outcomes/Goals: 1) TF regimen to meet at least 70% of estimated energy needs 2) wounds and lab to improve 3) diet to advance 4) f/u in 3-5 days Plan discussed with: Patient, Other (PARKER Varghese) ISSA TALBOT MD Nov 14, 2024 21:29
[2024-11-14] MEDS: hydrALAZINE HCL 20 MG/ML VL IV ONE (22:57)
[2024-11-15] VITALS (65 sets, daily range): BP systolic 130–177; BP diastolic 41–65; PULSE 60–74; RESP 13–23; TEMP 98.1–99.2; O2SAT 90–100
[2024-11-15 04:14] LABS: Hematocrit 30.3 % (41.0-53.0); Hemoglobin 10.0 g/dL (13.5-17.5); Mean Corpuscular Hemoglobin 29.8 pg (28.0-32.0); Mean Corpuscular Volume 89.8 fL (80.0-100.0); Nucleated Red Blood Cells % 0.2 %
[2024-11-15 04:16] LABS: Alanine Aminotransferase 15 U/L (7-40); Albumin 3.3 g/dL (3.2-4.8); Alkaline Phosphatase 69 U/L (46-116); Anion Gap 9 (5-15); BUN/Creatinine Ratio 28.7 (10.0-20.0); Calcium 8.8 mg/dL (8.7-10.4); Carbon Dioxide 27 mmol/L (20-31); Potassium 3.9 mmol/L (3.5-5.1); Total Protein 6.2 g/dL (5.7-8.2)
[2024-11-15 04:29] LABS: Bilirubin, Total 0.3 mg/dL (0.2-1.0); Blood Urea Nitrogen 27 mg/dL (9-23); Chloride 112 mmol/L (98-107); Glucose 124 mg/dL (74-106); Sodium 148 mmol/L (136-145)
[2024-11-15] MEDS: CEFEPIME 1GM/ 50ML 50 ML IV SCH (17:31)
--- NOTE | 2024-11-15 23:30 | DVHPN2 ---
Progress Note - Dictate Date Seen: Nov 15, 2024 Medical Necessity Reason Pt with a Central, PICC or Fol: Yes The following are medically ne: Tristan Catheter Reason for tristan catheter: Strict I&O Subjective Patient seen and examined at bedside. Remains on supplemental oxygen Overnight events reviewed. vital signs Vital Sign Date Time Temp Pulse Resp B/P (MAP) Pulse Ox O2 Delivery O2 Flow Rate FiO2 11/15/24 22:31 60 160/53 11/15/24 22:00 18 98 Nasal Cannula* 2 28 11/15/24 20:01 99.2 99.2 Total Intake and Output 11/14/24 11/14/24 11/15/24 15:00 23:00 07:00 Intake Total 300.0 ml 475 ml Output Total 0 ml 1150 ml 401 ml Balance 300.0 ml -1150 ml 74 ml medications Current Medications Medications Dose Ordered Sig/Jim Route Start Time Stop Time Status Last Admin Dose Admin Famotidine 20 mg Q12HR IV 11/09/24 22:00 11/15/24 21:31 20 MG Sodium Chloride 10 ml Q8HR IV 11/09/24 22:00 11/15/24 21:32 10 ML Acetaminophen 650 mg Q6HP PRN [place] 11/09/24 20:00 Diagnostic Test (Pha) 1 strip Q6HR 11/10/24 00:00 11/15/24 17:30 1 STRIP Insulin Human Regular Q6HR SC 11/10/24 00:00 Dextrose 50 ml UD PRN IV 11/09/24 22:15 11/14/24 12:14 50 ML Enoxaparin Sodium 40 mg DAILY SC 11/11/24 10:00 11/15/24 09:10 40 MG Carvedilol 6.25 mg Q12HR PO 11/11/24 22:00 11/15/24 21:31 6.25 MG Dextrose 1,000 ml @ 30 mls/hr Q24H IV 11/11/24 10:30 Cancel Nicardipine/ Sodium Chloride 200 ml @ 50 mls/hr Q4H IV 11/11/24 16:00 11/14/24 06:08 25 MLS/HR Sacubitril/ Valsartan 1 tab BID PO 11/12/24 22:00 11/15/24 21:31 1 TAB Furosemide 20 mg DAILY IV 11/14/24 10:00 11/15/24 09:09 20 MG Enteral Nutritional Formula 1,000 ml 30ML/HR GT 11/14/24 12:00 Cefepime HCl 50 ml @ 12.5 mls/hr Q8H IV 11/15/24 18:00 11/15/24 17:31 12.5 MLS/HR objective Gen.: Patient lying in bed in no apparent distress. On supplemental oxygen. Head: Normocephalic, atraumatic. Eyes: EOMI/PERRLA. Ears: Normal hearing. Normal anatomy. Neck/trachea: Trachea midline, supple. Nose: Normal external anatomy. Mouth: Moist mucous membranes. Chest: Decreased air entry bilaterally. No wheezing or rhonchi. Cardiovascular: Positive S1, positive S2. Regular rate and rhythm. Abdomen: Positive bowel sounds in all 4 quadrants. Soft, non-tender, non- distended. : Deferred. Rectal: Deferred. Skin: Warm, dry. Intact. Extremities: 2+ radial pulses bilaterally. No lower extremity edema. Neuro: Awake, alert, oriented x3. No gross motor or sensory deficits. Cranial nerves II through XII intact. Gait not assessed. laboratory and microbiology Laboratory Tests 11/15/24 03:15 Test 11/15/24 03:15 Range/Units Serum Glucose 124 H 74-106 mg/dL Assessment/Plan Impression: Acute hypoxic respiratory failure Dependence on supplemental oxygen Pneumonia, likely gram negative Acute CHF exacerbation Metabolic encephalopathy Anemia Events: On supplemental oxygen, 2 LPM NC Taper O2 as tolerated No distress. Head of bed elevation Aspiration precautions G-tube in place Tube feeds for nutritional support Continue antibiotics. Blood pressure control - antihypertensive Off Nicardipine drip Diurese with Lasix as tolerated Monitor renal function Monitor electrolytes. Supplement as necessary. Monitor ins and outs. GI prophylaxis with Pepcid DVT prophylaxis with Lovenox. CXR on 11/13/24 revealed stable multifocal bilateral pulmonary airspace disease and small bilateral pleural effusions. Cardiomegaly. Labs and imaging reviewed. Rest of plan as noted below. Plan: S/p extubation on 11/13/24 Supplemental oxygen Titrate to keep O2 sats above 92% Head of bed elevation Aspiration precautions Continue antibiotics. F/u cultures. Blood pressure control Echo reviewed; LVEF 40-45%, mild LVH. Normal RV function Cardiology recommendations appreciated. Monitor renal function Monitor electrolytes. Supplement as necessary. Monitor ins and outs. Diurese to euvolemia. Monitor hemoglobin Transfuse if less than 7.0 g/dL. Tube feeds for nutritional support GI prophylaxis - Pepcid DVT prophylaxis - Lovenox. Prognosis: Poor given patient's multiple co-morbidities. Rest of plan per hospitalist and other consultants. Thank you, CALL CENTER RECEPTIONIST Kelsey, for allowing me to participate in this patient's care. Further recommendations will depend on the patient's clinical course. Please do not hesitate to contact me if you have any questions or concerns. This medical document was created using an electronic medical record system with [employer] dictation system. Although these documentations are being carefully reviewed, there may still be some phonetic and typographical changes. The errors are purely typographical, due to imperfection on the software program, and do not reflect any compromise in the patient's medical care. Dietary Evaluation Review Comments: 1) Initiate MVI @ 1 tb qd 2) Initiate vitamin C @ 500 mg bid 3) Consider switching TF formulary from Jevity 1.2 to Vital AF 1.2 @ 50 mL/hr goal rate as tolerated d/t increase protein needs. Goal rate (including Propofol) will provide 1634 kcals, 90g Pro, and 1003 mL free H2O per 24 hrs. TF rate will meet ~90% estimated energy needs and ~70% estimated protein needs. 4) Advance to 60g CCHO cardiac diet when medically feasible, pending ST approval 5) Follow-up with cardiology, pulmonology, and nephrology 6) Continue to monitor I&O, labs, and skin integrity Expected Outcomes/Goals: 1) TF regimen to meet at least 70% of estimated energy needs 2) wounds and lab to improve 3) diet to advance 4) f/u in 3-5 days Plan discussed with: Other (PARKER Varghese) ISSA TALBOT MD Nov 15, 2024 23:30
[2024-11-16] VITALS (27 sets, daily range): BP systolic 145–174; BP diastolic 52–101; PULSE 60–76; RESP 13–24; TEMP 98–99.2; O2SAT 93–100
[2024-11-16] MEDS: hydrALAZINE HCL 20 MG/ML VL IV PRN (00:37)
[2024-11-16 03:54] LABS: Hematocrit 34.1 % (41.0-53.0); Hemoglobin 10.8 g/dL (13.5-17.5); Mean Corpuscular Hemoglobin 29.2 pg (28.0-32.0); Mean Corpuscular Volume 91.9 fL (80.0-100.0); Nucleated Red Blood Cells % 0.1 %
[2024-11-16 04:08] LABS: Alanine Aminotransferase 14 U/L (7-40); Albumin 3.3 g/dL (3.2-4.8); Alkaline Phosphatase 76 U/L (46-116); Anion Gap 8 (5-15); BUN/Creatinine Ratio 22.1 (10.0-20.0); Blood Urea Nitrogen 19 mg/dL (9-23); Calcium 9.0 mg/dL (8.7-10.4); Carbon Dioxide 27 mmol/L (20-31); Glucose 98 mg/dL (74-106); Potassium 4.1 mmol/L (3.5-5.1); Total Protein 6.3 g/dL (5.7-8.2)
[2024-11-16 04:12] LABS: Bilirubin, Total 0.2 mg/dL (0.2-1.0); Chloride 113 mmol/L (98-107); Sodium 148 mmol/L (136-145)
--- NOTE | 2024-11-16 09:30 | DVHPN2 ---
Subjective Patient is aphasic Reviewed: Care Plan, H&P, Labs, Medications Changes from previous H/P or p: No Changes General: Per HPI Eyes: No Pain, No Vision change, No Conjunctivae inflammation, No Eyelid inflammation, No Other, No Redness ENT: No Ear pain, No Ear discharge, No Nose pain, No Nose discharge, No Nose congestion, No Mouth pain, No Mouth swelling, No Throat pain, No Throat swelling, No Other Cardiovascular: No Chest Pain, No Palpitations, No Orthopnea, No Paroxysmal Noc. Dyspnea, No Edema, No Lt Headedness, No Other Respiratory: No Cough, No Dry; Shortness of breath, SOB with excertion; No Wheezing, No Hemoptysis, No Pleuritic Pain, No Sputum; Other (SOB at rest) Gastrointestinal: No Nausea, No Vomiting, No Abdominal Pain, No Diarrhea, No Constipation, No Melena, No Hematochezia, No Other Genitourinary: No Dysuria, No Frequency, No Incontinence, No Hematuria, No Retention, No Other Musculoskeletal: No other, No neck pain, No shoulder pain, No arm pain, No back pain, No hand pain, No leg pain, No foot pain Skin: No Rash, No Lesions, No Jaundice, No Bruising, No Other Objective Vitals Vital Signs Date Time Temp Pulse Resp B/P (MAP) Pulse Ox O2 Delivery O2 Flow Rate FiO2 11/16/24 08:30 65 16 168/61 (96) 99 11/16/24 08:00 Nasal Cannula* 2 28 11/16/24 07:00 98.6 98.6 Intake/Output Intake and Output 11/16/24 07:00 Intake Total 905.0 ml Output Total 1501 ml Balance -596.0 ml Intake Oral 60 ml IV Total 150.0 ml Tube Feeding 635 ml Other 60 ml Output Urine Total 1500 ml Stool Total 1 ml # Bowel Movements 1 General Appearance: Alert, mild distress HEENT: Atraumatic, PERRLA Lungs: Clear to auscultation, Normal air movement Cardiovascular: Normal S1, Normal S2 Abdomen: Normal bowel sounds, Soft, No tenderness, No hepatospenomegaly Genitourinary: No Apparent Abnormalities (Chawla catheter) Musculoskeletal: Normal sensory function, Normal motor function Skin: Dry, Intact Psych/Mental Status: Mental status NL, Mood NL Medications Current Medications Medications Dose Ordered Sig/Jim Route Start Time Stop Time Status Last Admin Dose Admin Famotidine 20 mg Q12HR IV 11/09/24 22:00 11/15/24 21:31 20 MG Sodium Chloride 10 ml Q8HR IV 11/09/24 22:00 11/16/24 05:52 10 ML Acetaminophen 650 mg Q6HP PRN OR 11/09/24 20:00 Diagnostic Test (Pha) 1 strip Q6HR 11/10/24 00:00 11/16/24 05:52 1 STRIP Insulin Human Regular Q6HR SC 11/10/24 00:00 11/15/24 23:46 2 UNITS Dextrose 50 ml UD PRN IV 11/09/24 22:15 11/14/24 12:14 50 ML Enoxaparin Sodium 40 mg DAILY SC 11/11/24 10:00 11/15/24 09:10 40 MG Dextrose 1,000 ml @ 30 mls/hr Q24H IV 11/11/24 10:30 Cancel Nicardipine/ Sodium Chloride 200 ml @ 50 mls/hr Q4H IV 11/11/24 16:00 11/14/24 06:08 25 MLS/HR Sacubitril/ Valsartan 1 tab BID PO 11/12/24 22:00 11/15/24 21:31 1 TAB Furosemide 20 mg DAILY IV 11/14/24 10:00 11/15/24 09:09 20 MG Enteral Nutritional Formula 1,000 ml 30ML/HR GT 11/14/24 12:00 Cefepime HCl 50 ml @ 12.5 mls/hr Q8H IV 11/15/24 18:00 11/16/24 01:48 12.5 MLS/HR Hydralazine HCl 10 mg Q6HP PRN IV 11/16/24 00:30 11/16/24 00:37 10 MG Carvedilol 12.5 mg Q12HR PO 11/16/24 10:00 UNV Laboratory Results Laboratory Tests 11/16/24 03:17 Chemistry Test 11/16/24 03:17 Albumin 3.3 g/dL (3.2-4.8) Calcium Level 9.0 mg/dL (8.7-10.4) Total Protein 6.3 g/dL (5.7-8.2) LFT Test 11/16/24 03:17 Alanine Aminotransferase (ALT) 14 U/L (7-40) Alkaline Phosphatase 76 U/L (46-116) Aspartate Amino Transferase (AST) 26 U/L (13-40) Total Bilirubin 0.2 mg/dL (0.2-1.0) Urinalysis Test 11/09/24 19:38 Urine Color Light-yellow (Yellow) Urine Clarity Clear (Clear) Urine pH 7.5 (5.0-9.0) Urine Specific Leivasy 1.018 (1.001-1.035) Urine Protein 1+ (Negative) H Urine Ketones Negative (Negative) Urine Blood Negative /uL (Negative) Urine Nitrite Negative (Negative) Urine Bilirubin Negative (Negative) Urine Urobilinogen Normal mg/dL (Negative) Urine Leukocyte Esterase Negative /uL (Negative) Urine RBC 1 /hpf (0 - 3) Urine Microscopic WBC 3 /HPF (0-3) Urine Squamous Epithelial Cells None seen /hpf (<5) Urine Bacteria None seen /hpf (None Seen) Urine Glucose Normal mg/dL (Normal) Microbiology Microbiology Date/Time Source Procedure Growth Status 11/10/24 00:00 Nose MRSA Screen - Final Complete 11/09/24 16:10 Blood Blood Culture - Final Staphylococcus auricularis Complete Labs and/or images reviewed: Labs reviewed by me, Image(s) reviewed by me Assessment/Plan Assessment/Plan Impression: -acute hypoxic respiratory failure -community-acquired pneumonia, Pseudomonas aeruginosa, Klebsiella -accelerated hypertension -hypernatremia -history of CVA -bed-bound status -history of J-tube placement -acute kidney injury, vasomotor nephropathy -obstructive sleep apnea -Severe constipation Plan: -continue antibiotic therapy with cefepime -pulmonology consultation: Reassess patient for bilateral pleural effusions -O2 supplementation to keep saturation greater than 92% -continue Jevity at 30 mL/hour -continue antihypertensives with Entresto on carvedilol -bowel regimen -repeat labs in a.m. -plan of care discussed with the patient's family who was bedside Critical care time spent with patient discussing and formulating plan of care: 40 minutes. This does not include time spent performing procedures. This medical document was created using an electronic medical record system with [employer] dictation system. Although this document has been carefully reviewed, there may still be some phonetic and typographical errors. These areas are purely typographical due to imperfections of the software programs, and do not reflect any compromise in the patient's medical care. Plan discussed with: Patient, Other (RN) My Orders Orders - CAMELIA RHODES NP Procedure Category Date Status Time Carvedilol Tablet PHA 11/16/24 Logged (Coreg Tablet) 10:00 Date of Service: Nov 15, 2024 Billing Provider: CAMELIA RHODES NP Common Visit Codes: [id number] CARE 30-74 MIN CAMELIA RHODES NP Nov 16, 2024 09:30
--- NOTE | 2024-11-16 09:32 | DVHPN2 ---
Subjective Patient is aphasic Reviewed: Care Plan, H&P, Labs, Medications Changes from previous H/P or p: No Changes General: Per HPI Eyes: No Pain, No Vision change, No Conjunctivae inflammation, No Eyelid inflammation, No Other, No Redness ENT: No Ear pain, No Ear discharge, No Nose pain, No Nose discharge, No Nose congestion, No Mouth pain, No Mouth swelling, No Throat pain, No Throat swelling, No Other Cardiovascular: No Chest Pain, No Palpitations, No Orthopnea, No Paroxysmal Noc. Dyspnea, No Edema, No Lt Headedness, No Other Respiratory: No Cough, No Dry; Shortness of breath, SOB with excertion; No Wheezing, No Hemoptysis, No Pleuritic Pain, No Sputum; Other (SOB at rest) Gastrointestinal: No Nausea, No Vomiting, No Abdominal Pain, No Diarrhea, No Constipation, No Melena, No Hematochezia, No Other Genitourinary: No Dysuria, No Frequency, No Incontinence, No Hematuria, No Retention, No Other Musculoskeletal: No other, No neck pain, No shoulder pain, No arm pain, No back pain, No hand pain, No leg pain, No foot pain Skin: No Rash, No Lesions, No Jaundice, No Bruising, No Other Objective Vitals Vital Signs Date Time Temp Pulse Resp B/P (MAP) Pulse Ox O2 Delivery O2 Flow Rate FiO2 11/16/24 08:30 65 16 168/61 (96) 99 11/16/24 08:00 Nasal Cannula* 2 28 11/16/24 07:00 98.6 98.6 Intake/Output Intake and Output 11/16/24 07:00 Intake Total 905.0 ml Output Total 1501 ml Balance -596.0 ml Intake Oral 60 ml IV Total 150.0 ml Tube Feeding 635 ml Other 60 ml Output Urine Total 1500 ml Stool Total 1 ml # Bowel Movements 1 General Appearance: Alert, mild distress HEENT: Atraumatic, PERRLA Lungs: Clear to auscultation, Normal air movement Cardiovascular: Normal S1, Normal S2 Abdomen: Normal bowel sounds, Soft, No tenderness, No hepatospenomegaly Genitourinary: No Apparent Abnormalities (Chawla catheter) Musculoskeletal: Normal sensory function, Normal motor function Skin: Dry, Intact Psych/Mental Status: Mental status NL, Mood NL Medications Current Medications Medications Dose Ordered Sig/Jim Route Start Time Stop Time Status Last Admin Dose Admin Famotidine 20 mg Q12HR IV 11/09/24 22:00 11/15/24 21:31 20 MG Sodium Chloride 10 ml Q8HR IV 11/09/24 22:00 11/16/24 05:52 10 ML Acetaminophen 650 mg Q6HP PRN [place] 11/09/24 20:00 Diagnostic Test (Pha) 1 strip Q6HR 11/10/24 00:00 11/16/24 05:52 1 STRIP Insulin Human Regular Q6HR SC 11/10/24 00:00 11/15/24 23:46 2 UNITS Dextrose 50 ml UD PRN IV 11/09/24 22:15 11/14/24 12:14 50 ML Enoxaparin Sodium 40 mg DAILY SC 11/11/24 10:00 11/15/24 09:10 40 MG Dextrose 1,000 ml @ 30 mls/hr Q24H IV 11/11/24 10:30 Cancel Nicardipine/ Sodium Chloride 200 ml @ 50 mls/hr Q4H IV 11/11/24 16:00 11/14/24 06:08 25 MLS/HR Sacubitril/ Valsartan 1 tab BID PO 11/12/24 22:00 11/15/24 21:31 1 TAB Furosemide 20 mg DAILY IV 11/14/24 10:00 11/15/24 09:09 20 MG Enteral Nutritional Formula 1,000 ml 30ML/HR GT 11/14/24 12:00 Cefepime HCl 50 ml @ 12.5 mls/hr Q8H IV 11/15/24 18:00 11/16/24 01:48 12.5 MLS/HR Hydralazine HCl 10 mg Q6HP PRN IV 11/16/24 00:30 11/16/24 00:37 10 MG Carvedilol 12.5 mg Q12HR PO 11/16/24 10:00 UNV Laboratory Results Laboratory Tests 11/16/24 03:17 Chemistry Test 11/16/24 03:17 Albumin 3.3 g/dL (3.2-4.8) Calcium Level 9.0 mg/dL (8.7-10.4) Total Protein 6.3 g/dL (5.7-8.2) LFT Test 11/16/24 03:17 Alanine Aminotransferase (ALT) 14 U/L (7-40) Alkaline Phosphatase 76 U/L (46-116) Aspartate Amino Transferase (AST) 26 U/L (13-40) Total Bilirubin 0.2 mg/dL (0.2-1.0) Urinalysis Test 11/09/24 19:38 Urine Color Light-yellow (Yellow) Urine Clarity Clear (Clear) Urine pH 7.5 (5.0-9.0) Urine Specific Sebastian 1.018 (1.001-1.035) Urine Protein 1+ (Negative) H Urine Ketones Negative (Negative) Urine Blood Negative /uL (Negative) Urine Nitrite Negative (Negative) Urine Bilirubin Negative (Negative) Urine Urobilinogen Normal mg/dL (Negative) Urine Leukocyte Esterase Negative /uL (Negative) Urine RBC 1 /hpf (0 - 3) Urine Microscopic WBC 3 /HPF (0-3) Urine Squamous Epithelial Cells None seen /hpf (<5) Urine Bacteria None seen /hpf (None Seen) Urine Glucose Normal mg/dL (Normal) Microbiology Microbiology Date/Time Source Procedure Growth Status 11/10/24 00:00 Nose MRSA Screen - Final Complete 11/09/24 16:10 Blood Blood Culture - Final Staphylococcus auricularis Complete Labs and/or images reviewed: Labs reviewed by me, Image(s) reviewed by me Assessment/Plan Assessment/Plan Impression: -acute hypoxic respiratory failure -community-acquired pneumonia, Pseudomonas aeruginosa, Klebsiella -accelerated hypertension -hypernatremia -history of CVA -bed-bound status -history of J-tube placement -acute kidney injury, vasomotor nephropathy -obstructive sleep apnea -Severe constipation Plan: -continue antibiotic therapy with cefepime -pulmonology consultation: Reassess patient for bilateral pleural effusions -O2 supplementation to keep saturation greater than 92% -increase Jevity to 60 mL/hour -stop Accu-Cheks -increase Coreg to 12.5. Continue Entresto -bowel regimen -repeat labs in a.m. -transferred to telemetry Total time spent with patient discussing and formulating plan of care: 35 minutes. This medical document was created using an electronic medical record system with [employer] dictation system. Although this document has been carefully reviewed, there may still be some phonetic and typographical errors. These areas are purely typographical due to imperfections of the software programs, and do not reflect any compromise in the patient's medical care. Plan discussed with: Patient, Other (RN) My Orders Orders - CAMELIA RHODES NP Procedure Category Date Status Time Carvedilol Tablet PHA 11/16/24 Logged (Coreg Tablet) 10:00 Date of Service: Nov 16, 2024 Billing Provider: CAMELIA RHODES NP Common Visit Codes: [id number] INP/OBS CARE(HIGH) CAMELIA RHODES NP Nov 16, 2024 09:32
[2024-11-16] MEDS: CARVEDILOL 3.125 MG TAB PO SCH (10:04)
[2024-11-16] MEDS: OMEPRAZOLE-SOD BICARB 20 MG POWDER GT SCH (11:05)
[2024-11-16] MEDS: FREE WATER GT SCH (11:50)
--- NOTE | 2024-11-16 12:25 | DVHPN2 ---
Progress Note - Dictate Date Seen: Nov 16, 2024 Medical Necessity Reason Pt with a Central, PICC or Fol: Yes The following are medically ne: Tristan Catheter Reason for tristan catheter: Strict I&O vital signs Vital Sign Date Time Temp Pulse Resp B/P (MAP) Pulse Ox O2 Delivery O2 Flow Rate FiO2 11/16/24 11:32 13 99 Nasal Cannula* 2 28 11/16/24 11:06 60 119/45 11/16/24 07:00 98.6 98.6 Total Intake and Output 11/15/24 11/15/24 11/16/24 15:00 23:00 07:00 Intake Total 50.0 ml 424 ml 431 ml Output Total 1 ml 1150 ml 350 ml Balance 49.0 ml -726 ml 81 ml medications Current Medications Medications Dose Ordered Sig/Jim Route Start Time Stop Time Status Last Admin Dose Admin Sodium Chloride 10 ml Q8HR IV 11/09/24 22:00 11/16/24 05:52 10 ML Acetaminophen 650 mg Q6HP PRN [place] 11/09/24 20:00 Dextrose 50 ml UD PRN IV 11/09/24 22:15 11/14/24 12:14 50 ML Enoxaparin Sodium 40 mg DAILY SC 11/11/24 10:00 11/16/24 10:05 40 MG Dextrose 1,000 ml @ 30 mls/hr Q24H IV 11/11/24 10:30 Cancel Sacubitril/ Valsartan 1 tab BID PO 11/12/24 22:00 11/16/24 10:04 1 TAB Furosemide 20 mg DAILY IV 11/14/24 10:00 11/16/24 10:03 20 MG Cefepime HCl 50 ml @ 12.5 mls/hr Q8H IV 11/15/24 18:00 11/16/24 10:03 12.5 MLS/HR Hydralazine HCl 10 mg Q6HP PRN IV 11/16/24 00:30 11/16/24 00:37 10 MG Carvedilol 12.5 mg Q12HR PO 11/16/24 10:00 11/16/24 10:04 12.5 MG Enteral Nutritional Formula 1,000 ml 50ML/HR GT 11/16/24 09:30 Purified Water 200 ml Q6HR GT 11/16/24 12:00 11/16/24 11:50 200 ML Omeprazole 20 mg DAILY GT 11/16/24 10:00 11/16/24 11:05 20 MG laboratory and microbiology Laboratory Tests 11/16/24 03:17 Test 11/16/24 03:17 Range/Units Serum Glucose 98 74-106 mg/dL Assessment/Plan Impression: Acute hypoxic respiratory failure Dependence on supplemental oxygen Pneumonia, likely gram negative Acute CHF exacerbation Metabolic encephalopathy Anemia Events: On supplemental oxygen, 2 LPM NC s/p extubation Taper O2 as tolerated No distress. Head of bed elevation Aspiration precautions G-tube in place Tube feeds for nutritional support Continue antibiotics. Diurese with Lasix as tolerated Monitor renal function Monitor electrolytes. Supplement as necessary. Monitor ins and outs. GI prophylaxis with Pepcid DVT prophylaxis with Lovenox. CXR on 11/13/24 revealed stable multifocal bilateral pulmonary airspace disease and small bilateral pleural effusions. Cardiomegaly. Labs and imaging reviewed. Rest of plan as noted below. Plan: S/p extubation on 11/13/24 Supplemental oxygen Titrate to keep O2 sats above 92% Head of bed elevation Aspiration precautions Continue antibiotics. F/u cultures. Blood pressure control Echo reviewed; LVEF 40-45%, mild LVH. Normal RV function Cardiology recommendations appreciated. Monitor renal function Monitor electrolytes. Supplement as necessary. Monitor ins and outs. Diurese to euvolemia. Monitor hemoglobin Transfuse if less than 7.0 g/dL. Tube feeds for nutritional support GI prophylaxis - Pepcid DVT prophylaxis - Lovenox. crit care time 35 min Dietary Evaluation Review Comments: 1) Initiate MVI @ 1 tb qd 2) Initiate vitamin C @ 500 mg bid 3) Consider switching TF formulary from Jevity 1.2 to Vital AF 1.2 @ 50 mL/hr goal rate as tolerated d/t increase protein needs. Goal rate (including Propofol) will provide 1634 kcals, 90g Pro, and 1003 mL free H2O per 24 hrs. TF rate will meet ~90% estimated energy needs and ~70% estimated protein needs. 4) Advance to 60g CCHO cardiac diet when medically feasible, pending ST approval 5) Follow-up with cardiology, pulmonology, and nephrology 6) Continue to monitor I&O, labs, and skin integrity Expected Outcomes/Goals: 1) TF regimen to meet at least 70% of estimated energy needs 2) wounds and lab to improve 3) diet to advance 4) f/u in 3-5 days Plan discussed with: Patient, Other (rn) FREDDY PETER MD Nov 16, 2024 12:25
[2024-11-17] VITALS (9 sets, daily range): BP systolic 128–184; BP diastolic 40–79; PULSE 59–69; RESP 16–17; TEMP 97.9–99.3; O2SAT 98–100
[2024-11-17] MEDS: CARVEDILOL 3.125 MG TAB GT SCH (00:09)
[2024-11-17] MEDS: Jevity 1.2 Cal/Fiber 1 Liter GT SCH (05:30)
--- NOTE | 2024-11-17 13:31 | DVHPN2 ---
Progress Note - Dictate Date Seen: Nov 17, 2024 Medical Necessity Reason Pt with a Central, PICC or Fol: Yes The following are medically ne: Tristan Catheter Reason for tristan catheter: Strict I&O vital signs Vital Sign Date Time Temp Pulse Resp B/P (MAP) Pulse Ox O2 Delivery O2 Flow Rate FiO2 11/17/24 12:34 98.1 62 16 128/76 (93) 99 98.1 11/17/24 08:00 Nasal Cannula* 2 28 Total Intake and Output 11/16/24 11/16/24 11/17/24 15:00 23:00 07:00 Intake Total 525.0 ml 50 ml 0 ml Output Total 575 ml 200 ml 250 ml Balance -50.0 ml -150 ml -250 ml medications Current Medications Medications Dose Ordered Sig/Jim Route Start Time Stop Time Status Last Admin Dose Admin Sodium Chloride 10 ml Q8HR IV 11/09/24 22:00 11/17/24 05:30 10 ML Acetaminophen 650 mg Q6HP PRN [place] 11/09/24 20:00 Dextrose 50 ml UD PRN IV 11/09/24 22:15 11/14/24 12:14 50 ML Enoxaparin Sodium 40 mg DAILY SC 11/11/24 10:00 11/17/24 10:01 40 MG Dextrose 1,000 ml @ 30 mls/hr Q24H IV 11/11/24 10:30 Cancel Sacubitril/ Valsartan 1 tab BID PO 11/12/24 22:00 11/16/24 10:04 1 TAB Furosemide 20 mg DAILY IV 11/14/24 10:00 11/17/24 09:58 20 MG Cefepime HCl 50 ml @ 12.5 mls/hr Q8H IV 11/15/24 18:00 11/17/24 09:57 12.5 MLS/HR Hydralazine HCl 10 mg Q6HP PRN IV 11/16/24 00:30 11/16/24 00:37 10 MG Enteral Nutritional Formula 1,000 ml 50ML/HR GT 11/16/24 09:30 11/17/24 05:30 1,000 ML Purified Water 200 ml Q6HR GT 11/16/24 12:00 11/17/24 12:00 200 ML Omeprazole 20 mg DAILY GT 11/16/24 10:00 11/16/24 11:05 20 MG Carvedilol 12.5 mg Q12HR GT 11/16/24 22:00 11/17/24 10:01 12.5 MG laboratory and microbiology Laboratory Tests 11/16/24 03:17 Test 11/16/24 03:17 Range/Units Serum Glucose 98 74-106 mg/dL Assessment/Plan Impression: Acute hypoxic respiratory failure Dependence on supplemental oxygen Pneumonia, likely gram negative Acute CHF exacerbation Metabolic encephalopathy Anemia Events: S/p extubation Low oxygen requirements On 2 liters nasal cannula S/p ICU downgrade Central line remains in place Labs and imaging reviewed Management Supplemental oxygen Titrate to keep O2 sats above 92% Head of bed elevation Aspiration precautions Continue antibiotics. F/u cultures. Blood pressure control Echo reviewed F/u cardiology Monitor renal function Monitor electrolytes. Supplement as necessary. Monitor ins and outs. Diurese to euvolemia. Monitor hemoglobin Nutritional support Remove central line Recommend midline placement GI prophylaxis - Pepcid DVT prophylaxis - Lovenox. Dietary Evaluation Review Comments: 1) Initiate MVI @ 1 tb qd 2) Initiate vitamin C @ 500 mg bid 3) Consider switching TF formulary from Jevity 1.2 to Vital AF 1.2 @ 50 mL/hr goal rate as tolerated d/t increase protein needs. Goal rate (including Propofol) will provide 1634 kcals, 90g Pro, and 1003 mL free H2O per 24 hrs. TF rate will meet ~90% estimated energy needs and ~70% estimated protein needs. 4) Advance to 60g CCHO cardiac diet when medically feasible, pending ST approval 5) Follow-up with cardiology, pulmonology, and nephrology 6) Continue to monitor I&O, labs, and skin integrity Expected Outcomes/Goals: 1) TF regimen to meet at least 70% of estimated energy needs 2) wounds and lab to improve 3) diet to advance 4) f/u in 3-5 days Plan discussed with: Patient FREDDY PETER MD Nov 17, 2024 13:31
--- NOTE | 2024-11-17 13:36 | DVHPN2 ---
Subjective Patient is aphasic Reviewed: Care Plan, H&P, Labs, Medications Changes from previous H/P or p: No Changes General: Per HPI Eyes: No Pain, No Vision change, No Conjunctivae inflammation, No Eyelid inflammation, No Other, No Redness ENT: No Ear pain, No Ear discharge, No Nose pain, No Nose discharge, No Nose congestion, No Mouth pain, No Mouth swelling, No Throat pain, No Throat swelling, No Other Cardiovascular: No Chest Pain, No Palpitations, No Orthopnea, No Paroxysmal Noc. Dyspnea, No Edema, No Lt Headedness, No Other Respiratory: No Cough, No Dry; Shortness of breath, SOB with excertion; No Wheezing, No Hemoptysis, No Pleuritic Pain, No Sputum; Other (SOB at rest) Gastrointestinal: No Nausea, No Vomiting, No Abdominal Pain, No Diarrhea, No Constipation, No Melena, No Hematochezia, No Other Genitourinary: No Dysuria, No Frequency, No Incontinence, No Hematuria, No Retention, No Other Musculoskeletal: No other, No neck pain, No shoulder pain, No arm pain, No back pain, No hand pain, No leg pain, No foot pain Skin: No Rash, No Lesions, No Jaundice, No Bruising, No Other Objective Vitals Vital Signs Date Time Temp Pulse Resp B/P (MAP) Pulse Ox O2 Delivery O2 Flow Rate FiO2 11/17/24 12:34 98.1 62 16 128/76 (93) 99 98.1 11/17/24 08:00 Nasal Cannula* 2 28 Intake/Output Intake and Output 11/17/24 07:00 Intake Total 575.0 ml Output Total 1025 ml Balance -450.0 ml Intake Oral 450 ml IV Total 125.0 ml Output Urine Total 1025 ml General Appearance: Alert, mild distress HEENT: Atraumatic, PERRLA Lungs: Clear to auscultation, Normal air movement Cardiovascular: Normal S1, Normal S2 Abdomen: Normal bowel sounds, Soft, No tenderness, No hepatospenomegaly Genitourinary: No Apparent Abnormalities (Chawla catheter) Musculoskeletal: Normal sensory function, Normal motor function Skin: Dry, Intact Psych/Mental Status: Mental status NL, Mood NL Medications Current Medications Medications Dose Ordered Sig/Jim Route Start Time Stop Time Status Last Admin Dose Admin Sodium Chloride 10 ml Q8HR IV 11/09/24 22:00 11/17/24 05:30 10 ML Acetaminophen 650 mg Q6HP PRN ND 11/09/24 20:00 Dextrose 50 ml UD PRN IV 11/09/24 22:15 11/14/24 12:14 50 ML Enoxaparin Sodium 40 mg DAILY SC 11/11/24 10:00 11/17/24 10:01 40 MG Dextrose 1,000 ml @ 30 mls/hr Q24H IV 11/11/24 10:30 Cancel Sacubitril/ Valsartan 1 tab BID PO 11/12/24 22:00 11/16/24 10:04 1 TAB Furosemide 20 mg DAILY IV 11/14/24 10:00 11/17/24 09:58 20 MG Cefepime HCl 50 ml @ 12.5 mls/hr Q8H IV 11/15/24 18:00 11/17/24 09:57 12.5 MLS/HR Hydralazine HCl 10 mg Q6HP PRN IV 11/16/24 00:30 11/16/24 00:37 10 MG Enteral Nutritional Formula 1,000 ml 50ML/HR GT 11/16/24 09:30 11/17/24 05:30 1,000 ML Purified Water 200 ml Q6HR GT 11/16/24 12:00 11/17/24 12:00 200 ML Omeprazole 20 mg DAILY GT 11/16/24 10:00 11/16/24 11:05 20 MG Carvedilol 12.5 mg Q12HR GT 11/16/24 22:00 11/17/24 10:01 12.5 MG Laboratory Results Laboratory Tests 11/16/24 03:17 Urinalysis Test 11/09/24 19:38 Urine Color Light-yellow (Yellow) Urine Clarity Clear (Clear) Urine pH 7.5 (5.0-9.0) Urine Specific [place] 1.018 (1.001-1.035) Urine Protein 1+ (Negative) H Urine Ketones Negative (Negative) Urine Blood Negative /uL (Negative) Urine Nitrite Negative (Negative) Urine Bilirubin Negative (Negative) Urine Urobilinogen Normal mg/dL (Negative) Urine Leukocyte Esterase Negative /uL (Negative) Urine RBC 1 /hpf (0 - 3) Urine Microscopic WBC 3 /HPF (0-3) Urine Squamous Epithelial Cells None seen /hpf (<5) Urine Bacteria None seen /hpf (None Seen) Urine Glucose Normal mg/dL (Normal) Microbiology Microbiology Date/Time Source Procedure Growth Status 11/16/24 11:00 Blood Blood Culture - Preliminary NO GROWTH AFTER 24 HOURS OF INCUBATION. Resulted 11/10/24 00:00 Nose MRSA Screen - Final Complete Labs and/or images reviewed: Labs reviewed by me, Image(s) reviewed by me Assessment/Plan Assessment/Plan Impression: -acute hypoxic respiratory failure -community-acquired pneumonia, Pseudomonas aeruginosa, Klebsiella -accelerated hypertension -hypernatremia -history of CVA -bed-bound status -history of J-tube placement -acute kidney injury, vasomotor nephropathy -obstructive sleep apnea -Severe constipation Plan: Events: repeat blood culture negative x 24hrs. -continue antibiotic therapy with cefepime -pulmonology consultation: Reassess patient for bilateral pleural effusions -O2 supplementation to keep saturation greater than 92% -Jevity 50ml /hr -increase Coreg to 12.5. Continue Entresto -bowel regimen -repeat labs in a.m. -Plans for DC tomorrow. Total time spent with patient discussing and formulating plan of care: 35 minutes. This medical document was created using an electronic medical record system with [employer] dictation system. Although this document has been carefully reviewed, there may still be some phonetic and typographical errors. These areas are purely typographical due to imperfections of the software programs, and do not reflect any compromise in the patient's medical care. Plan discussed with: Patient, Other (RN) My Orders Orders - CAMELIA RHODES NP Procedure Category Date Status Time Carvedilol Tablet PHA 11/16/24 In Process (Coreg Tablet) 22:00 Date of Service: Nov 17, 2024 Billing Provider: CAMELIA RHODES NP Common Visit Codes: [id number] INP/OBS CARE(HIGH) CAMELIA RHODES NP Nov 17, 2024 13:36
[2024-11-18 01:00] VITALS: BP 142/31; PULSE 65; RESP 16; TEMP 99; O2SAT 100
[2024-11-18 05:00] VITALS: BP 135/34; PULSE 64; RESP 16; TEMP 99.3; O2SAT 100
[2024-11-18 06:55] LABS: Potassium 4.0 mmol/L (3.5-5.1)
[2024-11-18 06:56] LABS: Anion Gap 7 (5-15)
[2024-11-18 06:57] LABS: Calcium 9.7 mg/dL (8.7-10.4)
[2024-11-18 06:59] LABS: Carbon Dioxide 32 mmol/L (20-31); Chloride 110 mmol/L (98-107); Sodium 149 mmol/L (136-145)
[2024-11-18 07:13] LABS: Blood Urea Nitrogen 24 mg/dL (9-23); Glucose 114 mg/dL (74-106)
[2024-11-18 07:27] LABS: BUN/Creatinine Ratio 27.6 (10.0-20.0)
[2024-11-18 08:00] VITALS: PULSE 66
[2024-11-18 09:33] VITALS: BP 125/41; PULSE 60; RESP 16; TEMP 99; O2SAT 98
[2024-11-18] MEDS ORDERED: CEFD300C2 PO (11:18)
[2024-11-18 11:40] VITALS: BP 125/41; PULSE 60; RESP 16; TEMP 99; O2SAT 98
--- NOTE | 2024-11-18 12:33 | DVHPN2 ---
Progress Note - Dictate Date Seen: Nov 18, 2024 Medical Necessity Reason Pt with a Central, PICC or Fol: Yes The following are medically ne: Tristan Catheter Reason for tristan catheter: Strict I&O vital signs Vital Sign Date Time Temp Pulse Resp B/P (MAP) Pulse Ox O2 Delivery O2 Flow Rate FiO2 11/18/24 11:40 99.0 60 16 98 11/18/24 10:28 125/41 11/18/24 08:15 Nasal Cannula* 2 28 Total Intake and Output 11/17/24 11/17/24 11/18/24 15:00 23:00 07:00 Intake Total 50 ml 1036 ml Output Total 625 ml 350 ml Balance -575 ml 686 ml medications Current Medications Medications Dose Ordered Sig/Jim Route Start Time Stop Time Status Last Admin Dose Admin Sodium Chloride 10 ml Q8HR IV 11/09/24 22:00 11/18/24 05:23 10 ML Acetaminophen 650 mg Q6HP PRN AL 11/09/24 20:00 Dextrose 50 ml UD PRN IV 11/09/24 22:15 11/14/24 12:14 50 ML Enoxaparin Sodium 40 mg DAILY SC 11/11/24 10:00 11/18/24 10:28 40 MG Dextrose 1,000 ml @ 30 mls/hr Q24H IV 11/11/24 10:30 Cancel Sacubitril/ Valsartan 1 tab BID PO 11/12/24 22:00 11/16/24 10:04 1 TAB Furosemide 20 mg DAILY IV 11/14/24 10:00 11/18/24 10:28 20 MG Cefepime HCl 50 ml @ 12.5 mls/hr Q8H IV 11/15/24 18:00 11/18/24 10:20 12.5 MLS/HR Hydralazine HCl 10 mg Q6HP PRN IV 11/16/24 00:30 11/16/24 00:37 10 MG Enteral Nutritional Formula 1,000 ml 50ML/HR GT 11/16/24 09:30 11/18/24 04:00 1,000 ML Purified Water 200 ml Q6HR GT 11/16/24 12:00 11/18/24 12:07 200 ML Omeprazole 20 mg DAILY GT 11/16/24 10:00 11/18/24 10:22 20 MG Carvedilol 12.5 mg Q12HR GT 11/16/24 22:00 11/18/24 10:25 12.5 MG laboratory and microbiology Laboratory Tests 11/18/24 06:23 11/16/24 03:17 Test 11/18/24 06:23 Range/Units Serum Glucose 114 H 74-106 mg/dL Assessment/Plan Impression: Acute hypoxic respiratory failure Dependence on supplemental oxygen Pneumonia, likely gram negative Acute CHF exacerbation Metabolic encephalopathy Anemia Events: S/p extubation Low oxygen requirements On 2 liters nasal cannula No acute events Labs and imaging reviewed Management Supplemental oxygen Titrate to keep O2 sats above 92% Incentive spirometry Aspiration precautions Continue antibiotics. F/u cultures. Blood pressure control Echo reviewed F/u cardiology Monitor renal function Monitor electrolytes. Supplement as necessary. Monitor ins and outs. Diurese to euvolemia. Monitor hemoglobin Nutritional support DVT prophylaxis Dietary Evaluation Review Comments: 1) Initiate MVI @ 1 tb qd 2) Initiate vitamin C @ 500 mg bid 3) Consider switching TF formulary from Jevity 1.2 to Vital AF 1.2 @ 50 mL/hr goal rate as tolerated d/t increase protein needs. Goal rate (including Propofol) will provide 1634 kcals, 90g Pro, and 1003 mL free H2O per 24 hrs. TF rate will meet ~90% estimated energy needs and ~70% estimated protein needs. 4) Advance to 60g CCHO cardiac diet when medically feasible, pending ST approval 5) Follow-up with cardiology, pulmonology, and nephrology 6) Continue to monitor I&O, labs, and skin integrity Expected Outcomes/Goals: 1) TF regimen to meet at least 70% of estimated energy needs 2) wounds and lab to improve 3) diet to advance 4) f/u in 3-5 days Plan discussed with: Patient FREDDY PETER MD Nov 18, 2024 12:33
--- NOTE | 2024-11-18 13:18 | DVHDS2 ---
Discharge Summary Date of Admission Nov 09, 2024 at 21:51 Date of Discharge: Nov 18, 2024 Admitting Diagnosis Acute hypoxic respiratory failure Labs/Diagnostic Data: Laboratory Results Test 11/18/24 06:23 11/16/24 05:32 11/16/24 03:17 11/14/24 03:00 Sodium Level 149 mmol/L (136-145) Potassium Level 4.0 mmol/L (3.5-5.1) Chloride Level 110 mmol/L (98-107) Carbon Dioxide Level 32 mmol/L (20-31) Anion Gap 7 (5-15) Blood Urea Nitrogen 24 mg/dL (9-23) Creatinine 0.87 mg/dL (0.700-1.30) Glomerular Filtration Rate Calc 91 mL/min (>90) BUN/Creatinine Ratio 27.6 (10.0-20.0) Serum Glucose 114 mg/dL (74-106) Calcium Level 9.7 mg/dL (8.7-10.4) POC Glucose 117 mg/dl (70-106) White Blood Count 4.1 10^3/uL (4.4-10.8) Red Blood Count 3.71 10^6/uL (4.5-5.90) Hemoglobin 10.8 g/dL (13.5-17.5) Hematocrit 34.1 % (41.0-53.0) Mean Corpuscular Volume 91.9 fL (80.0-100.0) Mean Corpuscular Hemoglobin 29.2 pg (28.0-32.0) Mean Corpuscular Hemoglobin Concent 31.8 g/dL (32.0-36.0) Red Cell Distribution Width 15.4 % (11.8-14.3) Platelet Count 123 10^3/uL (140-450) Mean Platelet Volume 9.5 fL (6.9-10.8) Neutrophils (%) (Auto) 46.1 % (37.0-80.0) Lymphocytes (%) (Auto) 31.4 % (10.0-50.0) Monocytes (%) (Auto) 15.8 % (0.0-12.0) Eosinophils (%) (Auto) 5.6 % (0.0-7.0) Basophils (%) (Auto) 1.1 % (0.0-2.0) Neutrophils # (Auto) 1.9 10 ^3/uL (1.6-8.6) Lymphocytes # (Auto) 1.3 10 ^3/uL (0.4-5.4) Monocytes # (Auto) 0.6 10 ^3/uL (0-1.3) Eosinophils # (Auto) 0.2 10 ^3/uL (0-0.8) Basophils # (Auto) 0 10 ^3/uL (0-0.2) Nucleated Red Blood Cells 0.1 % Total Bilirubin 0.2 mg/dL (0.2-1.0) Aspartate Amino Transferase (AST) 26 U/L (13-40) Alanine Aminotransferase (ALT) 14 U/L (7-40) Alkaline Phosphatase 76 U/L (46-116) Total Protein 6.3 g/dL (5.7-8.2) Albumin 3.3 g/dL (3.2-4.8) Random Vancomycin Level 19.5 ug/mL (5-10) Test 11/13/24 11:07 11/12/24 20:53 11/12/24 11:22 11/11/24 06:53 Blood Gas Specimen Type Arterial Blood Gas Sample Site Right radial Blood Gas Patient Temperature 37.0 Arterial Blood Date Drawn [id number] Arterial Blood pH 7.417 (7.350-7.450) Arterial Blood Partial Pressure CO2 37.2 mmHg (35.0-48.0) Arterial Blood Partial Pressure O2 100.8 mmHg (83.0-108.0) Arterial Blood HCO3 23.4 mmol/L (21.0-28.0) Arterial Blood Oxygen Saturation 96.7 % (94.0-98.0) Arterial Blood Base Excess -0.8 mmol/L (-2.0-3.0) Arterial Blood Oxyhemoglobin 96.0 % (94.0-98.0) Arterial Blood Carboxyhemoglobin 0.2 % (0.5-1.5) Arterial Blood Methemoglobin 0.5 % (0.0-1.5) Damián Test Modified Blood Gas Total Hemoglobin 10.90 g/dL (13.5-17.5) Blood Gas Modality Vent - cpap Blood Gas Spontaneous Rate 15 FiO2 % 30.0 Blood Gas Pressure Support 7 Blood Gas PEEP or CPAP 5.0 Vancomycin Level Trough 32.0 ug/mL (5-10) Blood Gas Set Respiration Rate 12.0 Blood Gas Tidal Volume 400.0 Blood Gas Critical Value Read Back yes Blood Gas Notified Whom Blood Gas Notified Time [id number] Blood Gas Notified By meal attendant jenelle Smith 11/09/24 20:53 11/09/24 19:38 11/09/24 18:15 11/09/24 16:10 Hemoglobin A1c 6.0 % A1C (<5.7) B-Type Natriuretic Peptide 228.87 pg/mL (0-100) Urine Color Light-yellow (Yellow) Urine Clarity Clear (Clear) Urine pH 7.5 (5.0-9.0) Urine Specific [place] 1.018 (1.001-1.035) Urine Protein 1+ (Negative) Urine Ketones Negative (Negative) Urine Blood Negative /uL (Negative) Urine Nitrite Negative (Negative) Urine Bilirubin Negative (Negative) Urine Urobilinogen Normal mg/dL (Negative) Urine Leukocyte Esterase Negative /uL (Negative) Urine RBC 1 /hpf (0 - 3) Urine Microscopic WBC 3 /HPF (0-3) Urine Squamous Epithelial Cells None seen /hpf (<5) Urine Bacteria None seen /hpf (None Seen) Urine Glucose Normal mg/dL (Normal) Lactic Acid Level 1.6 mmol/L (0.4-2.0) Prothrombin Time 10.4 sec (9.3-11.8) Prothrombin Time INR 0.98 (0.9-1.15) Activated Partial Thromboplast Time 26.5 SEC (24.5-34.5) Other Laboratory Tests 11/18/24 06:23 11/16/24 03:17 Brief Hx & Hospital Course: History of Present Illness The patient is a 74-year-old male with past medical history of CKF, hypertension, DM, and CHF who presented to [facility] ED with complaint of hypoxia. As reported by family, patient has been experiencing labored breathing for the past 2 days, noted to be cyanotic, and altered, so EMS were called. Patient was seen and evaluated in the ED with increased hypoxia, increased work of breathing, altered mental status, getting worse and subsequently intubated. Laboratory data shows WBC 3.4, hemoglobin 11.2, hematocrit 36.2, platelets 117, sodium 141, potassium 5.5, BUN 53, creatinine 1.06, GFR 74, glucose 145, calcium 9.8, blood pressure 212/89 trending down to 130/57, heart rate 60, temperature 97.9 F, O2 saturation 99% on ventilator. Chest x-ray revealing cardiomegaly and left chest pacemaker noted, interstitial prominence and lung base infiltrates and effusions which may be due to multifocal pneumonia and/or CHF. Patient was started on IV antibiotic regimen azithromycin, please see medication orders section in the computer. On my assessment, patient is fully intubated, family at bedside, no diaphoresis, no diarrhea, no vomiting, no fever, no chills. Patient was admitted for further evaluation and medical management. Course of hospitalization: Patient was treated with empiric antibiotic therapy, bronchodilators. CT scan was performed of abdomen and pelvis which reveals prominent placement of J-tube. Tube feedings were restarted. Patient was subsequently weaned off mechanical ventilation. Sputum culture grew pansensitive Pseudomonas aeruginosa, as well as Klebsiella oxytoca. Blood cultures were found to be positive for Staphylococcus auricarilus.. Repeat blood culture negative for 48 hours. Patient is now back to his baseline neurological status. Discussion was made with the patient's family regarding plan of care. Patient will be discharged back home under their [facility] services. Patient will be continued on antibiotic therapy with cefdinir 300 mg p.o. b.i.d. for additional seven days. He will resume previous tube feedings, and resume all home medications. Physical examination General: Alert and Oriented x3. No acute distress. Well-nourished. Eyes: EOMI. Anicteric. HENT: Moist mucous membranes. Lungs: Clear to auscultation bilaterally. No accessory muscle use. Cardiovascular: Regular rate and rhythm. No murmur. No JVD. Abdomen: Soft, non-tender and non-distended. No palpable masses. Extremities: No edema. Non-tender. Skin: No rashes or lesions. Warm. Neurologic: No focal neurological deficits. CN II-XII grossly intact, but not individually tested. Psychiatric: Cooperative. Appropriate mood and affect. Total time spent with patient discussing and formulating plan of care: 35 minutes. This medical document was created using an electronic medical record system with [employer] system. Although this document has been carefully reviewed, there may still be some phonetic and typographical errors. These areas are purely typographical due to imperfections of the software programs, and do not reflect any compromise in the patient's medical care. Condition at Discharge: Poor Final Diagnosis/Problems List Acute Respiratory Failure Diagnosis: -community-acquired pneumonia, Pseudomonas aeruginosa, Klebsiella -accelerated hypertension -hypernatremia -history of CVA -bed-bound status -history of J-tube placement -acute kidney injury, vasomotor nephropathy -obstructive sleep apnea -Severe constipation Discharge Disposition: Home Discharge Instruct/Medications Diet: See Comment Diet comment: Home tube feeding Activity: No Restrictions, As Tolerated Follow Up/Referral: Follow up with PCP in 1-2 weeks Medications: Continue all previous home medications Cefdinir 300 mg p.o. b.i.d. x7 days Scheduled Carvedilol (Carvedilol), 1 TAB BID, (Reported) Cefdinir (Cefdinir), 1 CAP PO BID Losartan Potassium (Losartan Potassium), 1 TAB PO BID, (Reported) 36 Discharge Statement: "Patient was advised to return to the ER or call 911 if any headaches, dizziness, shortness of breath, chest pain, abdominal pain, bleeding, fevers, or worsening of medical condition. Patient was counseled about treatment plan, medications, possible side effects, patientverbalized understanding. All questions were answered to the best of my ability. This discharge took greater then 30 minutes in planning, reviewing documentation, counseling the patient, and discussing with other team members." ASSESSMENT ASSESSMENT Assessment Acute Respiratory Failure Date of Service: Nov 18, 2024 Billing Provider: CAMELIA RHODES NP Common Visit Codes: 76205-UPE/OBS DISCH DAY >30min CAMELIA RHODES NP Nov 18, 2024 13:18
[2024-11-18 13:46] VITALS: BP 127/42; PULSE 64; RESP 16; TEMP 98.7; O2SAT 95
== END 2024-11-18 15:12 | disposition home or self-care (01) | DRG 208 ==
LOC: EDBD 15:00 → ER 15:00 → OVERFLOW 21:51 → ICU WEST 23:45 → TELE-EAST 11-16 12:46
PROVIDERS: ADMIT Nurse Practitioner Acute Care; ATTEND Nurse Practitioner Acute Care
PROC: 5A1945Z Respiratory Ventilation, 24-96 Consecutive Hours (ICD-10-PCS; principal; 2024-11-09)
PROC: 05HM33Z Insertion of Infusion Device into Right Internal Jugular Vein, Percutaneous Approach (ICD-10-PCS; 2024-11-09)
PROC: 0BH17EZ Insertion of Endotracheal Airway into Trachea, Via Natural or Artificial Opening (ICD-10-PCS; 2024-11-09)
DX: J96.01 Acute respiratory failure with hypoxia (principal); J15.1 Pneumonia due to Pseudomonas; J15.69 Pneumonia due to other Gram-negative bacteria; J15.9 Unspecified bacterial pneumonia; J15.0 Pneumonia due to Klebsiella pneumoniae; G93.41 Metabolic encephalopathy; N17.0 Acute kidney failure with tubular necrosis; I50.43 Acute on chronic combined systolic (congestive) and diastolic (congestive) heart failure; E87.0 Hyperosmolality and hypernatremia; I16.1 Hypertensive emergency; E87.3 Alkalosis; I11.0 Hypertensive heart disease with heart failure; D64.9 Anemia, unspecified; G47.33 Obstructive sleep apnea (adult) (pediatric); K59.00 Constipation, unspecified; J98.4 Other disorders of lung; E11.9 Type 2 diabetes mellitus without complications; Z99.81 Dependence on supplemental oxygen; Z74.01 Bed confinement status; Z93.1 Gastrostomy status; Z79.84 Long term (current) use of oral hypoglycemic drugs; Z86.73 Personal history of transient ischemic attack (TIA), and cerebral infarction without residual deficits; Z79.899 Other long term (current) drug therapy
CPT/HCPCS: 31500; 36415; 36556; 36600; 71045; 74018; 74150; 80048; 80053; 80202; 81001; 82805; 82962; 83036; 83605; 83880; 85025; 85610; 85730; 87040; 87070; 87077; 87081; 87186; 87205; 92610; 93005; 93306; 94002; 94003; 94640; 96365; 96375; 99291; 99292; G0378; J2704; J3480; J3490

== ENCOUNTER 2025-01-24 11:26 | Inpatient (IN) | payer MEDICARE, MEDICAID ==
[~2025-01-24] VITALS: Ht 170.2 cm; Wt 88.9 kg
[~2025-01-24 11:26] MED LIST changes: +CEFD300C2 PO
--- NOTE | 2025-01-24 12:00 | ED.PDOC ---
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 Per patient's daughter (through the phone) he has flu-like symptoms including fever, cough with sputum since 3 days and his oxygen requirement has raised to 4 L. she also reports that he has been more altered, at baseline he can speak few words but since 3 days he is not speaking. EKGs shows paced rhythm with no significant ST or T-wave changes. Home meds: Carvedilol, losartan, hydralazine, aspirin, famotidine, Lantus, and Tylenol Time Seen by MD: 11:32 Primary Care Provider: UNKNOWN Reviewed Notes: Nurses Notes, Supervisor Feed Mill Notes Allergies: Coded Allergies: NO KNOWN ALLERGIES (Unverified , 09/24/24) Home Meds Active Scripts Cefdinir (Cefdinir) 300 Mg Cap, 1 CAP PO BID for 7 Days, #14 CAP Prov:CAMELIA RHODES CHILD AND FAMILY SERVICES SPECIALIST 11/18/24 Reported Medications Carvedilol (Carvedilol) 12.5 Mg Tab, 1 TAB BID 10/01/24 Losartan Potassium (Losartan Potassium) 25 Mg Tab, 1 TAB PO BID 10/01/24 Past Medical History PAST MEDICAL HISTORY: CHF, CKF, HTN Surgical History: Pacemaker Family History Family History: Unknown Social History Smoker: Unknown Alcohol: Unknown Drugs: Unknown Lives In: Home Constitutional: reports: others (Patient is altered, can not speak, collateral history given by daughter through the phone.) Physical Exam General Appearance: No Apparent Distress, Normal HEENT: Normal ENT Inspection, Pharynx Normal, TMs Normal Neck: Full Range of Motion, Non-Tender, Normal, Normal Inspection Respiratory: Chest Non-Tender, Rales Cardiovascular: No Edema, No JVD, No Murmur, No Gallop, Normal Peripheral Pulses, Regular Rate/Rhythm Breast Exam: Deferred Gastrointestinal: No Organomegaly, Non Tender, No Pulsatile Mass, Normal Bowel Sounds, Soft Genitalia: Deferred Pelvic: Deferred Rectal: Deferred Extremities: No calf tenderness, Normal capillary refill, Normal inspection, Normal range of motion, Non-tender, No pedal edema Musculoskeletal : Apperance: Normal Neurologic: Alert, mis specialist II-XII nml as Tested, No Motor Deficits, Normal Affect, Normal Mood, No Sensory Deficits Cerebellar Function: Normal Reflexes: Normal Skin: Dry, Normal Color, Warm Lymphatic: No Adenopathy EKG EKG : Comments Paced rhythm with no significant ST or T-wave changes Was a procedure done? Was a procedure done?: No Differential Diagnosis (ALOC) Differential Diagnosis: Dehydration, Encephalopathy, Hypoxemia X-Ray, Labs, Meds, VS Vital Signs Date Time Temp Pulse Resp B/P (MAP) Pulse Ox O2 Delivery O2 Flow Rate FiO2 01/24/25 15:00 98.7 67 16 130/39 (69) 99 98.7 01/24/25 13:29 22 76 Room Air* 0 21 01/24/25 12:36 99.3 102 20 119/48 96 99.3 01/24/25 11:45 60 Lab Test 01/24/25 16:10 01/24/25 15:35 01/24/25 13:14 01/24/25 12:15 Range/Units Influenza Type A Antigen Negative Negative Influenza Type B Antigen Negative Negative SARS-CoV-2 Antigen (Rapid) Positive *A NEGATIVE D-Dimer, Quantitative 7.23 H 0.0-0.49 mg/L FEU Magnesium Level 3.9 H 4.0 H 1.6-2.6 mg/dL Troponin I High Sensitivity 55 *H 59 *H 58 *H </=54 ng/L C-Reactive Protein High Sensitivity 1.86 H <1.0 mg/dL Thyroid Stimulating Hormone (TSH) 0.86 0.55-4.78 uIU/mL B-Type Natriuretic Peptide 32.31 0-100 pg/mL White Blood Count 4.9 4.4-10.8 10^3/uL Red Blood Count 2.59 L 4.5-5.90 10^6/uL Hemoglobin 7.5 L 13.5-17.5 g/dL Hematocrit 24.4 L 41.0-53.0 % Mean Corpuscular Volume 94.1 80.0-100.0 fL Mean Corpuscular Hemoglobin 28.9 28.0-32.0 pg Mean Corpuscular Hemoglobin Concent 30.7 L 32.0-36.0 g/dL Red Cell Distribution Width 16.9 H 11.8-14.3 % Platelet Count 105 L 140-450 10^3/uL Mean Platelet Volume 10.6 6.9-10.8 fL Neutrophils (%) (Auto) 47.0 37.0-80.0 % Lymphocytes (%) (Auto) 36.7 10.0-50.0 % Monocytes (%) (Auto) 12.4 H 0.0-12.0 % Eosinophils (%) (Auto) 3.6 0.0-7.0 % Basophils (%) (Auto) 0.3 0.0-2.0 % Neutrophils # (Auto) 2.3 1.6-8.6 10 ^3/uL Lymphocytes # (Auto) 1.8 0.4-5.4 10 ^3/uL Monocytes # (Auto) 0.6 0-1.3 10 ^3/uL Eosinophils # (Auto) 0.2 0-0.8 10 ^3/uL Basophils # (Auto) 0 0-0.2 10 ^3/uL Nucleated Red Blood Cells 0.1 % Sodium Level 158 H 136-145 mmol/L Potassium Level 4.9 3.5-5.1 mmol/L Chloride Level 112 H 98-107 mmol/L Carbon Dioxide Level 38 H 20-31 mmol/L Anion Gap 8 5-15 Blood Urea Nitrogen 86 *H 9-23 mg/dL Creatinine 1.81 H 0.700-1.30 mg/dL Glomerular Filtration Rate Calc 39 >90 mL/min BUN/Creatinine Ratio 47.5 H 10.0-20.0 Serum Glucose 91 74-106 mg/dL Lactic Acid Level 0.8 0.4-2.0 mmol/L Calcium Level 8.6 L 8.7-10.4 mg/dL Total Bilirubin 0.2 0.2-1.0 mg/dL Aspartate Amino Transferase (AST) 27 13-40 U/L Alanine Aminotransferase (ALT) 25 7-40 U/L Alkaline Phosphatase 88 46-116 U/L Total Protein 6.5 5.7-8.2 g/dL Albumin 3.3 3.2-4.8 g/dL Current Medications Medications (Trade) Dose Ordered Sig/Jim Route Start Time Stop Time Status Last Admin Sodium Chloride 1,000 ml @ 1,000 mls/hr Q1H ONCE IV 01/24/25 11:45 01/24/25 13:27 DC 9/18/25 17:30 Albuterol (Ventolin Medneb) 2.5 mg ONCE ONCE NEB 01/24/25 12:00 01/24/25 13:27 DC 01/24/25 13:28 Ipratropium [place] (Atrovent Medneb) 0.5 mg ONCE ONCE NEB 01/24/25 12:00 01/24/25 13:27 DC 01/24/25 13:29 Piperacillin Sod/ Tazobactam Sod 100 ml @ 100 mls/hr ONCE ONCE IV 01/24/25 12:00 01/24/25 13:30 DC 01/24/25 18:13 Time of 1ST Reevaluation: 18:00 Reevaluation 1ST: Unchanged Patient Education/Counseling: Diagnosis, Treatment, Prognosis, Need For Follow Up Family Education/Counseling: No Family Present Comments Patient was brought to the hospital due to altered mental status. Patient could not provide history, collateral history taken from family. Patient's vitals was normal. CBC showed severe anemia. Trop I mildly raised COVID-19 positive Patient was given IV fluid and Zosyn. Patient be admitted in hospital for further management and workup. SEPSIS Sepsis Screen Physician Orders Urinalysis (01/24/25 11:33) Chest Xray 1 View (01/24/25 11:33) Urine Bacterial Culture (01/24/25 11:33) Respiratory Culture W/ Gs (01/24/25 11:33) Blood Culture (01/24/25 11:33) Electrocardigram (01/24/25 12:14) Vital Signs Date Time Temp Pulse Resp B/P (MAP) Pulse Ox O2 Delivery O2 Flow Rate FiO2 01/24/25 15:00 98.7 67 16 130/39 (69) 99 98.7 01/24/25 13:29 22 76 Room Air* 0 21 01/24/25 12:36 99.3 102 20 119/48 96 99.3 01/24/25 11:45 60 Laboratory Tests Test 01/24/25 12:15 Lactic Acid Level 0.8 mmol/L (0.4-2.0) White Blood Count 4.9 10^3/uL (4.4-10.8) Medications Medications Dose Ordered Sig/Jim Route Start Time Stop Time Status Last Admin Dose Admin Albuterol 2.5 mg ONCE ONCE NEB 01/24/25 12:00 01/24/25 13:27 DC 01/24/25 13:28 Ipratropium [place] 0.5 mg ONCE ONCE NEB 01/24/25 12:00 01/24/25 13:27 DC 01/24/25 13:29 Piperacillin Sod/ Tazobactam Sod 100 ml @ 100 mls/hr ONCE ONCE IV 01/24/25 12:00 01/24/25 13:30 DC 01/24/25 18:13 Sodium Chloride 1,000 ml @ 1,000 mls/hr Q1H ONCE IV 01/24/25 11:45 01/24/25 13:27 DC 01/24/25 17:30 Departure 1 Departure Time of Disposition: 16:00 Impression: Primary Impression: Acute respiratory failure with hypoxia Additional Impression: Metabolic encephalopathy Disposition: ADMITTED INPATIENT Admit to: Tele Condition: Serious Critical Care Note Critical Care Time?: Yes (55 min-critical care time only) Stability Stability form required: No Heart Score Heart Score: Heart Score Response (Comments) Value History Slightly Suspicious 0 EKG Normal 0 Age >65 2 Risk Factors >3 or Hx ASHD 2 Troponin >3 x's Normal limit 2 Total 6 ALINAFRANTZSRINATH RESDIENT Jan 24, 2025 12:00
--- NOTE | 2025-01-24 12:15 | ECG ---
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
[2025-01-24] MEDS: IPRATROPIUM BROM 0.5 MG/2.5ML INH SOL ONE (12:45)
[2025-01-24] MEDS: ALBUTEROL SULF 2.5 MG/0.5ML(0.5%) NEB SOLN ONE (12:45)
--- NOTE | 2025-01-24 12:51 | DVH ---
XY CHEST XRAY 1 VIEW, HISTORY: pnumonia COMPARISON: XY CHEST PORTABLE on DOS: 11/13/24, XY CHEST XRAY 1 VIEW on DOS: 11/12/24, XY CHEST PORTABLE on DOS: 11/11/24 XY CHEST PORTABLE on DOS: 11/13/24, XY CHEST XRAY 1 VIEW on DOS: 11/12/24, XY CHEST PORTABLE on DOS: TECHNICAL DATA: 1 view of the chest was obtained. FINDINGS: Lines and tubes: A cardiac pacer is seen. Cardiomediastinal silhouette: Enlarged Pulmonary vasculature: normal Lung expansion: low Lung airspace: Bibasilar airspace opacity. Lung interstitium: normal Pleura: Small bilateral effusion. Pneumothorax: no Bones: Unremarkable Other: no IMPRESSION: Bibasilar airspace opacity. Small bilateral effusion. Cardiomegaly.
[2025-01-24 12:58] LABS: Alanine Aminotransferase 25 U/L (7-40); Albumin 3.3 g/dL (3.2-4.8); Alkaline Phosphatase 88 U/L (46-116); Anion Gap 8 (5-15); BUN/Creatinine Ratio 47.5 (10.0-20.0); Calcium 8.6 mg/dL (8.7-10.4); Carbon Dioxide 38 mmol/L (20-31); Chloride 112 mmol/L (98-107); Glucose 91 mg/dL (74-106); Magnesium 4.0 mg/dL (1.6-2.6); Potassium 4.9 mmol/L (3.5-5.1); Sodium 158 mmol/L (136-145); Total Protein 6.5 g/dL (5.7-8.2)
[2025-01-24 13:00] LABS: Bilirubin, Total 0.2 mg/dL (0.2-1.0); Blood Urea Nitrogen 86 mg/dL (9-23)
[2025-01-24 13:25] LABS: Hematocrit 24.4 % (41.0-53.0); Hemoglobin 7.5 g/dL (13.5-17.5); Mean Corpuscular Hemoglobin 28.9 pg (28.0-32.0); Mean Corpuscular Volume 94.1 fL (80.0-100.0); Nucleated Red Blood Cells % 0.1 %
[2025-01-24] MEDS: ALBUTEROL SULF 2.5 MG/0.5ML(0.5%) NEB SOLN NEB ONE (13:28)
[2025-01-24] MEDS: IPRATROPIUM BROM 0.5 MG/2.5ML INH SOL NEB ONE (13:29)
[2025-01-24 16:50] LABS: COVID19 ANTIGEN SOFIA FIA POSITIVE (NEGATIVE)
[2025-01-24] MEDS ORDERED: MORPHINE SULFATE INJ 2 MG/ml SYRG IV PRN (17:15)
[2025-01-24] MEDS ORDERED: REMDESIVIR PER PHARMACY 0 ML IV SCH (17:15)
[2025-01-24] MEDS ORDERED: ACETAMINOPHEN 500 MG TAB or CAP PO PRN (17:15)
[2025-01-24] MEDS ORDERED: NITROGLYCERIN 0.4 MG SL TAB SL PRN (17:15)
[2025-01-24] MEDS: SODIUM CHLORIDE 0.9% 1,000 ML IV ONE (17:30)
[2025-01-24] MEDS: ALBUTEROL SULF 2.5 MG/0.5ML(0.5%) NEB SOLN NEB PRN (17:42)
[2025-01-24 17:54] VITALS: O2SAT 100
[2025-01-24 17:56] VITALS: BP 130/39; PULSE 61; RESP 18; O2SAT 100
[2025-01-24] MEDS: PIPERACILLIN-TAZOB 3.375GM 100 ML IV ONE (18:13)
[2025-01-24 18:17] LABS: Magnesium 3.9 mg/dL (1.6-2.6)
--- NOTE | 2025-01-24 19:42 | DVHHP2 ---
History of Present Illness Reason for Visit: Altered mental status History of Present Illness 74-year-old male presents for evaluation of altered mental status. Patient with a history of dementia being bed ridden was noted to be progressively more lethargic from baseline with notable shortness for breath and cough. Patient al so having intermittent fever for the past three days. Patient at baseline communicates with simple words but for the past two days patient has become less interactive. Past Medical History Hypertension, dementia, chronic kidney disease, congestive heart failure Past Surgical History Pacemaker Family History Noncontributory Smoke: No ALCOHOL: none Drugs: None Lives: with Family Review of Systems Review of Systems Review of systems are currently negative otherwise addressed in HPI. Allergies: Coded Allergies: NO KNOWN ALLERGIES (Unverified , 09/24/24) Medications Current Medications Medications Dose Ordered Sig/Jim Route Start Time Stop Time Status Last Admin Dose Admin Acetaminophen 1,000 mg Q8HP PRN PO 01/24/25 17:15 Dexamethasone Sodium Phosphate 6 mg DAILY IV 01/24/25 17:15 02/03/25 17:14 Remdesivir 0 ml @ 0 mls/hr PER PHARMACY IV 01/24/25 17:15 01/29/25 17:14 Enoxaparin Sodium 30 mg DAILY SC 01/25/25 10:00 Albuterol 2.5 mg Q6HPRN PRN NEB 01/24/25 17:15 01/24/25 17:42 2.5 MG Azithromycin 250 ml @ 125 mls/hr DAILY IV 01/25/25 10:00 Dextrose/Sodium Chloride 1,000 ml @ 75 mls/hr [id number] IV 01/24/25 17:15 Ondansetron HCl 4 mg Q4HP PRN IV 01/24/25 17:15 Nitroglycerin 0.4 mg Q5MINP PRN SL 01/24/25 17:15 Morphine Sulfate 2 mg Q30M PRN IV 01/24/25 17:15 Remdesivir 100 mg/ Sodium Chloride 250 ml @ 250 mls/hr DAILY@1500 IV 01/25/25 15:00 01/28/25 15:59 Exam Vital Signs Vital Signs Date Time Temp Pulse Resp B/P (MAP) Pulse Ox O2 Delivery O2 Flow Rate FiO2 01/24/25 17:56 61 18 130/39 100 4.0 01/24/25 17:54 Nasal Cannula 01/24/25 17:54 36 01/24/25 15:00 98.7 98.7 Exam Gen: 74-year-old male in mild distress Skin: Warm, dry, normal color and texture, no rash. HEENT: Normocephalic atraumatic, mucous membranes moist and pink. Neck: Cervical and supraclavicular nodes normal without enlargement, trachea is midline, thyroid gland is normal without masses. Pulmonary: Diminished breath sounds bilaterally Cardiac: Regular rate and rhythm. No murmur Abdomen: Soft, nontender, nondistended, bowel sounds present all 4 quadrants, no guarding, no rigidity, no organomegaly. Extremities: No cyanosis, clubbing, no edema Neuro: Lethargic Labs/Xrays ORDERING PHYSICIAN: RAZ FULLER PROCEDURE(s): CXR1 - CHEST XRAY 1 VIEW REASON: pnumonia ORDER NUMBER(s): [id number], ACCESSION NUMBER(s): [id number] XY CHEST XRAY 1 VIEW, HISTORY: pnumonia COMPARISON: XY CHEST PORTABLE on DOS: 11/13/24, XY CHEST XRAY 1 VIEW on DOS: 11/12/24, XY CHEST PORTABLE on DOS: 11/11/24 XY CHEST PORTABLE on DOS: 11/13/24, XY CHEST XRAY 1 VIEW on DOS: 11/12/24, XY CHEST PORTABLE on DOS: 11/11/24 TECHNICAL DATA: 1 view of the chest was obtained. FINDINGS: Lines and tubes: A cardiac pacer is seen. Cardiomediastinal silhouette: Enlarged Pulmonary vasculature: normal Lung expansion: low Lung airspace: Bibasilar airspace opacity. Lung interstitium: normal Pleura: Small bilateral effusion. Pneumothorax: no Bones: Unremarkable Other: no IMPRESSION: Bibasilar airspace opacity. Small bilateral effusion. Cardiomegaly. ATED BY: DARRYL GILBERT MD DICTATED DATE/TIME: 01/24/251248 SIGNED BY: DARRYL GILBERT MD SIGNED DATE/TIME: 01/24/251248 CC: Labs Test 01/24/25 17:43 01/24/25 16:10 01/24/25 15:35 01/24/25 13:14 Range/Units Lactic Acid Level 1.0 0.4-2.0 mmol/L Influenza Type A Antigen Negative Negative Influenza Type B Antigen Negative Negative SARS-CoV-2 Antigen (Rapid) Positive *A NEGATIVE D-Dimer, Quantitative 7.23 H 0.0-0.49 mg/L FEU Magnesium Level 3.9 H 1.6-2.6 mg/dL Troponin I High Sensitivity 55 *H </=54 ng/L C-Reactive Protein High Sensitivity 1.86 H <1.0 mg/dL Thyroid Stimulating Hormone (TSH) 0.86 0.55-4.78 uIU/mL B-Type Natriuretic Peptide 32.31 0-100 pg/mL Test 01/24/25 12:15 Range/Units White Blood Count 4.9 4.4-10.8 10^3/uL Red Blood Count 2.59 L 4.5-5.90 10^6/uL Hemoglobin 7.5 L 13.5-17.5 g/dL Hematocrit 24.4 L 41.0-53.0 % Mean Corpuscular Volume 94.1 80.0-100.0 fL Mean Corpuscular Hemoglobin 28.9 28.0-32.0 pg Mean Corpuscular Hemoglobin Concent 30.7 L 32.0-36.0 g/dL Red Cell Distribution Width 16.9 H 11.8-14.3 % Platelet Count 105 L 140-450 10^3/uL Mean Platelet Volume 10.6 6.9-10.8 fL Neutrophils (%) (Auto) 47.0 37.0-80.0 % Lymphocytes (%) (Auto) 36.7 10.0-50.0 % Monocytes (%) (Auto) 12.4 H 0.0-12.0 % Eosinophils (%) (Auto) 3.6 0.0-7.0 % Basophils (%) (Auto) 0.3 0.0-2.0 % Neutrophils # (Auto) 2.3 1.6-8.6 10 ^3/uL Lymphocytes # (Auto) 1.8 0.4-5.4 10 ^3/uL Monocytes # (Auto) 0.6 0-1.3 10 ^3/uL Eosinophils # (Auto) 0.2 0-0.8 10 ^3/uL Basophils # (Auto) 0 0-0.2 10 ^3/uL Nucleated Red Blood Cells 0.1 % Sodium Level 158 H 136-145 mmol/L Potassium Level 4.9 3.5-5.1 mmol/L Chloride Level 112 H 98-107 mmol/L Carbon Dioxide Level 38 H 20-31 mmol/L Anion Gap 8 5-15 Blood Urea Nitrogen 86 *H 9-23 mg/dL Creatinine 1.81 H 0.700-1.30 mg/dL Glomerular Filtration Rate Calc 39 >90 mL/min BUN/Creatinine Ratio 47.5 H 10.0-20.0 Serum Glucose 91 74-106 mg/dL Calcium Level 8.6 L 8.7-10.4 mg/dL Total Bilirubin 0.2 0.2-1.0 mg/dL Aspartate Amino Transferase (AST) 27 13-40 U/L Alanine Aminotransferase (ALT) 25 7-40 U/L Alkaline Phosphatase 88 46-116 U/L Total Protein 6.5 5.7-8.2 g/dL Albumin 3.3 3.2-4.8 g/dL SEPSIS Sepsis Screen Date sepsis recognized/suspect: Jan 24, 2025 Time Sepsis recognized/suspect: 1518 Recent Procedure: No On Antibiotic Therapy: No Respiratory Rate >20: No Heart Rate >90: No Temp<36 C (96.8 F) or >38.3 C: No SBP <90 or MAP <65 mmHG: No New Acute Mental Status Change: No Is the patient on CPAP, BIPAP,: No Physician Orders Urinalysis (01/24/25 11:33) Chest Xray 1 View (01/24/25 11:33) Urine Bacterial Culture (01/24/25 11:33) Respiratory Culture W/ Gs (01/24/25 11:33) Blood Culture (01/24/25 11:33) Electrocardigram (01/24/25 12:14) Isolation Order (01/24/25 17:08) Precautions (Contact,Droplets, (01/24/25 17:08) Complete Blood Count (01/25/25 05:30) Comprehensive Metabolic Panel (01/25/25 05:30) Complete Blood Count (01/28/25 05:30) Comprehensive Metabolic Panel (01/28/25 05:30) Lactate Dehydrogenase (01/28/25 05:30) Ferritin (01/28/25 05:30) Chest Portable (01/25/25 07:00) Chest Portable (01/28/25 07:00) Acetaminophen Tab Or Cap (Tylenol Tablet (01/24/25 17:15) Oob To Chair Q4HR (01/24/25 17:08) Incentive Spirometry Q 1hr (01/24/25 17:08) Fast Food Sales Assistant (01/24/25 17:08) C-Reactive Protein (01/28/25 17:08) Dexamethasone Injection (Decadron Inject (01/24/25 17:15) Remdesivir Per Pharmacy (01/24/25 17:15) Enoxaparin Sodium (Lovenox) (01/25/25 10:00) Albuterol Medneb (Ventolin Medneb) (01/24/25 17:15) Azithromycin 500mg/ 250ml (Zithromax 50 (01/25/25 10:00) Consult For Nutrition (01/24/25 17:08) D5w/Sod Chl 0.45% (D5w 1/2ns) (01/24/25 17:15) Admit (01/24/25 17:08) Ondansetron Hcl (Zofran) (01/24/25 17:15) Condition: Fair (01/24/25 17:08) Maintain Bed Rest (01/24/25 17:08) Sequential Compression Device (01/24/25 ) Nitroglycerin Sublingual (Ntrostat Subli (01/24/25 17:15) Morphine Sulfate Injection (01/24/25 17:15) Stat Ekg For Chest Pain (01/24/25 17:08) Notify Of Changes From Base (01/24/25 17:08) Fast Food Sales Assistant For 24 Hours (01/24/25 17:08) Emergency Dysrhythmia Protocol (01/24/25 17:08) Rhythm Strips Once Every Shift (01/24/25 17:08) Oxygen By Nasal Cannula (01/24/25 17:08) *[facility] (01/24/25 17:15) Remdesivir 100mg (Veklury) (01/25/25 15:00) Nm Vq Scan (01/24/25 19:36) Heparin Sodium (Porcine) (01/24/25 22:00) Vital Signs Date Time Temp Pulse Resp B/P (MAP) Pulse Ox O2 Delivery O2 Flow Rate FiO2 01/24/25 17:56 61 18 130/39 100 4.0 01/24/25 17:54 100 Nasal Cannula 4.0 01/24/25 17:54 100 Nasal Cannula* 4 36 01/24/25 15:00 98.7 67 16 130/39 (69) 99 98.7 01/24/25 13:29 22 76 Room Air* 0 21 01/24/25 12:36 99.3 102 20 119/48 96 99.3 01/24/25 11:45 60 Laboratory Tests Test 01/24/25 12:15 01/24/25 17:43 Lactic Acid Level 0.8 mmol/L (0.4-2.0) 1.0 mmol/L (0.4-2.0) White Blood Count 4.9 10^3/uL (4.4-10.8) Medications Medications Dose Ordered Sig/Jim Route Start Time Stop Time Status Last Admin Dose Admin Albuterol 2.5 mg ONCE ONCE NEB 01/24/25 12:00 01/24/25 13:27 DC 01/24/25 13:28 2.5 MG Albuterol 2.5 mg Q6HPRN PRN NEB 01/24/25 17:15 01/24/25 17:42 2.5 MG Ipratropium [place] 0.5 mg ONCE ONCE NEB 01/24/25 12:00 01/24/25 13:27 DC 01/24/25 13:29 0.5 MG Piperacillin Sod/ Tazobactam Sod 100 ml @ 100 mls/hr ONCE ONCE IV 01/24/25 12:00 01/24/25 13:30 DC 01/24/25 18:13 100 MLS/HR Sodium Chloride 1,000 ml @ 1,000 mls/hr Q1H ONCE IV 01/24/25 11:45 01/24/25 13:27 DC 01/24/25 17:30 1,000 MLS/HR Assessment/Plan Assessment/Plan Assessment Metabolic encephalopathy COVID-19 Pneumonia secondary to the above Acute hypoxic respiratory failure Anemia Acute renal failure Hypernatremia Dementia Elevated troponin, downtrending,? Demand ischemia Plan Admit the patient to telemetry to the hospitalist Nephrology consultation COVID-19 protocol Maintenance IV fluids Continue treatment per orders. Plan discussed with: Other My Orders Orders - ZORA TURNER AGACNP Procedure Category Date Status Time Isolation Order ORDERS 01/24/25 Transmitted 17:08 Precautions TOMI 01/24/25 In Process (Contact,Droplets, 17:08 Complete Blood Count LAB 01/25/25 Verified 05:30 Comprehensive LAB 01/25/25 Verified Metabolic Panel 05:30 Complete Blood Count LAB 01/28/25 Verified 05:30 Comprehensive LAB 01/28/25 Verified Metabolic Panel 05:30 Lactate Dehydrogenase LAB 01/28/25 Verified 05:30 Ferritin LAB 01/28/25 Verified 05:30 Chest Portable XY 01/25/25 Logged 07:00 Chest Portable XY 01/28/25 Logged 07:00 Acetaminophen Tab Or PHA 01/24/25 In Process Cap (Tylenol Tablet 17:15 Oob To Chair TOMI 01/24/25 In Process 17:08 Incentive Spirometry ORDERS 01/24/25 Transmitted Q 1hr 17:08 Fast Food Sales Assistant ORDERS 01/24/25 Transmitted 17:08 C-Reactive Protein LAB 01/28/25 Verified 17:08 Dexamethasone PHA 01/24/25 In Process Injection (Decadron 17:15 Remdesivir Per PHA 01/24/25 In Process Pharmacy 17:15 Enoxaparin Sodium PHA 01/25/25 In Process (Lovenox) 10:00 Albuterol Medneb PHA 01/24/25 In Process (Ventolin Medneb) 17:15 Azithromycin 500mg/ PHA 01/25/25 In Process 250ml (Zithromax 50 10:00 Consult For Nutrition NOURISH 01/24/25 Transmitted 17:08 D5w/Sod Chl 0.45% PHA 01/24/25 In Process (D5w 1/2ns) 17:15 Admit ADMIT 01/24/25 Transmitted 17:08 Ondansetron Hcl PHA 01/24/25 In Process (Zofran) 17:15 Condition: Fair TOMI 01/24/25 In Process 17:08 Maintain Bed Rest TOMI 01/24/25 In Process 17:08 Sequential TOMI 01/24/25 In Process Compression Device Nitroglycerin PHA 01/24/25 In Process Sublingual (Ntrostat 17:15 Morphine Sulfate PHA 01/24/25 In Process Injection 17:15 Stat Ekg For Chest TOMI 01/24/25 In Process Pain 17:08 Notify Of Changes TOMI 01/24/25 In Process From Base 17:08 Fast Food Sales Assistant For [facility] 01/24/25 In Process 24 Hours 17:08 Emergency Dysrhythmia [facility] 01/24/25 In Process Protocol 17:08 Rhythm Strips Once [facility] 01/24/25 In Process Every Shift 17:08 Oxygen By Nasal RT 01/24/25 Transmitted Cannula 17:08 *[facility] CONS 01/24/25 Transmitted [place] 17:15 Remdesivir 100mg PHA 01/25/25 In Process (Veklury) 15:00 Nm Vq Scan NM 01/24/25 Verified 19:36 Heparin Sodium PHA 01/24/25 Verified (Porcine) 22:00 Date of Service: Jan 24, 2025 Billing Provider: ZORA TURNER Common Visit Codes: [id number] INP/OBS CARE (HIGH) ZORA TURNER Jan 24, 2025 19:42
[2025-01-24 20:30] VITALS: PULSE 60; RESP 20; O2SAT 100
[2025-01-24] MEDS: D5W/SOD CHL 0.45% 1,000 ML IV SCH (20:30)
[2025-01-24] MEDS: REMDESIVIR 200mg in NS 210mL LOADING DOSE ADULT IV ONE (20:38)
[2025-01-24] MEDS: HEPARIN SODIUM (PORCINE) 5000 UNITS/ML 1ML VIAL SC SCH (22:56)
[2025-01-25 05:42] LABS: Hematocrit 25.2 % (41.0-53.0); Hemoglobin 7.8 g/dL (13.5-17.5); Mean Corpuscular Hemoglobin 29.4 pg (28.0-32.0); Mean Corpuscular Volume 95.4 fL (80.0-100.0); Nucleated Red Blood Cells % 0.4 %
[2025-01-25 05:50] VITALS: O2SAT 98
--- NOTE | 2025-01-25 05:50 | DVH ---
CHEST RADIOGRAPH Indication: Covid-19 pneumonia Technique: 1 view Comparison: Previous study chest radiograph, CT abdomen/pelvis 11/14/2024 FINDINGS: Lines and Tubes: Partially imaged left implanted cardiac device with unchanged positioning of termina l leads. Lungs/Pleura: Unchanged. Cardiomediastinum: Unchanged. Other: Unchanged osseous structures. IMPRESSION: 1. No significant change from the previous day. [id number] perihilar interstitial opaci ties which may represent atypical infection or edema. 2. Likely small pleural effusions which were present on comparison CT.
[2025-01-25 06:03] LABS: Alanine Aminotransferase 24 U/L (7-40); Albumin 3.4 g/dL (3.2-4.8); Alkaline Phosphatase 83 U/L (46-116); Anion Gap 10 (5-15); BUN/Creatinine Ratio 44.4 (10.0-20.0); Calcium 8.7 mg/dL (8.7-10.4); Potassium 4.8 mmol/L (3.5-5.1); Total Protein 6.7 g/dL (5.7-8.2)
[2025-01-25 06:04] LABS: Bilirubin, Total 0.2 mg/dL (0.2-1.0); Blood Urea Nitrogen 71 mg/dL (9-23); Carbon Dioxide 34 mmol/L (20-31); Chloride 115 mmol/L (98-107); Glucose 156 mg/dL (74-106); Sodium 159 mmol/L (136-145)
[2025-01-25] MEDS ORDERED: ENOXAPARIN SOD 30 MG/0.3 ML SYRINGE SC SCH (10:00)
[2025-01-25] MEDS: AZITHROMYCIN 500MG/ 250ML 250 ML IV SCH (10:00)
--- NOTE | 2025-01-25 11:57 | DVHPN2 ---
Subjective The patient is seen and examined at bedside. Complain of shortness for breath. Reviewed: Care Plan, H&P, Labs, Medications, Previous Orders, Radiology Changes from previous H/P or p: No Changes Objective Vitals Vital Signs Date Time Temp Pulse Resp B/P (MAP) Pulse Ox O2 Delivery O2 Flow Rate FiO2 01/25/25 08:00 74 17 161/62 (95) 99 01/25/25 06:00 97.6 97.6 01/25/25 05:50 Nasal Cannula* 4 36 General Appearance: Alert, Cooperative HEENT: Atraumatic, PERRLA, EOMI Neck: Supple Lungs: Clear to auscultation, Normal air movement Cardiovascular: Regular rate, Normal S1, Normal S2, No murmurs, Gallops, Rubs Abdomen: Normal bowel sounds, Soft, No tenderness Neuro: Cranial nerves 3-12 NL Psych/Mental Status: Mental status NL Medications Current Medications Medications Dose Ordered Sig/Jim Route Start Time Stop Time Status Last Admin Dose Admin Acetaminophen 1,000 mg Q8HP PRN PO 01/24/25 17:15 Dexamethasone Sodium Phosphate 6 mg DAILY IV 01/24/25 17:15 02/03/25 17:14 01/24/25 20:33 6 MG Remdesivir 0 ml @ 0 mls/hr PER PHARMACY IV 01/24/25 17:15 01/29/25 17:14 Albuterol 2.5 mg Q6HPRN PRN NEB 01/24/25 17:15 01/24/25 17:42 2.5 MG Azithromycin 250 ml @ 125 mls/hr DAILY IV 01/25/25 10:00 Dextrose/Sodium Chloride 1,000 ml @ 75 mls/hr [id number] IV 01/24/25 17:15 01/25/25 06:42 75 MLS/HR Ondansetron HCl 4 mg Q4HP PRN IV 01/24/25 17:15 Nitroglycerin 0.4 mg Q5MINP PRN SL 01/24/25 17:15 Morphine Sulfate 2 mg Q30M PRN IV 01/24/25 17:15 Remdesivir 100 mg/ Sodium Chloride 250 ml @ 250 mls/hr DAILY@1500 IV 01/25/25 15:00 01/28/25 15:59 Heparin Sodium (Porcine) 5,000 units Q12HR SC 01/24/25 22:00 01/24/25 22:56 5,000 UNITS Laboratory Results Laboratory Tests 01/25/25 04:56 Chemistry Test 01/24/25 12:15 01/24/25 15:35 01/25/25 04:56 Albumin 3.3 g/dL (3.2-4.8) 3.4 g/dL (3.2-4.8) Calcium Level 8.6 mg/dL (8.7-10.4) L 8.7 mg/dL (8.7-10.4) Magnesium Level 4.0 mg/dL (1.6-2.6) H 3.9 mg/dL (1.6-2.6) H Total Protein 6.5 g/dL (5.7-8.2) 6.7 g/dL (5.7-8.2) Coagulation Test 01/24/25 15:35 D-Dimer, Quantitative 7.23 mg/L FEU (0.0-0.49) H Cardiac Markers Test 01/24/25 13:14 B-Type Natriuretic Peptide 32.31 pg/mL (0-100) LFT Test 01/24/25 12:15 01/25/25 04:56 Alanine Aminotransferase (ALT) 25 U/L (7-40) 24 U/L (7-40) Alkaline Phosphatase 88 U/L (46-116) 83 U/L (46-116) Aspartate Amino Transferase (AST) 27 U/L (13-40) 25 U/L (13-40) Total Bilirubin 0.2 mg/dL (0.2-1.0) 0.2 mg/dL (0.2-1.0) HgA1c, TSH Test 01/24/25 15:35 Thyroid Stimulating Hormone (TSH) 0.86 uIU/mL (0.55-4.78) Microbiology Microbiology Date/Time Source Procedure Growth Status 01/24/25 12:15 Blood Blood Culture - Preliminary Resulted Labs and/or images reviewed: Labs reviewed by me Assessment/Plan Assessment/Plan Metabolic encephalopathy COVID-19 Pneumonia secondary to the above Acute hypoxic respiratory failure Anemia Acute renal failure Hypernatremia Dementia Elevated troponin, downtrending,? Demand ischemia Plan Continuing current management. Continuing with IV antibiotic. Continuing with remdesivir. We will monitor kidney function Plan discussed with: Patient Date of Service: Jan 25, 2025 Billing Provider: ALEE ANGUIANO MD Common Visit Codes: [id number] INP/OBS CARE(HIGH) ALEE ANGUIANO MD Jan 25, 2025 11:57
[2025-01-25 14:25] LABS: Urine Protein, UAD 1+ (Negative)
[2025-01-25] MEDS: REMDESIVIR 100mg in NS 230mL (5 DAY REGIMEN) IV SCH (15:00)
[2025-01-25 17:00] VITALS: BP 166/91; PULSE 65; RESP 17; TEMP 98.7; O2SAT 100
[2025-01-25] MEDS: D5W 5% 1,000 ML IV SCH (17:15)
--- NOTE | 2025-01-25 17:15 | DVHINCON2 ---
Date of service: Jan 25, 2025 Reason for Consultation COURTNEY History of Present Illness 74 years old male past medical history of hypertension Chronic kidney disease, Congestive heart failure, dementia, presented with chief complaints of altered mental status patient was bedridden and was noted to be progressively lethargic than baseline as per HPI he was also found to have shortness of breath and cough and fever found to be COVID positive Past Medical History As per HPI Past Surgical History Unknown Allergies: Coded Allergies: NO KNOWN ALLERGIES (Unverified , 09/24/24) Home Meds Active Scripts Cefdinir (Cefdinir) 300 Mg Cap, 1 CAP PO BID for 7 Days, #14 CAP Prov:CAMELIA [employer] 11/18/24 Reported Medications Acetaminophen (M-Pap) 160 Mg/5 Ml Liq, 160 MG GT PRN for PAIN SCALE 1-3 OR TEMP>100.4, LIQ 01/26/25 Insulin Glargine-Yfgn (Insulin Glargine) 100 Unit/Ml Inj, 10 UNIT SC DAILY, INJ 01/26/25 Aspirin (Aspirin) 325 Mg Tab, 81 MG GT DAILY for 30 Days, MG 01/26/25 Famotidine (Famotidine) 20 Mg Tab, 20 MG GT DAILY for 30 Days, MG 01/26/25 Losartan Potassium (Losartan Potassium) 25 Mg Tab, 25 MG GT BID for 30 Days, MG 01/26/25 Hydralazine Hcl (Hydralazine Hcl) 50 Mg Tab, 50 MG GT TID for 30 Days, MG 01/26/25 Carvedilol (Carvedilol) 6.25 Mg Tab, 1 TAB GT BID, #180 TAB 1 Refill 01/26/25 Carvedilol (Carvedilol) 12.5 Mg Tab, 1 TAB BID 10/01/24 Losartan Potassium (Losartan Potassium) 25 Mg Tab, 1 TAB PO BID 10/01/24 Current Medications Current Medications Medications (Trade) Dose Ordered Sig/Jim Route PRN Reason Start Time Stop Time Status Last Admin Enteral Nutritional Formula (Jevity 1.2 Stanley/ Fiber) 1,000 ml 60ML/HR GT 01/26/25 11:45 01/26/25 14:26 Dextrose 1,000 ml @ 100 mls/hr Q10H IV 01/26/25 13:45 01/26/25 23:53 Ceftriaxone Sodium 50 ml @ 100 mls/hr DAILY@09 IV 01/27/25 09:00 Family History: Unknown Unknown family medical history Review of Systems Unable to obtain H&P Exam Vital Signs/I&O Vital Sign Date Time Temp Pulse Resp B/P (MAP) Pulse Ox O2 Delivery O2 Flow Rate FiO2 01/27/25 09:00 97.6 60 15 144/54 (84) 100 97.6 01/26/25 20:00 Nasal Cannula* 3 32 Intake and Output 01/26/25 01/27/25 19:00 07:00 Intake Total 550 ml 1000 ml Output Total 700 ml 825 ml Balance -150 ml 175 ml Intake Oral 0 ml IV Total 550 ml 1000 ml Output Urine Total 700 ml 825 ml # Bowel Movements 1 Physical Exam General-not in any distress HEENT-normocephalic, Respiratory-fair air entry bilateral, [id number] heard, no murmurs appreciated Abdominal-soft, nontender, nondistended Musculoskeletal-no pedal edema, no calf tenderness Labs/Diagnostic Data Labs/Diagnostic Data Laboratory Tests Test 01/27/25 04:54 01/25/25 13:25 01/25/25 04:56 01/24/25 17:43 Range/Units White Blood Count 4.4 3.6 #L 4.4-10.8 10^3/uL Red Blood Count 2.63 L 2.64 L 4.5-5.90 10^6/uL Hemoglobin 7.8 L 7.8 L 13.5-17.5 g/dL Hematocrit 25.1 L 25.2 L 41.0-53.0 % Mean Corpuscular Volume 95.2 95.4 80.0-100.0 fL Mean Corpuscular Hemoglobin 29.6 29.4 28.0-32.0 pg Mean Corpuscular Hemoglobin Concent 31.1 L 30.8 L 32.0-36.0 g/dL Red Cell Distribution Width 16.3 H 16.8 H 11.8-14.3 % Platelet Count 141 115 L 140-450 10^3/uL Mean Platelet Volume 11.4 H 11.4 H 6.9-10.8 fL Neutrophils (%) (Auto) 53.5 69.6 37.0-80.0 % Lymphocytes (%) (Auto) 33.4 27.9 10.0-50.0 % Monocytes (%) (Auto) 12.9 H 2.2 0.0-12.0 % Eosinophils (%) (Auto) 0.1 0.1 0.0-7.0 % Basophils (%) (Auto) 0.1 0.2 0.0-2.0 % Neutrophils # (Auto) 2.4 2.5 1.6-8.6 10 ^3/uL Lymphocytes # (Auto) 1.5 1.0 0.4-5.4 10 ^3/uL Monocytes # (Auto) 0.6 0.1 0-1.3 10 ^3/uL Eosinophils # (Auto) 0 0 0-0.8 10 ^3/uL Basophils # (Auto) 0 0 0-0.2 10 ^3/uL Nucleated Red Blood Cells 0.6 0.4 % Sodium Level 154 #H 159 H 136-145 mmol/L Potassium Level 4.8 4.8 3.5-5.1 mmol/L Chloride Level 113 H 115 H 98-107 mmol/L Carbon Dioxide Level 32 H 34 H 20-31 mmol/L Anion Gap 9 10 5-15 Blood Urea Nitrogen 55 #H 71 #H 9-23 mg/dL Creatinine 1.25 1.60 H 0.700-1.30 mg/dL Glomerular Filtration Rate Calc 60 45 >90 mL/min BUN/Creatinine Ratio 44.0 H 44.4 H 10.0-20.0 Serum Glucose 202 H 156 H 74-106 mg/dL Calcium Level 8.4 L 8.7 8.7-10.4 mg/dL Total Bilirubin < 0.2 L 0.2 0.2-1.0 mg/dL Aspartate Amino Transferase (AST) 26 25 13-40 U/L Alanine Aminotransferase (ALT) 23 24 7-40 U/L Alkaline Phosphatase 64 83 46-116 U/L Total Protein 6.2 6.7 5.7-8.2 g/dL Albumin 3.1 L 3.4 3.2-4.8 g/dL Urine Color Yellow Yellow Urine Clarity Clear Clear Urine pH 6.5 5.0-9.0 Urine Specific [place] 1.019 1.001-1.035 Urine Protein 1+ H Negative Urine Ketones Negative Negative Urine Blood Negative Negative /uL Urine Nitrite Negative Negative Urine Bilirubin Negative Negative Urine Urobilinogen Normal Negative mg/dL Urine Leukocyte Esterase Negative Negative /uL Urine RBC <1 0 - 3 /hpf Urine Microscopic WBC 2 0-3 /HPF Urine Squamous Epithelial Cells None seen <5 /hpf Urine Bacteria None seen None Seen /hpf Urine Glucose Normal Normal mg/dL Lactic Acid Level 1.0 0.4-2.0 mmol/L Test 01/24/25 16:10 01/24/25 15:35 01/24/25 13:14 01/24/25 12:15 Range/Units Influenza Type A Antigen Negative Negative Influenza Type B Antigen Negative Negative SARS-CoV-2 Antigen (Rapid) Positive *A NEGATIVE D-Dimer, Quantitative 7.23 H 0.0-0.49 mg/L FEU Magnesium Level 3.9 H 4.0 H 1.6-2.6 mg/dL Troponin I High Sensitivity 55 *H 59 *H 58 *H </=54 ng/L C-Reactive Protein High Sensitivity 1.86 H <1.0 mg/dL Thyroid Stimulating Hormone (TSH) 0.86 0.55-4.78 uIU/mL B-Type Natriuretic Peptide 32.31 0-100 pg/mL White Blood Count 4.9 4.4-10.8 10^3/uL Red Blood Count 2.59 L 4.5-5.90 10^6/uL Hemoglobin 7.5 L 13.5-17.5 g/dL Hematocrit 24.4 L 41.0-53.0 % Mean Corpuscular Volume 94.1 80.0-100.0 fL Mean Corpuscular Hemoglobin 28.9 28.0-32.0 pg Mean Corpuscular Hemoglobin Concent 30.7 L 32.0-36.0 g/dL Red Cell Distribution Width 16.9 H 11.8-14.3 % Platelet Count 105 L 140-450 10^3/uL Mean Platelet Volume 10.6 6.9-10.8 fL Neutrophils (%) (Auto) 47.0 37.0-80.0 % Lymphocytes (%) (Auto) 36.7 10.0-50.0 % Monocytes (%) (Auto) 12.4 H 0.0-12.0 % Eosinophils (%) (Auto) 3.6 0.0-7.0 % Basophils (%) (Auto) 0.3 0.0-2.0 % Neutrophils # (Auto) 2.3 1.6-8.6 10 ^3/uL Lymphocytes # (Auto) 1.8 0.4-5.4 10 ^3/uL Monocytes # (Auto) 0.6 0-1.3 10 ^3/uL Eosinophils # (Auto) 0.2 0-0.8 10 ^3/uL Basophils # (Auto) 0 0-0.2 10 ^3/uL Nucleated Red Blood Cells 0.1 % Sodium Level 158 H 136-145 mmol/L Potassium Level 4.9 3.5-5.1 mmol/L Chloride Level 112 H 98-107 mmol/L Carbon Dioxide Level 38 H 20-31 mmol/L Anion Gap 8 5-15 Blood Urea Nitrogen 86 *H 9-23 mg/dL Creatinine 1.81 H 0.700-1.30 mg/dL Glomerular Filtration Rate Calc 39 >90 mL/min BUN/Creatinine Ratio 47.5 H 10.0-20.0 Serum Glucose 91 74-106 mg/dL Lactic Acid Level 0.8 0.4-2.0 mmol/L Calcium Level 8.6 L 8.7-10.4 mg/dL Total Bilirubin 0.2 0.2-1.0 mg/dL Aspartate Amino Transferase (AST) 27 13-40 U/L Alanine Aminotransferase (ALT) 25 7-40 U/L Alkaline Phosphatase 88 46-116 U/L Total Protein 6.5 5.7-8.2 g/dL Albumin 3.3 3.2-4.8 g/dL Assessment Acute kidney injury hemodynamic mediated etiology Hypernatremia COVID pneumonia Encephalopathy Acute hypoxic respiratory failure Recommendations Hypotonic IV fluid Currently on remdesivir and steroids for COVID pneumonia We will monitor renal function closely Septic workup Reviewed vital signs, lab work, imaging studies, medications, microbiology, other physician recommendations Total time spent 70 minutes More than 50% of the time spent providing direct [id number] care . Thank you for allowing me to participate in the care of your patient. Plan discussed with: LC Pittman MD Jan 25, 2025 17:15
[2025-01-25 19:50] VITALS: O2SAT 100
[2025-01-25 20:00] VITALS: PULSE 68; RESP 19; O2SAT 100
[2025-01-25 21:00] VITALS: BP 154/39; PULSE 71; RESP 19; TEMP 98.6; O2SAT 100
[2025-01-26] VITALS (10 sets, daily range): BP systolic 119–164; BP diastolic 41–70; PULSE 60–73; RESP 14–19; TEMP 97.6–99.2; O2SAT 98–100
[2025-01-26] MEDS: GASTROGRAFIN 30 ML SOL ONE (01:38)
[2025-01-26] MEDS ORDERED: HYDROcodone-ACET 5/325MG TAB PO PRN (01:45)
[2025-01-26] MEDS ORDERED: [UNRECOGNIZED DRUG - CODE] GT (02:00)
[2025-01-26] MEDS ORDERED: LOSA-533 GT (02:00)
[2025-01-26] MEDS ORDERED: ASPI325T6 GT (02:00)
[2025-01-26] MEDS ORDERED: CARV6.2551 GT (02:00)
[2025-01-26] MEDS ORDERED: HYDR50TA47 GT (02:00)
[2025-01-26] MEDS ORDERED: FAMO-12 GT (02:00)
[2025-01-26] MEDS ORDERED: INSU100I70 SC (02:00)
[2025-01-26] MEDS: hydrALAZINE HCL 20 MG/ML VL IV PRN (02:27)
--- NOTE | 2025-01-26 02:52 | DVH ---
Exam: XY KUB ABDOMEN SINGLE VIEW Indication: peg tube placement Comparison: CT ABDOMEN WITHOUT CONTRAST on DOS: 11/14/24, XY KUB ABDOMEN SINGLE VIEW on DOS: 11/10/24, XY KUB ABDOMEN SINGLE VIEW on DOS: 10/01/24, XR ABDOMEN 1 VIEW (KUB) on DOS: 08/18/24 Technique: 3 radiographic views of the abdomen. Findings: The visualized portions of the lung bases are clear. Contrast material delineates a left abdominal percutaneous gastrostomy tube and segments of stomach a nd proximal small bowel. Nonobstructive bowel gas pattern noted. There is no definite evidence for pneumoperitoneum. No abnormal calcifications noted. Impression: 1. Nonobstructive bowel gas pattern. 2. Appropriately positioned percutaneous gastrostomy.
--- NOTE | 2025-01-26 13:19 | DVH ---
Bilateral lower extremity venous duplex Date: 01/26/2025 12:34 PM Clinical History: elevated d dimer Comparison: None Images submitted: Compression, noncompression and duplex imaging of both lower extremity deep venous systems was obtained. Findings: Duplex Doppler evaluation of the deep venous systems of both lower extremities from the common femora l veins to the popliteal veins including color Doppler and spectral/pulsed waveform analysis was perf ormed. RIGHT SIDE: The common femoral vein demonstrates appropriate compressibility and waveform variability. There is compressibility/patency of the great saphenous vein at the proximal thigh. The femoral vein demonstrates appropriate compressibility and waveform variability. The deep femoral vein demonstrates appropriate compressibility and waveform variability. The popliteal vein demonstrates appropriate compressibility and waveform variability. There is normal compressibility at the tibioperoneal trunk. LEFT SIDE: The common femoral vein demonstrates appropriate compressibility and waveform variability. There is compressibility/patency of the great saphenous vein at the proximal thigh. The femoral vein demonstrates appropriate compressibility and waveform variability. The deep femoral vein demonstrates appropriate compressibility and waveform variability. The popliteal vein demonstrates appropriate compressibility and waveform variability. There is normal compressibility at the tibioperoneal trunk. IMPRESSION: 1. No right or left femoropopliteal venous thrombosis. 2. If clinical concern/symptoms persist or worsen, short-interval follow-up study is suggested. 3. END IMPRESSION:
[2025-01-26] MEDS: D5W 5% 1,000 ML IV SCH (14:23)
[2025-01-26] MEDS: Jevity 1.2 Cal/Fiber 1 Liter GT SCH (14:26)
--- NOTE | 2025-01-26 14:32 | DVHPN2 ---
Subjective The patient is seen and examined at bedside. Complain of shortness for breath. Reviewed: Care Plan, H&P, Labs, Medications, Previous Orders, Radiology Changes from previous H/P or p: No Changes Objective Vitals Vital Signs Date Time Temp Pulse Resp B/P (MAP) Pulse Ox O2 Delivery O2 Flow Rate FiO2 01/26/25 13:04 98.4 65 16 138/66 (90) 100 98.4 01/26/25 11:30 Nasal Cannula 3.0 01/26/25 11:30 32 Intake/Output Intake and Output 01/26/25 07:00 Intake Total 825 ml Output Total 775 ml Balance 50 ml Intake Oral 0 ml IV Total 825 ml Output Urine Total 775 ml # Bowel Movements 2 General Appearance: Alert, Cooperative HEENT: Atraumatic, PERRLA, EOMI Neck: Supple Lungs: Clear to auscultation, Normal air movement Cardiovascular: Regular rate, Normal S1, Normal S2, No murmurs, Gallops, Rubs Abdomen: Normal bowel sounds, Soft, No tenderness Neuro: Cranial nerves 3-12 NL Psych/Mental Status: Mental status NL Medications Current Medications Medications Dose Ordered Sig/Jim Route Start Time Stop Time Status Last Admin Dose Admin Acetaminophen 1,000 mg Q8HP PRN PO 01/24/25 17:15 Dexamethasone Sodium Phosphate 6 mg DAILY IV 01/24/25 17:15 02/03/25 17:14 01/26/25 10:38 6 MG Remdesivir 0 ml @ 0 mls/hr PER PHARMACY IV 01/24/25 17:15 01/29/25 17:14 Azithromycin 250 ml @ 125 mls/hr DAILY IV 01/25/25 10:00 01/26/25 10:36 125 MLS/HR Ondansetron HCl 4 mg Q4HP PRN IV 01/24/25 17:15 Nitroglycerin 0.4 mg Q5MINP PRN SL 01/24/25 17:15 Morphine Sulfate 2 mg Q30M PRN IV 01/24/25 17:15 Remdesivir 100 mg/ Sodium Chloride 250 ml @ 250 mls/hr DAILY@1500 IV 01/25/25 15:00 01/28/25 15:59 01/25/25 15:00 250 MLS/HR Heparin Sodium (Porcine) 5,000 units Q12HR SC 01/24/25 22:00 01/26/25 10:55 5,000 UNITS Acetaminophen/ Hydrocodone Bitart 1 tab Q6HPRN PRN PO 01/26/25 01:45 Hydralazine HCl 10 mg Q6HP PRN IV 01/26/25 01:45 01/26/25 02:27 10 MG Enteral Nutritional Formula 1,000 ml 60ML/HR GT 01/26/25 11:45 Dextrose 1,000 ml @ 100 mls/hr Q10H IV 01/26/25 13:45 Laboratory Results Laboratory Tests 01/25/25 04:56 Urinalysis Test 01/25/25 13:25 Urine Color Yellow (Yellow) Urine Clarity Clear (Clear) Urine pH 6.5 (5.0-9.0) Urine Specific [place] 1.019 (1.001-1.035) Urine Protein 1+ (Negative) H Urine Ketones Negative (Negative) Urine Blood Negative /uL (Negative) Urine Nitrite Negative (Negative) Urine Bilirubin Negative (Negative) Urine Urobilinogen Normal mg/dL (Negative) Urine Leukocyte Esterase Negative /uL (Negative) Urine RBC <1 /hpf (0 - 3) Urine Microscopic WBC 2 /HPF (0-3) Urine Squamous Epithelial Cells None seen /hpf (<5) Urine Bacteria None seen /hpf (None Seen) Urine Glucose Normal mg/dL (Normal) Microbiology Microbiology Date/Time Source Procedure Growth Status 01/25/25 13:25 Voided Urine Urine Culture - Preliminary Resulted 01/24/25 12:15 Blood Blood Culture - Preliminary Resulted Labs and/or images reviewed: Labs reviewed by me Assessment/Plan Assessment/Plan Metabolic encephalopathy COVID-19 Pneumonia secondary to the above Acute hypoxic respiratory failure Anemia Acute renal failure Hypernatremia Dementia Elevated troponin, downtrending,? Demand ischemia Plan Continuing current management. Continuing with IV antibiotic. Continuing with remdesivir. We will monitor kidney function This medical document was created using an electronic medical record system with [employer] direct computerized dictation system. Although this document has been carefully reviewed, there may still be some phonetic and typographical errors. These areas are purely typographical due to imperfections of the software programs, and do not reflect any compromise in the patient's medical care. Plan discussed with: Patient My Orders Orders - ALEE ANGUIANO MD Procedure Category Date Status Time * Wound Consult CONS 01/26/25 Transmitted Bilat Lower Dvt US 01/26/25 Resulted 11:31 Nutritional PHA 01/26/25 In Process Supplements (Jevity 11:45 Date of Service: Jan 26, 2025 Billing Provider: ALEE ANGUIANO MD Common Visit Codes: [id number] INP/OBS CARE(HIGH) ALEE ANGUIANO MD Jan 26, 2025 14:32
[2025-01-27] VITALS (9 sets, daily range): BP systolic 125–148; BP diastolic 43–92; PULSE 60–75; RESP 15–19; TEMP 97.6–98.7; O2SAT 98–100
[2025-01-27 06:02] LABS: Hematocrit 25.1 % (41.0-53.0); Hemoglobin 7.8 g/dL (13.5-17.5); Mean Corpuscular Hemoglobin 29.6 pg (28.0-32.0); Mean Corpuscular Volume 95.2 fL (80.0-100.0); Nucleated Red Blood Cells % 0.6 %
[2025-01-27 06:03] LABS: Alanine Aminotransferase 23 U/L (7-40); Alkaline Phosphatase 64 U/L (46-116); Anion Gap 9 (5-15); BUN/Creatinine Ratio 44.0 (10.0-20.0); Potassium 4.8 mmol/L (3.5-5.1); Total Protein 6.2 g/dL (5.7-8.2)
[2025-01-27 06:09] LABS: Albumin 3.1 g/dL (3.2-4.8); Bilirubin, Total < 0.2 mg/dL (0.2-1.0); Blood Urea Nitrogen 55 mg/dL (9-23); Calcium 8.4 mg/dL (8.7-10.4); Carbon Dioxide 32 mmol/L (20-31); Chloride 113 mmol/L (98-107); Glucose 202 mg/dL (74-106); Sodium 154 mmol/L (136-145)
--- NOTE | 2025-01-27 09:56 | DVHPN2 ---
Progress Note Date Seen: Jan 26, 2025 Medical Necessity Reason Pt with a Central, PICC or Fol: Yes Subjective Patient reports: Other (Patient is a poor historian) Review of Systems: Deferred Objective vital signs Vital Sign Date Time Temp Pulse Resp B/P (MAP) Pulse Ox O2 Delivery O2 Flow Rate FiO2 01/27/25 09:00 97.6 60 15 144/54 (84) 100 97.6 01/26/25 20:00 Nasal Cannula* 3 32 Total Intake and Output 01/26/25 01/26/25 01/27/25 15:00 23:00 07:00 Intake Total 250 ml 300 ml 1000 ml Output Total 700 ml 825 ml Balance 250 ml -400 ml 175 ml medications Current Medications Medications Dose Ordered Sig/Jim Route Start Time Stop Time Status Last Admin Dose Admin Acetaminophen 1,000 mg Q8HP PRN PO 01/24/25 17:15 Dexamethasone Sodium Phosphate 6 mg DAILY IV 01/24/25 17:15 02/03/25 17:14 01/26/25 10:38 Remdesivir 0 ml @ 0 mls/hr PER PHARMACY IV 01/24/25 17:15 01/29/25 17:14 Azithromycin 250 ml @ 125 mls/hr DAILY IV 01/25/25 10:00 01/26/25 10:36 Ondansetron HCl 4 mg Q4HP PRN IV 01/24/25 17:15 Nitroglycerin 0.4 mg Q5MINP PRN SL 01/24/25 17:15 Morphine Sulfate 2 mg Q30M PRN IV 01/24/25 17:15 Remdesivir 100 mg/ Sodium Chloride 250 ml @ 250 mls/hr DAILY@1500 IV 01/25/25 15:00 01/28/25 15:59 01/26/25 17:11 Heparin Sodium (Porcine) 5,000 units Q12HR SC 01/24/25 22:00 01/26/25 22:04 Acetaminophen/ Hydrocodone Bitart 1 tab Q6HPRN PRN PO 01/26/25 01:45 Hydralazine HCl 10 mg Q6HP PRN IV 01/26/25 01:45 01/26/25 22:03 Enteral Nutritional Formula 1,000 ml 60ML/HR GT 01/26/25 11:45 01/26/25 14:26 Dextrose 1,000 ml @ 100 mls/hr Q10H IV 01/26/25 13:45 01/26/25 23:53 Ceftriaxone Sodium 50 ml @ 100 mls/hr DAILY@09 IV 01/27/25 09:00 Examination: GENERAL:Abnormal, LUNGS:Abnormal, MSK:Abnormal laboratory and microbiology Laboratory Tests 01/27/25 04:54 Test 01/27/25 04:54 Range/Units Serum Glucose 202 H 74-106 mg/dL Microbiology Date/Time Source Procedure Growth Status 01/25/25 13:25 Voided Urine Urine Culture - Preliminary Resulted 01/24/25 12:15 Blood Blood Culture - Preliminary Resulted Problem List/Assessment/Plan Problem List/Assessment/Plan Acute kidney injury hemodynamic mediated etiology Hypernatremia COVID pneumonia Encephalopathy Acute hypoxic respiratory failure Sepsis Recommendations Hypotonic IV fluid Currently on remdesivir and steroids for COVID pneumonia He is not on any Gram-positive coverage antibiotics blood cultures showing Gram- positive cocci--I am adding ceftriaxone for now we will defer to hospitalist for further tailoring of antibiotics based on cultures We will monitor renal function closely Septic workup Plan discussed with: Other My Orders My Orders Orders - LC FERGUSON MD Procedure Category Date Status Time D5w 5% (Dextrose 5%) PHA 01/26/25 In Process 13:45 Ceftriaxone 1gm/50ml PHA 01/27/25 In Process (Rocephin) 09:00 Dietary Evaluation Review Comments: 1) Continue EN regimen - flush with 120 mL free H2O Q8 2) Consult ST for swallow evaluation 3) Follow-up with cardiology, pulmonology, neurology, and nephrology 4) Continue to monitor I&O, labs, and skin integrity Expected Outcomes/Goals: 1) nutritional support to meet at least 75% of estimated daily needs 2) diet to advance 3) follow-up in 3-5 days LC FERGUSON MD Jan 27, 2025 09:56
--- NOTE | 2025-01-27 12:00 | DVHPN2 ---
Subjective The patient is seen and examined at bedside. Still have shortness of breath. Non verbal but nod his head. Reviewed: Care Plan, H&P, Labs, Medications, Previous Orders, Radiology Changes from previous H/P or p: No Changes Objective Vitals Vital Signs Date Time Temp Pulse Resp B/P (MAP) Pulse Ox O2 Delivery O2 Flow Rate FiO2 01/27/25 09:00 97.6 60 15 144/54 (84) 100 97.6 01/26/25 20:00 Nasal Cannula* 3 32 Intake/Output Intake and Output 01/27/25 07:00 Intake Total 1550 ml Output Total 1525 ml Balance 25 ml Intake Oral 0 ml IV Total 1550 ml Output Urine Total 1525 ml # Bowel Movements 1 General Appearance: Alert, Cooperative HEENT: Atraumatic, PERRLA, EOMI Neck: Supple Lungs: Clear to auscultation, Normal air movement Cardiovascular: Regular rate, Normal S1, Normal S2, No murmurs, Gallops, Rubs Abdomen: Normal bowel sounds, Soft, No tenderness Neuro: Cranial nerves 3-12 NL Psych/Mental Status: Mental status NL Medications Current Medications Medications Dose Ordered Sig/Jim Route Start Time Stop Time Status Last Admin Dose Admin Acetaminophen 1,000 mg Q8HP PRN PO 01/24/25 17:15 Dexamethasone Sodium Phosphate 6 mg DAILY IV 01/24/25 17:15 02/03/25 17:14 01/27/25 11:47 6 MG Remdesivir 0 ml @ 0 mls/hr PER PHARMACY IV 01/24/25 17:15 01/29/25 17:14 Azithromycin 250 ml @ 125 mls/hr DAILY IV 01/25/25 10:00 01/27/25 11:48 125 MLS/HR Ondansetron HCl 4 mg Q4HP PRN IV 01/24/25 17:15 Nitroglycerin 0.4 mg Q5MINP PRN SL 01/24/25 17:15 Morphine Sulfate 2 mg Q30M PRN IV 01/24/25 17:15 Remdesivir 100 mg/ Sodium Chloride 250 ml @ 250 mls/hr DAILY@1500 IV 01/25/25 15:00 01/28/25 15:59 01/26/25 17:11 250 MLS/HR Heparin Sodium (Porcine) 5,000 units Q12HR SC 01/24/25 22:00 01/27/25 10:14 5,000 UNITS Acetaminophen/ Hydrocodone Bitart 1 tab Q6HPRN PRN PO 01/26/25 01:45 Hydralazine HCl 10 mg Q6HP PRN IV 01/26/25 01:45 01/26/25 22:03 10 MG Enteral Nutritional Formula 1,000 ml 60ML/HR GT 01/26/25 11:45 01/27/25 09:47 1,000 ML Dextrose 1,000 ml @ 100 mls/hr Q10H IV 01/26/25 13:45 01/26/25 23:53 100 MLS/HR Ceftriaxone Sodium 50 ml @ 100 mls/hr DAILY@09 IV 01/27/25 09:00 01/27/25 10:37 100 MLS/HR Laboratory Results Laboratory Tests 01/27/25 04:54 Chemistry Test 01/27/25 04:54 Albumin 3.1 g/dL (3.2-4.8) L Calcium Level 8.4 mg/dL (8.7-10.4) L Total Protein 6.2 g/dL (5.7-8.2) LFT Test 01/27/25 04:54 Alanine Aminotransferase (ALT) 23 U/L (7-40) Alkaline Phosphatase 64 U/L (46-116) Aspartate Amino Transferase (AST) 26 U/L (13-40) Total Bilirubin < 0.2 mg/dL (0.2-1.0) L Urinalysis Test 01/25/25 13:25 Urine Color Yellow (Yellow) Urine Clarity Clear (Clear) Urine pH 6.5 (5.0-9.0) Urine Specific [place] 1.019 (1.001-1.035) Urine Protein 1+ (Negative) H Urine Ketones Negative (Negative) Urine Blood Negative /uL (Negative) Urine Nitrite Negative (Negative) Urine Bilirubin Negative (Negative) Urine Urobilinogen Normal mg/dL (Negative) Urine Leukocyte Esterase Negative /uL (Negative) Urine RBC <1 /hpf (0 - 3) Urine Microscopic WBC 2 /HPF (0-3) Urine Squamous Epithelial Cells None seen /hpf (<5) Urine Bacteria None seen /hpf (None Seen) Urine Glucose Normal mg/dL (Normal) Microbiology Microbiology Date/Time Source Procedure Growth Status 01/25/25 13:25 Voided Urine Urine Culture - Preliminary Resulted 01/24/25 12:15 Blood Blood Culture - Preliminary Resulted Labs and/or images reviewed: Labs reviewed by me Assessment/Plan Assessment/Plan Metabolic encephalopathy COVID-19 Pneumonia secondary to the above Acute hypoxic respiratory failure Anemia Acute renal failure Hypernatremia Dementia Elevated troponin, downtrending,? Demand ischemia Plan Continuing current management. Continuing with IV antibiotic. Continuing with remdesivir. We will monitor kidney function This medical document was created using an electronic medical record system with [employer] direct computerized dictation system. Although this document has been carefully reviewed, there may still be some phonetic and typographical errors. These areas are purely typographical due to imperfections of the software programs, and do not reflect any compromise in the patient's medical care. Plan discussed with: Patient, Other (RN) My Orders Orders - ALEE ANGUIANO MD Procedure Category Date Status Time Apply Z-Guard TOMI 01/26/25 In Process 11:55 Change Dressing Prn TOMI 01/26/25 In Process 11:55 Tube Feeding DIET 01/27/25 Transmitted Breakfast Date of Service: Jan 27, 2025 Billing Provider: ALEE ANGUIANO MD Common Visit Codes: [id number] INP/OBS CARE(HIGH) ALEE ANGUIANO MD Jan 27, 2025 12:00
[2025-01-27] MEDS ORDERED: DEXTROSE (50%) 50ML SYRG IV PRN (12:30)
[2025-01-27 13:15] LABS: INR 1.13 (0.9-1.15); Prothrombin Time 11.8 sec (9.3-11.8)
--- NOTE | 2025-01-27 14:24 | DVH ---
LEFT Upper Extremity Venous Duplex Clinical History: swelling present Comparison: None Findings: Duplex Doppler evaluation of the venous system of the LEFT lower neck and upper extremity including c olor Doppler and spectral/pulsed waveform analysis was performed. The internal jugular vein demonstrates appropriate compressibility and waveform variability. The subclavian vein is patent on color Doppler evaluation without intraluminal thrombus and demonstra cl waveform variability. The visualized portion of the brachiocephalic vein is patent on color Doppler evaluation without intr aluminal thrombus and demonstrates waveform variability. The axillary vein demonstrates appropriate compressibility and waveform variability. The brachial veins demonstrate appropriate compressibility and patency on Doppler evaluation. The basilic vein demonstrates appropriate compressibility and patency on Doppler evaluation. The cephalic vein demonstrates appropriate compressibility and patency on Doppler evaluation. Impression: 1. No venous thrombus identified in the LEFT upper extremity vessels evaluated above. 2. If clinical concern/symptoms persist or worsen, short-interval follow-up study is suggested.
[2025-01-27] MEDS: ACCU-CHEK COMFORT CURVE STRIP VI SCH (17:03)
[2025-01-27] MEDS: InsuLIN REG 1unit/0.01ml Soln (100units/ml) SC SCH ×2 (17:16→23:09)
--- NOTE | 2025-01-27 19:16 | DVHPN2 ---
Progress Note Date Seen: Jan 26, 2025 Medical Necessity Reason Pt with a Central, PICC or Fol: Yes Subjective Patient reports: No new complaints Objective vital signs Vital Sign Date Time Temp Pulse Resp B/P (MAP) Pulse Ox O2 Delivery O2 Flow Rate FiO2 01/27/25 16:51 98.7 75 18 148/92 (110) 99 98.7 01/27/25 10:00 Nasal Cannula 3.0 01/27/25 10:00 32 Total Intake and Output 01/26/25 01/26/25 01/27/25 15:00 23:00 07:00 Intake Total 250 ml 300 ml 1000 ml Output Total 700 ml 825 ml Balance 250 ml -400 ml 175 ml medications Current Medications Medications Dose Ordered Sig/Jim Route Start Time Stop Time Status Last Admin Dose Admin Acetaminophen 1,000 mg Q8HP PRN PO 01/24/25 17:15 Dexamethasone Sodium Phosphate 6 mg DAILY IV 01/24/25 17:15 02/03/25 17:14 01/27/25 11:47 6 MG Remdesivir 0 ml @ 0 mls/hr PER PHARMACY IV 01/24/25 17:15 01/29/25 17:14 Azithromycin 250 ml @ 125 mls/hr DAILY IV 01/25/25 10:00 01/27/25 11:48 125 MLS/HR Ondansetron HCl 4 mg Q4HP PRN IV 01/24/25 17:15 Nitroglycerin 0.4 mg Q5MINP PRN SL 01/24/25 17:15 Morphine Sulfate 2 mg Q30M PRN IV 01/24/25 17:15 Remdesivir 100 mg/ Sodium Chloride 250 ml @ 250 mls/hr DAILY@1500 IV 01/25/25 15:00 01/28/25 15:59 01/27/25 15:52 250 MLS/HR Heparin Sodium (Porcine) 5,000 units Q12HR SC 01/24/25 22:00 01/27/25 10:14 5,000 UNITS Acetaminophen/ Hydrocodone Bitart 1 tab Q6HPRN PRN PO 01/26/25 01:45 Hydralazine HCl 10 mg Q6HP PRN IV 01/26/25 01:45 01/26/25 22:03 10 MG Enteral Nutritional Formula 1,000 ml 60ML/HR GT 01/26/25 11:45 01/27/25 09:47 1,000 ML Dextrose 1,000 ml @ 100 mls/hr Q10H IV 01/26/25 13:45 01/27/25 14:04 100 MLS/HR Ceftriaxone Sodium 50 ml @ 100 mls/hr DAILY@09 IV 01/27/25 09:00 01/27/25 10:37 100 MLS/HR Diagnostic Test (Pha) 1 strip ACHS 01/27/25 17:00 01/27/25 17:03 1 STRIP Insulin Human Regular HS SC 01/27/25 22:00 Insulin Human Regular AC SC 01/27/25 17:00 01/27/25 17:16 6 UNITS Dextrose 50 ml UD PRN IV 01/27/25 12:30 Aspirin 81 mg DAILY GT 01/28/25 10:00 Losartan Potassium 25 mg BID GT 01/27/25 22:00 Carvedilol 6.25 mg Q12HR GT 01/27/25 22:00 laboratory and microbiology Laboratory Tests 01/27/25 04:54 Test 01/27/25 04:54 Range/Units Serum Glucose 202 H 74-106 mg/dL Microbiology Date/Time Source Procedure Growth Status 01/25/25 13:25 Voided Urine Urine Culture - Preliminary Resulted 01/24/25 12:15 Blood Blood Culture - Preliminary Resulted Problem List/Assessment/Plan Problem List/Assessment/Plan Acute kidney injury hemodynamic mediated etiology Hypernatremia COVID pneumonia Encephalopathy Acute hypoxic respiratory failure Sepsis Recommendations Hypotonic IV fluid Currently on remdesivir and steroids for COVID pneumonia He is not on any Gram-positive coverage antibiotics blood cultures showing Gram- positive cocci--I am adding ceftriaxone for now we will defer to hospitalist for further tailoring of antibiotics based on cultures We will monitor renal function closely Septic workup Plan discussed with: Patient Dietary Evaluation Review Comments: 1) Continue EN regimen - flush with 120 mL free H2O Q8 2) Consult ST for swallow evaluation 3) Follow-up with cardiology, pulmonology, neurology, and nephrology 4) Continue to monitor I&O, labs, and skin integrity Expected Outcomes/Goals: 1) nutritional support to meet at least 75% of estimated daily needs 2) diet to advance 3) follow-up in 3-5 days LC FERGUSON MD Jan 27, 2025 19:16
[2025-01-27] MEDS: FUROSEMIDE 40 MG/4 ML VIAL IV ONE (21:38)
[2025-01-28] VITALS (9 sets, daily range): BP systolic 106–124; BP diastolic 50–65; PULSE 60–66; RESP 16–18; TEMP 97.8–98.3; O2SAT 95–100
[2025-01-28] MEDS: ONDANSETRON HCL 4 MG/2 ML VIAL IV PRN (00:06)
[2025-01-28] MEDS: CARVEDILOL 3.125 MG TAB GT SCH (00:07)
[2025-01-28] MEDS: LOSARTAN POTASSIUM 25 MG TAB GT SCH (00:08)
[2025-01-28 05:59] LABS: Hematocrit 21.6 % (41.0-53.0); Mean Corpuscular Hemoglobin 29.9 pg (28.0-32.0); Mean Corpuscular Volume 92.9 fL (80.0-100.0); Nucleated Red Blood Cells % 0.2 %
--- NOTE | 2025-01-28 06:00 | DVH ---
CHEST RADIOGRAPH Indication: Covid-19 pneumonia Technique: Single frontal view of the chest was obtained COMPARISON: XY CHEST PORTABLE on DOS: 01/25/25, XY CHEST XRAY 1 VIEW on DOS: 01/24/25, XY CHEST PORTABL E on DOS: 11/13/24, XY CHEST XRAY 1 VIEW on DOS: 11/12/24, XY CHEST PORTABLE on DOS: 11/11/24 FINDINGS: Lines and Tubes: None. Left anterior chest wall dual lead cardiac pacing device. Lungs: Moderate diffuse increased prominence of the pulmonary vasculature. Small bilateral pleural e ffusions, [id number]-right. No pneumothorax. Cardiomediastinal contours: Cardiomegaly. Bones: Unremarkable IMPRESSION: 1. Cardiomegaly with pulmonary vascular congestion and small bilateral pleural effusions., left-great [id number]
[2025-01-28 06:07] LABS: Hemoglobin 6.9 g/dL (13.5-17.5)
[2025-01-28 06:19] LABS: Alanine Aminotransferase 24 U/L (7-40); Alkaline Phosphatase 71 U/L (46-116); Anion Gap 7 (5-15); BUN/Creatinine Ratio 43.2 (10.0-20.0); Potassium 4.7 mmol/L (3.5-5.1); Total Protein 5.8 g/dL (5.7-8.2)
[2025-01-28 06:22] LABS: Albumin 2.9 g/dL (3.2-4.8); Bilirubin, Total < 0.2 mg/dL (0.2-1.0); Blood Urea Nitrogen 54 mg/dL (9-23); Calcium 8.0 mg/dL (8.7-10.4); Carbon Dioxide 33 mmol/L (20-31); Chloride 109 mmol/L (98-107); Glucose 202 mg/dL (74-106); Sodium 149 mmol/L (136-145)
[2025-01-28 08:06] LABS: Hematocrit 22.6 % (41.0-53.0); Hemoglobin 7.1 g/dL (13.5-17.5)
--- NOTE | 2025-01-28 11:08 | DVHPN2 ---
Subjective The patient did not share any complaints Reviewed: Care Plan, H&P, Labs, Medications, Previous Orders, Radiology, Other (Consultations) Changes from previous H/P or p: No Changes Objective Vitals Vital Signs Date Time Temp Pulse Resp B/P (MAP) Pulse Ox O2 Delivery O2 Flow Rate FiO2 01/28/25 09:54 65 122/65 01/28/25 08:52 97.8 17 100 97.8 01/27/25 20:00 Nasal Cannula* 2 28 Intake/Output Intake and Output 01/28/25 07:00 Intake Total 1450 ml Output Total 1350 ml Balance 100 ml Intake Oral 0 ml IV Total 1450 ml Output Urine Total 1350 ml # Bowel Movements 2 General Appearance: Alert, Cooperative, Other (Confused; did not answer any question) HEENT: Atraumatic Lungs: Other (Decreased air entry bilaterally) Cardiovascular: Regular rate, Normal S1, Normal S2 Abdomen: Normal bowel sounds, Soft, No tenderness, Other (G-tube in place with no signs of bleeding/infection) Genitourinary: Other (Chawla's in place) Neuro: Other (Unable to assess as the patient did not follow commands; no facial asymmetry) Psych/Mental Status: Other (Unable to assess as the patient did not answer any question) Medications Current Medications Medications Dose Ordered Sig/Jim Route Start Time Stop Time Status Last Admin Dose Admin Acetaminophen 1,000 mg Q8HP PRN PO 01/24/25 17:15 Dexamethasone Sodium Phosphate 6 mg DAILY IV 01/24/25 17:15 02/03/25 17:14 01/28/25 09:56 6 MG Remdesivir 0 ml @ 0 mls/hr PER PHARMACY IV 01/24/25 17:15 01/29/25 17:14 Azithromycin 250 ml @ 125 mls/hr DAILY IV 01/25/25 10:00 01/28/25 09:56 125 MLS/HR Ondansetron HCl 4 mg Q4HP PRN IV 01/24/25 17:15 01/28/25 00:06 4 MG Nitroglycerin 0.4 mg Q5MINP PRN SL 01/24/25 17:15 Morphine Sulfate 2 mg Q30M PRN IV 01/24/25 17:15 Remdesivir 100 mg/ Sodium Chloride 250 ml @ 250 mls/hr DAILY@1500 IV 01/25/25 15:00 01/28/25 15:59 01/27/25 15:52 250 MLS/HR Heparin Sodium (Porcine) 5,000 units Q12HR SC 01/24/25 22:00 01/28/25 10:01 5,000 UNITS Acetaminophen/ Hydrocodone Bitart 1 tab Q6HPRN PRN PO 01/26/25 01:45 Hydralazine HCl 10 mg Q6HP PRN IV 01/26/25 01:45 01/26/25 22:03 10 MG Enteral Nutritional Formula 1,000 ml 60ML/HR GT 01/26/25 11:45 01/27/25 09:47 1,000 ML Dextrose 1,000 ml @ 100 mls/hr Q10H IV 01/26/25 13:45 01/28/25 00:31 100 MLS/HR Ceftriaxone Sodium 50 ml @ 100 mls/hr DAILY@09 IV 01/27/25 09:00 01/28/25 09:56 100 MLS/HR Diagnostic Test (Pha) 1 strip ACHS 01/27/25 17:00 01/28/25 06:23 1 STRIP Insulin Human Regular HS SC 01/27/25 22:00 01/27/25 23:09 8 UNITS Insulin Human Regular AC SC 01/27/25 17:00 01/28/25 06:24 2 UNITS Dextrose 50 ml UD PRN IV 01/27/25 12:30 Aspirin 81 mg DAILY GT 01/28/25 10:00 01/28/25 09:55 81 MG Losartan Potassium 25 mg BID GT 01/27/25 22:00 01/28/25 09:54 25 MG Carvedilol 6.25 mg Q12HR GT 01/27/25 22:00 01/28/25 09:54 6.25 MG Laboratory Results Laboratory Tests 01/28/25 05:30 01/28/25 07:52 Chemistry Test 01/28/25 05:30 Albumin 2.9 g/dL (3.2-4.8) L Calcium Level 8.0 mg/dL (8.7-10.4) L Total Protein 5.8 g/dL (5.7-8.2) Coagulation Test 01/27/25 12:50 Prothrombin Time 11.8 sec (9.3-11.8) Prothrombin Time INR 1.13 (0.9-1.15) LFT Test 01/28/25 05:30 Alanine Aminotransferase (ALT) 24 U/L (7-40) Alkaline Phosphatase 71 U/L (46-116) Aspartate Amino Transferase (AST) 22 U/L (13-40) Total Bilirubin < 0.2 mg/dL (0.2-1.0) L Urinalysis Test 01/25/25 13:25 Urine Color Yellow (Yellow) Urine Clarity Clear (Clear) Urine pH 6.5 (5.0-9.0) Urine Specific [place] 1.019 (1.001-1.035) Urine Protein 1+ (Negative) H Urine Ketones Negative (Negative) Urine Blood Negative /uL (Negative) Urine Nitrite Negative (Negative) Urine Bilirubin Negative (Negative) Urine Urobilinogen Normal mg/dL (Negative) Urine Leukocyte Esterase Negative /uL (Negative) Urine RBC <1 /hpf (0 - 3) Urine Microscopic WBC 2 /HPF (0-3) Urine Squamous Epithelial Cells None seen /hpf (<5) Urine Bacteria None seen /hpf (None Seen) Urine Glucose Normal mg/dL (Normal) Microbiology Microbiology Date/Time Source Procedure Growth Status 01/25/25 13:25 Voided Urine Urine Culture - Preliminary Resulted 01/24/25 12:15 Blood Blood Culture - Final Staphylococcus epidermidis Complete Labs and/or images reviewed: Labs reviewed by me, Image(s) reviewed by me Assessment/Plan Assessment/Plan Covering: Acute metabolic/toxic encephalopathy in the setting of sepsis and hypernatremia COURTNEY; most likely vasomotor nephropathy in the setting of sepsis Hypernatremia in the setting of COURTNEY and sepsis Acute hypoxic respiratory failure due to COVID pneumonia Sepsis due to MDR Staphylococcus epidermidis bacteremia Hypertensive heart disease with chronic systolic heart failure; not in exacerbation Severe dementia with G-tube; suspected nonverbal status Pancytopenia; most likely due to sepsis Physical deconditioning due to above Switched IV antibiotics to IV vancomycin after discussion with Nephrology after reviewing blood culture susceptibility Ordered repeat blood cultures Avoid nephrotoxic agents Continue oxygen therapy as needed Correct electrolytes as per Nephrology Nephrology is following On renally adjusted DVT prophylaxis Continue remdesivir and steroids Continue feeding via G-tube No signs of active bleeding; ordered stool occult blood Airborne precaution Continue monitoring Late Entry. This medical document was created using an electronic medical record system with computerized dictation system. Although this document has been carefully reviewed, there might still be some phonetic and typographical errors. These areas are purely typographical due to imperfections of the software programs, and do not reflect any compromise in the patient's medical care. Plan discussed with: Daughter (Tried to reach out to the daughter), Other (Nurse) Date of Service: Jan 28, 2025 Billing Provider: KRISSY BECERRA MD Common Visit Codes: [id number] INP/OBS CARE(HIGH) KRISSY BECERRA MD Jan 28, 2025 11:08
--- NOTE | 2025-01-28 13:14 | DVHPN2 ---
Progress Note Date Seen: Jan 28, 2025 Medical Necessity Reason Pt with a Central, PICC or Fol: Yes The following are medically ne: Chawla Catheter Subjective Changes from previous H/P or p: No Changes Objective vital signs Vital Sign Date Time Temp Pulse Resp B/P (MAP) Pulse Ox O2 Delivery O2 Flow Rate FiO2 01/28/25 12:49 98.0 60 18 108/54 (72) 100 98.0 01/27/25 20:00 Nasal Cannula* 2 28 Total Intake and Output 01/27/25 01/27/25 01/28/25 15:00 23:00 07:00 Intake Total 700 ml 250 ml 500 ml Output Total 300 ml 1050 ml Balance 700 ml -50 ml -550 ml medications Current Medications Medications Dose Ordered Sig/Jim Route Start Time Stop Time Status Last Admin Dose Admin Acetaminophen 1,000 mg Q8HP PRN PO 01/24/25 17:15 Dexamethasone Sodium Phosphate 6 mg DAILY IV 01/24/25 17:15 02/03/25 17:14 01/28/25 09:56 6 MG Remdesivir 0 ml @ 0 mls/hr PER PHARMACY IV 01/24/25 17:15 01/29/25 17:14 Azithromycin 250 ml @ 125 mls/hr DAILY IV 01/25/25 10:00 01/28/25 09:56 125 MLS/HR Ondansetron HCl 4 mg Q4HP PRN IV 01/24/25 17:15 01/28/25 00:06 4 MG Nitroglycerin 0.4 mg Q5MINP PRN SL 01/24/25 17:15 Morphine Sulfate 2 mg Q30M PRN IV 01/24/25 17:15 Remdesivir 100 mg/ Sodium Chloride 250 ml @ 250 mls/hr DAILY@1500 IV 01/25/25 15:00 01/28/25 15:59 01/27/25 15:52 250 MLS/HR Heparin Sodium (Porcine) 5,000 units Q12HR SC 01/24/25 22:00 01/28/25 10:01 5,000 UNITS Acetaminophen/ Hydrocodone Bitart 1 tab Q6HPRN PRN PO 01/26/25 01:45 Hydralazine HCl 10 mg Q6HP PRN IV 01/26/25 01:45 01/26/25 22:03 10 MG Enteral Nutritional Formula 1,000 ml 60ML/HR GT 01/26/25 11:45 01/27/25 09:47 1,000 ML Dextrose 1,000 ml @ 100 mls/hr Q10H IV 01/26/25 13:45 01/28/25 11:34 100 MLS/HR Ceftriaxone Sodium 50 ml @ 100 mls/hr DAILY@09 IV 01/27/25 09:00 01/28/25 09:56 100 MLS/HR Diagnostic Test (Pha) 1 strip ACHS 01/27/25 17:00 01/28/25 11:30 1 STRIP Insulin Human Regular HS SC 01/27/25 22:00 01/27/25 23:09 8 UNITS Insulin Human Regular AC SC 01/27/25 17:00 01/28/25 11:37 3 UNITS Dextrose 50 ml UD PRN IV 01/27/25 12:30 Aspirin 81 mg DAILY GT 01/28/25 10:00 01/28/25 09:55 81 MG Losartan Potassium 25 mg BID GT 01/27/25 22:00 01/28/25 09:54 25 MG Carvedilol 6.25 mg Q12HR GT 01/27/25 22:00 01/28/25 09:54 6.25 MG Examination: GENERAL:Normal laboratory and microbiology Laboratory Tests 01/28/25 07:52 01/28/25 05:30 Test 01/28/25 05:30 Range/Units Serum Glucose 202 H 74-106 mg/dL Microbiology Date/Time Source Procedure Growth Status 01/25/25 13:25 Voided Urine Urine Culture - Final Complete 01/24/25 12:15 Blood Blood Culture - Final Staphylococcus epidermidis Complete Problem List/Assessment/Plan Problem List/Assessment/Plan Acute kidney injury hemodynamic mediated etiology Hypernatremia COVID pneumonia Encephalopathy Acute hypoxic respiratory failure Sepsis MDR staph epi bacteremia anemia Continue D5W Currently on remdesivir and steroids for COVID pneumonia Bcx sensitive to vanco and zyvox only will discuss w/ PCP ABX coverage We will monitor renal function closely Plan discussed with: Patient Dietary Evaluation Review Comments: 1) Continue EN regimen - flush with 120 mL free H2O Q8 2) Consult ST for swallow evaluation 3) Follow-up with cardiology, pulmonology, neurology, and nephrology 4) Continue to monitor I&O, labs, and skin integrity Expected Outcomes/Goals: 1) nutritional support to meet at least 75% of estimated daily needs 2) diet to advance 3) follow-up in 3-5 days Total Time (mins): 33 KALYAN HADDAD MD Jan 28, 2025 13:14
[2025-01-28] MEDS ORDERED: VANCOMYCIN PER PHARMACY 0 MG IV SCH (15:45)
[2025-01-29] VITALS (14 sets, daily range): BP systolic 110–150; BP diastolic 45–84; PULSE 60–64; RESP 16–20; TEMP 97.2–98.5; O2SAT 98–100
[2025-01-29 07:25] LABS: Hematocrit 22.3 % (41.0-53.0); Mean Corpuscular Hemoglobin 29.4 pg (28.0-32.0); Mean Corpuscular Volume 93.3 fL (80.0-100.0); Nucleated Red Blood Cells % 0.3 %
[2025-01-29 07:31] LABS: Alanine Aminotransferase 24 U/L (7-40); Alkaline Phosphatase 75 U/L (46-116); Anion Gap 7 (5-15); BUN/Creatinine Ratio 42.9 (10.0-20.0); Carbon Dioxide 30 mmol/L (20-31); Chloride 104 mmol/L (98-107); Potassium 5.0 mmol/L (3.5-5.1); Sodium 141 mmol/L (136-145)
[2025-01-29 07:34] LABS: Albumin 2.8 g/dL (3.2-4.8); Bilirubin, Total < 0.2 mg/dL (0.2-1.0); Blood Urea Nitrogen 54 mg/dL (9-23); Calcium 8.2 mg/dL (8.7-10.4); Glucose 244 mg/dL (74-106); Total Protein 5.6 g/dL (5.7-8.2)
[2025-01-29 07:47] LABS: Hemoglobin 7.0 g/dL (13.5-17.5)
--- NOTE | 2025-01-29 10:37 | DVHPN2 ---
Progress Note Date Seen: Jan 29, 2025 Medical Necessity Reason Pt with a Central, PICC or Fol: Yes The following are medically ne: Chawla Catheter Objective vital signs Vital Sign Date Time Temp Pulse Resp B/P (MAP) Pulse Ox O2 Delivery O2 Flow Rate FiO2 01/29/25 10:00 98 Nasal Cannula 3.0 01/29/25 10:00 32 01/29/25 09:39 64 145/60 01/29/25 09:00 98.0 17 98.0 Total Intake and Output 01/28/25 01/28/25 01/29/25 15:00 23:00 07:00 Intake Total 0 ml 720 ml Output Total 450 ml 300 ml Balance -450 ml 420 ml medications Current Medications Medications Dose Ordered Sig/Jim Route Start Time Stop Time Status Last Admin Dose Admin Acetaminophen 1,000 mg Q8HP PRN PO 01/24/25 17:15 Dexamethasone Sodium Phosphate 6 mg DAILY IV 01/24/25 17:15 02/03/25 17:14 01/29/25 09:38 6 MG Remdesivir 0 ml @ 0 mls/hr PER PHARMACY IV 01/24/25 17:15 01/29/25 17:14 Ondansetron HCl 4 mg Q4HP PRN IV 01/24/25 17:15 01/28/25 00:06 4 MG Nitroglycerin 0.4 mg Q5MINP PRN SL 01/24/25 17:15 Morphine Sulfate 2 mg Q30M PRN IV 01/24/25 17:15 Heparin Sodium (Porcine) 5,000 units Q12HR SC 01/24/25 22:00 01/29/25 09:39 5,000 UNITS Acetaminophen/ Hydrocodone Bitart 1 tab Q6HPRN PRN PO 01/26/25 01:45 Hydralazine HCl 10 mg Q6HP PRN IV 01/26/25 01:45 01/26/25 22:03 10 MG Enteral Nutritional Formula 1,000 ml 60ML/HR GT 01/26/25 11:45 01/27/25 09:47 1,000 ML Dextrose 1,000 ml @ 100 mls/hr Q10H IV 01/26/25 13:45 01/29/25 06:15 100 MLS/HR Diagnostic Test (Pha) 1 strip ACHS 01/27/25 17:00 01/29/25 06:15 1 STRIP Insulin Human Regular HS SC 01/27/25 22:00 01/28/25 21:45 8 UNITS Insulin Human Regular AC SC 01/27/25 17:00 01/29/25 06:29 6 UNITS Dextrose 50 ml UD PRN IV 01/27/25 12:30 Aspirin 81 mg DAILY GT 01/28/25 10:00 01/29/25 09:41 81 MG Carvedilol 6.25 mg Q12HR GT 01/27/25 22:00 01/29/25 09:39 6.25 MG Vancomycin HCl 0 ml @ 0 mls/hr UD IV 01/28/25 15:45 laboratory and microbiology Laboratory Tests 01/29/25 05:17 Test 01/29/25 05:17 Range/Units Serum Glucose 244 H 74-106 mg/dL Microbiology Date/Time Source Procedure Growth Status 01/25/25 13:25 Voided Urine Urine Culture - Final Complete 01/24/25 12:15 Blood Blood Culture - Final Staphylococcus epidermidis Complete Problem List/Assessment/Plan Problem List/Assessment/Plan Acute kidney injury hemodynamic mediated etiology Hypernatremia COVID pneumonia Encephalopathy Acute hypoxic respiratory failure Sepsis MDR staph epi bacteremia anemia pancytopenia nonverbal but alert renal function has stabilized Continue D5W anemia hb 7.0 today-> consider giving PRBC today Currently on remdesivir and steroids for COVID pneumonia Bcx sensitive to vanco started per primary, rec close followup with vanco troughs monitor for elevated potassium Plan discussed with: Patient Dietary Evaluation Review Comments: 1) Continue EN regimen - flush with 120 mL free H2O Q8 2) Consult ST for swallow evaluation 3) Follow-up with cardiology, pulmonology, neurology, and nephrology 4) Continue to monitor I&O, labs, and skin integrity Expected Outcomes/Goals: 1) nutritional support to meet at least 75% of estimated daily needs 2) diet to advance 3) follow-up in 3-5 days Total Time (mins): 33 KALYAN HADDAD MD Jan 29, 2025 10:37
[2025-01-29] MEDS ORDERED: Glucerna 1.2 Cal 1Liter BOTTLE GT SCH (12:15)
[2025-01-29] MEDS: VANCOMYCIN 1.75GM/350ML 350 ML IV ONE (12:36)
--- NOTE | 2025-01-29 15:57 | DVHPN2 ---
Reviewed: Care Plan, H&P, Labs, Medications, Previous Orders, Radiology, Other (Consultations) Changes from previous H/P or p: No Changes Objective Vitals Vital Signs Date Time Temp Pulse Resp B/P (MAP) Pulse Ox O2 Delivery O2 Flow Rate FiO2 01/29/25 14:00 97.5 64 17 118/55 (76) 98 97.5 01/29/25 10:00 Nasal Cannula 3.0 01/29/25 10:00 32 Intake/Output Intake and Output 01/29/25 07:00 Intake Total 720 ml Output Total 750 ml Balance -30 ml Intake Oral 0 ml Tube Feeding 720 ml Output Urine Total 750 ml # Bowel Movements 2 General Appearance: Alert, Cooperative, Other (Confused; did not answer any question) HEENT: Atraumatic Lungs: Other (Decreased air entry bilaterally) Cardiovascular: Regular rate, Normal S1, Normal S2 Abdomen: Normal bowel sounds, Soft, No tenderness, Other (G-tube in place with no signs of bleeding/infection) Genitourinary: Other (Chawla's in place) Neuro: Other (Unable to assess as the patient did not follow commands; no facial asymmetry) Psych/Mental Status: Other (Unable to assess as the patient did not answer any question) Medications Current Medications Medications Dose Ordered Sig/Jim Route Start Time Stop Time Status Last Admin Dose Admin Acetaminophen 1,000 mg Q8HP PRN PO 01/24/25 17:15 Dexamethasone Sodium Phosphate 6 mg DAILY IV 01/24/25 17:15 02/03/25 17:14 01/29/25 09:38 6 MG Remdesivir 0 ml @ 0 mls/hr PER PHARMACY IV 01/24/25 17:15 01/29/25 17:14 Ondansetron HCl 4 mg Q4HP PRN IV 01/24/25 17:15 01/28/25 00:06 4 MG Nitroglycerin 0.4 mg Q5MINP PRN SL 01/24/25 17:15 Morphine Sulfate 2 mg Q30M PRN IV 01/24/25 17:15 Acetaminophen/ Hydrocodone Bitart 1 tab Q6HPRN PRN PO 01/26/25 01:45 Hydralazine HCl 10 mg Q6HP PRN IV 01/26/25 01:45 01/26/25 22:03 10 MG Diagnostic Test (Pha) 1 strip ACHS 01/27/25 17:00 01/29/25 06:15 1 STRIP Insulin Human Regular HS SC 01/27/25 22:00 01/28/25 21:45 8 UNITS Insulin Human Regular AC SC 01/27/25 17:00 01/29/25 06:29 6 UNITS Dextrose 50 ml UD PRN IV 01/27/25 12:30 Carvedilol 6.25 mg Q12HR GT 01/27/25 22:00 01/29/25 09:39 6.25 MG Vancomycin HCl 0 ml @ 0 mls/hr UD IV 01/28/25 15:45 Enteral Nutritional Formula 1,000 ml 60ML/HR GT 01/29/25 13:30 Pantoprazole Sodium 40 mg BID IV 01/29/25 22:00 UNV Iron Sucrose 110 ml @ 110 mls/hr DAILY@1200 IV 01/30/25 12:00 02/03/25 12:59 UNV Laboratory Results Laboratory Tests 01/29/25 05:17 Chemistry Test 01/29/25 05:17 Albumin 2.8 g/dL (3.2-4.8) L Calcium Level 8.2 mg/dL (8.7-10.4) L Total Protein 5.6 g/dL (5.7-8.2) L LFT Test 01/29/25 05:17 Alanine Aminotransferase (ALT) 24 U/L (7-40) Alkaline Phosphatase 75 U/L (46-116) Aspartate Amino Transferase (AST) 23 U/L (13-40) Total Bilirubin < 0.2 mg/dL (0.2-1.0) L Urinalysis Test 01/25/25 13:25 Urine Color Yellow (Yellow) Urine Clarity Clear (Clear) Urine pH 6.5 (5.0-9.0) Urine Specific [place] 1.019 (1.001-1.035) Urine Protein 1+ (Negative) H Urine Ketones Negative (Negative) Urine Blood Negative /uL (Negative) Urine Nitrite Negative (Negative) Urine Bilirubin Negative (Negative) Urine Urobilinogen Normal mg/dL (Negative) Urine Leukocyte Esterase Negative /uL (Negative) Urine RBC <1 /hpf (0 - 3) Urine Microscopic WBC 2 /HPF (0-3) Urine Squamous Epithelial Cells None seen /hpf (<5) Urine Bacteria None seen /hpf (None Seen) Urine Glucose Normal mg/dL (Normal) Microbiology Microbiology Date/Time Source Procedure Growth Status 01/25/25 13:25 Voided Urine Urine Culture - Final Complete 01/24/25 12:15 Blood Blood Culture - Final Staphylococcus epidermidis Complete Assessment/Plan Assessment/Plan Acute metabolic/toxic encephalopathy in the setting of sepsis and hypernatremia COURTNEY; most likely vasomotor nephropathy in the setting of sepsis Hypernatremia in the setting of COURTNEY and sepsis Acute hypoxic respiratory failure due to COVID pneumonia Sepsis due to MDR Staphylococcus epidermidis bacteremia Hypertensive heart disease with chronic systolic heart failure; not in exacerbation Severe dementia with G-tube; suspected nonverbal status Pancytopenia; most likely due to sepsis Physical deconditioning due to above Switched IV antibiotics to IV vancomycin after discussion with Nephrology after reviewing blood culture susceptibility Ordered repeat blood cultures Avoid nephrotoxic agents Continue oxygen therapy as needed Correct electrolytes as per Nephrology Nephrology is following On renally adjusted DVT prophylaxis Continue remdesivir and steroids Continue feeding via G-tube No signs of active bleeding; ordered stool occult blood Airborne precaution Continue monitoring Patient's clinical services still remained tenuous. Minimally verbal. Given high blood sugars we will change JVD to Glucerna tube feeds. I will discontinue his aspirin and heparin subQ given his platelets are low and he is anemic. I will start him on IV iron for anemia. I will get a head CT to rule out any other neurological issues for his decreased mental status. Otherwise continue rest of supportive care and treatment as he is on. Further clinical management per clinical course. Discussed with the nurse regarding care plan. Plan discussed with: Other My Orders Orders - JOSH MUNOZ MD Procedure Category Date Status Time Nutritional PHA 01/29/25 In Process Supplements (Glucerna 13:30 Pantoprazole PHA 01/29/25 Logged (Protonix) 22:00 Iron Sucrose Complex PHA 01/30/25 Logged (Venofer) 12:00 Basic Metabolic Panel LAB 01/30/25 Verified 05:00 Basic Metabolic Panel LAB 01/31/25 Verified 05:00 Basic Metabolic Panel LAB 02/01/25 Verified 05:00 Basic Metabolic Panel LAB 02/02/25 Verified 05:00 Basic Metabolic Panel LAB 02/03/25 Verified 05:00 Ammonia LAB 01/30/25 Verified 04:[address] 01/29/25 Logged 15:54 Date of Service: Jan 29, 2025 Billing Provider: JOSH MUNOZ MD Common Visit Codes: [id number] INP/OBS CARE(MOD) JOSH MUNOZ MD Jan 29, 2025 15:57
[2025-01-29] MEDS ORDERED: ASPI-325 GT (15:59)
--- NOTE | 2025-01-29 16:44 | DVH ---
EXAM: CT HEAD WITHOUT CONTRAST INDICATION: aloc TECHNIQUE: CT images of the head were obtained without administration of IV contrast. CT scans at [facility] use dose modulation, iterative reconstruction, and/or weight based dosing when appropriate to reduce radiation dose to as low as reasonably achievable. COMPARISON: CT HEAD WITHOUT CONTRAST on DOS: 09/24/24 FINDINGS: PARENCHYMA: No acute hemorrhage. There is no mass effect, midline shift, or herniation. There is pres ervation of the moody white differentiation. Moderate scattered hypoattenuation along the periventricu lar, centrum semiovale, and deep white matter tracts, which are nonspecific however statistically mos t likely represent chronic microvascular ischemic change. Sequelae of lacunar infarction of the bilat eral basal ganglia. Central atrophy VENTRICLES: No hydrocephalus. prominence of the lateral ventricles, [id number] EXTRA-AXIAL SPACES: No extra-axial fluid collections. OTHER: The bony structures are intact. Visualized portions of the paranasal sinuses and mastoid air cells are clear. Multiple periapical lucencies suggestive of periodontal disease. IMPRESSION: 1. No CT evidence of an acute intracranial abnormality. 2. Sequelae of chronic microvascular ischemic change. 3. 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 Significant central atrophy, [id number]-right.
[2025-01-29 19:47] LABS: Hematocrit 20.8 % (41.0-53.0)
[2025-01-29 20:10] LABS: Hemoglobin 6.8 g/dL (13.5-17.5)
[2025-01-29] MEDS: PANTOPRAZOLE 40 MG/10 ML VIAL INJ IV SCH (21:55)
[2025-01-30] VITALS (11 sets, daily range): BP systolic 135–157; BP diastolic 44–105; PULSE 59–72; RESP 16–20; TEMP 97.3–98.6; O2SAT 94–100
[2025-01-30 10:54] LABS: Mean Corpuscular Hemoglobin 28.2 pg (28.0-32.0); Nucleated Red Blood Cells % 0.3 %
[2025-01-30 10:59] LABS: Hematocrit 29.1 % (41.0-53.0); Hemoglobin 9.5 g/dL (13.5-17.5); Mean Corpuscular Volume 86.6 fL (80.0-100.0)
[2025-01-30 11:09] LABS: Anion Gap 7 (5-15); Carbon Dioxide 31 mmol/L (20-31)
[2025-01-30 11:14] LABS: BUN/Creatinine Ratio 35.7 (10.0-20.0)
[2025-01-30 11:24] LABS: Blood Urea Nitrogen 41 mg/dL (9-23); Calcium 8.5 mg/dL (8.7-10.4); Chloride 107 mmol/L (98-107); Glucose 131 mg/dL (74-106); Sodium 145 mmol/L (136-145)
[2025-01-30 11:27] LABS: Potassium 5.8 mmol/L (3.5-5.1)
[2025-01-30] MEDS: SODIUM ZIRCONIUM CYCL 10 GM PAK PO ONE (12:59)
[2025-01-30] MEDS: IRON SUCROSE COMPLEX 110 ML IV SCH (12:59)
--- NOTE | 2025-01-30 13:03 | DVHPN2 ---
Progress Note Date Seen: Jan 30, 2025 Medical Necessity Reason Pt with a Central, PICC or Fol: Yes The following are medically ne: Chawla Catheter Subjective Changes from previous H/P or p: Changes (elevated K) Objective vital signs Vital Sign Date Time Temp Pulse Resp B/P (MAP) Pulse Ox O2 Delivery O2 Flow Rate FiO2 01/30/25 10:29 62 156/44 01/30/25 10:00 100 Nasal Cannula* 3 32 01/30/25 08:44 98.6 20 98.6 Total Intake and Output 01/29/25 01/29/25 01/30/25 15:00 23:00 07:00 Intake Total 300 ml 300 ml Output Total 600 ml 1100 ml Balance -300 ml -800 ml medications Current Medications Medications Dose Ordered Sig/Jim Route Start Time Stop Time Status Last Admin Dose Admin Acetaminophen 1,000 mg Q8HP PRN PO 01/24/25 17:15 Dexamethasone Sodium Phosphate 6 mg DAILY IV 01/24/25 17:15 02/03/25 17:14 01/30/25 10:28 6 MG Ondansetron HCl 4 mg Q4HP PRN IV 01/24/25 17:15 01/28/25 00:06 4 MG Nitroglycerin 0.4 mg Q5MINP PRN SL 01/24/25 17:15 Morphine Sulfate 2 mg Q30M PRN IV 01/24/25 17:15 Acetaminophen/ Hydrocodone Bitart 1 tab Q6HPRN PRN PO 01/26/25 01:45 Hydralazine HCl 10 mg Q6HP PRN IV 01/26/25 01:45 01/26/25 22:03 10 MG Diagnostic Test (Pha) 1 strip ACHS 01/27/25 17:00 01/30/25 06:39 1 STRIP Insulin Human Regular HS SC 01/27/25 22:00 01/29/25 22:08 4 UNITS Insulin Human Regular AC SC 01/27/25 17:00 01/30/25 06:40 2 UNITS Dextrose 50 ml UD PRN IV 01/27/25 12:30 Carvedilol 6.25 mg Q12HR GT 01/27/25 22:00 01/30/25 10:29 6.25 MG Vancomycin HCl 0 ml @ 0 mls/hr UD IV 01/28/25 15:45 Enteral Nutritional Formula 1,000 ml 60ML/HR GT 01/29/25 13:30 Pantoprazole Sodium 40 mg BID IV 01/29/25 22:00 01/30/25 10:28 40 MG Iron Sucrose 110 ml @ 110 mls/hr DAILY@1200 IV 01/30/25 12:00 02/03/25 12:59 Vancomycin HCl 250 ml @ 200 mls/hr Q24H IV 01/30/25 22:00 laboratory and microbiology Laboratory Tests 01/30/25 10:15 Test 01/30/25 10:15 Range/Units Serum Glucose 131 #H 74-106 mg/dL Microbiology Date/Time Source Procedure Growth Status 01/28/25 19:29 Blood Blood Culture - Preliminary Resulted 01/25/25 13:25 Voided Urine Urine Culture - Final Complete Problem List/Assessment/Plan Problem List/Assessment/Plan Acute kidney injury hemodynamic mediated etiology Hypernatremia COVID pneumonia Encephalopathy Acute hypoxic respiratory failure Sepsis MDR staph epi bacteremia anemia pancytopenia hyperkalemia nonverbal but alert hyprkalemia noted , medical treatment ordered. change tube feeds to K restricted and continue lokelma renal function has stabilized anemia hb s/p PRBC Currently on remdesivir and steroids for COVID pneumonia Bcx sensitive to vanco started per primary, rec close followup with vanco troughs today level is 17.9 Plan discussed with: Patient Dietary Evaluation Review Comments: 1) Continue EN regimen - flush with 120 mL free H2O Q8 2) Consult ST for swallow evaluation 3) Follow-up with cardiology, pulmonology, neurology, and nephrology 4) Continue to monitor I&O, labs, and skin integrity Expected Outcomes/Goals: 1) nutritional support to meet at least 75% of estimated daily needs 2) diet to advance 3) follow-up in 3-5 days KALYAN HADDAD MD Jan 30, 2025 13:03
[2025-01-30] MEDS: ALBUTEROL SULF 2.5 MG/0.5ML(0.5%) NEB SOLN NEB ONE (13:56)
[2025-01-30] MEDS: SODIUM BICARB 8.4% 50Meq/50ml SYR Vial IV ONE (14:54)
[2025-01-30] MEDS: DEXTROSE (50%) 50ML SYRG IV ONE (14:55)
[2025-01-30] MEDS: SODIUM ZIRCONIUM CYCL 10 GM PAK GT SCH (14:55)
[2025-01-30] MEDS: InsuLIN REG 1unit/0.01ml Soln (100units/ml) IV ONE (15:24)
--- NOTE | 2025-01-30 17:15 | DVHPN2 ---
Subjective Patient is noted to be hyperkalemic today. Receiving Lokelma. Hemoglobin improved post transfusion. Continue IV iron transfusion for now. Sertraline isolation for COVID-19. Continue to receive treatment. Reviewed: Care Plan, H&P, Labs, Medications, Previous Orders, Radiology, Other (Consultations) Changes from previous H/P or p: No Changes Objective Vitals Vital Signs Date Time Temp Pulse Resp B/P (MAP) Pulse Ox O2 Delivery O2 Flow Rate FiO2 01/30/25 16:30 98.6 72 20 157/71 (99) 94 98.6 01/30/25 14:00 Nasal Cannula 3.0 01/30/25 14:00 32 Intake/Output Intake and Output 01/30/25 07:00 Intake Total 600 ml Output Total 1700 ml Balance -1100 ml Intake Oral 0 ml Blood Product 300 ml Other 300 ml Output Urine Total 1700 ml General Appearance: Alert, Cooperative, Other (Confused; did not answer any question) HEENT: Atraumatic Lungs: Other (Decreased air entry bilaterally) Cardiovascular: Regular rate, Normal S1, Normal S2 Abdomen: Normal bowel sounds, Soft, No tenderness, Other (G-tube in place with no signs of bleeding/infection) Genitourinary: Other (Chawla's in place) Neuro: Other (Unable to assess as the patient did not follow commands; no facial asymmetry) Psych/Mental Status: Other (Unable to assess as the patient did not answer any question) Medications Current Medications Medications Dose Ordered Sig/Jim Route Start Time Stop Time Status Last Admin Dose Admin Acetaminophen 1,000 mg Q8HP PRN PO 01/24/25 17:15 Dexamethasone Sodium Phosphate 6 mg DAILY IV 01/24/25 17:15 02/03/25 17:14 01/30/25 10:28 6 MG Ondansetron HCl 4 mg Q4HP PRN IV 01/24/25 17:15 01/28/25 00:06 4 MG Nitroglycerin 0.4 mg Q5MINP PRN SL 01/24/25 17:15 Morphine Sulfate 2 mg Q30M PRN IV 01/24/25 17:15 Acetaminophen/ Hydrocodone Bitart 1 tab Q6HPRN PRN PO 01/26/25 01:45 Hydralazine HCl 10 mg Q6HP PRN IV 01/26/25 01:45 01/26/25 22:03 10 MG Diagnostic Test (Pha) 1 strip ACHS 01/27/25 17:00 01/30/25 11:30 1 STRIP Insulin Human Regular HS SC 01/27/25 22:00 01/29/25 22:08 4 UNITS Insulin Human Regular AC SC 01/27/25 17:00 01/30/25 13:16 2 UNITS Carvedilol 6.25 mg Q12HR GT 01/27/25 22:00 01/30/25 10:29 6.25 MG Vancomycin HCl 0 ml @ 0 mls/hr UD IV 01/28/25 15:45 Enteral Nutritional Formula 1,000 ml 60ML/HR GT 01/29/25 13:30 Pantoprazole Sodium 40 mg BID IV 01/29/25 22:00 01/30/25 10:28 40 MG Iron Sucrose 110 ml @ 110 mls/hr DAILY@1200 IV 01/30/25 12:00 02/03/25 12:59 01/30/25 12:59 110 MLS/HR Vancomycin HCl 250 ml @ 200 mls/hr Q24H IV 01/30/25 22:00 Zirconium Oxide 10 gm TID GT 01/30/25 14:00 02/02/25 13:59 01/30/25 14:55 10 GM Laboratory Results Laboratory Tests 01/30/25 10:15 Chemistry Test 01/30/25 10:15 Calcium Level 8.5 mg/dL (8.7-10.4) L Urinalysis Test 01/25/25 13:25 Urine Color Yellow (Yellow) Urine Clarity Clear (Clear) Urine pH 6.5 (5.0-9.0) Urine Specific [place] 1.019 (1.001-1.035) Urine Protein 1+ (Negative) H Urine Ketones Negative (Negative) Urine Blood Negative /uL (Negative) Urine Nitrite Negative (Negative) Urine Bilirubin Negative (Negative) Urine Urobilinogen Normal mg/dL (Negative) Urine Leukocyte Esterase Negative /uL (Negative) Urine RBC <1 /hpf (0 - 3) Urine Microscopic WBC 2 /HPF (0-3) Urine Squamous Epithelial Cells None seen /hpf (<5) Urine Bacteria None seen /hpf (None Seen) Urine Glucose Normal mg/dL (Normal) Microbiology Microbiology Date/Time Source Procedure Growth Status 01/28/25 19:29 Blood Blood Culture - Preliminary Resulted 01/25/25 13:25 Voided Urine Urine Culture - Final Complete Assessment/Plan Assessment/Plan Acute metabolic/toxic encephalopathy in the setting of sepsis and hypernatremia COURTNEY; most likely vasomotor nephropathy in the setting of sepsis Hypernatremia in the setting of COURTNEY and sepsis Acute hypoxic respiratory failure due to COVID pneumonia Sepsis due to MDR Staphylococcus epidermidis bacteremia Hypertensive heart disease with chronic systolic heart failure; not in exacerbation Severe dementia with G-tube; suspected nonverbal status Pancytopenia; most likely due to sepsis Physical deconditioning due to above Switched IV antibiotics to IV vancomycin after discussion with Nephrology after reviewing blood culture susceptibility Ordered repeat blood cultures Avoid nephrotoxic agents Continue oxygen therapy as needed Correct electrolytes as per Nephrology Nephrology is following On renally adjusted DVT prophylaxis Continue remdesivir and steroids Continue feeding via G-tube No signs of active bleeding; ordered stool occult blood Airborne precaution Continue monitoring Patient's clinical services still remained tenuous. Minimally verbal. Follow hyperkalemia with the labs and Nephrology recommendations. Continue Lokelma. Continue current treatment with the empiric antibiotics and code treatment as she is on as well as iron transfusions. We will repeat COVID test in the morning if it is negative can DC isolation. Discussed with the nurse regarding care plan. Plan discussed with: Other Date of Service: Jan 30, 2025 Billing Provider: JOSH MUNOZ MD Common Visit Codes: [id number] INP/OBS CARE(MOD) JOSH MUNOZ MD Jan 30, 2025 17:15
[2025-01-30] MEDS: Glucerna 1.2 Cal 1Liter BOTTLE GT SCH (21:59)
[2025-01-30] MEDS: VANCOMYCIN 1GM/250ML KIT 250 ML IV SCH (22:01)
[2025-01-31] VITALS (9 sets, daily range): BP systolic 127–176; BP diastolic 53–80; PULSE 60–74; RESP 17–19; TEMP 97.9–98.8; O2SAT 95–99
--- NOTE | 2025-01-31 10:18 | DVHPN2 ---
Subjective The patient is seen and examined at bedside. Still have shortness of breath. Non verbal but nod his head. Reviewed: Care Plan, H&P, Labs, Medications, Previous Orders, Radiology, Other (Consultations) Changes from previous H/P or p: No Changes Objective Vitals Vital Signs Date Time Temp Pulse Resp B/P (MAP) Pulse Ox O2 Delivery O2 Flow Rate FiO2 01/31/25 09:29 74 144/56 01/31/25 09:00 98.2 17 95 98.2 01/30/25 20:00 Nasal Cannula* 3 32 Intake/Output Intake and Output 01/31/25 07:00 Intake Total 1250 ml Output Total 3150 ml Balance -1900 ml Intake Oral 1000 ml IV Total 250 ml Output Urine Total 3150 ml # Bowel Movements 1 General Appearance: Alert, Cooperative, Other (Confused; did not answer any question) HEENT: Atraumatic Lungs: Other (Decreased air entry bilaterally) Cardiovascular: Regular rate, Normal S1, Normal S2 Abdomen: Normal bowel sounds, Soft, No tenderness, Other (G-tube in place with no signs of bleeding/infection) Genitourinary: Other (Chawla's in place) Neuro: Other (Unable to assess as the patient did not follow commands; no facial asymmetry) Psych/Mental Status: Other (Unable to assess as the patient did not answer any question) Medications Current Medications Medications Dose Ordered Sig/Jmi Route Start Time Stop Time Status Last Admin Dose Admin Acetaminophen 1,000 mg Q8HP PRN PO 01/24/25 17:15 Dexamethasone Sodium Phosphate 6 mg DAILY IV 01/24/25 17:15 02/03/25 17:14 01/31/25 09:30 6 MG Ondansetron HCl 4 mg Q4HP PRN IV 01/24/25 17:15 01/28/25 00:06 4 MG Nitroglycerin 0.4 mg Q5MINP PRN SL 01/24/25 17:15 Morphine Sulfate 2 mg Q30M PRN IV 01/24/25 17:15 Acetaminophen/ Hydrocodone Bitart 1 tab Q6HPRN PRN PO 01/26/25 01:45 Hydralazine HCl 10 mg Q6HP PRN IV 01/26/25 01:45 01/31/25 06:11 10 MG Diagnostic Test (Pha) 1 strip ACHS 01/27/25 17:00 01/31/25 06:11 1 STRIP Insulin Human Regular HS SC 01/27/25 22:00 01/30/25 22:57 2 UNITS Insulin Human Regular AC SC 01/27/25 17:00 01/30/25 18:24 3 UNITS Carvedilol 6.25 mg Q12HR GT 01/27/25 22:00 01/31/25 09:29 6.25 MG Vancomycin HCl 0 ml @ 0 mls/hr UD IV 01/28/25 15:45 Enteral Nutritional Formula 1,000 ml 60ML/HR GT 01/29/25 13:30 01/30/25 21:59 1,000 ML Pantoprazole Sodium 40 mg BID IV 01/29/25 22:00 01/31/25 09:30 40 MG Iron Sucrose 110 ml @ 110 mls/hr DAILY@1200 IV 01/30/25 12:00 02/03/25 12:59 01/30/25 12:59 110 MLS/HR Vancomycin HCl 250 ml @ 200 mls/hr Q24H IV 01/30/25 22:00 01/30/25 22:01 200 MLS/HR Zirconium Oxide 10 gm TID GT 01/30/25 14:00 02/02/25 13:59 01/31/25 06:11 10 GM Laboratory Results Laboratory Tests 01/30/25 10:15 Urinalysis Test 01/25/25 13:25 Urine Color Yellow (Yellow) Urine Clarity Clear (Clear) Urine pH 6.5 (5.0-9.0) Urine Specific [place] 1.019 (1.001-1.035) Urine Protein 1+ (Negative) H Urine Ketones Negative (Negative) Urine Blood Negative /uL (Negative) Urine Nitrite Negative (Negative) Urine Bilirubin Negative (Negative) Urine Urobilinogen Normal mg/dL (Negative) Urine Leukocyte Esterase Negative /uL (Negative) Urine RBC <1 /hpf (0 - 3) Urine Microscopic WBC 2 /HPF (0-3) Urine Squamous Epithelial Cells None seen /hpf (<5) Urine Bacteria None seen /hpf (None Seen) Urine Glucose Normal mg/dL (Normal) Microbiology Microbiology Date/Time Source Procedure Growth Status 01/28/25 19:29 Blood Blood Culture - Preliminary Resulted 01/25/25 13:25 Voided Urine Urine Culture - Final Complete Labs and/or images reviewed: Labs reviewed by me Assessment/Plan Assessment/Plan Assessment/Plan Acute metabolic/toxic encephalopathy in the setting of sepsis and hypernatremia COURTNEY; most likely vasomotor nephropathy in the setting of sepsis Hypernatremia in the setting of COURTNEY and sepsis Acute hypoxic respiratory failure due to COVID pneumonia Sepsis due to MDR Staphylococcus epidermidis bacteremia Hypertensive heart disease with chronic systolic heart failure; not in exacerbation Severe dementia with G-tube; suspected nonverbal status Pancytopenia; most likely due to sepsis Physical deconditioning due to above Switched IV antibiotics to IV vancomycin after discussion with Nephrology after reviewing blood culture susceptibility Ordered repeat blood cultures Avoid nephrotoxic agents Continue oxygen therapy as needed Correct electrolytes as per Nephrology Nephrology is following On renally adjusted DVT prophylaxis Continue remdesivir and steroids Continue feeding via G-tube No signs of active bleeding; ordered stool occult blood Airborne precaution Continue monitoring Patient's clinical services still remained tenuous. Minimally verbal. Follow hyperkalemia with the labs and Nephrology recommendations. Continue Lokelma. Continue current treatment with the empiric antibiotics and code treatment as she is on as well as iron transfusions. We will repeat COVID test today. If negative we will DC isolation. Anticipate to discharge if improved. This medical document was created using an electronic medical record system with [employer] dictation system. Although this document has been carefully reviewed, there may still be some phonetic and typographical errors. These areas are purely typographical due to imperfections of the software programs, and do not reflect any compromise in the patient's medical care. This medical document was created using an electronic medical record system with [employer] dictation system. Although this document has been carefully reviewed, there may still be some phonetic and typographical errors. These areas are purely typographical due to imperfections of the software programs, and do not reflect any compromise in the patient's medical care. Plan discussed with: Patient, Other (RN) Date of Service: Jan 31, 2025 Billing Provider: ALEE ANGUIANO MD Common Visit Codes: [id number] INP/OBS CARE(HIGH) ALEE ANGUIANO MD Jan 31, 2025 10:18
[2025-01-31 13:33] LABS: Hematocrit 26.4 % (41.0-53.0); Hemoglobin 8.4 g/dL (13.5-17.5); Mean Corpuscular Hemoglobin 28.1 pg (28.0-32.0); Mean Corpuscular Volume 88.6 fL (80.0-100.0); Nucleated Red Blood Cells % 0.3 %
--- NOTE | 2025-01-31 13:33 | DVHPN2 ---
Progress Note Date Seen: Jan 31, 2025 Medical Necessity Reason Pt with a Central, PICC or Fol: Yes The following are medically ne: Chawla Catheter Subjective Review of Systems: Deferred Objective vital signs Vital Sign Date Time Temp Pulse Resp B/P (MAP) Pulse Ox O2 Delivery O2 Flow Rate FiO2 01/31/25 10:00 98 Nasal Cannula* 3 32 01/31/25 09:29 74 144/56 01/31/25 09:00 98.2 17 98.2 Total Intake and Output 01/30/25 01/30/25 01/31/25 15:00 23:00 07:00 Intake Total 1000 ml 250 ml Output Total 1300 ml 1850 ml Balance -300 ml -1600 ml medications Current Medications Medications Dose Ordered Sig/Jim Route Start Time Stop Time Status Last Admin Dose Admin Acetaminophen 1,000 mg Q8HP PRN PO 01/24/25 17:15 Dexamethasone Sodium Phosphate 6 mg DAILY IV 01/24/25 17:15 02/03/25 17:14 01/31/25 09:30 6 MG Ondansetron HCl 4 mg Q4HP PRN IV 01/24/25 17:15 01/28/25 00:06 4 MG Nitroglycerin 0.4 mg Q5MINP PRN SL 01/24/25 17:15 Morphine Sulfate 2 mg Q30M PRN IV 01/24/25 17:15 Acetaminophen/ Hydrocodone Bitart 1 tab Q6HPRN PRN PO 01/26/25 01:45 Hydralazine HCl 10 mg Q6HP PRN IV 01/26/25 01:45 01/31/25 06:11 10 MG Diagnostic Test (Pha) 1 strip ACHS 01/27/25 17:00 01/31/25 11:42 1 STRIP Insulin Human Regular HS SC 01/27/25 22:00 01/30/25 22:57 2 UNITS Insulin Human Regular AC SC 01/27/25 17:00 01/30/25 18:24 3 UNITS Carvedilol 6.25 mg Q12HR GT 01/27/25 22:00 01/31/25 09:29 6.25 MG Vancomycin HCl 0 ml @ 0 mls/hr UD IV 01/28/25 15:45 Enteral Nutritional Formula 1,000 ml 60ML/HR GT 01/29/25 13:30 01/30/25 21:59 1,000 ML Pantoprazole Sodium 40 mg BID IV 01/29/25 22:00 01/31/25 09:30 40 MG Iron Sucrose 110 ml @ 110 mls/hr DAILY@1200 IV 01/30/25 12:00 02/03/25 12:59 01/30/25 12:59 110 MLS/HR Vancomycin HCl 250 ml @ 200 mls/hr Q24H IV 01/30/25 22:00 01/30/25 22:01 200 MLS/HR Zirconium Oxide 10 gm TID GT 01/30/25 14:00 02/02/25 13:59 01/31/25 06:11 10 GM Examination: GENERAL:Abnormal, LUNGS:Abnormal, CVS:Abnormal laboratory and microbiology Test 01/31/25 13:23 Range/Units Serum Glucose Pending Microbiology Date/Time Source Procedure Growth Status 01/28/25 19:29 Blood Blood Culture - Preliminary Resulted 01/25/25 13:25 Voided Urine Urine Culture - Final Complete Problem List/Assessment/Plan Problem List/Assessment/Plan Acute kidney injury hemodynamic mediated etiology Hypernatremia COVID pneumonia Encephalopathy Acute hypoxic respiratory failure Sepsis MDR staph epi bacteremia anemia pancytopenia hyperkalemia nonverbal but alert hyprkalemia noted , medical treatment ordered. change tube feeds to K restricted and continue lokelma --> pending lab results today renal function has stabilized anemia hb s/p PRBC Currently on remdesivir and steroids for COVID pneumonia Bcx sensitive to vanco started per primary, rec close followup with vanco troughs today level is 17.9 Plan discussed with: Patient Dietary Evaluation Review Comments: 1) Continue EN regimen - flush with 120 mL free H2O Q8 2) Consult ST for swallow evaluation 3) Follow-up with cardiology, pulmonology, neurology, and nephrology 4) Continue to monitor I&O, labs, and skin integrity Expected Outcomes/Goals: 1) nutritional support to meet at least 75% of estimated daily needs 2) diet to advance 3) follow-up in 3-5 days Total Time (mins): 33 KALYAN HADDAD MD Jan 31, 2025 13:33
[2025-01-31 13:40] LABS: COVID19 ANTIGEN SOFIA FIA NEGATIVE (NEGATIVE)
[2025-01-31 13:41] LABS: Potassium 4.5 mmol/L (3.5-5.1)
[2025-01-31 13:42] LABS: Anion Gap 5 (5-15); Calcium 8.7 mg/dL (8.7-10.4); Carbon Dioxide 37 mmol/L (20-31); Chloride 108 mmol/L (98-107); Sodium 150 mmol/L (136-145)
[2025-01-31 13:47] LABS: BUN/Creatinine Ratio 50.0 (10.0-20.0)
[2025-01-31 13:54] LABS: Blood Urea Nitrogen 51 mg/dL (9-23); Glucose 126 mg/dL (74-106)
[2025-02-01] VITALS (10 sets, daily range): BP systolic 108–174; BP diastolic 59–78; PULSE 64–71; RESP 18–20; TEMP 98.4–98.9; O2SAT 95–100
[2025-02-01 05:19] LABS: Potassium 4.3 mmol/L (3.5-5.1)
[2025-02-01 05:20] LABS: Anion Gap 6 (5-15)
[2025-02-01 05:21] LABS: Calcium 8.4 mg/dL (8.7-10.4); Carbon Dioxide 35 mmol/L (20-31); Chloride 108 mmol/L (98-107); Sodium 149 mmol/L (136-145)
[2025-02-01 05:25] LABS: BUN/Creatinine Ratio 33.3 (10.0-20.0)
[2025-02-01 05:29] LABS: Blood Urea Nitrogen 34 mg/dL (9-23); Glucose 129 mg/dL (74-106)
--- NOTE | 2025-02-01 12:36 | DVHPN2 ---
Subjective The patient is seen and examined at bedside. Still have shortness of breath. Non verbal but nod his head. More alert awake today. Off isolation because COVID- 19 rapid test negative Reviewed: Care Plan, H&P, Labs, Medications, Previous Orders, Radiology, Other (Consultations) Changes from previous H/P or p: No Changes Objective Vitals Vital Signs Date Time Temp Pulse Resp B/P (MAP) Pulse Ox O2 Delivery O2 Flow Rate FiO2 02/01/25 11:28 69 171/72 02/01/25 11:10 18 100 02/01/25 09:00 98.5 98.5 01/31/25 20:00 Nasal Cannula* 3 32 Intake/Output Intake and Output 02/01/25 07:00 Intake Total 360 ml Output Total 850 ml Balance -490 ml IV Total 360 ml Output Urine Total 850 ml # Bowel Movements 2 General Appearance: Alert, Cooperative, Other (Confused; did not answer any question) HEENT: Atraumatic Lungs: Other (Decreased air entry bilaterally) Cardiovascular: Regular rate, Normal S1, Normal S2 Abdomen: Normal bowel sounds, Soft, No tenderness, Other (G-tube in place with no signs of bleeding/infection) Genitourinary: Other (Chawla's in place) Neuro: Other (Unable to assess as the patient did not follow commands; no facial asymmetry) Psych/Mental Status: Other (Unable to assess as the patient did not answer any question) Medications Current Medications Medications Dose Ordered Sig/Jim Route Start Time Stop Time Status Last Admin Dose Admin Acetaminophen 1,000 mg Q8HP PRN PO 01/24/25 17:15 Dexamethasone Sodium Phosphate 6 mg DAILY IV 01/24/25 17:15 02/03/25 17:14 01/31/25 09:30 6 MG Ondansetron HCl 4 mg Q4HP PRN IV 01/24/25 17:15 01/28/25 00:06 4 MG Nitroglycerin 0.4 mg Q5MINP PRN SL 01/24/25 17:15 Morphine Sulfate 2 mg Q30M PRN IV 01/24/25 17:15 Acetaminophen/ Hydrocodone Bitart 1 tab Q6HPRN PRN PO 01/26/25 01:45 Hydralazine HCl 10 mg Q6HP PRN IV 01/26/25 01:45 01/31/25 22:53 10 MG Diagnostic Test (Pha) 1 strip ACHS 01/27/25 17:00 02/01/25 11:52 1 STRIP Insulin Human Regular HS SC 01/27/25 22:00 01/30/25 22:57 2 UNITS Insulin Human Regular AC SC 01/27/25 17:00 02/01/25 12:02 2 UNITS Carvedilol 6.25 mg Q12HR GT 01/27/25 22:00 02/01/25 11:28 6.25 MG Vancomycin HCl 0 ml @ 0 mls/hr UD IV 01/28/25 15:45 Enteral Nutritional Formula 1,000 ml 60ML/HR GT 01/29/25 13:30 01/31/25 20:55 1,000 ML Pantoprazole Sodium 40 mg BID IV 01/29/25 22:00 02/01/25 11:27 40 MG Iron Sucrose 110 ml @ 110 mls/hr DAILY@1200 IV 01/30/25 12:00 02/03/25 12:59 02/01/25 12:20 110 MLS/HR Vancomycin HCl 250 ml @ 200 mls/hr Q24H IV 01/30/25 22:00 01/31/25 21:31 200 MLS/HR Zirconium Oxide 10 gm TID GT 01/30/25 14:00 02/02/25 13:59 01/31/25 14:49 10 GM Laboratory Results Laboratory Tests 01/31/25 13:23 02/01/25 04:39 Chemistry Test 01/31/25 13:23 02/01/25 04:39 Calcium Level 8.7 mg/dL (8.7-10.4) 8.4 mg/dL (8.7-10.4) L Urinalysis Test 01/25/25 13:25 Urine Color Yellow (Yellow) Urine Clarity Clear (Clear) Urine pH 6.5 (5.0-9.0) Urine Specific [place] 1.019 (1.001-1.035) Urine Protein 1+ (Negative) H Urine Ketones Negative (Negative) Urine Blood Negative /uL (Negative) Urine Nitrite Negative (Negative) Urine Bilirubin Negative (Negative) Urine Urobilinogen Normal mg/dL (Negative) Urine Leukocyte Esterase Negative /uL (Negative) Urine RBC <1 /hpf (0 - 3) Urine Microscopic WBC 2 /HPF (0-3) Urine Squamous Epithelial Cells None seen /hpf (<5) Urine Bacteria None seen /hpf (None Seen) Urine Glucose Normal mg/dL (Normal) Microbiology Microbiology Date/Time Source Procedure Growth Status 01/28/25 19:29 Blood Blood Culture - Preliminary Resulted 01/25/25 13:25 Voided Urine Urine Culture - Final Complete Labs and/or images reviewed: Labs reviewed by me Assessment/Plan Assessment/Plan Acute metabolic/toxic encephalopathy in the setting of sepsis and hypernatremia COURTNEY; most likely vasomotor nephropathy in the setting of sepsis Hypernatremia in the setting of COURTNEY and sepsis Acute hypoxic respiratory failure due to COVID pneumonia Sepsis due to MDR Staphylococcus epidermidis bacteremia Hypertensive heart disease with chronic systolic heart failure; not in exacerbation Severe dementia with G-tube; suspected nonverbal status Pancytopenia; most likely due to sepsis Physical deconditioning due to above Switched IV antibiotics to IV vancomycin after discussion with Nephrology after reviewing blood culture susceptibility Ordered repeat blood cultures Avoid nephrotoxic agents Continue oxygen therapy as needed Correct electrolytes as per Nephrology Nephrology is following On renally adjusted DVT prophylaxis Continue remdesivir and steroids Continue feeding via G-tube No signs of active bleeding; ordered stool occult blood Airborne precaution Continue monitoring Patient's clinical services still remained tenuous. Minimally verbal. Follow hyperkalemia with the labs and Nephrology recommendations. Continue Lokelma. Continue current treatment with the empiric antibiotics and code treatment as he is on as well as iron transfusions. Anticipate to discharge if improved. This medical document was created using an electronic medical record system with [employer] system. Although this document has been carefully reviewed, there may still be some phonetic and typographical errors. These areas are purely typographical due to imperfections of the software programs, and do not reflect any compromise in the patient's medical care. This medical document was created using an electronic medical record system with [employer] dictation system. Although this document has been carefully reviewed, there may still be some phonetic and typographical errors. These areas are purely typographical due to imperfections of the software programs, and do not reflect any compromise in the patient's medical care. Plan discussed with: Patient Date of Service: Feb 01, 2025 Billing Provider: ALEE ANGUIANO MD Common Visit Codes: [id number] INP/OBS CARE(HIGH) ALEE ANGUIANO MD Feb 01, 2025 12:36
--- NOTE | 2025-02-01 15:24 | DVHPN2 ---
Progress Note Date Seen: Feb 01, 2025 Medical Necessity Reason Pt with a Central, PICC or Fol: Yes The following are medically ne: Chawla Catheter Subjective Review of Systems Patient resting in bed. Patient is nonverbal. Objective vital signs Vital Sign Date Time Temp Pulse Resp B/P (MAP) Pulse Ox O2 Delivery O2 Flow Rate FiO2 02/01/25 13:30 174/78 02/01/25 13:00 69 02/01/25 11:10 18 100 02/01/25 09:00 98.5 98.5 01/31/25 20:00 Nasal Cannula* 3 32 Total Intake and Output 01/31/25 01/31/25 02/01/25 15:00 23:00 07:00 Intake Total 360 ml Output Total 550 ml 300 ml Balance -190 ml -300 ml medications Current Medications Medications Dose Ordered Sig/Jim Route Start Time Stop Time Status Last Admin Dose Admin Acetaminophen 1,000 mg Q8HP PRN PO 01/24/25 17:15 Dexamethasone Sodium Phosphate 6 mg DAILY IV 01/24/25 17:15 02/03/25 17:14 01/31/25 09:30 6 MG Ondansetron HCl 4 mg Q4HP PRN IV 01/24/25 17:15 01/28/25 00:06 4 MG Nitroglycerin 0.4 mg Q5MINP PRN SL 01/24/25 17:15 Morphine Sulfate 2 mg Q30M PRN IV 01/24/25 17:15 Acetaminophen/ Hydrocodone Bitart 1 tab Q6HPRN PRN PO 01/26/25 01:45 Hydralazine HCl 10 mg Q6HP PRN IV 01/26/25 01:45 02/01/25 13:30 10 MG Diagnostic Test (Pha) 1 strip ACHS 01/27/25 17:00 02/01/25 11:52 1 STRIP Insulin Human Regular HS SC 01/27/25 22:00 01/30/25 22:57 2 UNITS Insulin Human Regular AC SC 01/27/25 17:00 02/01/25 12:02 2 UNITS Carvedilol 6.25 mg Q12HR GT 01/27/25 22:00 02/01/25 11:28 6.25 MG Vancomycin HCl 0 ml @ 0 mls/hr UD IV 01/28/25 15:45 Enteral Nutritional Formula 1,000 ml 60ML/HR GT 01/29/25 13:30 02/01/25 12:51 1,000 ML Pantoprazole Sodium 40 mg BID IV 01/29/25 22:00 02/01/25 11:27 40 MG Iron Sucrose 110 ml @ 110 mls/hr DAILY@1200 IV 01/30/25 12:00 02/03/25 12:59 02/01/25 12:20 110 MLS/HR Vancomycin HCl 250 ml @ 200 mls/hr Q24H IV 01/30/25 22:00 01/31/25 21:31 200 MLS/HR Zirconium Oxide 10 gm TID GT 01/30/25 14:00 02/02/25 13:59 01/31/25 14:49 10 GM Examination Gen: NAD Lungs: CTA, bilateral air entry Heart: RRR normal S1 and S2 Ext: No edema Neuro: Awake, nonverbal. laboratory and microbiology Laboratory Tests 02/01/25 04:39 01/31/25 13:23 Test 02/01/25 04:39 Range/Units Serum Glucose 129 H 74-106 mg/dL Microbiology Date/Time Source Procedure Growth Status 01/28/25 19:29 Blood Blood Culture - Preliminary Resulted 01/25/25 13:25 Voided Urine Urine Culture - Final Complete Labs and/or images reviewed: Labs reviewed by me Problem List/Assessment/Plan Problem List/Assessment/Plan IMP Acute kidney injury hemodynamic mediated etiology Hypernatremia COVID pneumonia Encephalopathy Acute hypoxic respiratory failure Sepsis MDR staph epi bacteremia anemia pancytopenia hyperkalemia REC - Serial BMPs - Strict I&Os - Hyperkalemia has resolved, K+ 4.3 - Hypernatremia slight improvement 149. Continue free water with feedings - Renal function continues to improve most recent eGFR 77 - Continue to closely monitor Vanco trough, as patient is currently on vancomycin. - We will continue to follow Plan discussed with: Patient, Other Dietary Evaluation Review Comments: 1) Continue EN regimen - flush with 120 mL free H2O Q8 2) Consult ST for swallow evaluation 3) Follow-up with cardiology, pulmonology, neurology, and nephrology 4) Continue to monitor I&O, labs, and skin integrity Expected Outcomes/Goals: 1) nutritional support to meet at least 75% of estimated daily needs 2) diet to advance 3) follow-up in 3-5 days ALEKSANDR PALUMBOP Feb 01, 2025 15:24
[2025-02-02] VITALS (9 sets, daily range): BP systolic 158–181; BP diastolic 41–75; PULSE 64–98; RESP 16–18; TEMP 97.9–99; O2SAT 97–98
[2025-02-02 06:31] LABS: Hematocrit 28.1 % (41.0-53.0); Hemoglobin 8.8 g/dL (13.5-17.5); Mean Corpuscular Hemoglobin 28.1 pg (28.0-32.0); Mean Corpuscular Volume 89.2 fL (80.0-100.0); Nucleated Red Blood Cells % 0.3 %
[2025-02-02 06:42] LABS: Anion Gap 7 (5-15); Calcium 8.9 mg/dL (8.7-10.4); Potassium 4.4 mmol/L (3.5-5.1)
[2025-02-02 06:48] LABS: BUN/Creatinine Ratio 35.5 (10.0-20.0)
[2025-02-02 06:51] LABS: Blood Urea Nitrogen 33 mg/dL (9-23); Carbon Dioxide 34 mmol/L (20-31); Chloride 107 mmol/L (98-107); Glucose 149 mg/dL (74-106); Sodium 148 mmol/L (136-145)
--- NOTE | 2025-02-02 13:12 | DVHPN2 ---
Subjective The patient is seen and examined at bedside. Still have shortness of breath. Non verbal but nod his head. More alert awake today. Off isolation because COVID- 19 rapid test negative Reviewed: Care Plan, H&P, Labs, Medications, Previous Orders, Radiology, Other (Consultations) Changes from previous H/P or p: No Changes Objective Vitals Vital Signs Date Time Temp Pulse Resp B/P (MAP) Pulse Ox O2 Delivery O2 Flow Rate FiO2 02/02/25 12:49 98.7 98 16 158/41 (80) 98 98.7 02/02/25 10:00 Nasal Cannula* 3 32 Intake/Output Intake and Output 02/02/25 07:00 Intake Total 110 ml Output Total 1825 ml Balance -1715 ml IV Total 110 ml Output Urine Total 1825 ml # Bowel Movements 2 General Appearance: Alert, Cooperative, Other (Confused; did not answer any question) HEENT: Atraumatic Lungs: Other (Decreased air entry bilaterally) Cardiovascular: Regular rate, Normal S1, Normal S2 Abdomen: Normal bowel sounds, Soft, No tenderness, Other (G-tube in place with no signs of bleeding/infection) Genitourinary: Other (Chawla's in place) Neuro: Other (Unable to assess as the patient did not follow commands; no facial asymmetry) Psych/Mental Status: Other (Unable to assess as the patient did not answer any question) Medications Current Medications Medications Dose Ordered Sig/Jim Route Start Time Stop Time Status Last Admin Dose Admin Acetaminophen 1,000 mg Q8HP PRN PO 01/24/25 17:15 Dexamethasone Sodium Phosphate 6 mg DAILY IV 01/24/25 17:15 02/03/25 17:14 01/31/25 09:30 6 MG Ondansetron HCl 4 mg Q4HP PRN IV 01/24/25 17:15 01/28/25 00:06 4 MG Nitroglycerin 0.4 mg Q5MINP PRN SL 01/24/25 17:15 Morphine Sulfate 2 mg Q30M PRN IV 01/24/25 17:15 Acetaminophen/ Hydrocodone Bitart 1 tab Q6HPRN PRN PO 01/26/25 01:45 Hydralazine HCl 10 mg Q6HP PRN IV 01/26/25 01:45 02/02/25 02:23 10 MG Diagnostic Test (Pha) 1 strip ACHS 01/27/25 17:00 02/02/25 11:37 1 STRIP Insulin Human Regular HS SC 01/27/25 22:00 01/30/25 22:57 2 UNITS Insulin Human Regular AC SC 01/27/25 17:00 02/02/25 11:38 2 UNITS Carvedilol 6.25 mg Q12HR GT 01/27/25 22:00 02/02/25 10:01 6.25 MG Vancomycin HCl 0 ml @ 0 mls/hr UD IV 01/28/25 15:45 Enteral Nutritional Formula 1,000 ml 60ML/HR GT 01/29/25 13:30 02/01/25 12:51 1,000 ML Pantoprazole Sodium 40 mg BID IV 01/29/25 22:00 02/02/25 10:01 40 MG Iron Sucrose 110 ml @ 110 mls/hr DAILY@1200 IV 01/30/25 12:00 02/03/25 12:59 02/02/25 11:37 110 MLS/HR Vancomycin HCl 250 ml @ 200 mls/hr Q24H IV 01/30/25 22:00 02/01/25 21:07 200 MLS/HR Zirconium Oxide 10 gm TID GT 01/30/25 14:00 02/02/25 13:59 01/31/25 14:49 10 GM Laboratory Results Laboratory Tests 02/02/25 04:49 Chemistry Test 02/02/25 04:49 Calcium Level 8.9 mg/dL (8.7-10.4) Urinalysis Test 01/25/25 13:25 Urine Color Yellow (Yellow) Urine Clarity Clear (Clear) Urine pH 6.5 (5.0-9.0) Urine Specific [place] 1.019 (1.001-1.035) Urine Protein 1+ (Negative) H Urine Ketones Negative (Negative) Urine Blood Negative /uL (Negative) Urine Nitrite Negative (Negative) Urine Bilirubin Negative (Negative) Urine Urobilinogen Normal mg/dL (Negative) Urine Leukocyte Esterase Negative /uL (Negative) Urine RBC <1 /hpf (0 - 3) Urine Microscopic WBC 2 /HPF (0-3) Urine Squamous Epithelial Cells None seen /hpf (<5) Urine Bacteria None seen /hpf (None Seen) Urine Glucose Normal mg/dL (Normal) Microbiology Microbiology Date/Time Source Procedure Growth Status 01/28/25 19:29 Blood Blood Culture - Preliminary Resulted 01/25/25 13:25 Voided Urine Urine Culture - Final Complete Labs and/or images reviewed: Labs reviewed by me Assessment/Plan Assessment/Plan Acute metabolic/toxic encephalopathy in the setting of sepsis and hypernatremia COURTNEY; most likely vasomotor nephropathy in the setting of sepsis Hypernatremia in the setting of COURTNEY and sepsis Acute hypoxic respiratory failure due to COVID pneumonia Sepsis due to MDR Staphylococcus epidermidis bacteremia Hypertensive heart disease with chronic systolic heart failure; not in exacerbation Severe dementia with G-tube; suspected nonverbal status Pancytopenia; most likely due to sepsis Physical deconditioning due to above Switched IV antibiotics to IV vancomycin after discussion with Nephrology after reviewing blood culture susceptibility Ordered repeat blood cultures Avoid nephrotoxic agents Continue oxygen therapy as needed Correct electrolytes as per Nephrology Nephrology is following On renally adjusted DVT prophylaxis Continue remdesivir and steroids Continue feeding via G-tube No signs of active bleeding; ordered stool occult blood Airborne precaution Continue monitoring Patient's clinical services still remained tenuous. Minimally verbal. Follow hyperkalemia with the labs and Nephrology recommendations. Continue Lokelma. Continue current treatment with the empiric antibiotics and code treatment as he is on as well as iron transfusions. Anticipate to discharge if improved. This medical document was created using an electronic medical record system with [employer] dictation system. Although this document has been carefully reviewed, there may still be some phonetic and typographical errors. These areas are purely typographical due to imperfections of the software programs, and do not reflect any compromise in the patient's medical care. This medical document was created using an electronic medical record system with [employer] dictation system. Although this document has been carefully reviewed, there may still be some phonetic and typographical errors. These areas are purely typographical due to imperfections of the software programs, and do not reflect any compromise in the patient's medical care. Plan discussed with: Patient, Other (RN) Date of Service: Feb 02, 2025 Billing Provider: ALEE ANGUIANO MD Common Visit Codes: [id number] INP/OBS CARE(HIGH) ALEE ANGUIANO MD Feb 02, 2025 13:11
--- NOTE | 2025-02-02 16:04 | DVHPN2 ---
Progress Note Date Seen: Feb 02, 2025 Medical Necessity Reason Pt with a Central, PICC or Fol: Yes The following are medically ne: Chawla Catheter Subjective Review of Systems Pt responded to name and able to verbalize he feels ok. Patient reports: No new complaints Objective vital signs Vital Sign Date Time Temp Pulse Resp B/P (MAP) Pulse Ox O2 Delivery O2 Flow Rate FiO2 02/02/25 12:49 98.7 98 16 158/41 (80) 98 98.7 02/02/25 10:00 Nasal Cannula* 3 32 Total Intake and Output 02/01/25 02/01/25 02/02/25 15:00 23:00 07:00 Intake Total 110 ml Output Total 850 ml 975 ml Balance 110 ml -850 ml -975 ml medications Current Medications Medications Dose Ordered Sig/Jim Route Start Time Stop Time Status Last Admin Dose Admin Acetaminophen 1,000 mg Q8HP PRN PO 01/24/25 17:15 Ondansetron HCl 4 mg Q4HP PRN IV 01/24/25 17:15 01/28/25 00:06 4 MG Nitroglycerin 0.4 mg Q5MINP PRN SL 01/24/25 17:15 Morphine Sulfate 2 mg Q30M PRN IV 01/24/25 17:15 Acetaminophen/ Hydrocodone Bitart 1 tab Q6HPRN PRN PO 01/26/25 01:45 Hydralazine HCl 10 mg Q6HP PRN IV 01/26/25 01:45 02/02/25 02:23 10 MG Diagnostic Test (Pha) 1 strip ACHS 01/27/25 17:00 02/02/25 11:37 1 STRIP Insulin Human Regular HS SC 01/27/25 22:00 01/30/25 22:57 2 UNITS Insulin Human Regular AC SC 01/27/25 17:00 02/02/25 11:38 2 UNITS Carvedilol 6.25 mg Q12HR GT 01/27/25 22:00 02/02/25 10:01 6.25 MG Vancomycin HCl 0 ml @ 0 mls/hr UD IV 01/28/25 15:45 Enteral Nutritional Formula 1,000 ml 60ML/HR GT 01/29/25 13:30 02/01/25 12:51 1,000 ML Pantoprazole Sodium 40 mg BID IV 01/29/25 22:00 02/02/25 10:01 40 MG Iron Sucrose 110 ml @ 110 mls/hr DAILY@1200 IV 01/30/25 12:00 02/03/25 12:59 02/02/25 11:37 110 MLS/HR Vancomycin HCl 250 ml @ 200 mls/hr Q24H IV 01/30/25 22:00 02/01/25 21:07 200 MLS/HR Examination Gen: NAD Lungs: CTA, bilateral air entry Heart: RRR normal S1 and S2 Ext: No edema Neuro: Awake, alert x1 laboratory and microbiology Laboratory Tests 02/02/25 04:49 Test 02/02/25 04:49 Range/Units Serum Glucose 149 H 74-106 mg/dL Microbiology Date/Time Source Procedure Growth Status 01/28/25 19:29 Blood Blood Culture - Preliminary Resulted 01/25/25 13:25 Voided Urine Urine Culture - Final Complete Labs and/or images reviewed: Labs reviewed by me Problem List/Assessment/Plan Problem List/Assessment/Plan IMP Acute kidney injury hemodynamic mediated etiology Hypernatremia, slight improvement Na 148 COVID pneumonia Encephalopathy Acute hypoxic respiratory failure Sepsis MDR staph epi bacteremia anemia pancytopenia hyperkalemia- resolved REC - BMP in am - Strict I&Os - Hypernatremia continued slight improvement 148. Continue free water with feedings - Renal function continues to improve most recent eGFR 86, creat 0.93 - Continue to closely monitor Vanco trough - We will continue to follow Plan discussed with: Patient, Other Dietary Evaluation Review Comments: 1) Continue EN regimen - flush with 120 mL free H2O Q8 2) Consult ST for swallow evaluation 3) Follow-up with cardiology, pulmonology, neurology, and nephrology 4) Continue to monitor I&O, labs, and skin integrity Expected Outcomes/Goals: 1) nutritional support to meet at least 75% of estimated daily needs 2) diet to advance 3) follow-up in 3-5 days ALEKSANDR PALUMBO Feb 02, 2025 16:04
[2025-02-03] VITALS (9 sets, daily range): BP systolic 167–181; BP diastolic 45–74; PULSE 60–76; RESP 16–18; TEMP 97.6–98.2; O2SAT 96–100
[2025-02-03 05:48] LABS: Potassium 4.8 mmol/L (3.5-5.1)
[2025-02-03 05:49] LABS: Anion Gap 6 (5-15); Calcium 8.8 mg/dL (8.7-10.4)
[2025-02-03 05:54] LABS: BUN/Creatinine Ratio 27.0 (10.0-20.0); Glucose 105 mg/dL (74-106)
[2025-02-03 06:00] LABS: Blood Urea Nitrogen 24 mg/dL (9-23); Carbon Dioxide 34 mmol/L (20-31); Chloride 111 mmol/L (98-107); Sodium 151 mmol/L (136-145)
[2025-02-03] MEDS: D5W 5% 1,000 ML IV ONE (10:00)
--- NOTE | 2025-02-03 15:27 | DVHPN2 ---
Progress Note Date Seen: Feb 03, 2025 Medical Necessity Reason Pt with a Central, PICC or Fol: Yes The following are medically ne: Chawla Catheter Subjective Patient reports: No new complaints Objective vital signs Vital Sign Date Time Temp Pulse Resp B/P (MAP) Pulse Ox O2 Delivery O2 Flow Rate FiO2 02/03/25 13:27 193/70 02/03/25 13:00 98.0 70 18 99 98.0 02/02/25 20:00 Nasal Cannula* 3 32 Total Intake and Output 02/02/25 02/02/25 02/03/25 15:00 23:00 07:00 Intake Total 170 ml 720 ml Output Total 500 ml 700 ml Balance 170 ml 220 ml -700 ml medications Current Medications Medications Dose Ordered Sig/Jim Route Start Time Stop Time Status Last Admin Dose Admin Acetaminophen 1,000 mg Q8HP PRN PO 01/24/25 17:15 Ondansetron HCl 4 mg Q4HP PRN IV 01/24/25 17:15 01/28/25 00:06 4 MG Nitroglycerin 0.4 mg Q5MINP PRN SL 01/24/25 17:15 Acetaminophen/ Hydrocodone Bitart 1 tab Q6HPRN PRN PO 01/26/25 01:45 Hydralazine HCl 10 mg Q6HP PRN IV 01/26/25 01:45 02/03/25 13:27 10 MG Diagnostic Test (Pha) 1 strip ACHS 01/27/25 17:00 02/03/25 11:50 1 STRIP Insulin Human Regular HS SC 01/27/25 22:00 02/02/25 22:14 2 UNITS Insulin Human Regular AC SC 01/27/25 17:00 02/02/25 17:08 2 UNITS Carvedilol 6.25 mg Q12HR GT 01/27/25 22:00 02/02/25 21:45 6.25 MG Vancomycin HCl 0 ml @ 0 mls/hr UD IV 01/28/25 15:45 Enteral Nutritional Formula 1,000 ml 60ML/HR GT 01/29/25 13:30 02/01/25 12:51 1,000 ML Pantoprazole Sodium 40 mg BID IV 01/29/25 22:00 02/03/25 10:00 40 MG Vancomycin HCl 250 ml @ 200 mls/hr Q24H IV 01/30/25 22:00 02/02/25 21:45 200 MLS/HR Examination Gen: NAD Lungs: CTA, bilateral air entry Heart: RRR normal S1 and S2 Ext: No edema Neuro: Awake, alert x1 laboratory and microbiology Laboratory Tests 02/03/25 05:20 02/02/25 04:49 Test 02/03/25 05:20 Range/Units Serum Glucose 105 74-106 mg/dL Microbiology Date/Time Source Procedure Growth Status 01/28/25 19:29 Blood Blood Culture - Preliminary Resulted 01/25/25 13:25 Voided Urine Urine Culture - Final Complete Problem List/Assessment/Plan Problem List/Assessment/Plan IMP Acute kidney injury hemodynamic mediated etiology Hypernatremia- Na 151 COVID pneumonia Encephalopathy Acute hypoxic respiratory failure Sepsis MDR staph epi bacteremia anemia pancytopenia hyperkalemia- resolved REC - BMP in am - Strict I&Os - IVF D5W x 1 L - Continue free water with feedings - Renal function continues to improve eGFR 90 - Continue to closely monitor Vanco trough - We will continue to follow Plan discussed with: Patient, Other Dietary Evaluation Review Comments: 1) Continue EN regimen - flush with 120 mL free H2O Q8 2) Consult ST for swallow evaluation 3) Follow-up with cardiology, pulmonology, neurology, and nephrology 4) Continue to monitor I&O, labs, and skin integrity Expected Outcomes/Goals: 1) nutritional support to meet at least 75% of estimated daily needs 2) diet to advance 3) follow-up in 3-5 days ALEKSANDR PALUMBO Feb 03, 2025 15:27
[2025-02-03] MEDS: hydrALAZINE HCL 20 MG/ML VL IV ONE (23:00)
[2025-02-04] VITALS (11 sets, daily range): BP systolic 119–201; BP diastolic 38–83; PULSE 62–85; RESP 17–20; TEMP 97.4–98.6; O2SAT 96–99
--- NOTE | 2025-02-04 06:13 | DVHPN2 ---
Subjective The patient is seen and examined at bedside. Still have shortness of breath. Non verbal but nod his head. More alert awake today. Off isolation because COVID- 19 rapid test negative. G tube clogged. Reviewed: Care Plan, H&P, Labs, Medications, Previous Orders, Radiology, Other (Consultations) Changes from previous H/P or p: No Changes Objective Vitals Vital Signs Date Time Temp Pulse Resp B/P (MAP) Pulse Ox O2 Delivery O2 Flow Rate FiO2 02/03/25 05:36 173/59 02/03/25 04:54 97.8 69 18 96 97.8 02/02/25 20:00 Nasal Cannula* 3 32 Intake/Output Intake and Output 02/03/25 07:00 Intake Total 0 ml Output Total 1250 ml Balance -1250 ml Intake Oral 0 ml Output Urine Total 1250 ml General Appearance: Alert, Cooperative, Other (Confused; did not answer any question) HEENT: Atraumatic Lungs: Other (Decreased air entry bilaterally) Cardiovascular: Regular rate, Normal S1, Normal S2 Abdomen: Normal bowel sounds, Soft, No tenderness, Other (G-tube in place with no signs of bleeding/infection) Genitourinary: Other (Chawla's in place) Neuro: Other (Unable to assess as the patient did not follow commands; no facial asymmetry) Psych/Mental Status: Other (Unable to assess as the patient did not answer any question) Medications Current Medications Medications Dose Ordered Sig/Jim Route Start Time Stop Time Status Last Admin Dose Admin Acetaminophen 1,000 mg Q8HP PRN PO 01/24/25 17:15 Ondansetron HCl 4 mg Q4HP PRN IV 01/24/25 17:15 01/28/25 00:06 4 MG Nitroglycerin 0.4 mg Q5MINP PRN SL 01/24/25 17:15 Hydralazine HCl 10 mg Q6HP PRN IV 01/26/25 01:45 02/04/25 05:36 10 MG Diagnostic Test (Pha) 1 strip ACHS 01/27/25 17:00 02/03/25 22:21 1 STRIP Insulin Human Regular HS SC 01/27/25 22:00 02/02/25 22:14 2 UNITS Insulin Human Regular AC SC 01/27/25 17:00 02/02/25 17:08 2 UNITS Carvedilol 6.25 mg Q12HR GT 01/27/25 22:00 02/02/25 21:45 6.25 MG Vancomycin HCl 0 ml @ 0 mls/hr UD IV 01/28/25 15:45 Enteral Nutritional Formula 1,000 ml 60ML/HR GT 01/29/25 13:30 02/01/25 12:51 1,000 ML Pantoprazole Sodium 40 mg BID IV 01/29/25 22:00 02/03/25 22:15 40 MG Laboratory Results Laboratory Tests 02/02/25 04:49 02/03/25 05:20 Urinalysis Test 01/25/25 13:25 Urine Color Yellow (Yellow) Urine Clarity Clear (Clear) Urine pH 6.5 (5.0-9.0) Urine Specific [place] 1.019 (1.001-1.035) Urine Protein 1+ (Negative) H Urine Ketones Negative (Negative) Urine Blood Negative /uL (Negative) Urine Nitrite Negative (Negative) Urine Bilirubin Negative (Negative) Urine Urobilinogen Normal mg/dL (Negative) Urine Leukocyte Esterase Negative /uL (Negative) Urine RBC <1 /hpf (0 - 3) Urine Microscopic WBC 2 /HPF (0-3) Urine Squamous Epithelial Cells None seen /hpf (<5) Urine Bacteria None seen /hpf (None Seen) Urine Glucose Normal mg/dL (Normal) Microbiology Microbiology Date/Time Source Procedure Growth Status 01/28/25 19:29 Blood Blood Culture - Preliminary Resulted 01/25/25 13:25 Voided Urine Urine Culture - Final Complete Labs and/or images reviewed: Labs reviewed by me Assessment/Plan Assessment/Plan Acute metabolic/toxic encephalopathy in the setting of sepsis and hypernatremia COURTNEY; most likely vasomotor nephropathy in the setting of sepsis Hypernatremia in the setting of COURTNEY and sepsis Acute hypoxic respiratory failure due to COVID pneumonia Sepsis due to MDR Staphylococcus epidermidis bacteremia Hypertensive heart disease with chronic systolic heart failure; not in exacerbation Severe dementia with G-tube; suspected nonverbal status Pancytopenia; most likely due to sepsis Physical deconditioning due to above Switched IV antibiotics to IV vancomycin after discussion with Nephrology after reviewing blood culture susceptibility Ordered repeat blood cultures Avoid nephrotoxic agents Continue oxygen therapy as needed Correct electrolytes as per Nephrology Nephrology is following On renally adjusted DVT prophylaxis Continue remdesivir and steroids Gtube clogged. Will consult GI specialist. No signs of active bleeding; ordered stool occult blood Airborne precaution Continue monitoring Patient's clinical services still remained tenuous. Minimally verbal. Follow hyperkalemia with the labs and Nephrology recommendations. Continue Lokelma. Continue current treatment with the empiric antibiotics and code treatment as he is on as well as iron transfusions. Waiting for GI specialist for G tube evaluation. This medical document was created using an electronic medical record system with [employer] dictation system. Although this document has been carefully reviewed, there may still be some phonetic and typographical errors. These areas are purely typographical due to imperfections of the software programs, and do not reflect any compromise in the patient's medical care. This medical document was created using an electronic medical record system with [employer] dictation system. Although this document has been carefully reviewed, there may still be some phonetic and typographical errors. These areas are purely typographical due to imperfections of the software programs, and do not reflect any compromise in the patient's medical care. Plan discussed with: Other (RN) Date of Service: Feb 03, 2025 Billing Provider: ALEE ANGUIANO MD Common Visit Codes: [id number] INP/OBS CARE(HIGH) ALEE ANGUIANO MD Feb 04, 2025 06:13
[2025-02-04 06:42] LABS: Anion Gap 6 (5-15); Carbon Dioxide 30 mmol/L (20-31); Potassium 4.7 mmol/L (3.5-5.1)
[2025-02-04 06:44] LABS: Calcium 9.0 mg/dL (8.7-10.4)
[2025-02-04 06:46] LABS: Chloride 110 mmol/L (98-107); Sodium 146 mmol/L (136-145)
[2025-02-04 06:48] LABS: Glucose 77 mg/dL (74-106)
[2025-02-04 06:49] LABS: BUN/Creatinine Ratio 21.3 (10.0-20.0); Blood Urea Nitrogen 19 mg/dL (9-23)
[2025-02-04 07:19] LABS: Hematocrit 27.8 % (41.0-53.0); Hemoglobin 9.0 g/dL (13.5-17.5); Mean Corpuscular Hemoglobin 29.6 pg (28.0-32.0); Mean Corpuscular Volume 91.7 fL (80.0-100.0); Nucleated Red Blood Cells % 0.4 %
--- NOTE | 2025-02-04 11:28 | DVHPN2 ---
Subjective The patient is seen and examined at bedside. Still have shortness of breath. Non verbal but nod his head. More alert awake today. Off isolation because COVID- 19 rapid test negative. G tube clogged. Reviewed: Care Plan, H&P, Labs, Medications, Previous Orders, Radiology, Other (Consultations) Changes from previous H/P or p: No Changes Objective Vitals Vital Signs Date Time Temp Pulse Resp B/P (MAP) Pulse Ox O2 Delivery O2 Flow Rate FiO2 02/04/25 08:35 97.4 78 20 182/66 (104) 98 97.4 02/03/25 20:00 Nasal Cannula* 3 32 Intake/Output Intake and Output 02/04/25 07:00 Intake Total 0 ml Output Total 1250 ml Balance -1250 ml Intake Oral 0 ml Output Urine Total 1250 ml General Appearance: Alert, Cooperative, Other (Confused; did not answer any question) HEENT: Atraumatic Lungs: Other (Decreased air entry bilaterally) Cardiovascular: Regular rate, Normal S1, Normal S2 Abdomen: Normal bowel sounds, Soft, No tenderness, Other (G-tube in place with no signs of bleeding/infection) Genitourinary: Other (Chawla's in place) Neuro: Other (Unable to assess as the patient did not follow commands; no facial asymmetry) Psych/Mental Status: Other (Unable to assess as the patient did not answer any question) Medications Current Medications Medications Dose Ordered Sig/Jim Route Start Time Stop Time Status Last Admin Dose Admin Acetaminophen 1,000 mg Q8HP PRN PO 01/24/25 17:15 Ondansetron HCl 4 mg Q4HP PRN IV 01/24/25 17:15 01/28/25 00:06 4 MG Nitroglycerin 0.4 mg Q5MINP PRN SL 01/24/25 17:15 Hydralazine HCl 10 mg Q6HP PRN IV 01/26/25 01:45 02/04/25 05:36 10 MG Diagnostic Test (Pha) 1 strip ACHS 01/27/25 17:00 02/04/25 06:41 1 STRIP Insulin Human Regular HS SC 01/27/25 22:00 02/02/25 22:14 2 UNITS Insulin Human Regular AC SC 01/27/25 17:00 02/02/25 17:08 2 UNITS Carvedilol 6.25 mg Q12HR GT 01/27/25 22:00 02/02/25 21:45 6.25 MG Vancomycin HCl 0 ml @ 0 mls/hr UD IV 01/28/25 15:45 Enteral Nutritional Formula 1,000 ml 60ML/HR GT 01/29/25 13:30 02/01/25 12:51 1,000 ML Pantoprazole Sodium 40 mg BID IV 01/29/25 22:00 02/03/25 22:15 40 MG Laboratory Results Laboratory Tests 02/04/25 05:10 Chemistry Test 02/04/25 05:10 Calcium Level 9.0 mg/dL (8.7-10.4) Urinalysis Test 01/25/25 13:25 Urine Color Yellow (Yellow) Urine Clarity Clear (Clear) Urine pH 6.5 (5.0-9.0) Urine Specific [place] 1.019 (1.001-1.035) Urine Protein 1+ (Negative) H Urine Ketones Negative (Negative) Urine Blood Negative /uL (Negative) Urine Nitrite Negative (Negative) Urine Bilirubin Negative (Negative) Urine Urobilinogen Normal mg/dL (Negative) Urine Leukocyte Esterase Negative /uL (Negative) Urine RBC <1 /hpf (0 - 3) Urine Microscopic WBC 2 /HPF (0-3) Urine Squamous Epithelial Cells None seen /hpf (<5) Urine Bacteria None seen /hpf (None Seen) Urine Glucose Normal mg/dL (Normal) Microbiology Microbiology Date/Time Source Procedure Growth Status 01/28/25 19:29 Blood Blood Culture - Preliminary Resulted 01/25/25 13:25 Voided Urine Urine Culture - Final Complete Labs and/or images reviewed: Labs reviewed by me Assessment/Plan Assessment/Plan Acute metabolic/toxic encephalopathy in the setting of sepsis and hypernatremia COURTNEY; most likely vasomotor nephropathy in the setting of sepsis Hypernatremia in the setting of COURTNEY and sepsis Acute hypoxic respiratory failure due to COVID pneumonia Sepsis due to MDR Staphylococcus epidermidis bacteremia Hypertensive heart disease with chronic systolic heart failure; not in exacerbation Severe dementia with G-tube; suspected nonverbal status Pancytopenia; most likely due to sepsis Physical deconditioning due to above Switched IV antibiotics to IV vancomycin after discussion with Nephrology after reviewing blood culture susceptibility Ordered repeat blood cultures Avoid nephrotoxic agents Continue oxygen therapy as needed Correct electrolytes as per Nephrology Nephrology is following On renally adjusted DVT prophylaxis Continue remdesivir and steroids Gtube clogged. Will consult GI specialist. No signs of active bleeding; ordered stool occult blood Airborne precaution Continue monitoring Patient's clinical services still remained tenuous. Minimally verbal. Follow hyperkalemia with the labs and Nephrology recommendations. Continue Lokelma. Continue current treatment with the empiric antibiotics and code treatment as he is on as well as iron transfusions. Appreciate GI input. TF replacement soon.. This medical document was created using an electronic medical record system with [employer] computerized dictation system. Although this document has been carefully reviewed, there may still be some phonetic and typographical errors. These areas are purely typographical due to imperfections of the software programs, and do not reflect any compromise in the patient's medical care. Plan discussed with: Patient Date of Service: Feb 04, 2025 Billing Provider: ALEE ANGUIANO MD Common Visit Codes: [id number] INP/OBS CARE(HIGH) ALEE ANGUIANO MD Feb 04, 2025 11:28
[2025-02-04] MEDS: hydrALAZINE HCL 20 MG/ML VL IV ONE ×2 (11:35→21:16)
--- NOTE | 2025-02-04 13:16 | DVHCONRES ---
Date Seen: Feb 04, 2025 Resident Creating Document: JOAQUIN JAMES RESIDENT History of Present Illness Patient is a 74-year-old male with past medical history of HFrEF, diabetes, hypertension, s/p PELT SALTER, chronic respiratory failure on home O2 2 L, CVA, JUVENTINO, dementia, baseline AO times 1-2, bed-bound, who was brought in by EMS due to increasing shortness of breath and cough. Patient's daughter notes he has been having flu-like symptoms including fever, productive cough with increasing oxygen requirement to 4 L. per daughter, patient had also been less interactive and verbal than his baseline. At the time of my assessment patient remains AO x1 and minimally responsive. Past Medical History HFrEF, diabetes, hypertension, s/p PELT SALTER, chronic respiratory failure on home O2 2 L, CVA, JUVENTINO, dementia, baseline AO times 1-2, bed-bound Past Surgical History S/p PELT SALTER Family History: Unknown Unknown family medical history Allergies: Coded Allergies: NO KNOWN ALLERGIES (Unverified , 09/24/24) Home Meds Reported Medications Aspirin (Aspirin Low Dose) 81 Mg Tab, 1 TAB GT DAILY 01/29/25 Acetaminophen (M-Pap) 160 Mg/5 Ml Liq, 160 MG GT PRN for PAIN SCALE 1-3 OR TEMP>100.4, LIQ 01/26/25 Insulin Glargine-Yfgn (Insulin Glargine) 100 Unit/Ml Inj, 10 UNIT SC DAILY, INJ 01/26/25 Famotidine (Famotidine) 20 Mg Tab, 20 MG GT DAILY for 30 Days, MG 01/26/25 Losartan Potassium (Losartan Potassium) 25 Mg Tab, 25 MG GT BID for 30 Days, MG 01/26/25 Hydralazine Hcl (Hydralazine Hcl) 50 Mg Tab, 50 MG GT TID for 30 Days, MG 01/26/25 Carvedilol (Carvedilol) 6.25 Mg Tab, 1 TAB GT BID, #180 TAB 1 Refill 01/26/25 Discontinued Reported Medications Aspirin (Aspirin) 325 Mg Tab, 81 MG GT DAILY for 30 Days, MG 01/26/25 Current Medications Current Medications Medications (Trade) Dose Ordered Sig/Jim Route PRN Reason Start Time Stop Time Status Last Admin Furosemide (Lasix Injection) 40 mg DAILY IV 02/05/25 10:00 Review of Systems Unable to obtain an accurate review of systems as patient A&O x1. Vital Signs Vital Signs Date Time Temp Pulse Resp B/P (MAP) Pulse Ox O2 Delivery O2 Flow Rate FiO2 02/04/25 11:35 182/66 02/04/25 08:35 97.4 78 20 98 97.4 02/03/25 20:00 Nasal Cannula* 3 32 Physical Exam General Appearance: Well developed. Well nourished. NAD Pulmonary/Respiratory: Equal bilateral air entry Cardiovascular/Chest: Regular rate and rhythm. No murmurs. No JVD. Abdominal Exam: Normal bowel sounds. Soft. normal abdomen, no visible veins, Nontender. No hepatospenomegaly. No masses Neuro/Mental Status: A&O x1 Skin Exam: Normal inspection. Normal color. Warm. Dry Labs/Diagnostic Data Labs Test 02/04/25 11:36 02/04/25 05:10 02/02/25 21:25 02/01/25 05:24 Range/Units POC Glucose 74 70-106 mg/dl White Blood Count 3.2 L 4.4-10.8 10^3/uL Red Blood Count 3.03 L 4.5-5.90 10^6/uL Hemoglobin 9.0 L 13.5-17.5 g/dL Hematocrit 27.8 L 41.0-53.0 % Mean Corpuscular Volume 91.7 80.0-100.0 fL Mean Corpuscular Hemoglobin 29.6 28.0-32.0 pg Mean Corpuscular Hemoglobin Concent 32.3 32.0-36.0 g/dL Red Cell Distribution Width 16.6 H 11.8-14.3 % Platelet Count 100 L 140-450 10^3/uL Mean Platelet Volume 10.3 6.9-10.8 fL Neutrophils (%) (Auto) 55.9 37.0-80.0 % Lymphocytes (%) (Auto) 29.0 10.0-50.0 % Monocytes (%) (Auto) 10.6 0.0-12.0 % Eosinophils (%) (Auto) 4.0 0.0-7.0 % Basophils (%) (Auto) 0.5 0.0-2.0 % Neutrophils # (Auto) 1.8 1.6-8.6 10 ^3/uL Lymphocytes # (Auto) 0.9 0.4-5.4 10 ^3/uL Monocytes # (Auto) 0.3 0-1.3 10 ^3/uL Eosinophils # (Auto) 0.1 0-0.8 10 ^3/uL Basophils # (Auto) 0 0-0.2 10 ^3/uL Nucleated Red Blood Cells 0.4 % Sodium Level 146 #H 136-145 mmol/L Potassium Level 4.7 3.5-5.1 mmol/L Chloride Level 110 H 98-107 mmol/L Carbon Dioxide Level 30 20-31 mmol/L Anion Gap 6 5-15 Blood Urea Nitrogen 19 9-23 mg/dL Creatinine 0.89 0.700-1.30 mg/dL Glomerular Filtration Rate Calc 90 >90 mL/min BUN/Creatinine Ratio 21.3 H 10.0-20.0 Serum Glucose 77 74-106 mg/dL Calcium Level 9.0 8.7-10.4 mg/dL Random Vancomycin Level 21.9 H 5-10 ug/mL Vancomycin Level Trough 22.7 H 5-10 ug/mL Stool Occult Blood Pos x1 Negative Stool Occult Blood Sample #3 Negative Test 01/31/25 12:31 01/30/25 10:15 01/29/25 05:17 01/28/25 18:25 Range/Units SARS-CoV-2 Antigen (Rapid) Negative NEGATIVE Ammonia < 10 L 11-32 umol/L Total Bilirubin < 0.2 L 0.2-1.0 mg/dL Aspartate Amino Transferase (AST) 23 13-40 U/L Alanine Aminotransferase (ALT) 24 7-40 U/L Alkaline Phosphatase 75 46-116 U/L Total Protein 5.6 L 5.7-8.2 g/dL Albumin 2.8 L 3.2-4.8 g/dL C-Reactive Protein High Sensitivity 1.02 H <1.0 mg/dL Test 01/28/25 05:30 01/27/25 12:50 01/25/25 13:25 01/24/25 17:43 Range/Units Ferritin 22.0 22-322 ng/mL Lactate Dehydrogenase 161 120-246 U/L Prothrombin Time 11.8 9.3-11.8 sec Prothrombin Time INR 1.13 0.9-1.15 Urine Color Yellow Yellow Urine Clarity Clear Clear Urine pH 6.5 5.0-9.0 Urine Specific [place] 1.019 1.001-1.035 Urine Protein 1+ H Negative Urine Ketones Negative Negative Urine Blood Negative Negative /uL Urine Nitrite Negative Negative Urine Bilirubin Negative Negative Urine Urobilinogen Normal Negative mg/dL Urine Leukocyte Esterase Negative Negative /uL Urine RBC <1 0 - 3 /hpf Urine Microscopic WBC 2 0-3 /HPF Urine Squamous Epithelial Cells None seen <5 /hpf Urine Bacteria None seen None Seen /hpf Urine Glucose Normal Normal mg/dL Lactic Acid Level 1.0 0.4-2.0 mmol/L Test 01/24/25 16:10 01/24/25 15:35 01/24/25 13:14 Range/Units Influenza Type A Antigen Negative Negative Influenza Type B Antigen Negative Negative D-Dimer, Quantitative 7.23 H 0.0-0.49 mg/L FEU Magnesium Level 3.9 H 1.6-2.6 mg/dL Troponin I High Sensitivity 55 *H </=54 ng/L Thyroid Stimulating Hormone (TSH) 0.86 0.55-4.78 uIU/mL B-Type Natriuretic Peptide 32.31 0-100 pg/mL Microbiology Date/Time Source Procedure Growth Status 01/28/25 19:29 Blood Blood Culture - Final Staph hominis subsp homins Complete 01/25/25 13:25 Voided Urine Urine Culture - Final Complete Assessment Acute on chronic metabolic versus toxic encephalopathy Acute on chronic hypoxic respiratory failure Hypernatremia COURTNEY likely hemodynamically mediated/VMN Sepsis; blood cultures growing staph hominis Severe dementia S/p G-tube; G-tube clogged Bed-bound Plan: Continue supportive care Continue antibiotics Tentatively PEG tube replacement scheduled for tomorrow 02/05/2025 Thank you so much for the opportunity to consult on your patient. GI team will follow the patient. In case of any questions or concerns please feel free to reach out. Plan discussed with Dr. Lindsey Plan discussed with: Other (PARKER [place]) JOAQUIN JAMES RESIDENT Feb 04, 2025 13:16
[2025-02-04] MEDS: FUROSEMIDE 40 MG/4 ML VIAL IV ONE (13:57)
--- NOTE | 2025-02-04 21:36 | DVHPN2 ---
Progress Note Date Seen: Feb 04, 2025 Medical Necessity Reason Pt with a Central, PICC or Fol: Yes The following are medically ne: Chawla Catheter Subjective Patient reports: Other (poor historian) Review of Systems: Deferred Objective vital signs Vital Sign Date Time Temp Pulse Resp B/P (MAP) Pulse Ox O2 Delivery O2 Flow Rate FiO2 02/04/25 21:16 175/38 02/04/25 21:00 97.9 78 18 99 97.9 02/04/25 08:00 Nasal Cannula* 3 32 Total Intake and Output 02/03/25 02/03/25 02/04/25 15:00 23:00 07:00 Intake Total 0 ml 0 ml Output Total 550 ml 700 ml Balance -550 ml -700 ml medications Current Medications Medications Dose Ordered Sig/Jim Route Start Time Stop Time Status Last Admin Dose Admin Acetaminophen 1,000 mg Q8HP PRN PO 01/24/25 17:15 Ondansetron HCl 4 mg Q4HP PRN IV 01/24/25 17:15 01/28/25 00:06 4 MG Nitroglycerin 0.4 mg Q5MINP PRN SL 01/24/25 17:15 Hydralazine HCl 10 mg Q6HP PRN IV 01/26/25 01:45 02/04/25 16:55 10 MG Diagnostic Test (Pha) 1 strip ACHS 01/27/25 17:00 02/04/25 21:08 1 STRIP Insulin Human Regular HS SC 01/27/25 22:00 02/02/25 22:14 2 UNITS Insulin Human Regular AC SC 01/27/25 17:00 02/02/25 17:08 2 UNITS Carvedilol 6.25 mg Q12HR GT 01/27/25 22:00 02/02/25 21:45 6.25 MG Vancomycin HCl 0 ml @ 0 mls/hr UD IV 01/28/25 15:45 Enteral Nutritional Formula 1,000 ml 60ML/HR GT 01/29/25 13:30 02/01/25 12:51 1,000 ML Pantoprazole Sodium 40 mg BID IV 01/29/25 22:00 02/04/25 21:15 40 MG Furosemide 40 mg DAILY IV 02/05/25 10:00 laboratory and microbiology Laboratory Tests 02/04/25 05:10 Test 02/04/25 05:10 Range/Units Serum Glucose 77 74-106 mg/dL Microbiology Date/Time Source Procedure Growth Status 01/28/25 19:29 Blood Blood Culture - Final Staph hominis subsp homins Complete 01/25/25 13:25 Voided Urine Urine Culture - Final Complete Problem List/Assessment/Plan Problem List/Assessment/Plan Acute kidney injury hemodynamic mediated etiology Hypernatremia COVID pneumonia Encephalopathy Acute hypoxic respiratory failure Sepsis Recommendations Renal function better I will sign off this case please reconsult if needed Plan discussed with: Other Dietary Evaluation Review Comments: 1) Continue EN regimen - flush with 120 mL free H2O Q8 2) Consult ST for swallow evaluation 3) Follow-up with cardiology, pulmonology, neurology, and nephrology 4) Continue to monitor I&O, labs, and skin integrity Expected Outcomes/Goals: 1) nutritional support to meet at least 75% of estimated daily needs 2) diet to advance 3) follow-up in 3-5 days LC FERGUSON MD Feb 04, 2025 21:36
[2025-02-05] VITALS (12 sets, daily range): BP systolic 149–203; BP diastolic 36–87; PULSE 70–84; RESP 16–20; TEMP 97.2–99.4; O2SAT 96–100
[2025-02-05] MEDS: DEXTROSE (50%) 50ML SYRG IV PRN (06:12)
[2025-02-05 07:51] LABS: Hematocrit 27.5 % (41.0-53.0); Hemoglobin 8.7 g/dL (13.5-17.5); Mean Corpuscular Hemoglobin 29.2 pg (28.0-32.0); Mean Corpuscular Volume 92.1 fL (80.0-100.0); Nucleated Red Blood Cells % 0.2 %
[2025-02-05 07:57] LABS: INR 1.03 (0.9-1.15); Partial Thromboplastin Time 29.9 SEC (24.5-34.5); Prothrombin Time 10.9 sec (9.3-11.8)
[2025-02-05] MEDS: FUROSEMIDE 40 MG/4 ML VIAL IV SCH (09:45)
[2025-02-05] MEDS: VANCOMYCIN 500mg/100mL 100 ML IV ONE (10:19)
--- NOTE | 2025-02-05 10:48 | DVHPN2 ---
Subjective The patient is seen and examined at bedside. Still have shortness of breath. Non verbal but nod his head. More alert awake today. Off isolation because COVID- 19 rapid test negative. Status post G tube replacement.Per RN patient wheezing and shortness of breath. Reviewed: Care Plan, H&P, Labs, Medications, Previous Orders, Radiology, Other (Consultations) Changes from previous H/P or p: No Changes Objective Vitals Vital Signs Date Time Temp Pulse Resp B/P (MAP) Pulse Ox O2 Delivery O2 Flow Rate FiO2 02/05/25 10:00 96 Nasal Cannula 3.0 02/05/25 10:00 32 02/05/25 09:45 187/87 02/05/25 08:30 99.2 84 16 99.2 Intake/Output Intake and Output 02/05/25 07:00 Intake Total 0 ml Output Total 1850 ml Balance -1850 ml Intake Oral 0 ml Output Urine Total 1850 ml # Bowel Movements 1 General Appearance: Alert, Cooperative, Other (Confused; did not answer any question) HEENT: Atraumatic Lungs: Other (Decreased air entry bilaterally) Cardiovascular: Regular rate, Normal S1, Normal S2 Abdomen: Normal bowel sounds, Soft, No tenderness, Other (G-tube in place with no signs of bleeding/infection) Genitourinary: Other (Chawla's in place) Neuro: Other (Unable to assess as the patient did not follow commands; no facial asymmetry) Psych/Mental Status: Other (Unable to assess as the patient did not answer any question) Medications Current Medications Medications Dose Ordered Sig/Jim Route Start Time Stop Time Status Last Admin Dose Admin Acetaminophen 1,000 mg Q8HP PRN PO 01/24/25 17:15 Ondansetron HCl 4 mg Q4HP PRN IV 01/24/25 17:15 01/28/25 00:06 4 MG Nitroglycerin 0.4 mg Q5MINP PRN SL 01/24/25 17:15 Hydralazine HCl 10 mg Q6HP PRN IV 01/26/25 01:45 02/05/25 06:12 10 MG Diagnostic Test (Pha) 1 strip ACHS 01/27/25 17:00 02/05/25 06:09 1 STRIP Insulin Human Regular HS SC 01/27/25 22:00 02/02/25 22:14 2 UNITS Insulin Human Regular AC SC 01/27/25 17:00 02/02/25 17:08 2 UNITS Carvedilol 6.25 mg Q12HR GT 01/27/25 22:00 02/02/25 21:45 6.25 MG Vancomycin HCl 0 ml @ 0 mls/hr UD IV 01/28/25 15:45 Enteral Nutritional Formula 1,000 ml 60ML/HR GT 01/29/25 13:30 02/01/25 12:51 1,000 ML Pantoprazole Sodium 40 mg BID IV 01/29/25 22:00 02/05/25 09:45 40 MG Furosemide 40 mg DAILY IV 02/05/25 10:00 02/05/25 09:45 40 MG Dextrose 50 ml ONCE PRN IV 02/05/25 01:45 02/05/25 06:12 50 ML Laboratory Results Laboratory Tests 02/04/25 05:10 02/05/25 06:44 Coagulation Test 02/05/25 06:44 Prothrombin Time 10.9 sec (9.3-11.8) Prothrombin Time INR 1.03 (0.9-1.15) Activated Partial Thromboplast Time 29.9 SEC (24.5-34.5) Urinalysis Test 01/25/25 13:25 Urine Color Yellow (Yellow) Urine Clarity Clear (Clear) Urine pH 6.5 (5.0-9.0) Urine Specific [place] 1.019 (1.001-1.035) Urine Protein 1+ (Negative) H Urine Ketones Negative (Negative) Urine Blood Negative /uL (Negative) Urine Nitrite Negative (Negative) Urine Bilirubin Negative (Negative) Urine Urobilinogen Normal mg/dL (Negative) Urine Leukocyte Esterase Negative /uL (Negative) Urine RBC <1 /hpf (0 - 3) Urine Microscopic WBC 2 /HPF (0-3) Urine Squamous Epithelial Cells None seen /hpf (<5) Urine Bacteria None seen /hpf (None Seen) Urine Glucose Normal mg/dL (Normal) Microbiology Microbiology Date/Time Source Procedure Growth Status 01/28/25 19:29 Blood Blood Culture - Final Staph hominis subsp homins Complete 01/25/25 13:25 Voided Urine Urine Culture - Final Complete Labs and/or images reviewed: Labs reviewed by me Assessment/Plan Assessment/Plan Acute metabolic/toxic encephalopathy in the setting of sepsis and hypernatremia COURTNEY; most likely vasomotor nephropathy in the setting of sepsis Hypernatremia in the setting of COURTNEY and sepsis Acute hypoxic respiratory failure due to COVID pneumonia Sepsis due to MDR Staphylococcus epidermidis bacteremia Hypertensive heart disease with chronic systolic heart failure; not in exacerbation Severe dementia with G-tube; suspected nonverbal status Pancytopenia; most likely due to sepsis Physical deconditioning due to above Switched IV antibiotics to IV vancomycin after discussion with Nephrology after reviewing blood culture susceptibility Ordered repeat blood cultures Avoid nephrotoxic agents Continue oxygen therapy as needed Correct electrolytes as per Nephrology Nephrology is following On renally adjusted DVT prophylaxis Continue remdesivir and steroids Gtube clogged. Will consult GI specialist. No signs of active bleeding; ordered stool occult blood Airborne precaution Continue monitoring Patient's clinical services still remained tenuous. Minimally verbal. Follow hyperkalemia with the labs and Nephrology recommendations. Continue Lokelma. Continue current treatment with the empiric antibiotics and code treatment as he is on as well as iron transfusions. Appreciate GI input. TF replacement soon.. 02/05: Surgery consult, G-tube placement done. Will restart TF in 24 hours. Will give lasix 40mg IV bid. XRay reviewed. This medical document was created using an electronic medical record system with [email or web address] direct computerized dictation system. Although this document has been carefully reviewed, there may still be some phonetic and typographical errors. These areas are purely typographical due to imperfections of the software programs, and do not reflect any compromise in the patient's medical care. Plan discussed with: Patient, Other (RN) My Orders Orders - ALEE ANGUIANO MD Procedure Category Date Status Time Furosemide Injection PHA 02/05/25 In Process (Lasix Injection) 10:00 Insert Midline ORDERS 02/04/25 Transmitted 14:16 Dextrose 50% Syringe PHA 02/05/25 In Process 01:45 Date of Service: Feb 05, 2025 Billing Provider: ALEE ANGUIANO MD Common Visit Codes: 45043-[id number] INP/OBS CARE(HIGH) ALEE ANGUIANO MD Feb 05, 2025 10:48
--- NOTE | 2025-02-05 12:11 | DVHINCON2 ---
Date of service: Feb 05, 2025 Family History: Unknown Unknown family medical history Allergies: Coded Allergies: NO KNOWN ALLERGIES (Unverified , 09/24/24) Home Meds Reported Medications Aspirin (Aspirin Low Dose) 81 Mg Tab, 1 TAB GT DAILY 01/29/25 Acetaminophen (M-Pap) 160 Mg/5 Ml Liq, 160 MG GT PRN for PAIN SCALE 1-3 OR TEMP>100.4, LIQ 01/26/25 Insulin Glargine-Yfgn (Insulin Glargine) 100 Unit/Ml Inj, 10 UNIT SC DAILY, INJ 01/26/25 Famotidine (Famotidine) 20 Mg Tab, 20 MG GT DAILY for 30 Days, MG 01/26/25 Losartan Potassium (Losartan Potassium) 25 Mg Tab, 25 MG GT BID for 30 Days, MG 01/26/25 Hydralazine Hcl (Hydralazine Hcl) 50 Mg Tab, 50 MG GT TID for 30 Days, MG 01/26/25 Carvedilol (Carvedilol) 6.25 Mg Tab, 1 TAB GT BID, #180 TAB 1 Refill 01/26/25 Discontinued Reported Medications Aspirin (Aspirin) 325 Mg Tab, 81 MG GT DAILY for 30 Days, MG 01/26/25 Current Medications Current Medications Medications (Trade) Dose Ordered Sig/Jim Route PRN Reason Start Time Stop Time Status Last Admin Furosemide (Lasix Injection) 40 mg DAILY IV 02/05/25 10:00 02/05/25 09:45 Dextrose 50 ml ONCE PRN IV Blood sugar less than 60 02/05/25 01:45 02/05/25 06:12 Vital Signs Vital Signs Date Time Temp Pulse Resp B/P (MAP) Pulse Ox O2 Delivery O2 Flow Rate FiO2 02/05/25 10:00 96 Nasal Cannula 3.0 02/05/25 10:00 32 02/05/25 09:45 187/87 02/05/25 08:30 99.2 84 16 99.2 Labs/Diagnostic Data Labs Test 02/05/25 11:47 02/05/25 06:44 02/04/25 05:10 02/02/25 21:25 Range/Units POC Glucose 86 70-106 mg/dl White Blood Count 3.0 L 4.4-10.8 10^3/uL Red Blood Count 2.99 L 4.5-5.90 10^6/uL Hemoglobin 8.7 L 13.5-17.5 g/dL Hematocrit 27.5 L 41.0-53.0 % Mean Corpuscular Volume 92.1 80.0-100.0 fL Mean Corpuscular Hemoglobin 29.2 28.0-32.0 pg Mean Corpuscular Hemoglobin Concent 31.7 L 32.0-36.0 g/dL Red Cell Distribution Width 16.7 H 11.8-14.3 % Platelet Count 99 L 140-450 10^3/uL Mean Platelet Volume 10.1 6.9-10.8 fL Neutrophils (%) (Auto) 61.6 37.0-80.0 % Lymphocytes (%) (Auto) 26.0 10.0-50.0 % Monocytes (%) (Auto) 9.6 0.0-12.0 % Eosinophils (%) (Auto) 2.4 0.0-7.0 % Basophils (%) (Auto) 0.4 0.0-2.0 % Neutrophils # (Auto) 1.9 1.6-8.6 10 ^3/uL Lymphocytes # (Auto) 0.8 0.4-5.4 10 ^3/uL Monocytes # (Auto) 0.3 0-1.3 10 ^3/uL Eosinophils # (Auto) 0.1 0-0.8 10 ^3/uL Basophils # (Auto) 0 0-0.2 10 ^3/uL Nucleated Red Blood Cells 0.2 % Prothrombin Time 10.9 9.3-11.8 sec Prothrombin Time INR 1.03 0.9-1.15 Activated Partial Thromboplast Time 29.9 24.5-34.5 SEC Creatinine 1.04 0.700-1.30 mg/dL Glomerular Filtration Rate Calc 75 >90 mL/min Random Vancomycin Level 15.9 H 5-10 ug/mL Sodium Level 146 #H 136-145 mmol/L Potassium Level 4.7 3.5-5.1 mmol/L Chloride Level 110 H 98-107 mmol/L Carbon Dioxide Level 30 20-31 mmol/L Anion Gap 6 5-15 Blood Urea Nitrogen 19 9-23 mg/dL BUN/Creatinine Ratio 21.3 H 10.0-20.0 Serum Glucose 77 74-106 mg/dL Calcium Level 9.0 8.7-10.4 mg/dL Vancomycin Level Trough 22.7 H 5-10 ug/mL Test 02/01/25 05:24 01/31/25 12:31 01/30/25 10:15 01/29/25 05:17 Range/Units Stool Occult Blood Pos x1 Negative Stool Occult Blood Sample #3 Negative SARS-CoV-2 Antigen (Rapid) Negative NEGATIVE Ammonia < 10 L 11-32 umol/L Total Bilirubin < 0.2 L 0.2-1.0 mg/dL Aspartate Amino Transferase (AST) 23 13-40 U/L Alanine Aminotransferase (ALT) 24 7-40 U/L Alkaline Phosphatase 75 46-116 U/L Total Protein 5.6 L 5.7-8.2 g/dL Albumin 2.8 L 3.2-4.8 g/dL Test 01/28/25 18:25 01/28/25 05:30 01/25/25 13:25 01/24/25 17:43 Range/Units C-Reactive Protein High Sensitivity 1.02 H <1.0 mg/dL Ferritin 22.0 22-322 ng/mL Lactate Dehydrogenase 161 120-246 U/L Urine Color Yellow Yellow Urine Clarity Clear Clear Urine pH 6.5 5.0-9.0 Urine Specific [place] 1.019 1.001-1.035 Urine Protein 1+ H Negative Urine Ketones Negative Negative Urine Blood Negative Negative /uL Urine Nitrite Negative Negative Urine Bilirubin Negative Negative Urine Urobilinogen Normal Negative mg/dL Urine Leukocyte Esterase Negative Negative /uL Urine RBC <1 0 - 3 /hpf Urine Microscopic WBC 2 0-3 /HPF Urine Squamous Epithelial Cells None seen <5 /hpf Urine Bacteria None seen None Seen /hpf Urine Glucose Normal Normal mg/dL Lactic Acid Level 1.0 0.4-2.0 mmol/L Test 01/24/25 16:10 01/24/25 15:35 01/24/25 13:14 Range/Units Influenza Type A Antigen Negative Negative Influenza Type B Antigen Negative Negative D-Dimer, Quantitative 7.23 H 0.0-0.49 mg/L FEU Magnesium Level 3.9 H 1.6-2.6 mg/dL Troponin I High Sensitivity 55 *H </=54 ng/L Thyroid Stimulating Hormone (TSH) 0.86 0.55-4.78 uIU/mL B-Type Natriuretic Peptide 32.31 0-100 pg/mL Microbiology Date/Time Source Procedure Growth Status 01/28/25 19:29 Blood Blood Culture - Final Staph hominis subsp homins Complete 01/25/25 13:25 Voided Urine Urine Culture - Final Complete Assessment [id number] DISPLACED/MALFUNCTION G TUBE REPLACED G TUBE AT BEDSIDE NO COMPLICATIONS STABLE NURSE AND STAFF AT BEDSIDE Plan discussed with: Other ERROL SIDHU MD Feb 05, 2025 12:11
--- NOTE | 2025-02-05 12:48 | DVHOP ---
DATE OF SURGERY: 02/05/2025 PREPROCEDURE DIAGNOSIS: Displaced G-tube. POSTPROCEDURE DIAGNOSIS: Displaced G-tube. PROCEDURE: Placement of G-tube. SURGEON: Flakito Lindsey MD SCHEDULING AGENT: None. ANESTHESIA: IV sedation at the bedside. DESCRIPTION OF PROCEDURE: The patient was prepped and draped in the usual sterile fashion in the supine position and the old G-tube was removed after the balloon was deflated and a new G-tube size [place] 22 was replaced with the balloon inflated to about 10 mL of normal saline with normal saline and then the flange was advanced into position. Dressing was applied. There were no complications. The patient tolerated the procedure well and extra confirmation with Gastrografin study was ordered and then the G-tube use can be ongoing based upon that. MD MIKE Abraham/RADHA TID: [id number] RECEIPT: [id number] cc: Rebekah Dominguez MD
--- NOTE | 2025-02-05 12:59 | DVH ---
Exam: XY KUB ABDOMEN SINGLE VIEW Indication: CONFIRMING PEG TUBE PLACEMENT Comparison: XY KUB ABDOMEN SINGLE VIEW on DOS: 01/26/25, CT ABDOMEN WITHOUT CONTRAST on DOS: 11/14/24, X Y KUB ABDOMEN SINGLE VIEW on DOS: 11/10/24, XY KUB ABDOMEN SINGLE VIEW on DOS: 10/01/24, XR ABDOMEN 1 EW (KUB) on DOS: 08/18/24 Technique: 2 radiographic views of the abdomen. Findings: Nonobstructive bowel gas pattern noted. There is no definite evidence for pneumoperitoneum. No abnormal calcifications noted. Gastrostomy tube in satisfactory position with opacification of the stomach. Enteric contrast is present in the colon and rectum. Impression: Gastrostomy tube in satisfactory position.
--- NOTE | 2025-02-05 13:15 | DVHINCON2 ---
DATE OF CONSULTATION: 02/05/2025 HISTORY OF PRESENT ILLNESS: This patient is 74 years old, unable to give history. Most of the information obtained from the chart. He presents for evaluation of altered mental status. History of dementia, was bedridden, and had a G-tube in place that was nonfunctioning. I was asked to see with regards to replacement of the G-tube. No nausea or vomiting. No diarrhea. PAST MEDICAL HISTORY: History of hypertension, dementia, chronic kidney disease, congestive heart failure. SURGICAL HISTORY: Pacemaker and placement of a PEG tube. PHYSICAL EXAMINATION: VITAL SIGNS: Afebrile. Stable signs. HEENT: No evidence of pallor, cyanosis, or jaundice. NECK: Supple and nontender with no thyromegaly or lymphadenopathy. CHEST AND LUNGS: Clear. HEART: Within normal limits. ABDOMEN: Soft. Has a displaced G-tube. NEUROLOGIC: Not assessed. EXTREMITIES: Unremarkable. CLINICAL IMPRESSION: Displaced G-tube. PLAN: Consider replacement of the G-tube at the bedside. The patient was consented and the procedure was done at the bedside. MD MIKE Abraham/JOÃO TID: [id number] RECEIPT: [id number] cc: Frank Baker NP
--- NOTE | 2025-02-05 13:55 | DVHPN2 ---
Progress Note Date Seen: Feb 05, 2025 Resident Creating Document: JOAQUIN JAMES RESIDENT Medical Necessity Reason Pt with a Central, PICC or Fol: Yes The following are medically ne: Chawla Catheter Subjective Review of Systems Patient seen and examined at bedside S/p peg tube exchange Remains A&O x1 Last bowel movement this a.m., normal in consistency No nausea or vomiting reported Objective vital signs Vital Sign Date Time Temp Pulse Resp B/P (MAP) Pulse Ox O2 Delivery O2 Flow Rate FiO2 02/05/25 12:30 99.4 78 16 203/70 (114) 98 99.4 02/05/25 10:00 Nasal Cannula 3.0 02/05/25 10:00 32 Total Intake and Output 02/04/25 02/04/25 02/05/25 15:00 23:00 07:00 Intake Total 0 ml 0 ml Output Total 1100 ml 750 ml Balance -1100 ml -750 ml medications Current Medications Medications Dose Ordered Sig/Jim Route Start Time Stop Time Status Last Admin Dose Admin Acetaminophen 1,000 mg Q8HP PRN PO 01/24/25 17:15 Ondansetron HCl 4 mg Q4HP PRN IV 01/24/25 17:15 01/28/25 00:06 4 MG Nitroglycerin 0.4 mg Q5MINP PRN SL 01/24/25 17:15 Hydralazine HCl 10 mg Q6HP PRN IV 01/26/25 01:45 02/05/25 06:12 10 MG Diagnostic Test (Pha) 1 strip ACHS 01/27/25 17:00 02/05/25 11:48 1 STRIP Insulin Human Regular HS SC 01/27/25 22:00 02/02/25 22:14 2 UNITS Insulin Human Regular AC SC 01/27/25 17:00 02/02/25 17:08 2 UNITS Carvedilol 6.25 mg Q12HR GT 01/27/25 22:00 02/02/25 21:45 6.25 MG Vancomycin HCl 0 ml @ 0 mls/hr UD IV 01/28/25 15:45 Enteral Nutritional Formula 1,000 ml 60ML/HR GT 01/29/25 13:30 02/01/25 12:51 1,000 ML Pantoprazole Sodium 40 mg BID IV 01/29/25 22:00 02/05/25 09:45 40 MG Furosemide 40 mg DAILY IV 02/05/25 10:00 02/05/25 09:45 40 MG Dextrose 50 ml ONCE PRN IV 02/05/25 01:45 02/05/25 06:12 50 ML Examination General Appearance: Well developed. Well nourished. NAD Pulmonary/Respiratory: Equal bilateral air entry Cardiovascular/Chest: Regular rate and rhythm. No murmurs. No JVD. Abdominal Exam: Normal bowel sounds. Soft. normal abdomen, no visible veins, Nontender. No hepatospenomegaly. No masses Neuro/Mental Status: A&O x1 Skin Exam: Normal inspection. Normal color. Warm. Dry laboratory and microbiology Laboratory Tests 02/05/25 06:44 02/04/25 05:10 Test 02/04/25 05:10 Range/Units Serum Glucose 77 74-106 mg/dL Microbiology Date/Time Source Procedure Growth Status 01/28/25 19:29 Blood Blood Culture - Final Staph hominis subsp homins Complete 01/25/25 13:25 Voided Urine Urine Culture - Final Complete Labs and/or images reviewed: Labs reviewed by me, Image(s) reviewed by me Problem List/Assessment/Plan Problem List/Assessment/Plan Acute on chronic metabolic versus toxic encephalopathy Acute on chronic hypoxic respiratory failure Hypernatremia COURTNEY likely hemodynamically mediated/VMN Sepsis; blood cultures growing staph hominis Severe dementia S/p G-tube replacement Bed-bound Plan: S/p G-tube replacement KUB: Gastrostomy tube in satisfactory position Resumed tube feedings, monitor residuals Continue supportive care Continue antibiotics Thank you so much for the opportunity to consult on your patient. GI team will follow the patient. In case of any questions or concerns please feel free to reach out. Plan discussed with Dr. Lindsey Plan discussed with: Other (RN) My Orders My Orders Orders - JOAQUIN JAMES RESIDENT Procedure Category Date Status Time Obtain Consent For: ORDERS 02/04/25 Transmitted 18:10 Npo (Nothing By DIET 02/05/25 Transmitted Mouth) Diet Breakfast Obtain Consent For TOMI 02/04/25 In Process Anesthesia 18:10 Dietary Evaluation Review Comments: 1) Continue EN regimen - flush with 120 mL free H2O Q8 2) Consult ST for swallow evaluation 3) Follow-up with cardiology, pulmonology, neurology, and nephrology 4) Continue to monitor I&O, labs, and skin integrity Expected Outcomes/Goals: 1) nutritional support to meet at least 75% of estimated daily needs 2) diet to advance 3) follow-up in 3-5 days JOAQUIN JAMES RESIDENT Feb 05, 2025 13:55
[2025-02-05] MEDS: GASTROGRAFIN 30 ML SOL ONE (15:07)
[2025-02-06] VITALS (9 sets, daily range): BP systolic 142–168; BP diastolic 65–98; PULSE 68–78; RESP 18–25; TEMP 97.3–100.3; O2SAT 96–100
--- NOTE | 2025-02-06 09:07 | DVHPN2 ---
Progress Note Date Seen: Feb 06, 2025 Resident Creating Document: JOAQUIN JAMES RESIDENT Medical Necessity Reason Pt with a Central, PICC or Fol: Yes The following are medically ne: Chawla Catheter Subjective Review of Systems Patient seen and examined at bedside AO x1 Peg tube functioning appropriately, minimal to no residuals Running TF at 50 cc Two bowel movements today, thick, brown Objective vital signs Vital Sign Date Time Temp Pulse Resp B/P (MAP) Pulse Ox O2 Delivery O2 Flow Rate FiO2 02/06/25 08:54 99.6 75 20 168/73 (104) 98 99.6 02/05/25 20:00 Nasal Cannula* 3 32 Total Intake and Output 02/05/25 02/05/25 02/06/25 15:00 23:00 07:00 Intake Total 100 ml 0 ml Output Total 1275 ml 350 ml Balance 100 ml -1275 ml -350 ml medications Current Medications Medications Dose Ordered Sig/Jim Route Start Time Stop Time Status Last Admin Dose Admin Acetaminophen 1,000 mg Q8HP PRN PO 01/24/25 17:15 Ondansetron HCl 4 mg Q4HP PRN IV 01/24/25 17:15 01/28/25 00:06 4 MG Nitroglycerin 0.4 mg Q5MINP PRN SL 01/24/25 17:15 Hydralazine HCl 10 mg Q6HP PRN IV 01/26/25 01:45 02/05/25 21:34 10 MG Diagnostic Test (Pha) 1 strip ACHS 01/27/25 17:00 02/06/25 06:04 1 STRIP Insulin Human Regular HS SC 01/27/25 22:00 02/02/25 22:14 2 UNITS Insulin Human Regular AC SC 01/27/25 17:00 02/06/25 06:04 2 UNITS Carvedilol 6.25 mg Q12HR GT 01/27/25 22:00 02/05/25 21:33 6.25 MG Vancomycin HCl 0 ml @ 0 mls/hr UD IV 01/28/25 15:45 Enteral Nutritional Formula 1,000 ml 60ML/HR GT 01/29/25 13:30 02/05/25 14:20 1,000 ML Pantoprazole Sodium 40 mg BID IV 01/29/25 22:00 02/05/25 21:32 40 MG Furosemide 40 mg DAILY IV 02/05/25 10:00 02/05/25 09:45 40 MG Dextrose 50 ml ONCE PRN IV 02/05/25 01:45 02/05/25 06:12 50 ML Examination General Appearance: Well developed. Well nourished. NAD Pulmonary/Respiratory: Equal bilateral air entry Cardiovascular/Chest: Regular rate and rhythm. No murmurs. No JVD. Abdominal Exam: Normal bowel sounds. Soft. normal abdomen, no visible veins, Nontender. No hepatospenomegaly. No masses Neuro/Mental Status: A&O x1 Skin Exam: Normal inspection. Normal color. Warm. Dry laboratory and microbiology Laboratory Tests 02/06/25 06:13 02/05/25 06:44 02/04/25 05:10 Test 02/04/25 05:10 Range/Units Serum Glucose 77 74-106 mg/dL Microbiology Date/Time Source Procedure Growth Status 01/28/25 19:29 Blood Blood Culture - Final Staph hominis subsp homins Complete 01/25/25 13:25 Voided Urine Urine Culture - Final Complete Labs and/or images reviewed: Labs reviewed by me, Image(s) reviewed by me Problem List/Assessment/Plan Problem List/Assessment/Plan Acute on chronic metabolic versus toxic encephalopathy Community-acquired pneumonia Gram-positive versus Gram-negative Acute on chronic hypoxic respiratory failure due to above Hypernatremia COURTNEY likely hemodynamically mediated/VMN Sepsis; blood cultures growing staph hominis Severe dementia S/p G-tube replacement Bed-bound Plan: S/p G-tube replacement KUB: Gastrostomy tube in satisfactory position Resumed tube feedings, monitor residuals Continue supportive care Continue antibiotics Thank you so much for the opportunity to consult on your patient. GI team will follow the patient. In case of any questions or concerns please feel free to reach out. Plan discussed with Dr. Lindsey Plan discussed with: Other (RN) Dietary Evaluation Review Comments: 1) Continue EN regimen - flush with 120 mL free H2O Q8 2) Consult ST for swallow evaluation 3) Follow-up with cardiology, pulmonology, neurology, and nephrology 4) Continue to monitor I&O, labs, and skin integrity Expected Outcomes/Goals: 1) nutritional support to meet at least 75% of estimated daily needs 2) diet to advance 3) follow-up in 3-5 days JOAQUIN JAMES RESIDENT Feb 06, 2025 09:07
[2025-02-06] MEDS: VANCOMYCIN 500mg/100mL 100 ML IV ONE (11:20)
--- NOTE | 2025-02-06 12:41 | DVHPN2 ---
Reviewed: Care Plan, H&P, Labs, Medications, Previous Orders, Radiology, Other (Consultations) Changes from previous H/P or p: No Changes General: Per HPI Objective Vitals Vital Signs Date Time Temp Pulse Resp B/P (MAP) Pulse Ox O2 Delivery O2 Flow Rate FiO2 02/06/25 10:43 70 149/58 02/06/25 08:54 99.6 20 98 99.6 02/05/25 20:00 Nasal Cannula* 3 32 Intake/Output Intake and Output 02/06/25 07:00 Intake Total 100 ml Output Total 1625 ml Balance -1525 ml Intake Oral 0 ml IV Total 100 ml Output Urine Total 1625 ml # Bowel Movements 3 General Appearance: Alert, Cooperative, Other (Confused; did not answer any question) HEENT: Atraumatic Lungs: Other (Decreased air entry bilaterally) Cardiovascular: Regular rate, Normal S1, Normal S2 Abdomen: Normal bowel sounds, Soft, No tenderness, Other (G-tube in place with no signs of bleeding/infection) Genitourinary: Other (Chawla's in place) Neuro: Other (Unable to assess as the patient did not follow commands; no facial asymmetry) Psych/Mental Status: Other (Unable to assess as the patient did not answer any question) Medications Current Medications Medications Dose Ordered Sig/Jim Route Start Time Stop Time Status Last Admin Dose Admin Acetaminophen 1,000 mg Q8HP PRN PO 01/24/25 17:15 Ondansetron HCl 4 mg Q4HP PRN IV 01/24/25 17:15 01/28/25 00:06 4 MG Nitroglycerin 0.4 mg Q5MINP PRN SL 01/24/25 17:15 Hydralazine HCl 10 mg Q6HP PRN IV 01/26/25 01:45 02/05/25 21:34 10 MG Diagnostic Test (Pha) 1 strip ACHS 01/27/25 17:00 02/06/25 11:44 1 STRIP Insulin Human Regular HS SC 01/27/25 22:00 02/02/25 22:14 2 UNITS Insulin Human Regular AC SC 01/27/25 17:00 02/06/25 11:54 3 UNITS Carvedilol 6.25 mg Q12HR GT 01/27/25 22:00 02/06/25 09:43 6.25 MG Vancomycin HCl 0 ml @ 0 mls/hr UD IV 01/28/25 15:45 Enteral Nutritional Formula 1,000 ml 60ML/HR GT 01/29/25 13:30 02/05/25 14:20 1,000 ML Pantoprazole Sodium 40 mg BID IV 01/29/25 22:00 02/06/25 09:44 40 MG Furosemide 40 mg DAILY IV 02/05/25 10:00 02/06/25 09:43 40 MG Dextrose 50 ml ONCE PRN IV 02/05/25 01:45 02/05/25 06:12 50 ML Laboratory Results Laboratory Tests 02/04/25 05:10 02/05/25 06:44 02/06/25 06:13 Urinalysis Test 01/25/25 13:25 Urine Color Yellow (Yellow) Urine Clarity Clear (Clear) Urine pH 6.5 (5.0-9.0) Urine Specific [place] 1.019 (1.001-1.035) Urine Protein 1+ (Negative) H Urine Ketones Negative (Negative) Urine Blood Negative /uL (Negative) Urine Nitrite Negative (Negative) Urine Bilirubin Negative (Negative) Urine Urobilinogen Normal mg/dL (Negative) Urine Leukocyte Esterase Negative /uL (Negative) Urine RBC <1 /hpf (0 - 3) Urine Microscopic WBC 2 /HPF (0-3) Urine Squamous Epithelial Cells None seen /hpf (<5) Urine Bacteria None seen /hpf (None Seen) Urine Glucose Normal mg/dL (Normal) Microbiology Microbiology Date/Time Source Procedure Growth Status 01/28/25 19:29 Blood Blood Culture - Final Staph hominis subsp homins Complete 01/25/25 13:25 Voided Urine Urine Culture - Final Complete Assessment/Plan Assessment/Plan Acute metabolic/toxic encephalopathy in the setting of sepsis and hypernatremia COURTNEY; most likely vasomotor nephropathy in the setting of sepsis Hypernatremia in the setting of COURTNEY and sepsis Acute hypoxic respiratory failure due to COVID pneumonia Sepsis due to MDR Staphylococcus epidermidis bacteremia Hypertensive heart disease with chronic systolic heart failure; not in exacerbation Severe dementia with G-tube; suspected nonverbal status Pancytopenia; most likely due to sepsis Physical deconditioning due to above Switched IV antibiotics to IV vancomycin after discussion with Nephrology after reviewing blood culture susceptibility Ordered repeat blood cultures Avoid nephrotoxic agents Continue oxygen therapy as needed Correct electrolytes as per Nephrology Nephrology is following On renally adjusted DVT prophylaxis Continue remdesivir and steroids Gtube clogged. Will consult GI specialist. No signs of active bleeding; ordered stool occult blood Airborne precaution Continue monitoring Patient's clinical services still remained tenuous. Minimally verbal. Follow hyperkalemia with the labs and Nephrology recommendations. Continue Lokelma. Continue current treatment with the empiric antibiotics and code treatment as he is on as well as iron transfusions. Appreciate GI input. TF replacement soon.. 02/05: Surgery consult, G-tube placement done. Will restart TF in 24 hours. Will give lasix 40mg IV bid. XRay reviewed. 02/06/2025: pt started feeding via G-tube. seen at bedside, pt not answer many of my questions Plan discussed with: Patient Date of Service: Feb 06, 2025 Billing Provider: PREMA VALVERDE DO Common Visit Codes: [id number] INP/OBS CARE(HIGH) PREMA VALVERDE DO Feb 06, 2025 12:41
[2025-02-07] VITALS (12 sets, daily range): BP systolic 127–190; BP diastolic 57–85; PULSE 60–91; RESP 17–28; TEMP 97.9–99.7; O2SAT 94–100
--- NOTE | 2025-02-07 09:37 | DVHPN2 ---
Progress Note Date Seen: Feb 07, 2025 Resident Creating Document: JOAQUIN JAMES RESIDENT Medical Necessity Reason Pt with a Central, PICC or Fol: Yes The following are medically ne: Chawla Catheter Subjective Review of Systems Patient seen and examined at bedside Peg tube working appropriately, running tube feeds at 55 cc/hour, Minimal residual 30 cc this morning Last bowel movement this a.m. Objective vital signs Vital Sign Date Time Temp Pulse Resp B/P (MAP) Pulse Ox O2 Delivery O2 Flow Rate FiO2 02/07/25 06:09 167/70 02/07/25 05:00 98.6 76 22 95 98.6 02/06/25 20:00 Nasal Cannula* 4 36 Total Intake and Output 02/06/25 02/06/25 02/07/25 15:00 23:00 07:00 Intake Total 100 ml 0 ml Output Total 550 ml 500 ml Balance 100 ml -550 ml -500 ml medications Current Medications Medications Dose Ordered Sig/Jim Route Start Time Stop Time Status Last Admin Dose Admin Acetaminophen 1,000 mg Q8HP PRN PO 01/24/25 17:15 Ondansetron HCl 4 mg Q4HP PRN IV 01/24/25 17:15 01/28/25 00:06 4 MG Nitroglycerin 0.4 mg Q5MINP PRN SL 01/24/25 17:15 Hydralazine HCl 10 mg Q6HP PRN IV 01/26/25 01:45 02/07/25 01:07 10 MG Diagnostic Test (Pha) 1 strip ACHS 01/27/25 17:00 02/07/25 06:08 1 STRIP Insulin Human Regular HS SC 01/27/25 22:00 02/06/25 21:36 2 UNITS Insulin Human Regular AC SC 01/27/25 17:00 02/07/25 06:08 2 UNITS Carvedilol 6.25 mg Q12HR GT 01/27/25 22:00 02/06/25 21:35 6.25 MG Vancomycin HCl 0 ml @ 0 mls/hr UD IV 01/28/25 15:45 Enteral Nutritional Formula 1,000 ml 60ML/HR GT 01/29/25 13:30 02/07/25 02:37 1,000 ML Pantoprazole Sodium 40 mg BID IV 01/29/25 22:00 02/06/25 21:33 40 MG Furosemide 40 mg DAILY IV 02/05/25 10:00 02/06/25 09:43 40 MG Dextrose 50 ml ONCE PRN IV 02/05/25 01:45 02/05/25 06:12 50 ML laboratory and microbiology Laboratory Tests 02/07/25 04:52 02/05/25 06:44 02/04/25 05:10 Test 02/04/25 05:10 Range/Units Serum Glucose 77 74-106 mg/dL Microbiology Date/Time Source Procedure Growth Status 01/28/25 19:29 Blood Blood Culture - Final Staph hominis subsp homins Complete 01/25/25 13:25 Voided Urine Urine Culture - Final Complete Labs and/or images reviewed: Labs reviewed by me, Image(s) reviewed by me Problem List/Assessment/Plan Problem List/Assessment/Plan Acute on chronic metabolic versus toxic encephalopathy Worsening hypernatremia, free water deficit 3.8 L Community-acquired pneumonia Gram-positive versus Gram-negative Acute on chronic hypoxic respiratory failure due to above Hypernatremia COURTNEY likely hemodynamically mediated/VMN Sepsis; blood cultures growing staph hominis Severe dementia S/p G-tube replacement Bed-bound Plan: S/p G-tube replacement KUB: Gastrostomy tube in satisfactory position Resumed tube feedings, monitor residuals Continue supportive care Continue antibiotics Thank you so much for the opportunity to consult on your patient. GI team will follow the patient. In case of any questions or concerns please feel free to reach out. Plan discussed with Dr. Lindsey Plan discussed with: Other (RN) My Orders My Orders Orders - JOAQUIN JAMES RESIDENT Procedure Category Date Status Time Complete Blood Count LAB 02/07/25 Verified 09:36 Comprehensive LAB 02/07/25 Verified Metabolic Panel 09:36 Complete Blood Count LAB 02/08/25 Verified 04:00 Dietary Evaluation Review Comments: 1) Continue EN regimen - flush with 120 mL free H2O Q8 2) Consult ST for swallow evaluation 3) Follow-up with cardiology, pulmonology, neurology, and nephrology 4) Continue to monitor I&O, labs, and skin integrity Expected Outcomes/Goals: 1) nutritional support to meet at least 75% of estimated daily needs 2) diet to advance 3) follow-up in 3-5 days JOAQUIN JAMES RESIDENT Feb 07, 2025 09:37
[2025-02-07 09:46] LABS: Hematocrit 28.0 % (41.0-53.0); Hemoglobin 8.9 g/dL (13.5-17.5); Mean Corpuscular Hemoglobin 29.1 pg (28.0-32.0); Mean Corpuscular Volume 91.6 fL (80.0-100.0); Nucleated Red Blood Cells % 0.1 %
[2025-02-07 09:55] LABS: Alanine Aminotransferase 23 U/L (7-40); Albumin 3.3 g/dL (3.2-4.8); Alkaline Phosphatase 91 U/L (46-116); Anion Gap 10 (5-15); BUN/Creatinine Ratio 17.4 (10.0-20.0); Blood Urea Nitrogen 21 mg/dL (9-23); Calcium 9.1 mg/dL (8.7-10.4); Potassium 4.6 mmol/L (3.5-5.1); Total Protein 6.5 g/dL (5.7-8.2)
[2025-02-07 10:01] LABS: Bilirubin, Total 0.2 mg/dL (0.2-1.0); Carbon Dioxide 33 mmol/L (20-31); Chloride 109 mmol/L (98-107); Glucose 144 mg/dL (74-106); Sodium 152 mmol/L (136-145)
--- NOTE | 2025-02-07 13:34 | DVHDS2 ---
Discharge Summary Date of Admission Jan 24, 2025 at 17:08 Date of Discharge: Feb 07, 2025 Labs/Diagnostic Data: Laboratory Results Test 02/07/25 11:50 02/07/25 04:52 02/05/25 06:44 02/02/25 21:25 POC Glucose 144 mg/dl (70-106) White Blood Count 5.2 10^3/uL (4.4-10.8) Red Blood Count 3.05 10^6/uL (4.5-5.90) Hemoglobin 8.9 g/dL (13.5-17.5) Hematocrit 28.0 % (41.0-53.0) Mean Corpuscular Volume 91.6 fL (80.0-100.0) Mean Corpuscular Hemoglobin 29.1 pg (28.0-32.0) Mean Corpuscular Hemoglobin Concent 31.8 g/dL (32.0-36.0) Red Cell Distribution Width 16.6 % (11.8-14.3) Platelet Count 91 10^3/uL (140-450) Mean Platelet Volume 9.7 fL (6.9-10.8) Neutrophils (%) (Auto) 63.1 % (37.0-80.0) Lymphocytes (%) (Auto) 21.9 % (10.0-50.0) Monocytes (%) (Auto) 13.1 % (0.0-12.0) Eosinophils (%) (Auto) 0.7 % (0.0-7.0) Basophils (%) (Auto) 1.2 % (0.0-2.0) Neutrophils # (Auto) 3.3 10 ^3/uL (1.6-8.6) Lymphocytes # (Auto) 1.1 10 ^3/uL (0.4-5.4) Monocytes # (Auto) 0.7 10 ^3/uL (0-1.3) Eosinophils # (Auto) 0 10 ^3/uL (0-0.8) Basophils # (Auto) 0.1 10 ^3/uL (0-0.2) Nucleated Red Blood Cells 0.1 % Sodium Level 152 mmol/L (136-145) Potassium Level 4.6 mmol/L (3.5-5.1) Chloride Level 109 mmol/L (98-107) Carbon Dioxide Level 33 mmol/L (20-31) Anion Gap 10 (5-15) Blood Urea Nitrogen 21 mg/dL (9-23) Creatinine 1.21 mg/dL (0.700-1.30) Glomerular Filtration Rate Calc 63 mL/min (>90) BUN/Creatinine Ratio 17.4 (10.0-20.0) Serum Glucose 144 mg/dL (74-106) Calcium Level 9.1 mg/dL (8.7-10.4) Total Bilirubin 0.2 mg/dL (0.2-1.0) Aspartate Amino Transferase (AST) 30 U/L (13-40) Alanine Aminotransferase (ALT) 23 U/L (7-40) Alkaline Phosphatase 91 U/L (46-116) Total Protein 6.5 g/dL (5.7-8.2) Albumin 3.3 g/dL (3.2-4.8) Random Vancomycin Level 18.8 ug/mL (5-10) Prothrombin Time 10.9 sec (9.3-11.8) Prothrombin Time INR 1.03 (0.9-1.15) Activated Partial Thromboplast Time 29.9 SEC (24.5-34.5) Vancomycin Level Trough 22.7 ug/mL (5-10) Test 02/01/25 05:24 01/31/25 12:31 01/30/25 10:15 01/28/25 18:25 Stool Occult Blood Pos x1 (Negative) Stool Occult Blood Sample #3 (Negative) SARS-CoV-2 Antigen (Rapid) Negative (NEGATIVE) Ammonia < 10 umol/L (11-32) C-Reactive Protein High Sensitivity 1.02 mg/dL (<1.0) Test 01/28/25 05:30 01/25/25 13:25 01/24/25 17:43 01/24/25 16:10 Ferritin 22.0 ng/mL (22-322) Lactate Dehydrogenase 161 U/L (120-246) Urine Color Yellow (Yellow) Urine Clarity Clear (Clear) Urine pH 6.5 (5.0-9.0) Urine Specific [place] 1.019 (1.001-1.035) Urine Protein 1+ (Negative) Urine Ketones Negative (Negative) Urine Blood Negative /uL (Negative) Urine Nitrite Negative (Negative) Urine Bilirubin Negative (Negative) Urine Urobilinogen Normal mg/dL (Negative) Urine Leukocyte Esterase Negative /uL (Negative) Urine RBC <1 /hpf (0 - 3) Urine Microscopic WBC 2 /HPF (0-3) Urine Squamous Epithelial Cells None seen /hpf (<5) Urine Bacteria None seen /hpf (None Seen) Urine Glucose Normal mg/dL (Normal) Lactic Acid Level 1.0 mmol/L (0.4-2.0) Influenza Type A Antigen Negative (Negative) Influenza Type B Antigen Negative (Negative) Test 01/24/25 15:35 01/24/25 13:14 D-Dimer, Quantitative 7.23 mg/L FEU (0.0-0.49) Magnesium Level 3.9 mg/dL (1.6-2.6) Troponin I High Sensitivity 55 ng/L (</=54) Thyroid Stimulating Hormone (TSH) 0.86 uIU/mL (0.55-4.78) B-Type Natriuretic Peptide 32.31 pg/mL (0-100) Other Laboratory Tests 02/07/25 04:52 Brief Hx & Hospital Course: Acute metabolic/toxic encephalopathy in the setting of sepsis and hypernatremia COURTNEY; most likely vasomotor nephropathy in the setting of sepsis Hypernatremia in the setting of COURTNEY and sepsis Acute hypoxic respiratory failure due to COVID pneumonia Sepsis due to MDR Staphylococcus epidermidis bacteremia Hypertensive heart disease with chronic systolic heart failure; not in exacerbation Severe dementia with G-tube; suspected nonverbal status Pancytopenia; most likely due to sepsis Physical deconditioning due to above Switched IV antibiotics to IV vancomycin after discussion with Nephrology after reviewing blood culture susceptibility Ordered repeat blood cultures Avoid nephrotoxic agents Continue oxygen therapy as needed Correct electrolytes as per Nephrology Nephrology is following On renally adjusted DVT prophylaxis Continue remdesivir and steroids Gtube clogged. Will consult GI specialist. No signs of active bleeding; ordered stool occult blood Airborne precaution Continue monitoring Patient's clinical services still remained tenuous. Minimally verbal. Follow hyperkalemia with the labs and Nephrology recommendations. Continue Lokelma. Continue current treatment with the empiric antibiotics and code treatment as he is on as well as iron transfusions. Appreciate GI input. TF replacement soon.. 02/05: Surgery consult, G-tube placement done. Will restart TF in 24 hours. Will give lasix 40mg IV bid. XRay reviewed. 02/06/2025: pt started feeding via G-tube. seen at bedside, pt not answer many of my questions 02/07/2025: discharged to home Condition at Discharge: Fair Final Diagnosis/Problems List see above Discharge Disposition: Home with Health Services Discharge Instruct/Medications Diet: Cardiac 2g Na,low cholest Activity: No Restrictions, As Tolerated Scheduled Albuterol Sulfate (Ventolin), 2.5 MG NEB Q6HR Aspirin (Aspirin Low Dose), 1 TAB GT DAILY, (Reported) Carvedilol (Carvedilol), 1 TAB GT BID, (Reported) Cephalexin (Keflex Capsule), 2 CAP PO BID Famotidine (Famotidine), 20 MG GT DAILY, (Reported) Hydralazine Hcl (Hydralazine Hcl), 50 MG GT TID, (Reported) Insulin Glargine-Yfgn (Insulin Glargine), 10 UNIT SC DAILY, (Reported) Losartan Potassium (Losartan Potassium), 25 MG GT BID, (Reported) Scheduled PRN Acetaminophen (M-Pap), 160 MG GT for PAIN SCALE 1-3 OR TEMP>100.4, (Reported) Durable Medical Equipment Respiratory Therapy Supplies (Nebulizer Kit/Tubing/Mout), UNIT XX TIDP PRN, (DME) Discharge Statement: "Patient was advised to return to the ER or call 911 if any headaches, dizziness, shortness of breath, chest pain, abdominal pain, bleeding, fevers, or worsening of medical condition. Patient was counseled about treatment plan, medications, possible side effects, patientverbalized understanding. All questions were answered to the best of my ability. This discharge took greater then 30 minutes in planning, reviewing documentation, counseling the patient, and discussing with other team members." ASSESSMENT ASSESSMENT Assessment Date of Service: Feb 07, 2025 Billing Provider: PREMA VALVERDE DO Common Visit Codes: [id number] DISCH DAY >30min PREMA VALVERDE DO Feb 07, 2025 13:34
[2025-02-07] MEDS ORDERED: ALBUTEROL SULF 2.5 MG/0.5ML(0.5%) NEB SOLN NEB PRN (13:45)
[2025-02-07] MEDS: ALBUTEROL SULF 2.5 MG/0.5ML(0.5%) NEB SOLN ONE (14:04)
--- NOTE | 2025-02-07 16:10 | DVH ---
CHEST RADIOGRAPH Indication: sob Technique: Single frontal view of the chest was obtained Comparison: XY CHEST PORTABLE on DOS: 01/28/25, XY CHEST PORTABLE on DOS: 01/25/25, XY CHEST XRAY 1 VIE W on DOS: 01/24/25 FINDINGS: Lines and Tubes: Pacemaker in place unchanged. Lungs: Bibasilar airspace disease with small pleural effusions. Pleura: No effusion. No pneumothorax. Cardiomediastinal contours: Cardiomegaly Bones: No acute osseous abnormality. IMPRESSION: 1. No significant change from 01/28 2025 persistent bibasilar airspace disease and pleural effusions. HS:Y
[2025-02-07] MEDS: ALBUTEROL SULF 2.5 MG/0.5ML(0.5%) NEB SOLN NEB SCH (18:22)
[2025-02-08] VITALS (17 sets, daily range): BP systolic 153–200; BP diastolic 67–87; PULSE 61–109; RESP 16–20; TEMP 98.1–99.5; O2SAT 95–100
[2025-02-08 06:23] LABS: Hematocrit 25.6 % (41.0-53.0); Hemoglobin 8.4 g/dL (13.5-17.5); Mean Corpuscular Hemoglobin 30.0 pg (28.0-32.0); Mean Corpuscular Volume 91.8 fL (80.0-100.0); Nucleated Red Blood Cells % 0.4 %
--- NOTE | 2025-02-08 10:06 | DVHPN2 ---
Progress Note Date Seen: Feb 08, 2025 Resident Creating Document: JOAQUIN JAMES RESIDENT Medical Necessity Reason Pt with a Central, PICC or Fol: Yes The following are medically ne: Chawla Catheter Subjective Review of Systems Patient seen and examined at bedside Remains nonverbal, unable to assess mentation Running TF at 60 cc/hour with minimal residual Last bowel movement today Objective vital signs Vital Sign Date Time Temp Pulse Resp B/P (MAP) Pulse Ox O2 Delivery O2 Flow Rate FiO2 02/08/25 09:18 200/71 02/08/25 09:17 78 02/08/25 09:00 98.3 19 98 98.3 02/08/25 05:50 Nasal Cannula* 4 36 Total Intake and Output 02/07/25 02/07/25 02/08/25 15:00 23:00 07:00 Intake Total 0 ml 0 ml Output Total 1150 ml 700 ml Balance -1150 ml -700 ml medications Current Medications Medications Dose Ordered Sig/Jim Route Start Time Stop Time Status Last Admin Dose Admin Acetaminophen 1,000 mg Q8HP PRN PO 01/24/25 17:15 Ondansetron HCl 4 mg Q4HP PRN IV 01/24/25 17:15 01/28/25 00:06 4 MG Nitroglycerin 0.4 mg Q5MINP PRN SL 01/24/25 17:15 Hydralazine HCl 10 mg Q6HP PRN IV 01/26/25 01:45 02/08/25 05:33 10 MG Diagnostic Test (Pha) 1 strip ACHS 01/27/25 17:00 02/08/25 06:24 1 STRIP Insulin Human Regular HS SC 01/27/25 22:00 02/06/25 21:36 2 UNITS Insulin Human Regular AC SC 01/27/25 17:00 02/08/25 06:24 2 UNITS Carvedilol 6.25 mg Q12HR GT 01/27/25 22:00 02/08/25 09:17 6.25 MG Vancomycin HCl 0 ml @ 0 mls/hr UD IV 01/28/25 15:45 Enteral Nutritional Formula 1,000 ml 60ML/HR GT 01/29/25 13:30 02/07/25 23:16 1,000 ML Pantoprazole Sodium 40 mg BID IV 01/29/25 22:00 02/08/25 09:17 40 MG Furosemide 40 mg DAILY IV 02/05/25 10:00 02/08/25 09:18 40 MG Dextrose 50 ml ONCE PRN IV 02/05/25 01:45 02/05/25 06:12 50 ML Albuterol 2.5 mg Q6HR NEB 02/07/25 18:00 02/08/25 05:57 2.5 MG Examination General Appearance: Well developed. Well nourished. NAD Pulmonary/Respiratory: Coarse bilateral breath sounds Cardiovascular/Chest: Regular rate and rhythm. No murmurs. Abdominal Exam: Normal bowel sounds. Soft. normal abdomen, no visible veins, Nontender. Peg tube site clean Neuro/Mental Status: A&O x1 Skin Exam: Normal inspection. Normal color. Warm. Dry laboratory and microbiology Laboratory Tests 02/08/25 04:40 02/07/25 04:52 Test 02/07/25 04:52 Range/Units Serum Glucose 144 H 74-106 mg/dL Microbiology Date/Time Source Procedure Growth Status 01/28/25 19:29 Blood Blood Culture - Final Staph hominis subsp homins Complete 01/25/25 13:25 Voided Urine Urine Culture - Final Complete Labs and/or images reviewed: Labs reviewed by me, Image(s) reviewed by me Problem List/Assessment/Plan Problem List/Assessment/Plan Acute on chronic metabolic versus toxic encephalopathy Worsening hypernatremia, free water deficit 3.8 L Community-acquired pneumonia Gram-positive versus Gram-negative Acute on chronic hypoxic respiratory failure due to above Hypernatremia COURTNEY likely hemodynamically mediated/VMN Sepsis; blood cultures growing staph hominis Severe dementia Hypertensive urgency S/p G-tube replacement Bed-bound Plan: S/p G-tube replacement KUB: Gastrostomy tube in satisfactory position Resumed tube feedings, monitor residuals Continue supportive care Continue antibiotics Thank you so much for the opportunity to consult on your patient. GI team will s ign off. In case of any questions or concerns please feel free to reach out. Plan discussed with Dr. Lindsey Plan discussed with: Other (RN Eduar) Dietary Evaluation Review Comments: 1) Continue EN regimen - flush with 120 mL free H2O Q8 2) Consult ST for swallow evaluation 3) Follow-up with cardiology, pulmonology, neurology, and nephrology 4) Continue to monitor I&O, labs, and skin integrity Expected Outcomes/Goals: 1) nutritional support to meet at least 75% of estimated daily needs 2) diet to advance 3) follow-up in 3-5 days JOAQUIN JAMES RESIDENT Feb 08, 2025 10:06
[2025-02-08] MEDS: VANCOMYCIN 500mg/100mL 100 ML IV ONE (12:29)
--- NOTE | 2025-02-08 14:03 | DVHPN2 ---
Reviewed: Care Plan, H&P, Labs, Medications, Previous Orders, Radiology, Other (Consultations) Changes from previous H/P or p: No Changes General: Per HPI Objective Vitals Vital Signs Date Time Temp Pulse Resp B/P (MAP) Pulse Ox O2 Delivery O2 Flow Rate FiO2 02/08/25 13:55 61 18 100 02/08/25 13:49 Nasal Cannula* 4 36 02/08/25 10:17 166/53 02/08/25 09:00 98.3 98.3 Intake/Output Intake and Output 02/08/25 07:00 Intake Total 0 ml Output Total 1850 ml Balance -1850 ml Intake Oral 0 ml Output Urine Total 1850 ml # Bowel Movements 2 General Appearance: Alert, Cooperative, Other (Confused; did not answer any question) HEENT: Atraumatic Lungs: Other (Decreased air entry bilaterally) Cardiovascular: Regular rate, Normal S1, Normal S2 Abdomen: Normal bowel sounds, Soft, No tenderness, Other (G-tube in place with no signs of bleeding/infection) Genitourinary: Other (Chawla's in place) Neuro: Other (Unable to assess as the patient did not follow commands; no facial asymmetry) Psych/Mental Status: Other (Unable to assess as the patient did not answer any question) Medications Current Medications Medications Dose Ordered Sig/Jim Route Start Time Stop Time Status Last Admin Dose Admin Acetaminophen 1,000 mg Q8HP PRN PO 01/24/25 17:15 Ondansetron HCl 4 mg Q4HP PRN IV 01/24/25 17:15 01/28/25 00:06 4 MG Nitroglycerin 0.4 mg Q5MINP PRN SL 01/24/25 17:15 Hydralazine HCl 10 mg Q6HP PRN IV 01/26/25 01:45 02/08/25 05:33 10 MG Diagnostic Test (Pha) 1 strip ACHS 01/27/25 17:00 02/08/25 11:30 1 STRIP Insulin Human Regular HS SC 01/27/25 22:00 02/06/25 21:36 2 UNITS Insulin Human Regular AC SC 01/27/25 17:00 02/08/25 11:30 2 UNITS Carvedilol 6.25 mg Q12HR GT 01/27/25 22:00 02/08/25 09:17 6.25 MG Vancomycin HCl 0 ml @ 0 mls/hr UD IV 01/28/25 15:45 Enteral Nutritional Formula 1,000 ml 60ML/HR GT 01/29/25 13:30 02/07/25 23:16 1,000 ML Pantoprazole Sodium 40 mg BID IV 01/29/25 22:00 02/08/25 09:17 40 MG Furosemide 40 mg DAILY IV 02/05/25 10:00 02/08/25 09:18 40 MG Dextrose 50 ml ONCE PRN IV 02/05/25 01:45 02/05/25 06:12 50 ML Albuterol 2.5 mg Q6HR NEB 02/07/25 18:00 02/08/25 13:49 2.5 MG Laboratory Results Laboratory Tests 02/07/25 04:52 02/08/25 04:40 Urinalysis Test 01/25/25 13:25 Urine Color Yellow (Yellow) Urine Clarity Clear (Clear) Urine pH 6.5 (5.0-9.0) Urine Specific [place] 1.019 (1.001-1.035) Urine Protein 1+ (Negative) H Urine Ketones Negative (Negative) Urine Blood Negative /uL (Negative) Urine Nitrite Negative (Negative) Urine Bilirubin Negative (Negative) Urine Urobilinogen Normal mg/dL (Negative) Urine Leukocyte Esterase Negative /uL (Negative) Urine RBC <1 /hpf (0 - 3) Urine Microscopic WBC 2 /HPF (0-3) Urine Squamous Epithelial Cells None seen /hpf (<5) Urine Bacteria None seen /hpf (None Seen) Urine Glucose Normal mg/dL (Normal) Microbiology Microbiology Date/Time Source Procedure Growth Status 01/28/25 19:29 Blood Blood Culture - Final Staph hominis subsp homins Complete 01/25/25 13:25 Voided Urine Urine Culture - Final Complete Assessment/Plan Assessment/Plan Acute metabolic/toxic encephalopathy in the setting of sepsis and hypernatremia COURTNEY; most likely vasomotor nephropathy in the setting of sepsis Hypernatremia in the setting of COURTNEY and sepsis Acute hypoxic respiratory failure due to COVID pneumonia Sepsis due to MDR Staphylococcus epidermidis bacteremia Hypertensive heart disease with chronic systolic heart failure; not in exacerbation Severe dementia with G-tube; suspected nonverbal status Pancytopenia; most likely due to sepsis Physical deconditioning due to above Switched IV antibiotics to IV vancomycin after discussion with Nephrology after reviewing blood culture susceptibility Ordered repeat blood cultures Avoid nephrotoxic agents Continue oxygen therapy as needed Correct electrolytes as per Nephrology Nephrology is following On renally adjusted DVT prophylaxis Continue remdesivir and steroids Gtube clogged. Will consult GI specialist. No signs of active bleeding; ordered stool occult blood Airborne precaution Continue monitoring Patient's clinical services still remained tenuous. Minimally verbal. Follow hyperkalemia with the labs and Nephrology recommendations. Continue Lokelma. Continue current treatment with the empiric antibiotics and code treatment as he is on as well as iron transfusions. Appreciate GI input. TF replacement soon.. 02/05: Surgery consult, G-tube placement done. Will restart TF in 24 hours. Will give lasix 40mg IV bid. XRay reviewed. 02/06/2025: pt started feeding via G-tube. seen at bedside, pt not answer many of my questions 02/07/2025: discharged to home 02/08/2025: pt to be discharged, pending transportation Plan discussed with: Patient My Orders Orders - PREMA VALVERDE DO Procedure Category Date Status Time Chest Xray 1 View XY 02/07/25 Resulted 14:55 Chest Percussion Tx RT 02/07/25 Logged Initi 15:25 Albuterol Medneb PHA 02/07/25 In Process (Ventolin Medneb) 18:00 Chest Percussion Tx RT 02/07/25 Logged SUB 15:39 Discharge DISCHARGE 02/08/25 Transmitted 10:00 * [id number] Programmer CONS 02/08/25 Transmitted Consult Date of Service: Feb 08, 2025 Billing Provider: PREMA VALVERDE DO Common Visit Codes: [id number] INP/OBS CARE(HIGH) PREMA VALVERDE DO Feb 08, 2025 14:03
[2025-02-08] MEDS ORDERED: ALB5IS NEB (14:54)
[2025-02-08] MEDS ORDERED: CEPH250C PO (14:54)
[2025-02-08] MEDS ORDERED: RESPKIT15 XX (14:56)
[2025-02-08] MEDS: FLEET ENEMA(ADULT) 135 ML PR ONE (16:30)
== END 2025-02-08 20:24 | disposition home health service (06) | DRG 871 ==
LOC: EDBD 11:26 → ER 11:26 → OVERFLOW 17:08 → TELE-CENTR 01-25 16:10
PROVIDERS: ADMIT Internal Medicine; ATTEND Internal Medicine
PROC: XW033E5 Introduction of Remdesivir Anti-infective into Peripheral Vein, Percutaneous Approach, New Technology Group 5 (ICD-10-PCS; 2025-01-24)
PROC: 0D20XUZ Change Feeding Device in Upper Intestinal Tract, External Approach (ICD-10-PCS; principal; 2025-02-05)
PROC: 30233N1 Transfusion of Nonautologous Red Blood Cells into Peripheral Vein, Percutaneous Approach (ICD-10-PCS; 2025-02-05)
DX: A41.89 Other specified sepsis (principal); G92.8 Other toxic encephalopathy; J12.82 Pneumonia due to coronavirus disease 2019; U07.1 COVID-19; N17.0 Acute kidney failure with tubular necrosis; J96.21 Acute and chronic respiratory failure with hypoxia; E87.0 Hyperosmolality and hypernatremia; I24.89 Other forms of acute ischemic heart disease; D61.818 Other pancytopenia; I50.22 Chronic systolic (congestive) heart failure; I13.0 Hypertensive heart and chronic kidney disease with heart failure and stage 1 through stage 4 chronic kidney disease, or unspecified chronic kidney disease; K94.23 Gastrostomy malfunction; F03.90 Unspecified dementia, unspecified severity, without behavioral disturbance, psychotic disturbance, mood disturbance, and anxiety; I16.0 Hypertensive urgency; G47.33 Obstructive sleep apnea (adult) (pediatric); E11.22 Type 2 diabetes mellitus with diabetic chronic kidney disease; N18.9 Chronic kidney disease, unspecified; E87.5 Hyperkalemia; B95.7 Other staphylococcus as the cause of diseases classified elsewhere; Z74.01 Bed confinement status; Z99.81 Dependence on supplemental oxygen; Z86.73 Personal history of transient ischemic attack (TIA), and cerebral infarction without residual deficits; Z79.899 Other long term (current) drug therapy; Z79.4 Long term (current) use of insulin; Z79.82 Long term (current) use of aspirin
CPT/HCPCS: 36415; 43760; 70450; 71045; 74018; 80048; 80053; 80202; 81001; 82140; 82270; 82565; 82728; 82962; 83605; 83615; 83735; 83880; 84443; 84484; 85014; 85018; 85025; 85379; 85610; 85730; 86141; 86850; 86900; 86901; 86920; 87040; 87077; 87086; 87186; 87426; 87804; 93005; 93970; 93971; 94640; 94668; G0378; J1100; J1756; J1815; J2405; J2470; J2543